=== PATIENT | male | born 1950 | race Caucasian/White ===

== ENCOUNTER 2017-05-20 12:03 | Day surgery (SDC) | payer BC, MEDICARE, SELFPAY ==
[2017-05-20] VITALS (7 sets, daily range): BP systolic 108–138; BP diastolic 64–76; PULSE 60–69; RESP 16–18; TEMP 36.6–36.9; O2SAT 94–99; BMI 31.8
--- NOTE | 2017-05-20 | COLBX_PTH ---
PATIENT: GLEN MACK LOC: EN U#:[id number] AGE/SX: 66/M ROOM: RE05/20/[address]: Dr. Fatou Mckeon MD : 1950 BED: DIS: 05/20/2017 SPEC #: [id number] RECD: 05/20/17 14:46 STATUS: ELIGIO RELarry #: [id number] ABDOULAYE: 05/20/17 00:[address]: Fatou Mckeon DEPT: SURGICAL PATHOLOGY RECD BY: Jeremy Jewell ENTERED: 05/20/17 14:47 SP TYPE: COLON BX OTHR DR: DEJON Corona Tissues: A - Transverse colon B - Rectum, NOS Procedures: Surgery Specimen Level IV HEADER OPERATION: Colonoscopy PRE-OP DIAGNOSIS: Anemia, guaiac positive stools TISSUE SUBMITTED: A ? Transverse colon polyp, B ? Rectal polyp MICROSCOPIC DIAGNOSIS A. Transverse colon polyp, biopsy: Hyperplastic polyp. B. Rectal polyp, biopsy: Tubular adenoma. AM:purnima 05/21/17 MICROSCOPIC DESCRIPTION Slides are reviewed. GROSS DESCRIPTION A - Received in fixative is one container labeled with the patient's name and designated transverse colon polyp. The specimen consists of one irregular fragment of light [place] soft tissue that measures 0.5 x 0.5 x 0.1 cm. The specimen is totally submitted in one cassette. B - Received in fixative is one container labeled with the patient's name and designated rectal polyps. The specimen consists of one irregular fragment of light [place] soft tissue that measures 0.2 x 0.1 x 0.1 cm. The specimen is totally submitted in one cassette. / AM:purnima 05/20/17 TC:5 CPT: 35690 x2
--- NOTE | 2017-05-20 | COLBX_PTH ---
PATIENT: GLEN MACK LOC: EN U#:[id number] AGE/SX: 66/M ROOM: RE05/20/[address]: Dr. Fatou Mckeon MD : 1950 BED: DIS: 05/20/2017 SPEC #: [id number] RECD: 05/20/17 14:46 STATUS: ELIGIO RELarry #: [id number] ABDOULAYE: 05/20/17 00:[address]: Fatou Mckeon DEPT: SURGICAL PATHOLOGY RECD BY: Jeremy Jewell ENTERED: 05/20/17 14:47 SP TYPE: COLON BX OTHR DR: DEJON Corona Tissues: A - Transverse colon B - Rectum, NOS Procedures: Surgery Specimen Level IV HEADER OPERATION: Colonoscopy PRE-OP DIAGNOSIS: Anemia, guaiac positive stools TISSUE SUBMITTED: A ? Transverse colon polyp, B ? Rectal polyp MICROSCOPIC DIAGNOSIS A. Transverse colon polyp, biopsy: Tubular adenoma. B. Rectal polyp, biopsy: Hyperplastic polyp. AM:purnima 05/21/17 AM: 05/30/17 MICROSCOPIC DESCRIPTION Slides are reviewed. GROSS DESCRIPTION A - Received in fixative is one container labeled with the patient's name and designated transverse colon polyp. The specimen consists of one irregular fragment of light [place] soft tissue that measures 0.5 x 0.5 x 0.1 cm. The specimen is totally submitted in one cassette. B - Received in fixative is one container labeled with the patient's name and designated rectal polyps. The specimen consists of one irregular fragment of light [place] soft tissue that measures 0.2 x 0.1 x 0.1 cm. The specimen is totally submitted in one cassette. / AM:purnima 05/20/17 TC:5 CPT: 27247 x2
[2017-05-20 12:45] LABS: Bedside Glucose 116 mg/dL (70-110)
--- NOTE | 2017-05-20 14:22 | PCM.OPRPT ---
Report of Operation Date of Procedure: 05/20/17 Pre-Operative Diagnosis: anemia of unknown etiology Post-Operative Diagnosis: colon polyps of transverse and rectum Surgery/Procedure Performed:: esophagogastroduodenoscopy. colonoscopy with polyectomy using hot snare device Description of Surgical Findings:: normal EGD, 1 cm transverse colon polyp, < 1 cm proximal rectal polyp Type of Anesthesia:: MAC Anesthesiologist: Ilda Watkins Specimen's removed: transverse colon polyp, rectal polyp Estimated Blood Loss (mL): < 1 ml Fluids Replaced: see anesthesia note Description of Procedure: After informed consent was given, the patient was brought to the endoscopy suite and placed in the upright sitting position. Appropriate time out protocol was followed. Appropriate cardiac, blood pressure, and pulse oximetry monitoring was placed. After stable vital signs were noted, the patient was given intravenous conscious sedation. The posterior pharynx was sprayed with lidocaine spray times two and a bite block was placed. The upper endoscope was lubricated and inserted into the patients mouth and then carefully placed into the patients throat. The patient was asked to swallow and the endoscope was then easily advanced into the patients esophagus. The endoscope was further advanced down into the patients stomach, then past the pylorus, then past the duodenal bulb and then to the second portion of the duodenum. There were no lesions noted in the duodenum. The endoscope was then retracted back into the stomach. A retroflex view of the stomach revealed no evidence of any masses. No ulcers, no strictures, no suspicious lesions were noted. The endoscope was retracted into the esophagus, where any insufflated gas in the stomach was aspirated out. The gastroesophageal junction appeared normal. The remainder of the esophagus was normal. The upper endoscope was removed intact. The next procedure was the colonoscopy. The colonoscope was lubricated and carefully inserted into the patients anus. It was then advanced into the rectum, then into the sigmoid colon, then into the left descending colon, past the splenic flexure, into the transverse colon, past the hepatic flexure, then down into the right descending colon and into the cecum. The cecum was identified by: transillumination, confluence of the tenae coli, identification of the ileocecal valve and appendiceal orifice, and external pressure with indentation. At this point, the colonoscope was slowly retracted back and the entire colonic mucosa was examined. The colon cleansing preparation was adequate. There was still some retained fecal material but this was able to be lavaged and aspirated until clear. There was no evidence of extrinsic compression and no inflammatory changes were noted. There was a transverse colon polyp that was noted, proximally and removed completely with the hot loop cautery device. There was a small, < 1 cm, rectal polyp that was also removed in the same fashion. No intraluminal obstructing lesions, no strictures, and no ulcers were noted. Retroflex view in the rectum revealed no lesions in the rectal vault except for hemorrhoidal changes. The colonoscope was removed intact. Patient tolerated the procedure well. - Complications none noted - Admit VTE Documentation VTE Present on Admission: No - low risk procedure for DVT/PE
--- NOTE | 2017-05-20 14:28 | OP.PCM_ITS ---
Report of Operation Date of Procedure: 05/20/17 Pre-Operative Diagnosis: anemia of unknown etiology Post-Operative Diagnosis: colon polyps of transverse and rectum Surgery/Procedure Performed:: esophagogastroduodenoscopy. colonoscopy with polyectomy using hot snare device Description of Surgical Findings:: normal EGD, 1 cm transverse colon polyp, < 1 cm proximal rectal polyp Type of Anesthesia:: MAC Anesthesiologist: Ilda Watkins Specimen's removed: transverse colon polyp, rectal polyp Estimated Blood Loss (mL): < 1 ml Fluids Replaced: see anesthesia note Description of Procedure: After informed consent was given, the patient was brought to the endoscopy suite and placed in the upright sitting position. Appropriate time out protocol was followed. Appropriate cardiac, blood pressure, and pulse oximetry monitoring was placed. After stable vital signs were noted, the patient was given intravenous conscious sedation. The posterior pharynx was sprayed with lidocaine spray times two and a bite block was placed. The upper endoscope was lubricated and inserted into the patient?s mouth and then carefully placed into the patient?s throat. The patient was asked to swallow and the endoscope was then easily advanced into the patient?s esophagus. The endoscope was further advanced down into the patient?s stomach, then past the pylorus, then past the duodenal bulb and then to the second portion of the duodenum. There were no lesions noted in the duodenum. The endoscope was then retracted back into the stomach. A retroflex view of the stomach revealed no evidence of any masses. No ulcers, no strictures, no suspicious lesions were noted. The endoscope was retracted into the esophagus, where any insufflated gas in the stomach was aspirated out. The gastroesophageal junction appeared normal. The remainder of the esophagus was normal. The upper endoscope was removed intact. The next procedure was the colonoscopy. The colonoscope was lubricated and carefully inserted into the patient?s anus. It was then advanced into the rectum, then into the sigmoid colon, then into the left descending colon, past the splenic flexure, into the transverse colon, past the hepatic flexure, then down into the right descending colon and into the cecum. The cecum was identified by: transillumination, confluence of the tenae coli, identification of the ileocecal valve and appendiceal orifice, and external pressure with indentation. At this point, the colonoscope was slowly retracted back and the entire colonic mucosa was examined. The colon cleansing preparation was adequate. There was still some retained fecal material but this was able to be lavaged and aspirated until clear. There was no evidence of extrinsic compression and no inflammatory changes were noted. There was a transverse colon polyp that was noted, proximally and removed completely with the hot loop cautery device. There was a small, < 1 cm, rectal polyp that was also removed in the same fashion. No intraluminal obstructing lesions, no strictures, and no ulcers were noted. Retroflex view in the rectum revealed no lesions in the rectal vault except for hemorrhoidal changes. The colonoscope was removed intact. Patient tolerated the procedure well. - Complications none noted - Admit VTE Documentation VTE Present on Admission: No - low risk procedure for DVT/PE
== END 2017-05-20 15:16 | disposition home or self-care (01) ==
LOC: EN 12:21 → AC 12:23
PROVIDERS: Family Provider Physician Assistant; PCP Physician Assistant; Visit Provider Surgery
PROC: 0DJD8ZZ Inspection of Lower Intestinal Tract, Via Natural or Artificial Opening Endoscopic (ICD-10-PCS; CPT 45378; principal; 2017-05-20 12:55)
DX: D12.8 Benign neoplasm of rectum (principal); K63.5 Polyp of colon; D64.9 Anemia, unspecified; C7A.8 Other malignant neuroendocrine tumors; I82.5Z1 Chronic embolism and thrombosis of unspecified deep veins of right distal lower extremity; Z79.01 Long term (current) use of anticoagulants; Z79.899 Other long term (current) drug therapy; Z79.84 Long term (current) use of oral hypoglycemic drugs; Z87.11 Personal history of peptic ulcer disease; Z80.0 Family history of malignant neoplasm of digestive organs; E11.40 Type 2 diabetes mellitus with diabetic neuropathy, unspecified; E78.5 Hyperlipidemia, unspecified; I10 Essential (primary) hypertension; E03.9 Hypothyroidism, unspecified; Z79.82 Long term (current) use of aspirin; K21.9 Gastro-esophageal reflux disease without esophagitis; R35.0 Frequency of micturition
CPT/HCPCS: 43235; 45385; 82962; 88305; J7120

== ENCOUNTER 2020-06-21 10:45 | Outpatient (RCR) | payer OTHER, SELFPAY ==
[2020-06-21] MEDS: COVID-19 VACC, MRNA(PFIZER)/PF 30 MCG/0.3 ML SYRINGE IM (10:05)
[2020-07-12] MEDS: COVID-19 VACC, MRNA(PFIZER)/PF 30 MCG/0.3 ML SYRINGE IM (09:56)
== END 2020-09-13 23:59 ==
LOC: IMMUN 10:45
PROVIDERS: PCP Physician Assistant; Visit Provider Family Medicine
DX: Z23 Encounter for immunization (principal)
CPT/HCPCS: 0001A; 0002A; 91300

== ENCOUNTER → 2020-12-08 10:42 | Outpatient (CLI) | payer OTHER, MEDICARE, SELFPAY ==
[2020-11-21 14:31] VITALS: BMI 33.0
--- NOTE | 2020-12-08 10:45 | ECHOD_ITS ---
Reason For Study: A. fib Procedure This was a 2D Doppler, Color Flow transthoracic echocardiogram. The exam was of adequate technical quality. Exam performed in department. Left Ventricle Normal LV size. Mild concentric left ventricular hypertrophy. Apical false tendon noted. Left ventricular systolic function is normal. The estimated ejection fraction is 60 %. There is evidence of diastolic dysfunction. No regional wall motion abnormalities noted. Right Ventricle Normal RV size. Normal systolic function. Atria The left atrium is moderately enlarged. Normal right atrium. No doppler evidence for ASD. Mitral Valve There is no mitral annular calcification. Normal mitral valve. Chordal systolic anterior motion of the mitral valve. Mild (1+) mitral valve insufficiency. Tricuspid Valve Normal tricuspid valve. Mild tricuspid valve insufficiency. Right ventricular systolic pressure estimated to be 36 mmHg. Aortic Valve Trisinus/trileaflet aortic valve. Mild focal aortic valve calcification. Pulmonic Valve Normal pulmonic valve. Great Vessels Normal sized aortic root. Pericardium/Pleural No pericardial effusion. MMode/2D Measurements & Calculations LVIDd: 5.4 cm IVSd: 1.4 cm Ao root diam: 3.9 cm LVIDs: 3.6 cm LVPWd: 1.3 cm RVDd: 3.6 cm FS: 33.2 % LAV(MOD-bp): 88.9 ml LA A4 area: 26.7 cm2 LA dimension(2D): 4.6 cm LAV(MOD-bp) Indexed: 38.8 ml/m2 LAV(MOD-sp2): 85.8 ml LAV(MOD-sp4): 91.8 ml RA A4 area: 19.4 cm2 Doppler Measurements & Calculations MV E max demarcus: 71.0 cm/sec Lat Peak E' Demarcus: 8.7 cm/sec Med Peak E' Demarcus: 6.1 cm/sec MV A max demarcus: 77.8 cm/sec E/E' lat: 8.2 E/E' med: 11.7 MV E/A: 0.91 Ao V2 max: 172.7 cm/sec LV V1 max: 105.0 cm/sec PA V2 max: 125.0 cm/sec Ao max P.9 mmHg LV V1 max P.4 mmHg TR max demarcus: 288.6 cm/sec TR max P.4 mmHg ECHO/Echo Complete Interpretation Summary Left ventricular systolic function is normal. The estimated ejection fraction is 60 %. Mild concentric left ventricular hypertrophy. Apical false tendon noted. The left atrium is moderately enlarged. Chordal systolic anterior motion of the mitral valve. Mild (1+) mitral valve insufficiency. Mild tricuspid valve insufficiency. Mild focal aortic valve calcification. Right ventricular systolic pressure estimated to be 36 mmHg. There is evidence of diastolic dysfunction. Ordering Physician: Mark Coreas/Harlan Allison Referring Physician: Mark Coreas/Harlan Allison Performed By: Samia Pérez RDCS
== END ==
PROVIDERS: PCP Physician Assistant; Referring Provider Nurse Practitioner Family; Visit Provider Nurse Practitioner Family
DX: I48.0 Paroxysmal atrial fibrillation (principal); I10 Essential (primary) hypertension; E78.2 Mixed hyperlipidemia; R42 Dizziness and giddiness
CPT/HCPCS: 93225; 93226; 93306

== ENCOUNTER 2020-12-10 09:15 | Emergency (ER) | payer OTHER, MEDICARE, SELFPAY ==
[2020-12-10] VITALS (24 sets, daily range): BP systolic 100–156; BP diastolic 31–74; PULSE 73–90; RESP 8–18; TEMP 36.5–37.1; O2SAT 96–100; BMI 32.1
--- NOTE | 2020-12-10 10:16 | CT_ITS ---
STUDY: CT ABDOMEN AND PELVIS WITH CONTRAST REASON FOR EXAM: Male, 70 years old. abdomial pain -- IV PO Contrast RADIATION DOSAGE (If Supplied By Facility): CTDIvol = ( 19.66 ) mGy, DLP = ( 1426.23 ) mGycm TECHNIQUE: Transaxial images were obtained from the dome of the diaphragm to the symphysis pubis without oral contrast. Oral and amp; IV Gastrografin and amp; 100mL Isovue-300 was administered. Sagittal and coronal images were reconstructed. Individualized dose optimization techniques were used for this CT. COMPARISON: None. FINDINGS: The visualized lung bases are unremarkable. The visualized portions of the heart are within normal limits. Small amount of ascites. Normal liver. Poor visualization of the portal vein with suggestion of cavernous transformation. Numerous vascular shunts in the upper abdomen. There is non-visualization of the gallbladder, which may be secondary to either contraction or a prior cholecystectomy. There is mild splenomegaly. Normal pancreas. Normal bilateral adrenal glands. Normal right kidney. Normal left kidney. Suspect partial gastrectomy with gastrojejunostomy anastomosis. Normal small intestine. Innumerable small mesenteric lymph nodes and edema of the mesentery may be related to portal hypertension, gastroenteritis, sclerosing mesenteritis, or metastatic disease. Normal colon. The appendix is visualized and appears normal. There is diffuse atherosclerotic calcification of the abdominal aorta, without a demonstrated aneurysm. Normal inferior vena cava. Normal retroperitoneum. Normal urinary bladder. There is enlargement of the prostate gland. Small right inguinal hernia containing fluid. Normal osseous structures. CT/Abdomen/Pelvis WITH Contrast IMPRESSION: 1. Small amount of ascites. 2. 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 Clinical correlation is recommended. 3. Innumerable small mesenteric lymph nodes with edema in the upper abdomen which may be related to portal hypertension, gastroenteritis, sclerosing mesenteritis, or metastatic disease. Electronically Signed: Bc Daugherty MD at 13:24 EDT Tel , Service support ,
--- NOTE | 2020-12-10 10:16 | EKG12_ITS ---
Test Reason : GI Blood Pressure : / mmHG Vent. Rate : 084 BPM Atrial Rate : 084 BPM P-R Int : 166 ms QRS Dur : 102 ms QT Int : 398 ms P-R-T Axes : 013 -41 018 degrees QTc Int : 470 ms Normal sinus rhythm Left axis deviation Abnormal ECG Confirmed by XIMENA CATHERINE, DELORES ([id number]), online content editor LIONEL KNUTSON ([id number]) on 12/13/2020 8:04:29 AM Referred By: PAWAN Confirmed By:JOHNSON BUENO MD
--- NOTE | 2020-12-10 10:16 | CT_ITS ---
STUDY: CT BRAIN WITHOUT CONTRAST REASON FOR EXAM: Male, 70 years old. double vision RADIATION DOSAGE (If Supplied By Facility): CTDIvol = ( 44.99 ) mGy, DLP = ( 914.22 ) mGycm TECHNIQUE: Transaxial CT imaging of the brain was performed without administration of intravenous contrast material. Individualized dose optimization techniques were used for this CT. COMPARISON: No relevant priors. FINDINGS: Normal soft tissue structures. Normal calvarium. There is mild cerebral atrophy with widening of the extra-axial spaces and ventricular dilatation. There are areas of decreased attenuation within the white matter tracts of the supratentorial brain, consistent with microvascular disease changes. Normal basal ganglia and thalami. Normal brainstem. Normal cerebellum. There is no intracranial hemorrhage. There are no findings of an acute ischemic infarction. Normal visualized paranasal sinuses. CT/Brain/Head without Contrast IMPRESSION: Chronic involutional changes of the brain. Electronically Signed: Bc Daugherty MD at 13:29 EDT Tel , Service support ,
--- NOTE | 2020-12-10 10:19 | ED.VIS.GI ---
HPI HPI - GI History of Present Illness Chief Complaint: GI Bleed Narrative Narrative: 70-year-old male presenting with melena and bloody stool over the last 2 days. He states the melena has been ongoing. Patient states that he has a history of pancreatic cancer and had surgery and states that he was told they nicked the vessel. Postoperatively he was on Coumadin for what his daughter say might be portal vein thrombosis. Patient has a history of atrial fibrillation as well. Patient states he had surgery for his pancreatic cancer and is no longer on chemotherapy and sees Dr. Avila and is not on chemotherapy. He does report history of pancytopenia. Patient also has significant history of hypertension, hyperlipidemia, diabetes. Patient reports that for his lightheadedness which has been ongoing for about a month as well he was seen by Dr. Allison and had an echocardiogram which they believe was fine. He also had a follow-up Holter monitor. Patient does report double vision for 1 month. He states he has not had any imaging of his brain but did have a CT of the abdomen pelvis in October which appeared to be consistent with liver disease and he was told he has portal hypertension and cirrhosis as well as esophageal varices. Patient was seen at [facility] and had upper endoscopy which showed no active bleeding from the varices previously. Patient does report chronic right-sided abdominal pain which is unchanged. [facility] Medical History Atrial fibrillation Essential (primary) hypertension Hyperlipemia, mixed Lung nodule Type 2 diabetes mellitus without complications Home Medications esomeprazole magnesium 40 mg capsule,delayed release 40 mg PO QDAY cap 03/15/17 [History Last Taken 05/20/17 05:00] levothyroxine 125 mcg tablet 125 mcg PO QDAY tab 03/15/17 [History Last Taken Unknown] metronidazole 0.75 % topical gel 1 applic TOPICAL BID 03/15/17 [History Last Taken Unknown] simvastatin 20 mg tablet 20 mg PO QPM 03/15/17 [History Last Taken Unknown] tamsulosin 0.4 mg capsule 0.4 mg PO QHS cap 03/15/17 [History Last Taken Unknown] dutasteride 0.5 mg capsule 0.5 mg PO QDAY 03/19/17 [History Last Taken Unknown] ferrous gluconate 324 mg (37.5 mg iron) tablet 324 mg PO BID tab 03/19/17 [History Last Taken Unknown] gabapentin 300 mg capsule 400 mg PO QDAY cap 11/21/20 [History Last Taken Unknown] lisinopril 20 mg tablet 5 mg PO QDAY tab 11/21/20 [History Last Taken Unknown] metformin 850 mg tablet 1,000 mg PO BID tab 11/21/20 [History Last Taken Unknown] omeprazole 40 mg capsule,delayed release 40 mg PO DAILY 11/21/20 [History Last Taken Unknown] warfarin 10 mg tablet 7.5 mg PO QMWF 11/21/20 [History Last Taken Unknown] Allergy/AdvReac Type Severity Reaction Status Date / Time heparin AdvReac Other Verified 12/10/20 09:16 Family History Mother Colon cancer Diabetes Father Lung cancer Surgical History Hx of cataract surgery Hx of vasectomy Social History Smoking Status: Never smoker alcohol intake: former substance use type: does not use and marijuana caffeine: Yes Type: carbonated beverages and coffee what type of physical activity do you participate in: walking frequency: daily duration: 15-30 minutes/day seatbelt use: always do you feel safe at home: Yes ROS ROS ED Constitutional Constitutional ED: Denies chills, fever(s) or sweats ENT ENT ED: Denies rhinorrhea or sore throat Cardiovascular Cardiovascular: Reports palpitations; Denies chest pain Respiratory/Chest Respiratory/Chest: Denies cough or dyspnea Gastrointestinal Gastrointestinal: Reports abdominal pain, melena and other Details: Blood in stool ; Denies nausea or vomiting Genitourinary Genitourinary ED: Denies dysuria or hematuria Musculoskeletal Musculoskeletal: Denies arthralgias or myalgias Integumentary Denies Abrasions or rash Neurologic Neurologic: Denies headache(s) Psychiatric Psychiatric: Denies anxiety or depression EXAM Physical Exam Const Vital Signs: 12/10/20 09:16 12/10/20 11:37 12/10/20 13:07 Temperature 98.1 F 98.5 F Temperature Source Temporal Oral Pulse Rate 90 83 85 Respiratory Rate 8 L 16 Blood Pressure 125/65 H 109/42 L 110/52 L Blood Pressure Mean 85 64 71 Blood Pressure Source Monitor Blood Pressure Position Semi-Fowlers Blood Pressure Location Left Arm Pulse Ox 100 98 98 Oxygen Delivery Method Room Air Room Air Room Air 12/10/20 13:22 12/10/20 14:05 12/10/20 14:22 Temperature 98.5 F 98.1 F 98.8 F Temperature Source Oral Oral Oral Pulse Rate 83 84 79 Respiratory Rate 16 16 16 Blood Pressure 117/49 L 116/50 L Blood Pressure Mean 71 72 Blood Pressure Source Monitor Blood Pressure Position Semi-Fowlers Blood Pressure Location Left Arm Left Arm Pulse Ox 98 97 98 Oxygen Delivery Method Room Air Room Air Room Air 12/10/20 14:47 12/10/20 15:59 12/10/20 16:02 Temperature 98.4 F 98.5 F Temperature Source Oral Oral Pulse Rate 79 80 Respiratory Rate 16 18 Blood Pressure 139/54 H 128/52 H 129/49 H Blood Pressure Mean 82 77 75 Blood Pressure Source Monitor Monitor Blood Pressure Position Semi-Fowlers Semi-Fowlers Blood Pressure Location Left Arm Left Arm Pulse Ox 98 99 Oxygen Delivery Method Room Air Room Air 12/10/20 16:17 12/10/20 16:19 12/10/20 17:17 Temperature 98.6 F 98.6 F 98.3 F Temperature Source Oral Oral Oral Pulse Rate 83 83 73 Respiratory Rate 16 16 16 Blood Pressure 120/53 L 122/62 H 156/44 H Blood Pressure Mean 75 82 81 Blood Pressure Source Monitor Monitor Monitor Blood Pressure Position Semi-Fowlers Semi-Fowlers Semi-Fowlers Blood Pressure Location Left Arm Left Arm Left Arm Pulse Ox 98 97 99 Oxygen Delivery Method Room Air Room Air 12/10/20 19:00 12/10/20 19:01 12/10/20 20:01 Temperature 98.5 F Temperature Source Oral Pulse Rate 81 77 88 Respiratory Rate 14 15 15 Blood Pressure 120/60 131/53 H 125/57 H Blood Pressure Mean 80 79 79 Blood Pressure Source Monitor Blood Pressure Position Semi-Fowlers Blood Pressure Location Left Arm Pulse Ox 97 96 97 Oxygen Delivery Method Room Air Room Air 12/10/20 20:29 Temperature 98.5 F Temperature Source Oral Pulse Rate 77 Respiratory Rate 15 Blood Pressure 131/53 H Blood Pressure Mean 79 Blood Pressure Source Monitor Blood Pressure Position Semi-Fowlers Blood Pressure Location Left Arm Pulse Ox 97 Oxygen Delivery Method Room Air Positive obese General Appearance ED: NAD; Negative for pallor Nutritional Appearance: obese HEENT Reports moist mucous membranes normocephalic and atraumatic Eyes PERRL and EOMs intact bilaterally Eyes Narrative: Diplopia with bilateral vision however when 1 eye is covered there is no diplopia present. General Eye ED: Negative for pale conjunctiva or scleral icterus Resp normal respiratory effort and clear to auscultation bilaterally Cardio regular rate and regular rhythm GI GI Narrative: Mild right-sided tenderness to palpation of the abdomen. Abdomen is slightly distended. No fluid shift is noted. Palpation: soft Extremity full ROM General Extremety ED: Yes edema; Negative for tenderness General Extremity: edema Neuro CN's II-XII intact bilaterally and moves all extremities Sensorium / Orientation: alert, oriented to person, oriented to place and oriented to time Motor Exam: strength 5/5 throughout Psych mental status grossly normal and thought process normal Skin General Skin Exam: Negative for jaundice or pallor Lesions: no lesions Rashes: no rashes MDM MDM MDM Narrative Medical decision making narrative: Patient presenting with diplopia for a month. This only appears when he looks with both eyes. Unilateral he has no double vision. He has not had any imaging of his brain. He has had a cardiac evaluation with a normal echocardiogram. The patient just dropped off his Holter monitor yesterday and this has not resulted in our system. Patient's lab work shows that his white blood cell count is 5.2 hemoglobin 7.7, hematocrit 24.2, platelets 83. Patient just had blood work done on 817 and where his hemoglobin was 13.2 and his platelets were 65. LFTs are not abnormal. Lipase is normal. Renal function is normal. Patient's BUN is elevated but this is likely due to GI bleed. He does have red stool per rectum. I obtained a chest x-ray which on my interpretation shows no acute cardiopulmonary process. COVID-19 testing is negative. Patient was typed, screened, crossmatch 2 units of blood. I will obtain a CT of the abdomen pelvis. Patient will likely need to go to a tertiary facility. Patient did have 1 bloody bowel movement here today. His EKG on my interpretation shows normal sinus rhythm at 84 bpm without signs of ischemic changes. I was not able to find any history of portal vein thrombosis but I did find history of portal hypertension and I think this is likely what the family meant. Patient was discussed with [facility] and they are accepting him to the stepdown ICU. They requested 4 units of fresh frozen plasma. Patient has not had any repeat bloody stools. Patient is currently awaiting transport but has a bed assignment. He will be signed out to incoming ED physician for monitoring until transfer. Impression: 1. Lower GI bleed 2. Blood loss anemia Lab Data Attestation: I reviewed the patient's lab results. Labs: Laboratory Results - last 24 hr 12/10/20 12/10/20 12/10/20 09:40 09:40 09:40 WBC 5.5 RBC 2.68 L Hgb 7.7 L Hct 24.2 L MCV 90.3 MCH 28.7 MCHC 31.8 L RDW Std Deviation 54.7 H RDW Coeff of Penny 16.7 H Plt Count 83 L MPV 12.7 H Immature Gran % (Auto) 0.200 Neut % (Auto) 69.7 Lymph % (Auto) 22.6 Barber % (Auto) 6.0 Eos % (Auto) 1.1 Baso % (Auto) 0.4 Absolute Neuts (auto) 3.9 Absolute Lymphs (auto) 1.25 Nucleated RBC % 0 Platelet Estimate SLT DEC PT 28.9 H INR 2.8 Sodium 138 Potassium 4.6 Chloride 109 H Carbon Dioxide 24.0 Anion Gap 5 BUN 28 H Creatinine 0.74 Estim Creat Clear Calc 73.29 Est GFR (MDRD) Af Amer 133 Est GFR (MDRD) Non-Af 110 BUN/Creatinine Ratio 37.6 H Glucose 182 H Calcium 8.4 L Total Bilirubin 0.80 Direct Bilirubin 0.23 AST 21 ALT 26 Alkaline Phosphatase 95 Troponin I High Sens 7 Total Protein 5.5 L Albumin 2.6 L Globulin 2.9 Lipase 51 L Urine Color Urine Clarity Urine pH Ur Specific [place] Urine Protein Urine Glucose (UA) Urine Ketones Urine Occult Blood Urine Nitrite Urine Bilirubin Urine Urobilinogen Ur Leukocyte Esterase Urine RBC Urine WBC Ur Squamous Epith Cells Urine Bacteria Urine Mucus Blood Type Antibody Screen Crossmatch 12/10/20 12/10/20 12/10/20 10:48 10:48 12:43 WBC RBC Hgb Hct MCV MCH MCHC RDW Std Deviation RDW Coeff of Penny Plt Count MPV Immature Gran % (Auto) Neut % (Auto) Lymph % (Auto) Barber % (Auto) Eos % (Auto) Baso % (Auto) Absolute Neuts (auto) Absolute Lymphs (auto) Nucleated RBC % Platelet Estimate PT INR Sodium Potassium Chloride Carbon Dioxide Anion Gap BUN Creatinine Estim Creat Clear Calc Est GFR (MDRD) Af Amer Est GFR (MDRD) Non-Af BUN/Creatinine Ratio Glucose Calcium Total Bilirubin Direct Bilirubin AST ALT Alkaline Phosphatase Troponin I High Sens Total Protein Albumin Globulin Lipase Urine Color Yellow Urine Clarity Clear Urine pH 5.0 Ur Specific [place] 1.020 Urine Protein Negative Urine Glucose (UA) 1000 H Urine Ketones 5 H Urine Occult Blood Negative Urine Nitrite Negative Urine Bilirubin Negative Urine Urobilinogen Normal Ur Leukocyte Esterase Negative Urine RBC 0 SEEN Urine WBC 0 SEEN Ur Squamous Epith Cells 0-5 SEEN Urine Bacteria 0 SEEN Urine Mucus 0 SEEN Blood Type O POSITIVE Antibody Screen NEGATIVE Crossmatch See Detail Radiography Diagnostic Testing: Radiology Impression Abdomen/Pelvis CT 12/10/20 10:16 IMPRESSION: 1. Small amount of ascites. 2. 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 Clinical correlation is recommended. 3. Innumerable small mesenteric lymph nodes with edema in the upper abdomen which may be related to portal hypertension, gastroenteritis, sclerosing mesenteritis, or metastatic disease. Electronically Signed: Bc Daugherty MD at 13:24 EDT Tel , Service support , Brain CT 12/10/20 10:16 IMPRESSION: Chronic involutional changes of the brain. Electronically Signed: Bc Daugherty MD at 13:29 EDT Tel , Service support , Chest X-Ray 12/10/20 10:45 IMPRESSION: Normal x-ray examination of the chest. Electronically Signed: Bc Daugherty MD at 10:59 EDT Tel , Service support , Discharge Plan Triage Chief Complaint: GI Bleed ED Provider: Joshua Brantley Dx/Rx/DC Orders Prescriptions: No Action dutasteride 0.5 mg capsule 0.5 mg PO QDAY RF: 0 ferrous gluconate 324 mg (37.5 mg iron) tablet 324 mg PO BID RF: 0 gabapentin 300 mg capsule 400 mg PO QDAY RF: 0 metformin 850 mg tablet 1,000 mg PO BID RF: 0 omeprazole 40 mg capsule,delayed release(DR/EC) 40 mg PO DAILY RF: 0 warfarin 10 mg tablet 7.5 mg PO QMWF RF: 0 levothyroxine 125 mcg tablet 125 mcg PO QDAY RF: 0 metronidazole 0.75 % gel 1 applic TOPICAL BID RF: 0 esomeprazole magnesium [Nexium] 40 mg capsule,delayed release(DR/EC) 40 mg PO QDAY RF: 0 simvastatin 20 mg tablet 20 mg PO QPM RF: 0 tamsulosin 0.4 mg capsule,extended release 24hr 0.4 mg PO QHS RF: 0 lisinopril 20 mg tablet 5 mg PO QDAY RF: 0 Primary Care Provider: Yesica Dey
[2020-12-10 10:29] LABS: Absolute Lymphocyte Count 1.25 X10^3/uL (0.83-4.51); Absolute Neutrophil Count 3.9 X10^3/uL (2.0-7.7); Basophil# 0.02 X10^3/uL; Basophil% 0.4 % (0-1); Eosinophil# 0.06 X10^3/uL; Eosinophils% 1.1 % (0-5); Hematocrit 24.2 % (40-54); Hemoglobin 7.7 g/dL (13.0-16.5); Lymphocyte # 1.25 X10^3/ul (0.83-4.51); Lymphocyte % 22.6 % (19-41); Mean Corp Hgb Conc 31.8 g/dL (32-36); Mean Corpuscular Hgb 28.7 pg (27.0-32.0); Mean Corpuscular Volume 90.3 fL (80-94); Mean Platelet Vol. 12.7 fl (6.2-12.0); Monocyte# 0.33 X10^3/uL; NRBC Flagged by Analyzer 0 % (0-5); Neutrophil # 3.86 X10^3/uL (2.7-7.7); Neutrophil % 69.7 % (47-70); POSITIVE COUNT YES; Platelet Count 83 K/mm3 (150-450); RBC Distribution Width CV 16.7 % (11.6-14.6); RBC Distribution Width SD 54.7 fl (35.1-43.9); Red Blood Count 2.68 M/mm3 (4.6-6.2); White Blood Count 5.5 K/mm3 (4.4-11.0)
[2020-12-10 10:30] LABS: Differential Indicated SCAN CRITERIA MET; International Normalized Ratio 2.8; Prothrombin Time (Protime)PT. 28.9 SECONDS (11.7-14.9)
[2020-12-10 10:40] LABS: AST(SGOT) 21 U/L (15-37); Alanine Aminotransfer ALT/SGPT 26 U/L (16-61); Albumin, Serum 2.6 g/dL (3.2-5.0); Alkaline Phosphatase 95 U/L (45-117); Anion Gap 5 (5-15); BUN 28 mg/dL (7-18); BUN/Creat Ratio 37.6 RATIO (10-20); Bilirubin, Direct 0.23 mg/dL (0.00-0.30); Calcium,Total 8.4 mg/dL (8.5-10.1); Chloride 109 mmol/L (98-107); Creatinine, Serum 0.74 mg/dL (0.70-1.30); EST Glomerular Filtration Rate 110 mL/min (>60); Est Glom Filt Rate - Afr Amer 133 mL/min (>60); Estimated Creatinine Clearance 73.29 ml/min; Globulin 2.9 g/dL (2.2-4.2); Glucose 182 mg/dL (74-106); Lipase 51 U/L (73-393); Potassium 4.6 mmol/L (3.5-5.1); Protein, Total 5.5 g/dL (6.4-8.2); Sodium Level 138 mmol/L (136-145); Troponin-I HS 7 pg/mL (3.0-78.0)
--- NOTE | 2020-12-10 10:45 | RAD_ITS ---
STUDY: X-RAY CHEST REASON FOR EXAM: Male, 70 years old. weakness TECHNIQUE: Single AP portable view of the chest. COMPARISON: None. FINDINGS: The lungs are clear and expanded. There is no demonstrated pleural abnormality. Normal size heart. Normal mediastinum and [place]. Normal visualized pulmonary arteries. Normal visualized aortic arch and descending thoracic aorta. Normal visualized thoracic spine. Normal visualized ribs, clavicles, and shoulders. There is no demonstrated abnormality of the visualized soft tissue structures of the upper abdomen. RAD/Chest 1 View (Portable) IMPRESSION: Normal x-ray examination of the chest. Electronically Signed: Bc Daugherty MD at 10:59 EDT Tel , Service support ,
[2020-12-10 10:53] LABS: Platelet Estimate SLT DEC (ADEQ)
[2020-12-10 12:50] LABS: Bacteria 0 SEEN /hpf (None Seen); Mucous, Urine 0 SEEN /hpf (<or=2+); Red Blood Cells-Urine 0 SEEN /hpf (0-5); White Blood Cells 0 SEEN /hpf (0-5)
[2020-12-10 12:51] LABS: Color, Urine Yellow (Yellow); Glucose, Dipstick 1000 mg/dl (Normal); Ketone-Dipstick 5 mg/dl (Negative); Leukocyte Esterase-Dipstick Negative /ul (Negative); Nitrite-Dipstick Negative (Negative); Occult Blood-Urine Negative /ul (Negative); Protein-Dipstick Negative (Negative); Urine Bilirubin Dipstick Negative (Negative); Urine Clarity Clear (Clear); Urine Urobilinogen Normal (Normal)
[2020-12-10 13:02] LABS: Squamous Epithelial Cells - UA 0-5 SEEN /hpf (0-5)
[2020-12-11] VITALS: BP 134/62; PULSE 77; RESP 15; O2SAT 97
== END 2020-12-11 00:20 ==
LOC: ED 10:43
PROVIDERS: Emergency Provider Student in an Organized Health Care Education/Training Program; PCP Physician Assistant
DX: K92.1 Melena (principal); D50.0 Iron deficiency anemia secondary to blood loss (chronic); I10 Essential (primary) hypertension; E11.9 Type 2 diabetes mellitus without complications; R10.9 Unspecified abdominal pain; I48.91 Unspecified atrial fibrillation; E78.2 Mixed hyperlipidemia; Z79.84 Long term (current) use of oral hypoglycemic drugs; Z85.07 Personal history of malignant neoplasm of pancreas
CPT/HCPCS: 36430; 70450; 71045; 74177; 80048; 80076; 81001; 82274; 83690; 84484; 85025; 85610; 86644; 86850; 86900; 86901; 86920; 86922; 87426; 93005; 99285; J7030; P9016; P9017; P9040; Q9967; A4216

== ENCOUNTER → 2021-01-11 09:56 | Outpatient (CLI) | payer OTHER, MEDICARE, SELFPAY ==
--- NOTE | 2021-01-11 09:58 | CDU_ITS ---
Reason For Study: Lightheadedness Rt. Velocities/BP Lt. Velocities/BP Prox CCA 99/18 cm/sec. Prox CCA 100/7 cm/sec. Mid CCA 93/9 cm/sec. Mid CCA 91/18 cm/sec. Dist CCA 81/17 cm/sec. Dist CCA 80/13 cm/sec. Prox ICA 75/12 cm/sec. Prox ICA 83/16 cm/sec. Mid ICA 72/18 cm/sec. Mid ICA 78/19 cm/sec. Dist ICA 74/19 cm/sec. Dist ICA 121/34 cm/sec. Rt. ICA/CCA = 0.8. Lt. ICA/CCA = 1.3. Prox ECA 91/7 cm/sec. Prox ECA 119/12 cm/sec. Rt. Vert. 52/17 cm/sec. Lt. Vert. 51/17 cm/sec. Right Extracranial There is heterogeneous, irregular atherosclerotic plaque noted in the right common carotid artery. There is intimal thickening but no significant atherosclerotic plaque noted in the right internal carotid artery. There is no significant atherosclerotic plaque noted in the right external carotid artery. Antegrade flow is noted in the right vertebral artery. Left Extracranial There is intimal thickening but no significant atherosclerotic plaque noted in the left common carotid artery. There is heterogeneous, smooth atherosclerotic plaque noted in the left internal carotid artery. There is intimal thickening but no significant atherosclerotic plaque noted in the left external carotid artery. Antegrade flow is noted in the left vertebral artery. Procedure Carotid Duplex 42177. This is a Carotid Duplex examination using B-mode, color flow and specral Doppler. Exam performed in department. VL/Carotid Duplex Ultrasound Interpretation Summary Intimal thickening at the proximal right internal carotid artery with less than 50% stenosis Less than 50% stenosis right external carotid artery Heterogenous smooth plaque in the proximal left internal carotid artery with le ss than 50% stenosis Less than 50% stenosis left external carotid artery Patent and antegrade vertebral arteries bilaterally Ordering Physician: Mark Coreas Referring Physician: Diogo Dey Performed By: Tena Coreas, KEDAR, RVT
== END ==
PROVIDERS: PCP Physician Assistant; Referring Provider Nurse Practitioner Family; Visit Provider Nurse Practitioner Family
DX: I65.22 Occlusion and stenosis of left carotid artery (principal)
CPT/HCPCS: 93880

== ENCOUNTER → 2021-01-24 10:52 | Outpatient (CLI) | payer OTHER, MEDICARE, SELFPAY ==
[2021-01-24 11:44] LABS: Platelet Count 73 K/mm3 (150-450)
[2021-01-24 11:54] LABS: International Normalized Ratio 2.6; Prothrombin Time (Protime)PT. 27.1 SECONDS (11.7-14.9)
[2021-01-24 11:56] LABS: Partial Thromboplast Time 31.6 Seconds (24.1-36.2)
== END ==
PROVIDERS: PCP Physician Assistant; Referring Provider Internal Medicine Gastroenterology; Visit Provider Internal Medicine Gastroenterology
DX: R18.8 Other ascites (principal)
CPT/HCPCS: 36415; 85049; 85610; 85730

== ENCOUNTER → 2021-02-07 08:13 | Outpatient (CLI) | payer OTHER, MEDICARE, SELFPAY ==
[2021-02-07] VITALS (10 sets, daily range): BP systolic 100–134; BP diastolic 57–88; PULSE 59–77; RESP 13–24; TEMP 37.2; O2SAT 94–100; BMI 31.2
--- NOTE | 2021-02-07 | IMM_PTH ---
PATIENT: GLEN MACK LOC: U#:[id number] AGE/SX: 74/M ROOM: RE02/07/[address]: Dr. Trav Toscano DO : 1950 BED: DIS: SPEC #: [id number] RECD: 02/08/21 12:09 STATUS: ELIGIO ISIDRO #: [id number] ABDOULAYE: 02/07/21 00:[address]: Trav Toscano DEPT: IMMUNOHISTOCHEMISTRY RECD BY: Judi Peterson ENTERED: 02/08/21 12:10 SP TYPE: IMMUNO OTHR DR: DEJON Corona Tissues: PARACENTESIS FLUID Procedures: Juan Ret (add) CK20 (add) CK5-6 (add) CK7 (add) CK8 (add) MACRO (add) Vimentin (add) Pankeratin (initial) PHYSICIAN & INSTITUTION [place] [id number] SPECIMEN INFORMATION: Tissue Source: Paracentesis fluid Clinical Info: Ascites Specimen Number: [id number] CPT code: 94319, 45779 x7 METHODOLOGY: Deparaffinized sections of prefer/formalin-fixed tissue or PAP/DQ stained slides are incubated with monoclonal/polyclonal antibodies/oligonucleotide probes. Localization is made via biotin free immunoperoxidase method. Appropriate controls are performed and reacted as expected. Results on target cell population are indicated in the following table: RESULTS: ANTIBODY / CLONE RESULT AE1-3 (AE1/AE3/PCK26) negative * CK7 (OV-TL12/30) negative * CK8 (55pinoY83) negative * CK20 (KS20.8) negative Vimentin (V9) negative * Macro (HAM-56) negative (positive in macrophages) CALRET (polyclonal) negative * CK5-6 (D5 & 1684) negative * *?Positive in mesothelial cells. These tests were developed and their performance characteristics determined by [facility]. They may not have been cleared or approved by the U.S. Food and Drug Administration. The FDA has determined that such clearance or approval is not necessary. The above immunohistochemical/dualISH markers are ordered and reviewed by the Pathologist. INTERPRETATION: Paracentesis fluid: Negative for malignant cells. LESLIE:purnima 02/09/2021
--- NOTE | 2021-02-07 | FLU_PTH ---
PATIENT: GLEN MACK LOC: U#:[id number] AGE/SX: 74/M ROOM: RE02/07/[address]: Dr. Trav Toscano DO : 1950 BED: DIS: SPEC #: [id number] RECD: 02/07/21 09:19 STATUS: ELIGIO ISIDRO #: [id number] ABDOULAYE: 02/07/21 00:[address]: Trav Toscano DEPT: CYTOLOGY RECD BY: Ramonita Ashley ENTERED: 02/07/21 10:19 SP TYPE: Fluid OTHR DR: DEJON Corona Tissues: PARACENTESIS FLUID Procedures: Special Stain Group II Surgery Specimen Level IV Cytospin Fluid HEADER OPERATION: Ultrasound-guided left paracentesis PRE-OP DIAGNOSIS: Ascites TISSUE SUBMITTED: Paracentesis fluid for cytology DIAGNOSIS CYTOLOGY Paracentesis fluid for cytology (cytospin and cell block): Negative for malignant cells. See comment. SJ:purnima 02/08/2021 COMMENT Immunohistochemistry ([id number]) supports the above diagnosis. Please make reference to corresponding surgical specimen ([id number]) liver, CT-guided core biopsy with diagnosis of ?liver parenchymal tissue with extensive macro- and microvesicular steatosis.? Case has been reviewed in consultation with Dr. Pulido who concurs with the above diagnosis. IDC:AM CYTOLOGY STUDY Slides are reviewed. CYTOLOGY GROSS Received is 90 ml of yellow cloudy fluid labeled with the patient's name and and designated per the requisition as paracentesis. Submitted for cytology preparation including cell block. / purnima 02/07/2021 TC:5 CPT: 62968, 95342
--- NOTE | 2021-02-07 08:15 | CT_ITS ---
PROCEDURE: CT DIRECTED CORE LIVER BIOPSY INDICATION: Male, 70 years old. Cirrhosis diagnoses PHYSICIAN: Dr. FRANKY Henderson CONSENT: Written informed consent was obtained having explained the risks, benefits and alternatives in detail with the patient who accepted the risks and agreed to proceed. Laboratory review and clinical assessment was performed. CONSCIOUS SEDATION PROTOCOL: The Drugs used were: 2 mg Versed, IV., and 50 mcg Fentanyl, IV. The sedation time was: 18 minutes. Conscious sedation was started at 9:44 AM and terminated at 10:02 AM. The conscious sedation protocol was independently monitored. RADIATION DOSAGE (If Supplied By Facility): CTDIvol = ( 22 ) mGy, DLP = ( 582.56 ) mGycm Individualized dose optimization techniques were used for this CT. TECHNIQUE: Using CT image guidance with image documentation, a suitable location in the right lobe of the liver was identified. Using an anterior approach, puncture of the liver was uneventful with an 18-gauge core needle system. 3, 18-gauge core samples were obtained, and submitted in formalin to the pathologist for further assessment. Followup CT scan revealed no distinct sequelae. CT/Biopsy/Inj or Needle Placement IMPRESSION: 1. CT directed core needle biopsy of the liver, using CT image guidance with image documentation as described. 2. Conscious Sedation protocol utilized with independent monitoring. Electronically Signed: Lamberto Jaeger MD at 11:25 EDT , Service support ,
--- NOTE | 2021-02-07 08:15 | US_ITS ---
PROCEDURE: Ultrasound guided paracentesis. DATE OF EXAMINATION: 02/07/2021. INDICATION: Male, 70 years old. Ascites. PHYSICIAN: Lamberto Jaeger M.D. TECHNIQUE: The risks, benefits, and alternatives to the procedure were explained to the patient. The specific risks of bleeding, infection, and damage to bowel were detailed and accepted. Witnessed informed consent was obtained. The abdomen was ultrasonographically surveyed. An appropriate pocket of fluid was identified at the left lower quadrant. The skin were cleaned and prepped in the usual sterile fashion. Using ultrasound guidance, the peritoneal cavity was accessed with a 5-Setswana paracentesis needle/catheter system. The trocar was removed. A total of 100 ml of angeli-colored fluid were removed from the peritoneal cavity. The sample was sent to the laboratory. The catheter was removed and a sterile dressing was applied. The procedure was well tolerated. US/Paracentesis with US IMPRESSION: Ultrasound guided paracentesis. Electronically Signed: Lamberto Jaeger MD at 9:47 EDT , Service support ,
[2021-02-07 08:48] LABS: Platelet Count 63 K/mm3 (150-450)
[2021-02-07] MEDS: Lidocaine 2% (20 ml mdv) 20 ML Vial INFILT ×2 (08:55→09:55)
[2021-02-07 09:01] LABS: International Normalized Ratio 1.3; Partial Thromboplast Time 26.8 Seconds (24.1-36.2)
[2021-02-07] MEDS: Midazolam 2 MG/2 ML Syringe IV (09:44)
[2021-02-07] MEDS: fentaNYL 100 MCG/2 ML Ampul IV (09:46)
--- NOTE | 2021-02-07 10:03 | LIVB_PTH ---
PATIENT: GLEN MACK LOC: U#:[id number] AGE/SX: 74/M ROOM: RE02/07/[address]: Dr. Trav Toscano DO : 1950 BED: DIS: SPEC #: [id number] RECD: 02/07/21 10:13 STATUS: ELIGIO ISIDRO #: [id number] ABDOULAYE: 02/07/21 10:[address]: Trav Toscano DEPT: SURGICAL PATHOLOGY RECD BY: Ramonita Ashley ENTERED: 02/07/21 11:37 SP TYPE: LIVER BX OTHR DR: DEJON Corona Tissues: Liver, NOS Procedures: PAS with Diastase (control) Trichrome (control) Special Stain Group II PAS Stain (control) Surgery Specimen Level V Retic (control) Iron Stain (control) HEADER OPERATION: CT-guided liver biopsy PRE-OP DIAGNOSIS: Ascites TISSUE SUBMITTED: Liver 18-gauge core x3 MICROSCOPIC DIAGNOSIS Liver, CT-guided core biopsy: Liver parenchymal tissue with extensive macro- and microvesicular steatosis. See microscopic description and comment. SJ:purnima 02/08/2021 COMMENT Clinical correlation and appropriate follow up are necessary. Please make reference to corresponding cytology specimen ([id number]) paracentesis fluid for cytology with diagnosis of ?negative for malignancy.? Case has been reviewed in consultation with Dr. Pulido who concurs with the above diagnosis. IDC:AM MICROSCOPIC DESCRIPTION Slides are reviewed. The specimen shows liver parenchymal tissue with preserved lobular architecture. Hepatocytes show extensive macro- and microvesicular steatosis. Significant lobular inflammation is not seen. Portal areas are unremarkable. Iron stain is negative for iron deposition. PAS stain with and without diastase do not show any abnormal accumulation of protein. Reticulin and trichrome stain shows focal minimal bridging fibrosis. All stains are performed with appropriate matched controls. GROSS DESCRIPTION Received in fixative is one container labeled with the patient's name and designated CT-guided liver biopsy. The specimen consists of multiple elongated fragments of [place] soft tissue that in aggregate measure 2 x 0.2 x 0.1 cm. The specimen is totally submitted in one cassette. / LESLIE:purnima 02/07/21 TC:3 CPT: 71364, 49588 x5
== END | disposition home or self-care (01) ==
PROVIDERS: PCP Physician Assistant; Referring Provider Internal Medicine Gastroenterology; Visit Provider Internal Medicine Gastroenterology
DX: R18.8 Other ascites (principal); K76.0 Fatty (change of) liver, not elsewhere classified
CPT/HCPCS: 47000; 36415; 49083; 77012; 85049; 85610; 85730; 88108; 88305; 88307; 88313; 88341; 88342; 99156; J7040

== ENCOUNTER 2021-02-08 09:28 | Day surgery (SDC) | payer OTHER, MEDICARE, SELFPAY ==
--- NOTE | 2021-02-03 12:48 | NURSING ---
Pt's dgtr,Adrienne, returned phone call for PAT. Med allergies and Home med list completed. Dgtr instructed which meds pt to take DOS. Adrienne abruptly ends PAT call. States she is available to finish 02/02 after 1530 or any time on 02/06/21.
[2021-02-08 10:04] VITALS: BP 123/81; PULSE 57; RESP 16; TEMP 36.8; O2SAT 100; BMI 31.8
[2021-02-08] MEDS: Lactated Ringers 1,000 ML 100 ML IV (10:09)
[2021-02-08 10:20] LABS: Bedside Glucose 112 mg/dL (70-110)
--- NOTE | 2021-02-08 10:56 | PCM.HP.BLA ---
History and Physical Date of Admission: 02/08/21 Allergies heparin Adverse Reaction (Verified 01/03/21 10:16) Other Medications esomeprazole magnesium 40 mg capsule,delayed release 40 mg PO QDAY cap 03/15/17 [History Confirmed 01/24/21] levothyroxine 125 mcg tablet 125 mcg PO QDAY tab 03/15/17 [History Confirmed 01/24/21] simvastatin 20 mg tablet 20 mg PO QPM 03/15/17 [History Confirmed 01/24/21] tamsulosin 0.4 mg capsule 0.4 mg PO QHS cap 03/15/17 [History Confirmed 01/24/21] dutasteride 0.5 mg capsule 0.5 mg PO QDAY 03/19/17 [History Confirmed 01/24/21] ferrous gluconate 324 mg (37.5 mg iron) tablet 324 mg PO BID tab 03/19/17 [History Confirmed 01/24/21] carvedilol 3.125 mg tablet 3.125 mg PO BID #60 tab 01/02/21 [Rx Confirmed 01/24/21] gabapentin 300 mg capsule 400 mg PO BID cap 01/02/21 [History Confirmed 01/24/21] metformin 850 mg tablet 1,000 mg PO DAILY tab 01/24/21 [History Confirmed 01/24/21] warfarin 7.5 mg tablet 7.5 mg PO .COMPLEX 01/24/21 [History Confirmed 01/24/21] PFSH Medical History Atrial fibrillation Essential (primary) hypertension Hyperlipemia, mixed Lung nodule Mesenteric vein thrombosis Portal hypertension syndrome Type 2 diabetes mellitus without complications Surgical History Hx of cataract surgery Hx of vasectomy Family History Mother Colon cancer Diabetes Father Lung cancer Social History Smoking Status: Never smoker alcohol intake: former substance use type: does not use and marijuana caffeine: Yes Type: carbonated beverages and coffee what type of physical activity do you participate in: walking frequency: daily duration: 15-30 minutes/day seatbelt use: always do you feel safe at home: Yes HPI HPI Details: GLEN MACK, is a 70 M who presents to the office today for 70 M who presents to the office today for presents to the office today for an initial visit. Patient has a history of paroxysmal atrial fibrillation postoperatively, hypertension, hyperlipidemia, and diabetes. Patient states feeling well. Pt. denies chest, arm, jaw, or neck discomfort. His exercise tolerance is stable via work. Pt denies symptoms of CHF, palpitations, lightheadedness, dizziness, near syncopal or syncopal episodes. Pt denies edema or claudication issues. Pt. denies orthopnea, PND, fever, chills, blood in urine, blood in stool, myalgia, or unexplainable fatigue. Pt. states he was recently diagnosed with a DVT in his right lower leg in which he was switched from Coumadin to Xarelto. Patient's echocardiogram from February 2016 showed an estimated ejection fraction of 65%, mildly enlarged left atrium, trivial mitral valve insufficiency, mild tricuspid valve insufficiency, and an RVSP of 42 mmHg. Patient's stress test from February 2016 was negative for myocardial induced ischemia. He presented to the ED on 12 10 with with melena and bloody stool over the last 2 days. He stated the melena has been ongoing. Patient states that he has a history of neuroendocrine pancreatic cancer and had partial Whipple surgery and states that he was told they nicked the vessel. Postoperatively he was on Coumadin for what his daughter say might be portal vein thrombosis. Patient has a history of atrial fibrillation as well. Patient states he had surgery for his pancreatic cancer and is no longer on chemotherapy and sees Dr. Avila and is not on chemotherapy. He does report history of pancytopenia. Patient also has significant history of hypertension, hyperlipidemia, diabetes. Patient reports that for his lightheadedness which has been ongoing for about a month as well he was seen by Dr. Allison and had an echocardiogram which they believe was fine. He also had a follow-up Holter monitor. Patient does report double vision for 1 month. He states he has not had any imaging of his brain but did have a CT of the abdomen pelvis in October which appeared to be consistent with possible liver disease and he was told he has portal hypertension and cirrhosis as well as esophageal varices. Patient was seen at [facility] and had upper endoscopy which showed no active bleeding from the varices previously. Patient does report chronic right-sided abdominal pain which is unchanged. There was no broadcast correspondent here so he was sent to [facility] for treatment. EGD showed non-bleeding varices that were banded. Colonoscopy showed polyps. Blood, platelets and plasma administered during hospital stay. [facility] changed he was on prilosec and changed to nexium 40mg BID, when PCP wrote new prescription but wrote for QD - hoping for clarification today. Hemoglobin has been monitored 12/22 was 9.2 and has repeat being done on 01/05. GI bleed origin never found. Coumadin has been stopped d/t bleeding and is concerned because he had Whipple procedure done on his pancreas r/t cancer and A-Fib and was told he would be on coumadin for the rest of her life. Since last visit they saw Dr. Butterfield elementary school music teacher with [employer] who did bloodwork which was printed off and brought in today. Last visit 01/03/21 with atrial fibrillation, portal hypertension syndrome, esophageal varices, ascites, mesenteric vein thrombosis. Plan included continued follow up with cardiology and possible low dose coumadin for atrial fibrillation and mesenteric vein thrombosis. Coreg recommended for portal HTN and atrial fibrillation. EGD performed 05/21/2017 addressed esophageal varices with repeat for monitoring to be performed in the coming weeks. Ascites were an issue at time of visit with discussion of midodrine to occur with elementary school music teacher prior to initiation. Coumadin 10mg on Saturday and 7.5mg all other days, last INR 2.8 and is being managed by MANNY Dey at [facility] with a goal of 1.5-2.0. Coreg started at end of December. Ascites continues with discomfort and pain that has not gotten better or worse. ROS Const Constitutional: Positive for fatigue Gastro GI: Positive for abdominal pain Musc Musculoskeletal: Positive for joint pain, joint swelling, restless legs and leg pain at night Neuro Neurology: Positive for restless legs Endo Endocrine: Positive for fatigue Exam Const General: cooperative and comfortable Nutritional Appearance: average body habitus and well nourished [facility] Head: normal to inspection Ears: hearing grossly normal bilaterally Nose: external nose normal Face and sinus: normal facial exam Mouth: oral mucosae normal Throat: posterior oropharynx normal Eyes General: appearance normal, both eyes and all related structures Neck Neck: normal visual inspection Chest Chest palpation & inspection: normal inspection of the chest and normal palpation of entire chest wall Resp Effort & Inspection: normal respiratory effort Auscultation: Bilateral: Clear to Auscultation Cardio Palpation: normal PMI Rate: regular rate Rhythm: regular rhythm GI Inspection: normal to inspection Auscultation: normal bowel sounds Percussion: normal to percussion Palpation: no hepatosplenomegaly Skin General: no rashes or lesions noted Neuro General: patient alert Extrem General: normal to inspection Psych Affect: normal affect Quality Reporting Tobacco Screening ([facility]) Smoking Status: Never smoker Assessment and Plan Assessment and Plan (1) Mesenteric vein thrombosis: Status: Acute Tj - Dr. Trav Toscano, DO: As per the patient's daughter who is an RN. He was recently seen in cardiology and now is a strong suspicion that he is atrial fibrillation has returned. If that is the case he will need to be on anticoagulation. I am okay with him going on low-dose Coumadin and following his INR very carefully. I explained the risk and benefits to the patient and the patient's family who is with him. However we decided that it would be easier to stop the blood thinner than it would be to deal with possible stroke from not anticoagulate him. That is the decision for now. We will check his INR in 2 days (2) Portal hypertension syndrome: Status: Prieto Toscano, DO: His blood hypertension is complicated by mesenteric vein thrombosis, esophageal varices and splenomegaly. His esophageal varices were taking care of and he will go on Coreg therapy for his esophageal varices and his atrial fibrillation. He will need repeat upper endoscopy in 6 weeks (3) Esophageal varices: Status: Prieto Toscano DO: He is status post banding we will repeat his upper and in 6 weeks and possible colonoscopy. (4) Ascites: Status: Prieto Toscano, DO: At this time he did have much ascites. We may need to start him on midodrine in the future however I want to discuss this with his elementary school music teacher (5) Mesenteric vein thrombosis: Status: Prieto Toscano, DO: Patient will start back on his Coumadin therapy and will contact his lang interpreter. He has a scheduled Zoom meeting. We will follow-up after the Zoom meeting
[2021-02-08 11:35] VITALS: BP 123/81; BP 95/55; PULSE 65; RESP 16; TEMP 36.2; O2SAT 96
[2021-02-08 11:40] VITALS: BP 123/81; BP 93/54; PULSE 60; RESP 16; O2SAT 96
--- NOTE | 2021-02-08 11:43 | OP.EGD_ITS ---
Patient Name: Gómez Alaniz Procedure Date: 02/08/2021 10:58 AM Date of : 1950 Age: 70 Procedure: Upper GI endoscopy Indications: Iron deficiency anemia Providers: Trav Toscano DO Medicines: See the Anesthesia note for documentation of the administered medications Patient Profile: This is a 70 year old male. Refer to note in patient chart for documentation of history and physical. Patient has symptoms of acute abdominal distention. The symptoms first began September. Previously obtained abdominal ultrasound. Complications: No immediate complications. Procedure: Pre-Anesthesia Assessment: - Prior to the procedure, a History and Physical was performed, and patient medications and allergies were reviewed. The patient is competent. The risks and benefits of the procedure and the sedation options and risks were discussed with the patient. All questions were answered and informed consent was obtained. Patient identification and proposed procedure were verified by the physician in the pre-procedure area. Mental Status Examination: alert and oriented. Airway Examination: normal oropharyngeal airway and neck mobility. Respiratory Examination: clear to auscultation. CV Examination: normal. Prophylactic Antibiotics: The patient does not require prophylactic antibiotics. Prior Anticoagulants: The patient has taken no previous anticoagulant or antiplatelet agents. ASA Grade Assessment: II - A patient with mild systemic disease. After reviewing the risks and benefits, the patient was deemed in satisfactory condition to undergo the procedure. The anesthesia plan was to use moderate sedation / analgesia (conscious sedation). Immediately prior to administration of medications, the patient was re-assessed for adequacy to receive sedatives. The heart rate, respiratory rate, oxygen saturations, blood pressure, adequacy of pulmonary ventilation, and response to care were monitored throughout the procedure. The physical status of the patient was re-assessed after the procedure. After obtaining informed consent, the endoscope was passed under direct vision. Throughout the procedure, the patient's blood pressure, pulse, and oxygen saturations were monitored continuously. The gastroscope was introduced through the mouth, and advanced to the mid-jejunum. The upper GI endoscopy was accomplished without difficulty. The patient tolerated the procedure well. Moderate Sedation: Moderate (conscious) sedation was administered by the endoscopy nurse and supervised by the endoscopist. The patient's oxygen saturation, heart rate, blood pressure and response to care were monitored. Total physician intraservice time was 15 minutes. Scope In: 11:09:13 AM Scope Out: 11:30:04 AM Total Procedure Duration Time 0 hours 20 minutes 51 seconds Findings: Five columns of non-bleeding grade III varices were found in the entire esophagus,. They were 7 mm in largest diameter. No stigmata of recent bleeding were evident and no red clementine signs were present. No evidence of response to prior treatment was visible. Five bands were successfully placed with incomplete eradication of varices. There was no bleeding during the procedure. Type 2 isolated gastric varices (IGV2, varices located in the body, antrum or around the pylorus) with no bleeding were found in the stomach. There were no stigmata of recent bleeding. They were 5 mm in largest diameter. Multiple 5 mm angiodysplastic lesions with stigmata of recent bleeding were found in the jejunum. Coagulation for hemostasis using argon plasma at 0.3 liters/minute and 20 benavides was successful. Estimated blood loss was minimal. One non-bleeding cratered ulcer with no stigmata of bleeding was found distal to the jejunojejunal anastomosis. The lesion was 6 mm in largest dimension. Impression: - Non-bleeding grade III esophageal varices. Incompletely eradicated. Banded. - Type 2 isolated gastric varices (IGV2, varices located in the body, antrum or around the pylorus), without bleeding. 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 Treated with argon plasma coagulation (APC). - One non-bleeding jejunal ulcer with no stigmata of bleeding. - No specimens collected. Recommendation: - Discharge patient to home. - Full liquid diet today. - Continue present medications. - Observe patient's clinical course following today's procedure with therapeutic intervention. - Return to my office in 2 weeks. Procedure Code(s): --- Professional --- 76694, 59, Esophagogastroduodenoscopy, flexible, transoral; with band ligation of esophageal/gastric varices 60976, 59, Esophagogastroduodenoscopy, flexible, transoral; with control of bleeding, any method G0500, Moderate sedation services provided by the same physician or other qualified health career services coordinator performing a gastrointestinal endoscopic service that sedation supports, requiring the presence of an independent trained observer to assist in the monitoring of the patient's level of consciousness and physiological status; initial 15 minutes of intra-service time; patient age 5 years or older (additional time may be reported with 99520, as appropriate) Diagnosis Code(s): --- Professional --- I85.00, Esophageal varices without bleeding I86.4, Gastric varices K55.21, Angiodysplasia of colon with hemorrhage K28.9, Gastrojejunal ulcer, unspecified as acute or chronic, without hemorrhage or perforation D50.9, Iron deficiency anemia, unspecified CPT copyright 2017 [employer]. All rights reserved. The codes documented in this report are preliminary and upon packer inspector review may be revised to meet current compliance requirements. Trav Toscano DO 02/08/2021 11:42:28 AM This report has been signed electronically. Number of Addenda: 1 Note Initiated On: 02/08/2021 10:58 AM Addendum Number: 1 Addendum Date: 12/08/2021 6:10:27 AM MAC was used instead of moderate sedation for this patient. Trav Toscano DO 12/08/2021 6:10:32 AM This report has been signed electronically.
--- NOTE | 2021-02-08 11:43 | OP.CCLET_ITS ---
12/08/2021 Yesica Dey Re : Upper GI endoscopy procedure for Gómez Alaniz Trishar Tiburcio This procedure was performed on Monday, February 08, 2021. My impressions and recommendations are as follows: Impressions : - Non-bleeding grade III esophageal varices. Incompletely eradicated. Banded. - Type 2 isolated gastric varices (IGV2, varices located in the body, antrum or around the pylorus), without bleeding. 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 Treated with argon plasma coagulation (APC). - One non-bleeding jejunal ulcer with no stigmata of bleeding. - No specimens collected. Recommendations : - Discharge patient to home. - Full liquid diet today. - Continue present medications. - Observe patient's clinical course following today's procedure with therapeutic intervention. - Return to my office in 2 weeks. My findings are described in the full procedure note, which is enclosed. If I can be of further assistance, please feel free to contact me at . Sincerely, Trav Toscano, 02/08/2021 11:42:28 AM This report has been signed electronically.
[2021-02-08 11:45] VITALS: BP 107/60; BP 123/81; PULSE 67; RESP 16; O2SAT 96
[2021-02-08 11:50] VITALS: BP 123/81; BP 98/63; PULSE 61; RESP 16; TEMP 36.1; O2SAT 95
[2021-02-08 12:19] VITALS: BP 123/81
== END 2021-02-08 12:30 | disposition home or self-care (01) ==
LOC: EN 09:29 → AC 09:32
PROVIDERS: PCP Physician Assistant; Referring Provider Physician Assistant; Visit Provider Internal Medicine Gastroenterology
PROC: 0DJ08ZZ Inspection of Upper Intestinal Tract, Via Natural or Artificial Opening Endoscopic (ICD-10-PCS; CPT 43235; principal; 2021-02-08 10:25)
DX: D50.9 Iron deficiency anemia, unspecified (principal); I85.00 Esophageal varices without bleeding; I86.4 Gastric varices; K55.21 Angiodysplasia of colon with hemorrhage; K28.9 Gastrojejunal ulcer, unspecified as acute or chronic, without hemorrhage or perforation; E78.5 Hyperlipidemia, unspecified; E11.9 Type 2 diabetes mellitus without complications; I10 Essential (primary) hypertension; I48.0 Paroxysmal atrial fibrillation; K76.6 Portal hypertension; R18.8 Other ascites; Z79.01 Long term (current) use of anticoagulants; Z79.84 Long term (current) use of oral hypoglycemic drugs; Z88.8 Allergy status to other drugs, medicaments and biological substances; K55.059 Acute (reversible) ischemia of intestine, part and extent unspecified
CPT/HCPCS: 43244; 43255; 82962; J7120; J2405

== ENCOUNTER → 2021-03-04 09:05 | Outpatient (CLI) | payer OTHER, MEDICARE, SELFPAY ==
[2021-03-04 09:52] LABS: Absolute Lymphocyte Count 0.49 X10^3/uL (0.83-4.51); Absolute Neutrophil Count 1.8 X10^3/uL (2.0-7.7); Basophil# 0.01 X10^3/uL; Basophil% 0.4 % (0-1); Eosinophil# 0.05 X10^3/uL; Eosinophils% 1.9 % (0-5); Hemoglobin 11.2 g/dL (13.0-16.5); Lymphocyte # 0.49 X10^3/ul (0.83-4.51); Mean Corp Hgb Conc 31.1 g/dL (32-36); Mean Corpuscular Hgb 26.8 pg (27.0-32.0); Mean Corpuscular Volume 86.1 fL (80-94); Monocyte# 0.22 X10^3/uL; Monocyte% 8.5 % (0-10); NRBC Flagged by Analyzer 0 % (0-5); Neutrophil % 69.8 % (47-70); POSITIVE COUNT YES; POSITIVE DIFFERENTIAL YES; Platelet Count 58 K/mm3 (150-450); RBC Distribution Width CV 16.9 % (11.6-14.6); RBC Distribution Width SD 53.1 fl (35.1-43.9); RET-HE 28.4 pg (30-35); Red Blood Count 4.18 M/mm3 (4.6-6.2); White Blood Count 2.6 K/mm3 (4.4-11.0)
[2021-03-04 09:54] LABS: Differential Indicated SCAN CRITERIA MET
[2021-03-04 09:59] LABS: Prothrombin Time (Protime)PT. 22.1 SECONDS (11.7-14.9)
[2021-03-04 10:11] LABS: ALB/GLOB Ratio 0.8 RATIO (0.9-2.4); AST(SGOT) 37 U/L (15-37); Alanine Aminotransfer ALT/SGPT 28 U/L (16-61); Albumin, Serum 3.3 g/dL (3.2-5.0); Alkaline Phosphatase 118 U/L (45-117); Anion Gap 4 (5-15); BUN 12 mg/dL (7-18); BUN/Creat Ratio 15.6 RATIO (10-20); Calcium,Total 8.9 mg/dL (8.5-10.1); Chloride 105 mmol/L (98-107); Creatinine, Serum 0.77 mg/dL (0.70-1.30); EST Glomerular Filtration Rate 106 mL/min (>60); Est Glom Filt Rate - Afr Amer 128 mL/min (>60); Ferritin 146 ng/mL (26-388); Glucose 135 mg/dL (74-106); Iron 58 ug/dL (65-175); Iron Binding Capacity,Total 368 ug/dL (250-450); PERCENT IRON SATURATION 15.8 % (15.0-55.0); Potassium 4.5 mmol/L (3.5-5.1); Protein, Total 7.3 g/dL (6.4-8.2); Sodium Level 139 mmol/L (136-145)
[2021-03-04 10:13] LABS: Platelet Estimate MKD DEC (ADEQ)
[2021-03-06 15:15] LABS: Pathologist Review Reviewed
== END ==
PROVIDERS: PCP Physician Assistant; Referring Provider Internal Medicine Gastroenterology; Visit Provider Internal Medicine Gastroenterology
DX: D64.9 Anemia, unspecified (principal)
CPT/HCPCS: 36415; 80053; 82728; 83540; 83550; 85025; 85045; 85610

== ENCOUNTER → 2021-03-27 09:34 | Outpatient (CLI) | payer OTHER, MEDICARE, SELFPAY ==
[2021-03-27 10:29] LABS: International Normalized Ratio 4.6
== END ==
PROVIDERS: PCP Physician Assistant; Visit Provider Internal Medicine Gastroenterology
DX: K76.6 Portal hypertension (principal); I48.0 Paroxysmal atrial fibrillation; Z79.01 Long term (current) use of anticoagulants; I85.00 Esophageal varices without bleeding; K55.069 Acute infarction of intestine, part and extent unspecified
CPT/HCPCS: 36415; 85610

== ENCOUNTER → 2021-03-29 10:57 | Outpatient (CLI) | payer OTHER, MEDICARE, SELFPAY ==
[2021-03-29 13:47] LABS: International Normalized Ratio 2.5; Prothrombin Time (Protime)PT. 25.9 SECONDS (11.7-14.9)
== END ==
PROVIDERS: PCP Physician Assistant; Referring Provider Internal Medicine Cardiovascular Disease; Visit Provider Internal Medicine Cardiovascular Disease
DX: I48.0 Paroxysmal atrial fibrillation (principal); I85.00 Esophageal varices without bleeding; K55.069 Acute infarction of intestine, part and extent unspecified; Z79.01 Long term (current) use of anticoagulants
CPT/HCPCS: 36415; 85610

== ENCOUNTER → 2021-04-04 12:36 | Outpatient (CLI) | payer OTHER, MEDICARE, SELFPAY ==
[2021-04-04 14:45] LABS: International Normalized Ratio 2.8; Prothrombin Time (Protime)PT. 28.9 SECONDS (11.7-14.9)
[2021-04-04 15:13] LABS: Anion Gap 13 (5-15); BUN 37 mg/dL (7-18); BUN/Creat Ratio 33.3 RATIO (10-20); Calcium,Total 9.1 mg/dL (8.5-10.1); Chloride 103 mmol/L (98-107); Creatinine, Serum 1.11 mg/dL (0.70-1.30); EST Glomerular Filtration Rate 69 mL/min (>60); Est Glom Filt Rate - Afr Amer 84 mL/min (>60); Glucose 167 mg/dL (74-106); Potassium 4.1 mmol/L (3.5-5.1); Sodium Level 138 mmol/L (136-145)
== END ==
PROVIDERS: PCP Physician Assistant; Visit Provider Nurse Practitioner Family
DX: I48.0 Paroxysmal atrial fibrillation (principal); T50.2X5A Adverse effect of carbonic-anhydrase inhibitors, benzothiadiazides and other diuretics, initial encounter; Z79.899 Other long term (current) drug therapy
CPT/HCPCS: 36415; 80048; 85610

== ENCOUNTER 2021-04-11 08:59 | Outpatient (CLI) | payer BC, MEDICARE, SELFPAY ==
--- NOTE | 2021-04-11 09:09 | US_ITS ---
STUDY: ABDOMINAL ULTRASOUND - RIGHT UPPER QUADRANT REASON FOR VISIT: Male, 70 years old ascites and portal venous thrombosis . History of prior WHIPPLE procedure. TECHNIQUE: Ultrasound evaluation of the right upper quadrant was performed with real-time and static madison-scale imaging. TECHNICAL QUALITY: Adequate. COMPARISON: None. FINDINGS: Liver: The liver measures 16.8 cm. There is increased echogenicity consistent with fatty infiltration. The bile ducts are within normal limits. There is hepatic color flow. The direction of portal flow is hepatopetal. Gallbladder: The gallbladder is not visualized. Common Bile Duct (C.B.D.): The common bile duct measures 2.5 mm. Pancreas: There is nonvisualization of the pancreas. Right Kidney: Normal size of the right kidney. The right kidney measures 9.9 cm x 4.8 cm x 5.2 cm. Normal renal cortex. The right cortex measures 1.0 cm. There is no demonstrated renal mass or cyst. There is no right hydronephrosis. US/Liver IMPRESSION: Status post WHIPPLE procedure. Heterogeneous echotexture of the liver. Electronically Signed: Lamberto Jaeger MD at 13:41 EST , Service support ,
== END 2021-04-11 23:59 | disposition short-term general hospital (02) ==
LOC: US 09:02
PROVIDERS: PCP Physician Assistant; Referring Provider Internal Medicine Gastroenterology; Visit Provider Internal Medicine Gastroenterology
DX: K55.069 Acute infarction of intestine, part and extent unspecified (principal)
CPT/HCPCS: 76705

== ENCOUNTER 2021-04-18 06:32 | Outpatient (CLI) | payer BC, MEDICARE, SELFPAY ==
--- NOTE | 2021-04-18 09:01 | STRESSREP_ITS ---
Stress Test Report Date: 04-18-2021 Procedure: Pharmacologic stress nuclear imaging study Indications: Atrial fibrillation; hyperlipidemia; hypertension Consent: Per the patient Procedure: The patient underwent pharmacologic (Regadenoson 0.4mg ) evaluation with a peak heart rate of 86 beats per minute (58%predicted maximal heart rate) and a peak blood pressure of 120/70 mmHg. The baseline ECG demonstrated normal sinus rhythm. The peak pharmacologic ECG demonstrated no obvious ECG changes. There were occasional PVCs pretest, during infusion, and recovery. There was no complaint of chest discomfort during pharmacologic infusion or recovery. The examination was discontinued secondary to completion of protocol. Impression: 1. Pharmacologic (Regadenoson) evaluation 2. Peak pharmacologic ECG with no obvious ECG changes. 3. There were occasional PVCs pretest, during infusion, and recovery. 4. Nuclear images pending Myocardial perfusion imaging study: Technique: The patient was injected with 14.8 millicuries of technetium 99m Cardiolite and subsequently rest SPECT Cardiolite nuclear imaging was obtained in the horizontal long, vertical long, and short axis views. The patient underwent pharmacologic (Regadenoson) evaluation with a peak heart rate of 86 beats per minute (58% percent predicted maximal heart rate) and a peak blood pressure of 120/70 mmHg. The patient was injected with 44.7 millicuries of technetium 99m Cardiolite and subsequently stress SPECT Cardiolite nuclear imaging was obtained in the horizontal long, vertical long, and short axis views. A gated Cardiolite study at peak stress was obtained. Interpretation: Rest and stress SPECT Cardiolite nuclear imaging status post realignment, normalization, and attenuation correction demonstrate a small area of subtle diminished tracer uptake near the apical segments without significant change between rest and stress. There is end systolic thickening and brightening. The gated Cardiolite study demonstrates myocardial thickening and inward wall motion. The reported LVEF is 58%. Impression: 1. Rest and stress SPECT Cardiolite nuclear imaging demonstrate myocardial perfusion changes appearing compatible with physiologic apical thinning with no myocardial perfusion changes considered diagnostic for associated stress-induced myocardial ischemia. 2. The gated Cardiolite study reports an LVEF of 58%. This note was generated with [employer]uev[employer] software. It may contain incorrect words, spelling, and punctuation that were not noted in checking the note before signing.
== END 2021-04-18 23:59 | disposition short-term general hospital (02) ==
LOC: CVS 06:36
PROVIDERS: PCP Physician Assistant; Referring Provider Nurse Practitioner Family; Visit Provider Nurse Practitioner Family
DX: I47.2 Ventricular tachycardia (principal); I48.0 Paroxysmal atrial fibrillation
CPT/HCPCS: 78452; 93017; A9500; A4216; J2785

== ENCOUNTER 2021-05-03 10:14 | Outpatient (RCR) | payer BC, MEDICARE, SELFPAY ==
[2021-05-03 11:28] LABS: International Normalized Ratio 1.7; Prothrombin Time (Protime)PT. 19.6 SECONDS (11.7-14.9)
== END 2021-05-08 18:00 | disposition home or self-care (01) ==
LOC: LAB 10:14
PROVIDERS: PCP Physician Assistant; Referring Provider Nurse Practitioner Family; Visit Provider Nurse Practitioner Family
DX: I48.0 Paroxysmal atrial fibrillation (principal)
CPT/HCPCS: 36415; 85610

== ENCOUNTER 2021-05-22 06:14 | Day surgery (SDC) | payer BC, MEDICARE, SELFPAY ==
[2021-05-22] VITALS (7 sets, daily range): BP systolic 89–121; BP diastolic 43–73; PULSE 53–62; RESP 16–20; TEMP 36.4–36.8; O2SAT 94–100; BMI 31.1
--- NOTE | 2021-05-22 | EGD_PTH ---
PAT[facility]ACK [id number] LOC: EN U#:[id number] AGE/SX: 70/M ROOM: RE05/22/[address]: Dr. Trav Toscano DO : 1950 BED: DIS: 05/22/2021 SPEC #: [id number] RECD: 05/22/21 13:15 STATUS: ELIGIO ISIDRO #: [id number] ABDOULAYE: 05/22/21 00:[address]: Trav Toscano DEPT: SURGICAL PATHOLOGY RECD BY: Jeremy Jewell ENTERED: 05/22/21 13:15 SP TYPE: EGD BIOPSY OT DR: DEJON Corona Tissues: Gastric mucous membrane Procedures: Surgery Specimen Level IV HEADER OPERATION: EGD ([facility]) with capsule PRE-OP DIAGNOSIS: Portal hypertension syndrome, mesenteric vein thrombosis, anemia TISSUE SUBMITTED: Anastomosis gastric jejunum MICROSCOPIC DIAGNOSIS Gastro-jejunal anastomosis, biopsy: Gastric mucosa with mild chronic and focal acute inflammation and hyperplastic change. No evidence of malignancy. AM:purnima 05/23/2021 MICROSCOPIC DESCRIPTION Slides are reviewed. GROSS DESCRIPTION Received in fixative is one container labeled with the patient's name and designated anastomosis gastric jejunum. The specimen consists of two irregular fragments of light [place]ina soft tissue that in aggregate measure 0.8 x 0.3 x 0.1 cm. The specimen is totally submitted in one cassette. / SJ:purnima 05/22/2021 TC:2 CPT: 46318
[2021-05-22] MEDS: Lactated Ringers 1,000 ML 15 ML IV (06:49)
--- NOTE | 2021-05-22 07:20 | HP.PCM_ITS ---
History and Physical Date of Admission: 05/22/21 Melania M who presents to the office today for Last visit 02/27/21 for continued evaluation of anemia, esophageal varices, portal hypertension syndrome, mesentreric vein thrombosis, atrial fibrillation. Symptoms last visit included right side abdominal pain. Denied blood in bowel movements. He is being seen by Dr. Frederick for inguinal hernia who felt it was related to ascites build up. EGD last performed 02/08/21. Paracentesis last performed 02/07/21. Liver biopsy performed 02/07/21. Anemia ? GI bleed last reported 12/2020. Received 2 iron transfusion. Iron therapy stopped after EGD revealed duodenal ulcers which were treated. Recheck CBC and iron studies. Esophageal Varices ? Needs repeat EGD scheduled for rebanding of esophageal varices. No reported dysphagia or bleeding. Currently on beta-jero therapy, this office will not start nadolol or propranolol for this reason. Portal hypertension syndrome ? 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 Mesenteric vein thrombosis. Atrial fibrillation ? cardiology prefers start of anticoagulation for treatment as he is high risk of stroke. OK to start anticoagulation to maintain INR between 2 and 2.5. Medications ? continue spironolactone and Lasix. Bloodwork performed 03/04/21 with many abnormal results including WBC (L2.6), RBC (L 4.18), HGB (L 11.2), Platelet (L 58), Iron (L 58). Since last visit his left sided abdominal pain has resolved since paracentesis. Moderate right sided abdominal pain continues. He wears a brace that he finds very helpful with pain management. Capsule endoscopy discussed previously, daughter would like to know if this is still needed. Gmóez is being seen by cardiology who daughter would prefer coumadin to be managed by. Requesting PT/INR to be drawn for monitoring. ROS Const Constitutional: Positive for fatigue Gastro GI: Positive for abdominal pain Musc Musculoskeletal: Positive for back pain, restless legs and leg pain at night Neuro Neurology: Positive for restless legs Endo Endocrine: Positive for fatigue Exam Const General: cooperative and comfortable Nutritional Appearance: average body habitus and well nourished [facility] Head: normal to inspection Ears: hearing grossly normal bilaterally Nose: external nose normal Face and sinus: normal facial exam Mouth: oral mucosae normal Throat: posterior oropharynx normal Eyes General: appearance normal, both eyes and all related structures Neck Neck: normal visual inspection Chest Chest palpation & inspection: normal inspection of the chest and normal palpation of entire chest wall Resp Effort & Inspection: normal respiratory effort Auscultation: Bilateral: Clear to Auscultation Cardio Palpation: normal PMI Rate: regular rate Rhythm: regular rhythm GI Inspection: normal to inspection Auscultation: normal bowel sounds Percussion: normal to percussion Palpation: no hepatosplenomegaly Skin General: no rashes or lesions noted Neuro General: patient alert Extrem General: normal to inspection Psych Affect: normal affect Quality Reporting Tobacco Screening ([facility] 138) Smoking Status: Former smoker Assessment and Plan Assessment and Plan (1) Portal hypertension syndrome: Status: Acute Orders: Orders: Prothrombin Time w/INR Today Plan - Dr. Trav Toscano, DO: Patient is doing well and his last INR was 2. His ascites is improved after undergoing paracentesis. He needs a repeat ultrasound to see if he needs any more fluid taken off of his abdomen diagnostically and/or therapeutically. (2) Mesenteric vein thrombosis: Status: Acute Orders: Orders: Prothrombin Time w/INR Today Liver Today Plan - Dr. Ravi Friend, DO: We will repeat an ultrasound with Dopplers to see if the blood clot is low there. He is not having any signs of bleeding at this time. (3) Anemia: Status: Acute Comment: ON IRON SUPPLEMENT/HAD GI BLEED 12/2020 Orders: Orders: Prothrombin Time w/INR Today Plan - Dr. Trav Toscano, DO: His hemoglobin is up to 11.8. I does not been as high multiple years. He is itching to get back to work. I have re-examined the patient. There are no clinical changes since date of exam.
[2021-05-22 07:36] LABS: Bedside Glucose 170 mg/dL (70-110)
--- NOTE | 2021-05-22 08:08 | OP.EGD_ITS ---
Patient Name: Gómez Alaniz Procedure Date: 05/22/2021 7:24 AM Date of : 1950 Age: 70 Procedure: Upper GI endoscopy Indications: Iron deficiency anemia, Cirrhosis with suspected esophageal varices Providers: Trav Toscano DO Referring MD: Yesica Dey Medicines: See the Anesthesia note for documentation of the administered medications Patient Profile: This is a 70 year old male. Refer to note in patient chart for documentation of history and physical. Patient has symptoms. Complications: No immediate complications. Procedure: Pre-Anesthesia Assessment: - Prior to the procedure, a History and Physical was performed, and patient medications and allergies were reviewed. The patient is competent. The risks and benefits of the procedure and the sedation options and risks were discussed with the patient. All questions were answered and informed consent was obtained. Patient identification and proposed procedure were verified by the physician. Mental Status Examination: alert and oriented. Airway Examination: normal oropharyngeal airway and neck mobility. Respiratory Examination: clear to auscultation. CV Examination: normal. Prophylactic Antibiotics: The patient does not require prophylactic antibiotics. Prior Anticoagulants: The patient has taken no previous anticoagulant or antiplatelet agents. ASA Grade Assessment: II - A patient with mild systemic disease. After reviewing the risks and benefits, the patient was deemed in satisfactory condition to undergo the procedure. The anesthesia plan was to use moderate sedation / analgesia (conscious sedation). Immediately prior to administration of medications, the patient was re-assessed for adequacy to receive sedatives. The heart rate, respiratory rate, oxygen saturations, blood pressure, adequacy of pulmonary ventilation, and response to care were monitored throughout the procedure. The physical status of the patient was re-assessed after the procedure. After obtaining informed consent, the endoscope was passed under direct vision. Throughout the procedure, the patient's blood pressure, pulse, and oxygen saturations were monitored continuously. The gastroscope was introduced through the mouth, and advanced to the second part of duodenum. The upper GI endoscopy was accomplished without difficulty. The patient tolerated the procedure well. Moderate Sedation: Moderate (conscious) sedation was administered by the endoscopy nurse and supervised by the endoscopist. The patient's oxygen saturation, heart rate, blood pressure and response to care were monitored. Total physician intraservice time was 15 minutes. Scope In: 7:38:19 AM Scope Out: 8:02:48 AM Total Procedure Duration Time 0 hours 24 minutes 29 seconds Findings: Four columns of grade III varices were found in the entire esophagus, 35 cm from the incisors. They were 5 mm in largest diameter. No stigmata of recent bleeding were evident and red clementine signs were present. Two bands were successfully placed with incomplete eradication of varices. There was no bleeding during the procedure. Type 2 gastroesophageal varices (GOV2, esophageal varices which extend along the fundus) with no bleeding were found in the gastric fundus. There were no stigmata of recent bleeding. They were 5 mm in largest diameter. Evidence of a patent Billroth II gastrojejunostomy was found. The gastrojejunal anastomosis was characterized by congestion, edema, erythema, friable mucosa and inflammation. This was traversed. The efferent limb was examined 30 cm from anastomosis. The afferent limb was examined 60 cm from anastomosis and was characterized by healthy appearing mucosa. This was biopsied with a cold forceps for histology. Verification of patient identification for the specimen was done. Estimated blood loss was minimal. Three oozing linear ulcers with a visible vessel were found distal to the gastrojejunal anastomosis. The largest lesion was 2 mm in largest dimension. For hemostasis, two hemostatic clips were successfully placed. There was no bleeding at the end of the procedure. Coagulation for hemostasis using argon plasma at 0.3 liters/minute and 20 benavides was successful. Estimated blood loss was minimal. Impression: - Non-bleeding grade III esophageal varices. Incompletely eradicated. Banded. - Type 2 gastroesophageal varices (GOV2, esophageal varices which extend along the fundus), without bleeding. - Patent Billroth II gastrojejunostomy was found, characterized by congestion, edema, erythema, friable mucosa and inflammation. Biopsied. - Multiple oozing jejunal ulcers with a visible vessel Clips were placed. Treated with argon plasma coagulation (APC). Recommendation: - Discharge patient to home. - Resume previous diet. - Use Protonix (pantoprazole) 40 mg PO BID. - Post-Procedure Resumption of Anticoagulants: Restart warfarin tomorrow 2.5 mg PO every other day. Procedure Code(s): --- Professional --- 81887, Esophagogastroduodenoscopy, flexible, transoral; with band ligation of esophageal/gastric varices 35172, 59, Esophagogastroduodenoscopy, flexible, transoral; with control of bleeding, any method 47145, Esophagogastroduodenoscopy, flexible, transoral; with biopsy, single or multiple 33229, 59, Moderate sedation services provided by the same physician or other qualified health hospice home care coordinator performing the diagnostic or therapeutic service that the sedation supports, requiring the presence of an independent trained observer to assist in the monitoring of the patient's level of consciousness and physiological status; initial 15 minutes of intraservice time, patient age 5 years or older CPT copyright 2017 [employer]. All rights reserved. The codes documented in this report are preliminary and upon smoke jumper review may be revised to meet current compliance requirements. Trav Toscano DO 05/22/2021 8:08:06 AM This report has been signed electronically. Number of Addenda: 1 Note Initiated On: 05/22/2021 7:24 AM Addendum Number: 1 Addendum Date: 12/25/2021 6:50:58 AM MAC was used for sedation during this procedure. Trav Toscano DO 12/25/2021 6:51:02 AM This report has been signed electronically.
--- NOTE | 2021-05-22 08:08 | OP.CCLET_ITS ---
12/25/2021 Yesica Dey Re : Upper GI endoscopy procedure for Gómez Ricor Tiburcio This procedure was performed on Saturday, May 22, 2021. My impressions and recommendations are as follows: Impressions : - Non-bleeding grade III esophageal varices. Incompletely eradicated. Banded. - Type 2 gastroesophageal varices (GOV2, esophageal varices which extend along the fundus), without bleeding. - Patent Billroth II gastrojejunostomy was found, characterized by congestion, edema, erythema, friable mucosa and inflammation. Biopsied. - Multiple oozing jejunal ulcers with a visible vessel Clips were placed. Treated with argon plasma coagulation (APC). Recommendations : - Discharge patient to home. - Resume previous diet. - Use Protonix (pantoprazole) 40 mg PO BID. - Post-Procedure Resumption of Anticoagulants: Restart warfarin tomorrow 2.5 mg PO every other day. My findings are described in the full procedure note, which is enclosed. If I can be of further assistance, please feel free to contact me at . Sincerely, Trav Toscano, 05/22/2021 8:08:06 AM This report has been signed electronically.
[2021-05-22 10:56] LABS: INR Fingerstick 0.8
[2021-05-23 07:25] LABS: Prothrombin Time Fingerstick 9.8 SEC (11.9-14.4)
== END 2021-05-22 23:59 | disposition home or self-care (01) ==
LOC: EN 06:16 → AC 06:16
PROVIDERS: PCP Physician Assistant; Referring Provider Physician Assistant; Visit Provider Internal Medicine Gastroenterology
PROC: 0DJ08ZZ Inspection of Upper Intestinal Tract, Via Natural or Artificial Opening Endoscopic (ICD-10-PCS; CPT 43235; principal; 2021-05-22 07:10)
DX: K74.60 Unspecified cirrhosis of liver (principal); K76.6 Portal hypertension; I85.00 Esophageal varices without bleeding; K55.069 Acute infarction of intestine, part and extent unspecified; Z87.891 Personal history of nicotine dependence; D50.9 Iron deficiency anemia, unspecified
CPT/HCPCS: 43244; 43255; 36416; 82962; 85610; 88305; J7120; J2405

== ENCOUNTER 2021-05-30 11:05 | Outpatient (RCR) | payer BC, MEDICARE, SELFPAY ==
[2021-05-13 11:47] LABS: International Normalized Ratio 2.5; Prothrombin Time (Protime)PT. 26.6 SECONDS (11.7-14.9)
[2021-05-30 13:45] LABS: International Normalized Ratio 1.8; Prothrombin Time (Protime)PT. 20.5 SECONDS (11.7-14.9)
== END 2021-05-30 18:00 | disposition home or self-care (01) ==
LOC: LAB 11:05
PROVIDERS: PCP Physician Assistant; Referring Provider Nurse Practitioner Family; Visit Provider Nurse Practitioner Family
DX: I48.0 Paroxysmal atrial fibrillation (principal)
CPT/HCPCS: 36415; 85610

== ENCOUNTER 2021-06-14 07:28 | Outpatient (CLI) | payer BC, MEDICARE, SELFPAY ==
--- NOTE | 2021-06-14 07:36 | CT_ITS ---
STUDY: CT ABDOMEN AND PELVIS WITH CONTRAST REASON FOR EXAM: Male, 70 years old. Portal vein thrombosis and severe portal htn -- patient is on coumadin for a known PVT. Assess for possible mesenteric venous thrombosis. RADIATION DOSAGE (If Supplied By Facility): CTDIvol = ( 27.71 ) mGy, DLP = ( 2575.34 ) mGycm TECHNIQUE: Transaxial images were obtained from the dome of the diaphragm to the symphysis pubis without oral contrast. IV 100mL Isovue-300 was administered. Sagittal and coronal images were reconstructed. Individualized dose optimization techniques were used for this CT. COMPARISON: Comparison is made with prior CT scan of the abdomen dated 12/10/2020. FINDINGS: There is a 4.97 x 4.1 cm bulla in the lateral aspect of the right lower lobe. Coronary artery calcification. There is decreased attenuation of the liver consistent with steatosis. Poor visualization of the portal vein. Findings suggestive of a cavernous transformation of the portal vein with multiple venous collaterals in the anterior omentum. Nonvisualization of the gallbladder. There is moderate splenomegaly. Varices are seen in the region of the splenic hilum. Normal pancreas. Normal bilateral adrenal glands. Normal right kidney. Normal left kidney. There is a small hiatal hernia. Normal small intestine. There are multiple colonic diverticula consistent with diverticulosis. The appendix is visualized and appears normal. Normal abdominal aorta. Normal inferior vena cava. There is borderline retroperitoneal lymphadenopathy with enlarged nodes no greater than 10mm in the short axis diameter. Persistent small mesenteric lymph nodes are seen within the root of the mesentery. Normal urinary bladder. There is enlargement of the prostate gland. It measures 5.6 cm by 5.7 cm. This causes indentation at the bladder base. There is a right-sided inguinal hernia containing adipose tissue. There are degenerative changes of the visualized lumbar spine. CT/CT ANGIO ABD&PEL W/O&W/DYE IMPRESSION: Cavernous transformation of the portal vein with multiple venous collaterals as well as varices in the region of the splenic hilum. Diffuse fatty infiltration of the liver. Moderate degree of splenomegaly. Prostatic enlargement with indentation of the bladder base. Electronically Signed: Lamberto Jaeger MD at 14:07 EST ,
--- NOTE | 2021-06-14 07:36 | US_ITS ---
STUDY: ABDOMINAL ULTRASOUND - 4 quadrants for ascites assessment. REASON FOR VISIT: Male, 70 years old ascites TECHNIQUE: Ultrasound evaluation of the 4 quadrants was performed with real-time and static madison-scale imaging. TECHNICAL QUALITY: Adequate. COMPARISON: Comparison is made with prior examination dated 04/11/2021. FINDINGS: No evidence of ascites. US/Abdomen Limited IMPRESSION: No evidence of ascites. Electronically Signed: Lamberto Jaeger MD at 14:00 EST ,
[2021-06-14 08:20] LABS: CREATININE FINGERSTICK 1.3 mg/dL (0.70-1.30)
== END 2021-06-14 23:59 | disposition home or self-care (01) ==
PROVIDERS: PCP Physician Assistant; Referring Provider Internal Medicine Gastroenterology; Visit Provider Internal Medicine Gastroenterology
DX: R18.8 Other ascites (principal); K76.6 Portal hypertension
CPT/HCPCS: 74174; 76705; Q9967

== ENCOUNTER 2021-06-14 08:27 | Outpatient (RCR) | payer BC, MEDICARE, SELFPAY ==
[2021-06-14 09:20] LABS: Prothrombin Time (Protime)PT. 22.2 SECONDS (11.7-14.9)
== END 2021-07-06 18:00 | disposition home or self-care (01) ==
LOC: LAB 08:27
PROVIDERS: PCP Physician Assistant; Referring Provider Nurse Practitioner Family; Visit Provider Nurse Practitioner Family
DX: I48.0 Paroxysmal atrial fibrillation (principal)
CPT/HCPCS: 36415; 85610

== ENCOUNTER 2021-07-10 10:39 | Outpatient (RCR) | payer BC, MEDICARE, SELFPAY ==
[2021-07-10 11:31] LABS: International Normalized Ratio 2.9; Prothrombin Time (Protime)PT. 29.4 SECONDS (11.7-14.9)
== END 2021-07-10 18:00 | disposition home or self-care (01) ==
LOC: LAB 10:39
PROVIDERS: PCP Physician Assistant; Referring Provider Nurse Practitioner Family; Visit Provider Nurse Practitioner Family
DX: I48.0 Paroxysmal atrial fibrillation (principal)
CPT/HCPCS: 36415; 85610

== ENCOUNTER 2021-08-01 11:50 | Outpatient (RCR) | payer BC, MEDICARE, SELFPAY ==
[2021-07-18 12:56] LABS: International Normalized Ratio 3.2; Prothrombin Time (Protime)PT. 31.8 SECONDS (11.7-14.9)
[2021-07-25 11:51] LABS: International Normalized Ratio 2.1; Prothrombin Time (Protime)PT. 23.4 SECONDS (11.7-14.9)
[2021-08-01 12:44] LABS: International Normalized Ratio 1.6
== END 2021-08-01 18:00 | disposition home or self-care (01) ==
LOC: LAB 11:50
PROVIDERS: PCP Physician Assistant; Visit Provider Nurse Practitioner Family
DX: I48.0 Paroxysmal atrial fibrillation (principal)
CPT/HCPCS: 36415; 85610

== ENCOUNTER → 2021-08-21 | Outpatient (CLI) | payer BC, MEDICARE, SELFPAY ==
--- NOTE | 2021-08-21 09:24 | US_ITS ---
STUDY: ABDOMINAL ULTRASOUND - ELASTOGRAPHY REASON FOR VISIT: Male, 71 years old. Cirrhosis of the liver. TECHNIQUE: Liver stiffness measurements were obtained on a [employer] ([employer]) RS 85 ultrasound machine using a CA 1-7 probe following the SRU guidelines. 3 measurements were obtained using a 2-D-SWE method. The IQR/M was 12% suggesting a quality data set. TECHNICAL QUALITY: Adequate. COMPARISON: Comparison is made with prior study done earlier today. FINDINGS: Liver: Fatty infiltration of the liver. Median liver stiffness measured 9 kPa. US/Elastography Parenchyma/Organ IMPRESSION: Liver stiffness measures 9 kPa compatible with F2-F3 (Mild to moderate liver fibrosis) Metavir score. Electronically Signed: Lamberto Jaeger MD at 12:10 EDT ,
--- NOTE | 2021-08-21 09:24 | US_ITS ---
STUDY: ABDOMINAL ULTRASOUND - RIGHT UPPER QUADRANT REASON FOR VISIT: Male, 71 years old UNSPECIFIED CIRRHOSIS OF LIVER . History of status post WHIPPLE procedure for pancreatic carcinoma. TECHNIQUE: Ultrasound evaluation of the right upper quadrant was performed with real-time and static madison-scale imaging. TECHNICAL QUALITY: Comparison is made with prior study 06/14/2021 and 04/11/2021. COMPARISON: None. FINDINGS: Liver: The liver is enlarged and measures 18.2 cm. There is a heterogeneous echogenicity of the liver. The bile ducts are within normal limits. There is hepatic color flow. The direction of portal flow is hepatopetal. There is no demonstrated mass lesion. Gallbladder: The gallbladder is not visualized most likely secondary to prior cholecystectomy. Common Bile Duct (C.B.D.): The common bile duct measures 3.5 mm. Pancreas: There is nonvisualization of the pancreas due to overlying bowel gas. Right Kidney: Normal size of the right kidney. The right kidney measures 11.9 cm x 5.8cm x 4.8 cm. Normal renal cortex. The right cortex measures 1.5 cm. There is no demonstrated renal mass or cyst. There is no right hydronephrosis. Ascites. US/Abdomen Limited IMPRESSION: Heterogeneous appearance of the liver. Ascites. Electronically Signed: Lamberto Jaeger MD at 12:12 EDT ,
== END | disposition home or self-care (01) ==
LOC: US 09:22
PROVIDERS: PCP Physician Assistant; Visit Provider Internal Medicine Gastroenterology
DX: K74.60 Unspecified cirrhosis of liver (principal); R18.8 Other ascites
CPT/HCPCS: 76705; 76981

== ENCOUNTER 2021-08-28 10:31 | Outpatient (RCR) | payer BC, MEDICARE, SELFPAY ==
[2021-08-14 13:49] LABS: International Normalized Ratio 1.9
[2021-08-28 11:27] LABS: International Normalized Ratio 2.1; Prothrombin Time (Protime)PT. 22.8 SECONDS (11.7-14.9)
== END 2021-08-28 18:00 | disposition home or self-care (01) ==
LOC: LAB 10:31
PROVIDERS: PCP Physician Assistant; Referring Provider Nurse Practitioner Family; Visit Provider Nurse Practitioner Family
DX: I48.0 Paroxysmal atrial fibrillation (principal)
CPT/HCPCS: 36415; 85610

== ENCOUNTER → 2021-09-14 | Outpatient (CLI) | payer BC, MEDICARE, SELFPAY ==
--- NOTE | 2021-09-14 10:05 | US_ITS ---
STUDY: ABDOMINAL ULTRASOUND - RIGHT UPPER QUADRANT REASON FOR VISIT: Male, 71 years old ASCITES TECHNIQUE: Ultrasound evaluation of the 4 quadrants was performed with real-time and static madison-scale imaging. TECHNICAL QUALITY: Adequate. COMPARISON: None. FINDINGS: Imaging of the 4 quadrants demonstrates a small fluid collection in the left upper quadrant. Not enough fluid for safe paracentesis. US/Abdomen Limited IMPRESSION: Not enough fluid for safe paracentesis. Electronically Signed: Lamberto Jaeger MD at 11:04 EDT ,
== END | disposition home or self-care (01) ==
PROVIDERS: PCP Physician Assistant; Referring Provider Internal Medicine Gastroenterology; Visit Provider Internal Medicine Gastroenterology
DX: K74.60 Unspecified cirrhosis of liver (principal); R18.8 Other ascites
CPT/HCPCS: 49083; 76705

== ENCOUNTER → 2021-09-22 | Outpatient (CLI) | payer BC, MEDICARE, SELFPAY ==
--- NOTE | 2021-09-22 08:00 | CT_ITS ---
STUDY: CT ABDOMEN AND PELVIS WITH CONTRAST REASON FOR EXAM: Male, 71 years old. Cirrhosis of liver with ascites RADIATION DOSAGE (If Supplied By Facility): CTDIvol = ( 14.00 ) mGy, DLP = ( 1006.38 ) mGycm TECHNIQUE: Transaxial images were obtained from the dome of the diaphragm to the symphysis pubis with oral contrast. Oral and amp; IV Redi-CAT and amp; 100mL Isovue-300 was administered. Sagittal and coronal images were reconstructed. Individualized dose optimization techniques were used for this CT. COMPARISON: Comparison is made with prior study dated 12/10/2020. FINDINGS: There is a 3.4 cm x 2.7 cm bulla in the anterior aspect of the right lower lobe. Coronary artery calcification. Diffuse ascites. There is a diffuse contour abnormality of the liver consistent with cirrhotic changes. There is evidence of cavernous transformation of the portal vein with evidence of variceal formation in the region of the splenic hilum. Tthe patient is status post cholecystectomy. There is moderate splenomegaly. Calcified splenic granulomas. There is diffuse atrophy of the pancreas. Normal bilateral adrenal glands. Normal right kidney. Normal left kidney. Fluid-filled small hiatal hernia. Normal small intestine. Normal colon. The appendix is visualized and appears normal. There is diffuse atherosclerotic calcification of the abdominal aorta, without a demonstrated aneurysm. Normal inferior vena cava. Normal retroperitoneum. Normal urinary bladder. There is enlargement of the prostate gland. The prostate measures 5.1 cm x 5.3 cm. This causes indentation at the bladder base. Normal abdominal wall. There are mild degenerative changes of the visualized lumbar spine. CT/Abdomen/Pelvis WITH Contrast IMPRESSION: Diffuse ascites. Cavernous transformation of the portal vein with evidence of variceal formation in the region of the splenic hilum. Diffuse contour abnormality of the liver (rather change. Moderate splenomegaly. Pancreatic atrophy. Electronically Signed: Lamberto Jaeger MD at 9:19 EDT ,
[2021-09-22 08:30] LABS: CREATININE FINGERSTICK < 0.9 mg/dL (0.70-1.30); EGFR FINGERSTICK > 60.0000 mL/min (>60)
== END | disposition home or self-care (01) ==
LOC: CT 07:51
PROVIDERS: PCP Physician Assistant; Referring Provider Internal Medicine Gastroenterology; Visit Provider Internal Medicine Gastroenterology
DX: R18.8 Other ascites (principal); K74.60 Unspecified cirrhosis of liver
CPT/HCPCS: 74177; Q9967

== ENCOUNTER 2021-09-25 11:16 | Outpatient (RCR) | payer BC, MEDICARE, SELFPAY ==
[2021-09-25 12:43] LABS: International Normalized Ratio 2.5; Prothrombin Time (Protime)PT. 26.5 SECONDS (11.7-14.9)
== END 2021-09-25 23:59 | disposition home or self-care (01) ==
LOC: LAB 11:16
PROVIDERS: PCP Physician Assistant; Referring Provider Nurse Practitioner Family; Visit Provider Nurse Practitioner Family
DX: I48.0 Paroxysmal atrial fibrillation (principal)
CPT/HCPCS: 36415; 85610

== ENCOUNTER → 2021-09-29 | Outpatient (CLI) | payer BC, MEDICARE, SELFPAY ==
--- NOTE | 2021-09-29 11:05 | RAD_ITS ---
INDICATION: shortness of breath EXAMINATION/TECHNIQUE: X-RAY - XR Chest 3 Views COMPARISON: Chest radiograph from 12/10/2020. CT abdomen pelvis with contrast from 09/22/2021 FINDINGS: Support devices: None. Remonstration of chronic fibrotic changes in the lung bases. Stable mildly elevated left hemidiaphragm. No focal consolidations, effusions, or sizable pneumothorax. Heart size is stable. No acute findings in the bones or soft tissues. RAD/Chest 3 View IMPRESSION: No acute findings. Electronically Signed: Alexis Mendez, at 11:48 EDT ,
--- NOTE | 2021-09-29 11:13 | US_ITS ---
PROCEDURE: Ultrasound guided paracentesis. DATE OF EXAMINATION: 09/29/2021. INDICATION: Male, 71 years old. Ascites. PHYSICIAN: Alexis Mendez DO TECHNIQUE: The risks, benefits, and alternatives to the procedure were explained to the patient. The specific risks of bleeding, infection, and damage to bowel were detailed and accepted. Witnessed informed consent was obtained. The abdomen was ultrasonographically surveyed. An appropriate pocket of fluid was identified at the right lower quadrant. The skin were cleaned and prepped in the usual sterile fashion. Using ultrasound guidance, the peritoneal cavity was accessed with a 5-Kyrgyz paracentesis needle/catheter system. The trocar was removed. A total of 5000 ml of clear straw-colored ascites fluid were removed from the peritoneal cavity. The sample was sent to the laboratory. The catheter was removed and a sterile dressing was applied. The procedure was well tolerated. US/Paracentesis with US IMPRESSION: Ultrasound guided therapeutic paracentesis. Electronically Signed: Alexis Mendez, at 15:12 EDT ,
[2021-09-29 11:36] LABS: Erythrocyte Sedimentation Rate 12 mm/hr (0-20)
[2021-09-29 11:40] LABS: Absolute Lymphocyte Count 0.49 X10^3/uL (0.83-4.51); Absolute Neutrophil Count 2.5 X10^3/uL (2.0-7.7); Basophil# 0.01 X10^3/uL; Basophil% 0.3 % (0-1); Eosinophil# 0.07 X10^3/uL; Hematocrit 36.7 % (40-54); Lymphocyte # 0.49 X10^3/ul (0.83-4.51); Lymphocyte % 14.1 % (19-41); Mean Corp Hgb Conc 32.7 g/dL (32-36); Mean Corpuscular Hgb 29.1 pg (27.0-32.0); Mean Corpuscular Volume 88.9 fL (80-94); Mean Platelet Vol. 12.2 fl (6.2-12.0); Monocyte# 0.43 X10^3/uL; Monocyte% 12.4 % (0-10); NRBC Flagged by Analyzer 0 % (0-5); Neutrophil # 2.47 X10^3/uL (2.7-7.7); Neutrophil % 70.9 % (47-70); POSITIVE COUNT YES; POSITIVE DIFFERENTIAL YES; Platelet Count 75 K/mm3 (150-450); RBC Distribution Width CV 16.9 % (11.6-14.6); RBC Distribution Width SD 54.5 fl (35.1-43.9); Red Blood Count 4.13 M/mm3 (4.6-6.2); White Blood Count 3.5 K/mm3 (4.4-11.0)
[2021-09-29 11:41] LABS: Differential Indicated SCAN CRITERIA MET
[2021-09-29 11:42] LABS: International Normalized Ratio 3.7; Prothrombin Time (Protime)PT. 36.4 SECONDS (11.7-14.9)
[2021-09-29 11:53] LABS: ALB/GLOB Ratio 0.8 RATIO (0.9-2.4); AST(SGOT) 32 U/L (15-37); Alanine Aminotransfer ALT/SGPT 23 U/L (16-61); Albumin, Serum 3.1 g/dL (3.2-5.0); Alkaline Phosphatase 88 U/L (45-117); Anion Gap 8 (5-15); BUN 15 mg/dL (7-18); BUN/Creat Ratio 13.9 RATIO (10-20); Chloride 103 mmol/L (98-107); Creatinine, Serum 1.08 mg/dL (0.70-1.30); EST Glomerular Filtration Rate 71 mL/min (>60); Est Glom Filt Rate - Afr Amer 86 mL/min (>60); Globulin 3.8 g/dL (2.2-4.2); Glucose 138 mg/dL (74-106); LDH 238 U/L (87-241); Potassium 3.8 mmol/L (3.5-5.1); Protein, Total 6.9 g/dL (6.4-8.2); Sodium Level 138 mmol/L (136-145)
[2021-09-29 12:16] LABS: Platelet Estimate MOD DEC (ADEQ)
[2021-09-29 14:18] VITALS: BP 106/64; BP 116/59; PULSE 52; PULSE 53; RESP 14; RESP 18; O2SAT 98; O2SAT 99
[2021-09-29] MEDS: Lidocaine 2% (20 ml mdv) 20 ML Vial INFILT (14:20)
[2021-10-02 12:29] LABS: Pathologist Review Reviewed
== END | disposition home or self-care (01) ==
PROVIDERS: PCP Physician Assistant; Referring Provider Internal Medicine Gastroenterology; Visit Provider Internal Medicine Gastroenterology
DX: K74.60 Unspecified cirrhosis of liver (principal); R18.8 Other ascites
CPT/HCPCS: 49083; 36415; 71047; 80053; 82140; 83615; 85025; 85610; 85652; 86140

== ENCOUNTER → 2021-10-02 | Outpatient (CLI) | payer BC, MEDICARE, SELFPAY ==
[2021-10-02 10:30] LABS: Absolute Lymphocyte Count 0.35 X10^3/uL (0.83-4.51); Basophil# 0.01 X10^3/uL; Basophil% 0.4 % (0-1); Eosinophil# 0.07 X10^3/uL; Eosinophils% 2.5 % (0-5); Hematocrit 38.4 % (40-54); Hemoglobin 12.5 g/dL (13.0-16.5); Lymphocyte # 0.35 X10^3/ul (0.83-4.51); Lymphocyte % 12.4 % (19-41); Mean Corp Hgb Conc 32.6 g/dL (32-36); Mean Corpuscular Hgb 29.1 pg (27.0-32.0); Mean Corpuscular Volume 89.3 fL (80-94); Mean Platelet Vol. 13.1 fl (6.2-12.0); Monocyte# 0.36 X10^3/uL; Monocyte% 12.8 % (0-10); NRBC Flagged by Analyzer 0 % (0-5); Neutrophil # 2.03 X10^3/uL (2.7-7.7); Neutrophil % 71.9 % (47-70); POSITIVE COUNT YES; POSITIVE DIFFERENTIAL YES; Platelet Count 60 K/mm3 (150-450); RBC Distribution Width CV 16.8 % (11.6-14.6); RBC Distribution Width SD 55.1 fl (35.1-43.9); White Blood Count 2.8 K/mm3 (4.4-11.0)
[2021-10-02 10:31] LABS: Differential Indicated SCAN CRITERIA MET
[2021-10-02 10:34] LABS: Erythrocyte Sedimentation Rate 17 mm/hr (0-20)
[2021-10-02 10:39] LABS: International Normalized Ratio 4.1
[2021-10-02 11:06] LABS: Platelet Estimate MOD DEC (ADEQ); Prothrombin Time (Protime)PT. 39.2 SECONDS (11.7-14.9)
[2021-10-02 11:13] LABS: ALB/GLOB Ratio 0.8 RATIO (0.9-2.4); AST(SGOT) 51 U/L (15-37); Alanine Aminotransfer ALT/SGPT 39 U/L (16-61); Alkaline Phosphatase 197 U/L (45-117); Anion Gap 8 (5-15); BUN 15 mg/dL (7-18); BUN/Creat Ratio 11.8 RATIO (10-20); Calcium,Total 8.9 mg/dL (8.5-10.1); Chloride 99 mmol/L (98-107); Creatinine, Serum 1.27 mg/dL (0.70-1.30); EST Glomerular Filtration Rate 59 mL/min (>60); Est Glom Filt Rate - Afr Amer 71 mL/min (>60); Glucose 153 mg/dL (74-106); LDH 236 U/L (87-241); Sodium Level 134 mmol/L (136-145)
[2021-10-03 13:18] LABS: Pathologist Review Reviewed
== END | disposition home or self-care (01) ==
LOC: LAB 09:56
PROVIDERS: PCP Physician Assistant; Visit Provider Internal Medicine Gastroenterology
DX: K74.60 Unspecified cirrhosis of liver (principal); R18.8 Other ascites
CPT/HCPCS: 36415; 80053; 82140; 83615; 85025; 85610; 85652; 86140

== ENCOUNTER → 2021-10-04 | Outpatient (CLI) | payer BC, MEDICARE, SELFPAY ==
--- NOTE | 2021-10-04 08:15 | US_ITS ---
PROCEDURE: Ultrasound guided paracentesis. DATE OF EXAMINATION: 10/04/2021. INDICATION: Male, 71 years old. Ascites. PHYSICIAN: Lamberto Jaeger M.D. TECHNIQUE: The risks, benefits, and alternatives to the procedure were explained to the patient. The specific risks of bleeding, infection, and damage to bowel were detailed and accepted. Witnessed informed consent was obtained. The abdomen was ultrasonographically surveyed. An appropriate pocket of fluid was identified at the right lower quadrant. The skin were cleaned and prepped in the usual sterile fashion. Using ultrasound guidance, the peritoneal cavity was accessed with a 5-Jamaican paracentesis needle/catheter system. The trocar was removed. A total of 2350 ml of angeli-colored fluid were removed from the peritoneal cavity. The catheter was removed and a sterile dressing was applied. The procedure was well tolerated. US/Paracentesis with US IMPRESSION: Ultrasound guided paracentesis. Electronically Signed: Lamberto Jaeger MD at 10:18 EDT ,
[2021-10-04] MEDS: Lidocaine 2% (20 ml mdv) 20 ML Vial INFILT (08:55)
[2021-10-04 09:01] VITALS: BP 96/55; BP 97/51; PULSE 55; RESP 16; RESP 18; O2SAT 97; O2SAT 98
== END | disposition home or self-care (01) ==
LOC: US 08:13
PROVIDERS: PCP Physician Assistant; Referring Provider Internal Medicine Gastroenterology; Visit Provider Internal Medicine Gastroenterology
DX: K74.60 Unspecified cirrhosis of liver (principal); R18.8 Other ascites
CPT/HCPCS: 49083; A4216

== ENCOUNTER → 2021-10-11 | Outpatient (CLI) | payer BC, MEDICARE, SELFPAY ==
--- NOTE | 2021-10-11 08:39 | US_ITS ---
PROCEDURE: Ultrasound guided paracentesis. DATE OF EXAMINATION: 10/11/2021. INDICATION: Male, 71 years old. Ascites. PHYSICIAN: Lamberto Jaeger M.D. TECHNIQUE: The risks, benefits, and alternatives to the procedure were explained to the patient. The specific risks of bleeding, infection, and damage to bowel were detailed and accepted. Witnessed informed consent was obtained. The abdomen was ultrasonographically surveyed. An appropriate pocket of fluid was identified at the right lower quadrant. The skin were cleaned and prepped in the usual sterile fashion. Using ultrasound guidance, the peritoneal cavity was accessed with a 5-Faroese paracentesis needle/catheter system. The trocar was removed. A total of 3200 ml of angeli-colored fluid were removed from the peritoneal cavity. The catheter was removed and a sterile dressing was applied. The procedure was well tolerated. US/Paracentesis with US IMPRESSION: Ultrasound guided paracentesis. Electronically Signed: Lamberto Jaeger MD at 10:17 EDT ,
[2021-10-11 08:57] VITALS: BP 109/58; BP 115/64; BP 119/66; PULSE 61; PULSE 63; PULSE 66; RESP 18; TEMP 36.5; O2SAT 97; O2SAT 98
[2021-10-11] MEDS: Lidocaine 2% (20 ml mdv) 20 ML Vial INFILT (09:05)
[2021-10-11 10:00] LABS: Prothrombin Time (Protime)PT. 41.4 SECONDS (11.7-14.9)
[2021-10-11 10:07] LABS: Erythrocyte Sedimentation Rate 26 mm/hr (0-20)
[2021-10-11 10:11] LABS: Absolute Lymphocyte Count 0.63 X10^3/uL (0.83-4.51); Absolute Neutrophil Count 2.3 X10^3/uL (2.0-7.7); Basophil# 0.03 X10^3/uL; Basophil% 0.9 % (0-1); Eosinophil# 0.13 X10^3/uL; Eosinophils% 3.8 % (0-5); Hematocrit 36.5 % (40-54); Hemoglobin 12.4 g/dL (13.0-16.5); Lymphocyte # 0.63 X10^3/ul (0.83-4.51); Lymphocyte % 18.2 % (19-41); Mean Corpuscular Hgb 29.2 pg (27.0-32.0); Mean Corpuscular Volume 86.1 fL (80-94); Mean Platelet Vol. 12.4 fl (6.2-12.0); Monocyte% 11.6 % (0-10); NRBC Flagged by Analyzer 0 % (0-5); Neutrophil # 2.26 X10^3/uL (2.7-7.7); Neutrophil % 65.2 % (47-70); POSITIVE COUNT YES; Platelet Count 91 K/mm3 (150-450); RBC Distribution Width CV 16.4 % (11.6-14.6); RBC Distribution Width SD 51.4 fl (35.1-43.9); Red Blood Count 4.24 M/mm3 (4.6-6.2); White Blood Count 3.5 K/mm3 (4.4-11.0)
[2021-10-11 10:59] LABS: ALB/GLOB Ratio 0.7 RATIO (0.9-2.4); AST(SGOT) 43 U/L (15-37); Alanine Aminotransfer ALT/SGPT 34 U/L (16-61); Albumin, Serum 2.8 g/dL (3.2-5.0); Alkaline Phosphatase 129 U/L (45-117); Anion Gap 9 (5-15); BUN 19 mg/dL (7-18); BUN/Creat Ratio 18.1 RATIO (10-20); Calcium,Total 9.1 mg/dL (8.5-10.1); Chloride 100 mmol/L (98-107); Creatinine, Serum 1.05 mg/dL (0.70-1.30); EST Glomerular Filtration Rate 74 mL/min (>60); Est Glom Filt Rate - Afr Amer 89 mL/min (>60); Glucose 145 mg/dL (74-106); LDH 224 U/L (87-241); Potassium 3.8 mmol/L (3.5-5.1); Protein, Total 6.8 g/dL (6.4-8.2); Sodium Level 135 mmol/L (136-145)
[2021-10-11 12:28] LABS: Lactic Acid 2.9 mmol/L (0.4-1.9)
[2021-10-11 14:07] LABS: International Normalized Ratio 4.3
== END | disposition home or self-care (01) ==
PROVIDERS: PCP Physician Assistant; Referring Provider Internal Medicine Gastroenterology; Visit Provider Internal Medicine Gastroenterology
DX: K74.60 Unspecified cirrhosis of liver (principal); R18.8 Other ascites
CPT/HCPCS: 36415; 49083; 80053; 82140; 83605; 83615; 85025; 85610; 85652; 86140

== ENCOUNTER 2021-10-13 09:23 | Inpatient (IN) | payer BC, MEDICARE, SELFPAY ==
[2021-10-13 09:23] VITALS: BP 117/72; PULSE 71; RESP 14; TEMP 36.8; O2SAT 99; BMI 28.6
--- NOTE | 2021-10-13 09:52 | CT_ITS ---
STUDY: CT BRAIN WITHOUT CONTRAST REASON FOR EXAM: Male, 71 years old. Head injury RADIATION DOSAGE (If Supplied By Facility): CTDIvol = ( 47.06 ) mGy, DLP = ( 960.91 ) mGycm TECHNIQUE: Transaxial CT imaging of the brain was performed without administration of intravenous contrast material. Individualized dose optimization techniques were used for this CT. COMPARISON: Comparison is made with prior study dated 12/10/2020. FINDINGS: Normal soft tissue structures. Normal calvarium. There is mild cerebral atrophy with widening of the extra-axial spaces and ventricular dilatation. There are areas of decreased attenuation within the white matter tracts of the supratentorial brain, consistent with microvascular disease changes. Normal basal ganglia and thalami. Normal brainstem. Normal cerebellum. There is no intracranial hemorrhage. There are no findings of an acute ischemic infarction. Atherosclerotic calcification of the cavernous portions of the internal carotid arteries bilaterally. Normal visualized paranasal sinuses. CT/Brain/Head without Contrast IMPRESSION: Chronic involutional changes of the brain. Electronically Signed: Lamberto Jaeger MD at 10:54 EDT ,
--- NOTE | 2021-10-13 09:52 | CT_ITS ---
STUDY: CT CERVICAL SPINE WITHOUT CONTRAST REASON FOR EXAM: Male, 71 years old. Head injury due to a fall. RADIATION DOSAGE (If Supplied By Facility): CTDIvol = ( 32 ) mGy, DLP = ( 1390.08 ) mGycm TECHNIQUE: High resolution transaxial imaging was performed without contrast material. Sagittal and coronal images were reconstructed. Individualized dose optimization techniques were used for this CT. COMPARISON: None FINDINGS: Normal craniovertebral junction. There are degenerative changes of the anterior atlantoaxial articulation. Normal odontoid process. Normal cervical lordosis. Normal vertebral bodies and posterior osseous elements. C2-3: Anterior spondylosis at the C2-C3 level. Mild degree of facet joint osteoarthritis. C3-4: Facet joint osteoarthritis and hypertrophy. No significant neural foraminal stenosis is seen. C4-5: Facet joint osteoarthritis and hypertrophy worse on the right side. No significant neural foraminal stenosis seen. C5-6: Facet joint osteoarthritis and hypertrophy. No significant stenosis is seen. C6-7: Normal endplates. Normal disc height and morphology. Normal central canal and intervertebral neuroforamina. C7-T1: Normal endplates. Normal disc height and morphology. Normal central canal and intervertebral neuroforamina. Atherosclerotic calcification of the carotid bifurcations. CT/Spine Cervical without Contras IMPRESSION: Multilevel degenerative changes, as described above. Electronically Signed: Lamberto Jaeger MD at 10:56 EDT ,
--- NOTE | 2021-10-13 10:05 | EDS_ITS ---
HPI <RICO Mancilla - Last Filed: 10/13/21 11:51> History of Present Illness Chief Complaint: Fall Narrative Narrative: 71-year-old male with history of pancreatic cancer, diabetes, paracentesis, A. fib on Coumadin presents the emergency department after a fall, confusion that occurred last evening. Over the last week, the patient's daughter who is also a nurse states that the patient has been more confused, unsteady on his feet and has been complaining of left ear pain. She did not know that the patient fell until she went to pick them up today. Patient denies any other injuries, he denies any dizziness, chest pain, shortness of breath. Due to the patient being on Coumadin, they are here for evaluation. The daughter also would like lab work, due to the patient's confusion and unsteadiness. Patient does live in home alone and she is concerned [facility] <RICO Mancilla - Last Filed: 10/13/21 11:51> [facility] Medical History (Updated 10/13/21 @ 11:51 by RICO Mancilla) Alcohol use Anemia Atrial fibrillation Back pain Bladder disease Blood disorder Cancer Cardiology follow-up encounter Diabetes Dietary restriction Essential (primary) hypertension Gastric reflux History of atrial fibrillation History of echocardiogram History of edema History of GI bleed History of stress test Hyperlipemia, mixed Hypertension Injury of back Injury of head and neck Loss of hearing Low iron Lung nodule Mesenteric vein thrombosis Mesenteric vein thrombosis Non-smoker Portal hypertension syndrome S/P abdominal paracentesis Shortness of breath on exertion Syncope Thyroid disease Type 2 diabetes mellitus without complications Wears glasses Home Medications esomeprazole magnesium 40 mg capsule,delayed release (Nexium) 40 mg PO QDAY REFLUX 03/15/17 [History Last Taken 02/08/21 06:00] levothyroxine 125 mcg tablet 125 mcg PO QDAY 03/15/17 [History Last Taken 05/22/21 05:00] simvastatin 20 mg tablet 20 mg PO QPM 03/15/17 [History Last Taken 02/06/21] tamsulosin 0.4 mg capsule 0.4 mg PO QHS 03/15/17 [History Last Taken 02/06/21] dutasteride 0.5 mg capsule 0.5 mg PO QDAY 03/19/17 [History Last Taken 02/06/21] ferrous gluconate 324 mg (37.5 mg iron) tablet 324 mg PO BID 03/19/17 [History Last Taken 02/06/21] gabapentin 300 mg capsule 400 mg PO BID NERVE PAIN 01/02/21 [History Last Taken 05/22/21 05:00] metformin 850 mg tablet 1,000 mg PO BID DIABETES 01/24/21 [History Last Taken 02/06/21] carvedilol 3.125 mg tablet (Coreg) 3.125 mg PO BID #60 tabs 04/03/21 [Rx Last Taken 05/22/21 05:00] lanreotide 60 mg/0.2 mL subcutaneous syringe 30 mg subcut Q4W 04/04/21 [History Last Taken 09/21/21] warfarin 5 mg tablet 5 mg PO DAILY #30 tabs 07/25/21 [Rx Last Taken Unknown] furosemide 80 mg tablet 80 mg PO QAM #30 tabs 09/29/21 [Rx Last Taken Unknown] spironolactone 50 mg tablet 50 mg PO BID #60 tabs 09/29/21 [Rx Last Taken Unknown] lactulose 10 gram/15 mL oral solution 10 g (15 mL) PO DAILY #237 mL 10/11/21 [Rx Last Taken Unknown] furosemide 20 mg tablet 40 mg PO QHS 10/13/21 [History Last Taken Unknown] Allergy/AdvReac Type Severity Reaction Status Date / Time heparin AdvReac Other Verified 10/13/21 09:24 Family History Mother Colon cancer Diabetes Heart disease Hypertension Father Lung cancer Surgical History History of colonoscopy History of esophagogastroduodenoscopy (EGD) History of Whipple procedure Hx of cataract surgery Hx of vasectomy Social History Smoking Status: Never smoker alcohol intake: former substance use type: does not use and marijuana caffeine: Yes Type: carbonated beverages and coffee what type of physical activity do you participate in: walking frequency: daily duration: 15-30 minutes/day seatbelt use: always do you feel safe at home: Yes ROS <RICO Mancilla - Last Filed: 10/13/21 11:51> ROS ED ROS Narrative Constitutional: Negative for fever, chills, weight loss, weakness Eyes: Negative for vision loss, vision change, double vision ENT: Negative for any sore throat, ear pain, congestion Cardiovascular: Negative for any chest pain, tightness, palpitations Respiratory: Negative for any cough, sputum production, hemoptysis, dyspnea, dyspnea on exertion, orthopnea Gastrointestinal: Negative for any abdominal pain, nausea, vomiting, diarrhea, constipation, blood in stool, blood in vomit : Negative for any urinary frequency, dysuria, retention, blood in urine Muscle skeletal: Negative for any muscle joint pain, stiffness, myalgias, arthralgias, neck pain, back pain Neurological: Negative for any headache, syncope, numbness or tingling, di zziness Skin: Negative for any rashes, lumps, itching, abrasions, lacerations Psychiatric: Negative for any depression, anxiety, stress, suicidal ideation, homicidal ideation Hematologic: Negative for any easy bruising, excessive bruising, easy bleeding Allergies: Negative for any eczema, hives, rash EXAM <RICO Mancilla - Last Filed: 10/13/21 11:51> Physical Exam Narrative Exam Narrative: Vital signs reviewed. Patient is alert and orient x4, however patient does have a flat affect. Per the daughter, this is not the patient's normal mentation. HEET: Head normocephalic atraumatic, TMs clear bilaterally. Posterior pharynx is clear, moist mucous membranes. Nares clear bilaterally. Pupils are equal round reactive to light, negative for any hematoma, cephalhematoma. Patient does have poor dentition. Neck: Supple with no lymphadenopathy or tenderness. No signs of meningismus, negative jolt sign. Cardiac: Regular rate and rhythm no murmurs gallops or rubs, equal peripheral pulses bilaterally. Respiratory: Lungs clear to auscultation bilaterally. No chest tenderness. Abdomen: Soft. No abdominal bruit or pulsatile masses. No hepatosplenomegaly. Patient does have slight distention, negative for any peritoneal signs. Patient does receive paracentesis, patient does have pain in the right upper quadrant however per the daughter this is chronic pain. Extremities: No peripheral edema, no signs of gross trauma or deformity. Active full range of motion of all extremities. Neuro: Cranial nerves II through XII intact, no focal neurological deficits. Skin: Clean dry and intact with no rash, purpura, petechiae, vesicles or pu stules. Backs/flank: No CVA tenderness, no midline spinal tenderness, no deformity. Psych: Normal mood and affect. No SI, HI or acute psychosis. Const Vital Signs: 10/13/21 09:23 10/13/21 09:47 10/13/21 10:07 Temperature 98.2 F Temperature Source Temporal Pulse Rate 71 68 Respiratory Rate 14 16 Respiratory Effort Normal Blood Pressure 117/72 116/70 Blood Pressure Mean 87 85 Pulse Ox 99 97 Oxygen Delivery Method Room Air Room Air <Dr. Eddie Shankar MD - Last Filed: 10/13/21 10:57> Physical Exam Const Vital Signs: 10/13/21 09:23 10/13/21 09:47 10/13/21 10:07 Temperature 98.2 F Temperature Source Temporal Pulse Rate 71 68 Respiratory Rate 14 16 Respiratory Effort Normal Blood Pressure 117/72 116/70 Blood Pressure Mean 87 85 Pulse Ox 99 97 Oxygen Delivery Method Room Air Room Air MDM <RICO Mancilla - Last Filed: 10/13/21 11:51> [facility] Lab Data Labs: Laboratory Results - last 24 hr 10/13/21 10/13/21 10/13/21 10:05 10:05 10:05 WBC 4.4 RBC 4.64 Hgb 13.3 Hct 40.6 MCV 87.5 MCH 28.7 MCHC 32.8 RDW Std Deviation 52.3 H RDW Coeff of Penny 16.4 H Plt Count 89 L MPV 12.4 H Immature Gran % (Auto) 0.200 Neut % (Auto) 71.1 H Lymph % (Auto) 13.9 L [place] % (Auto) 11.6 H Eos % (Auto) 2.7 Baso % (Auto) 0.5 Absolute Neuts (auto) 3.1 Absolute Lymphs (auto) 0.61 L Nucleated RBC % 0 Platelet Estimate MOD DEC RBC Morphology NORM C+C PT 25.0 H INR 2.3 Sodium 135 L Potassium 3.9 Chloride 97 L Carbon Dioxide 27.0 Anion Gap 11 BUN 29 H Creatinine 1.52 H Estim Creat Clear Calc 48.92 Est GFR (MDRD) Af Amer 58 L Est GFR (MDRD) Non-Af 48 L BUN/Creatinine Ratio 19.1 Glucose 233 H Calcium 9.7 Total Bilirubin 2.40 H Direct Bilirubin 0.66 H AST 43 H ALT 39 Alkaline Phosphatase 142 H Ammonia Total Protein 7.4 Albumin 3.0 L Globulin 4.4 H Lipase 154 Urine Color Urine Clarity Urine pH Ur Specific [place] Urine Protein Urine Glucose (UA) Urine Ketones Urine Occult Blood Urine Nitrite Urine Bilirubin Urine Urobilinogen Ur Leukocyte Esterase Urine RBC Urine WBC Ur Squamous Epith Cells Urine Bacteria Urine Mucus 10/13/21 10/13/21 10:15 11:00 WBC RBC Hgb Hct MCV MCH MCHC RDW Std Deviation RDW Coeff of Penny Plt Count MPV Immature Gran % (Auto) Neut % (Auto) Lymph % (Auto) [place] % (Auto) Eos % (Auto) Baso % (Auto) Absolute Neuts (auto) Absolute Lymphs (auto) Nucleated RBC % Platelet Estimate RBC Morphology PT INR Sodium Potassium Chloride Carbon Dioxide Anion Gap BUN Creatinine Estim Creat Clear Calc Est GFR (MDRD) Af Amer Est GFR (MDRD) Non-Af BUN/Creatinine Ratio Glucose Calcium Total Bilirubin Direct Bilirubin AST ALT Alkaline Phosphatase Ammonia 118.0 H Total Protein Albumin Globulin Lipase Urine Color Yellow Urine Clarity Clear Urine pH 6.0 Ur Specific [place] 1.010 Urine Protein Negative Urine Glucose (UA) 1000 H Urine Ketones Negative Urine Occult Blood Negative Urine Nitrite Negative Urine Bilirubin Negative Urine Urobilinogen Normal Ur Leukocyte Esterase Negative Urine RBC 0 SEEN Urine WBC 0 SEEN Ur Squamous Epith Cells 0-5 SEEN Urine Bacteria 0 SEEN Urine Mucus 0 SEEN Radiography Diagnostic Testing: Clinical Impression(s) from Imaging Studies Brain CT 10/13/21 09:52 IMPRESSION: Chronic involutional changes of the brain. Electronically Signed: Lamberto Jaeger MD at 10:54 EDT , Cervical Spine CT 10/13/21 09:52 IMPRESSION: Multilevel degenerative changes, as described above. Electronically Signed: Lamberto Jaeger MD at 10:56 EDT , Treatment and Re-Evaluation Narrative: Patient arrives alert and oriented however is slow to respond with a flat affect, patient presents to the [facility] apartment after a fall being on Coumadin as well as some weakness and some altered mental status per the daughter. Patient did receive a full work-up.Patient had multiple abnormal lab values, patient's INR is within normal limits at 2.3, patient sodium was slightly low, patient's creatinine is 1.52 glucose was 233, patient did have an ammonia level of 118, 2 days ago it was 79.0. Patient's alkaline phosphatase 142. Patient did receive a CT scan of the brain as well as cervical spine CT these were both negative for any acute processes. Urinalysis negative for infection. Due to the patient's worsening cirrhosis, I did contact Dr. Toscano, the patient does have a portal vein thrombus which makes surgery difficult, patient's cirrhosis is getting worse and the patient needs extra lactulose. Recommended for admission. I did talk to his hospitalist, they are in agreement, the patient be admitted to [facility]. Patient will be given lactulose here and is stable for admission <Dr. Eddie Shankar MD - Last Filed: 10/13/21 10:57> [facility] Narrative Medical decision making narrative: I have personally performed a face to face assessment of the patient and have reviewed the ALFRED Note. I performed a substantive portion of the visit including all aspects of the following. My cornejo findings include: History is increasing instability with more episodes of mild confusion. Patient fell last night hit his head. It sounds like he likely did not lose consciousness or hurt anything. However he is on Coumadin. This patient has a history of pancreatic cancer treated with a Whipple in 2016. He has had ascites recently that is being worked up. He is evidently had 3 paracentesis since the end of September. He just started lactulose yesterday. But his symptoms of weakness and instability are worse. Confusion is still waxing and waning in a similar amount. Nothing makes this better or worse. Exam is patient is awake he is alert. He is a little bit slow sometimes to answer questions. I think there is some hearing issue also. Lungs are clear. Abdomen is distended but not tender. He has a well-healed large scar from prior surgery. There does appear to be some ascites but per him and his daughter it is less than when he had his first paracentesis about a week and a half ago. Medical Decison Making: Patient will have CT scan of the head, INR ammonia level LFTs chemistries CBC. Due to his instability, falls, generalized work setting he will likely need admission for further management. I am suspecting his ammonia level will likely be elevated due to his symptoms. Lab Data Labs: Laboratory Results - last 24 hr 10/13/21 10/13/21 10/13/21 10:05 10:05 10:05 WBC 4.4 RBC 4.64 Hgb 13.3 Hct 40.6 MCV 87.5 MCH 28.7 MCHC 32.8 RDW Std Deviation 52.3 H RDW Coeff of Penny 16.4 H Plt Count 89 L MPV 12.4 H Immature Gran % (Auto) 0.200 Neut % (Auto) 71.1 H Lymph % (Auto) 13.9 L [place] % (Auto) 11.6 H Eos % (Auto) 2.7 Baso % (Auto) 0.5 Absolute Neuts (auto) 3.1 Absolute Lymphs (auto) 0.61 L Nucleated RBC % 0 Platelet Estimate MOD DEC RBC Morphology NORM C+C PT 25.0 H INR 2.3 Sodium 135 L Potassium 3.9 Chloride 97 L Carbon Dioxide 27.0 Anion Gap 11 BUN 29 H Creatinine 1.52 H Estim Creat Clear Calc 48.92 Est GFR (MDRD) Af Amer 58 L Est GFR (MDRD) Non-Af 48 L BUN/Creatinine Ratio 19.1 Glucose 233 H Calcium 9.7 Total Bilirubin 2.40 H Direct Bilirubin 0.66 H AST 43 H ALT 39 Alkaline Phosphatase 142 H Ammonia Total Protein 7.4 Albumin 3.0 L Globulin 4.4 H Lipase 154 Urine Color Urine Clarity Urine pH Ur Specific [place] Urine Protein Urine Glucose (UA) Urine Ketones Urine Occult Blood Urine Nitrite Urine Bilirubin Urine Urobilinogen Ur Leukocyte Esterase Urine RBC Urine WBC Ur Squamous Epith Cells Urine Bacteria Urine Mucus 10/13/21 10/13/21 10:15 11:00 WBC RBC Hgb Hct MCV MCH MCHC RDW Std Deviation RDW Coeff of Penny Plt Count MPV Immature Gran % (Auto) Neut % (Auto) Lymph % (Auto) [place] % (Auto) Eos % (Auto) Baso % (Auto) Absolute Neuts (auto) Absolute Lymphs (auto) Nucleated RBC % Platelet Estimate RBC Morphology PT INR Sodium Potassium Chloride Carbon Dioxide Anion Gap BUN Creatinine Estim Creat Clear Calc Est GFR (MDRD) Af Amer Est GFR (MDRD) Non-Af BUN/Creatinine Ratio Glucose Calcium Total Bilirubin Direct Bilirubin AST ALT Alkaline Phosphatase Ammonia 118.0 H Total Protein Albumin Globulin Lipase Urine Color Yellow Urine Clarity Clear Urine pH 6.0 Ur Specific [place] 1.010 Urine Protein Negative Urine Glucose (UA) 1000 H Urine Ketones Negative Urine Occult Blood Negative Urine Nitrite Negative Urine Bilirubin Negative Urine Urobilinogen Normal Ur Leukocyte Esterase Negative Urine RBC 0 SEEN Urine WBC 0 SEEN Ur Squamous Epith Cells 0-5 SEEN Urine Bacteria 0 SEEN Urine Mucus 0 SEEN Radiography Diagnostic Testing: Clinical Impression(s) from Imaging Studies Brain CT 10/13/21 09:52 IMPRESSION: Chronic involutional changes of the brain. Electronically Signed: Lamberto Jaeger MD at 10:54 EDT , Cervical Spine CT 10/13/21 09:52 IMPRESSION: Multilevel degenerative changes, as described above. Electronically Signed: Lamberto Jaeger MD at 10:56 EDT , Discharge Plan Dx/Rx/DC Orders Clinical Impression: Acute hepatic encephalopathy, Falls frequently, Cirrhosis of liver, Ascites, Head injury Disposition Disposition: Acute Care [facility]
[2021-10-13 10:07] VITALS: BP 116/70; PULSE 68; RESP 16; O2SAT 97
[2021-10-13 10:16] LABS: Absolute Lymphocyte Count 0.61 X10^3/uL (0.83-4.51); Absolute Neutrophil Count 3.1 X10^3/uL (2.0-7.7); Basophil# 0.02 X10^3/uL; Basophil% 0.5 % (0-1); Eosinophil# 0.12 X10^3/uL; Eosinophils% 2.7 % (0-5); Hematocrit 40.6 % (40-54); Hemoglobin 13.3 g/dL (13.0-16.5); Lymphocyte # 0.61 X10^3/ul (0.83-4.51); Lymphocyte % 13.9 % (19-41); Mean Corp Hgb Conc 32.8 g/dL (32-36); Mean Corpuscular Hgb 28.7 pg (27.0-32.0); Mean Corpuscular Volume 87.5 fL (80-94); Mean Platelet Vol. 12.4 fl (6.2-12.0); Monocyte# 0.51 X10^3/uL; Monocyte% 11.6 % (0-10); NRBC Flagged by Analyzer 0 % (0-5); Neutrophil # 3.12 X10^3/uL (2.7-7.7); Neutrophil % 71.1 % (47-70); POSITIVE COUNT YES; Platelet Count 89 K/mm3 (150-450); RBC Distribution Width CV 16.4 % (11.6-14.6); RBC Distribution Width SD 52.3 fl (35.1-43.9); Red Blood Count 4.64 M/mm3 (4.6-6.2); White Blood Count 4.4 K/mm3 (4.4-11.0)
[2021-10-13 10:21] LABS: International Normalized Ratio 2.3
[2021-10-13 10:23] LABS: Differential Indicated SCAN CRITERIA MET
[2021-10-13 10:30] LABS: AST(SGOT) 43 U/L (15-37); Alanine Aminotransfer ALT/SGPT 39 U/L (16-61); Alkaline Phosphatase 142 U/L (45-117); Anion Gap 11 (5-15); BUN 29 mg/dL (7-18); BUN/Creat Ratio 19.1 RATIO (10-20); Bilirubin, Direct 0.66 mg/dL (0.00-0.30); Calcium,Total 9.7 mg/dL (8.5-10.1); Chloride 97 mmol/L (98-107); Creatinine, Serum 1.52 mg/dL (0.70-1.30); EST Glomerular Filtration Rate 48 mL/min (>60); Est Glom Filt Rate - Afr Amer 58 mL/min (>60); Estimated Creatinine Clearance 48.92 ml/min; Globulin 4.4 g/dL (2.2-4.2); Glucose 233 mg/dL (74-106); Lipase 154 U/L (73-393); Potassium 3.9 mmol/L (3.5-5.1); Protein, Total 7.4 g/dL (6.4-8.2); Sodium Level 135 mmol/L (136-145)
[2021-10-13 11:06] LABS: Bacteria 0 SEEN /hpf (None Seen); Mucous, Urine 0 SEEN /hpf (<or=2+); Red Blood Cells-Urine 0 SEEN /hpf (0-5); White Blood Cells 0 SEEN /hpf (0-5)
[2021-10-13 11:08] LABS: Color, Urine Yellow (Yellow); Glucose, Dipstick 1000 mg/dl (Normal); Ketone-Dipstick Negative (Negative); Leukocyte Esterase-Dipstick Negative /ul (Negative); Nitrite-Dipstick Negative (Negative); Occult Blood-Urine Negative /ul (Negative); Protein-Dipstick Negative (Negative); Urine Bilirubin Dipstick Negative (Negative); Urine Clarity Clear (Clear); Urine Urobilinogen Normal (Normal)
[2021-10-13 11:10] LABS: Platelet Estimate MOD DEC (ADEQ); Red Cell Morphology NORM C+C NORMAL (NORM C&C)
[2021-10-13 11:13] LABS: Squamous Epithelial Cells - UA 0-5 SEEN /hpf (0-5)
--- NOTE | 2021-10-13 11:44 | NURSING ---
HOSPITALIST FOR DR ANTONIO
--- NOTE | 2021-10-13 11:51 | NURSING ---
[facility] HEPATIC ENCEPHALOPATH[facility], WEAKNESS, FREQUENT FALLS
[2021-10-13] MEDS: Lactulose 20 GM/30 ML UDC PO ×2 (12:12→21:35)
[2021-10-13 12:22] VITALS: BP 97/66; PULSE 65; RESP 17; TEMP 36.3; O2SAT 96
[2021-10-13 13:07] VITALS: O2SAT 96
[2021-10-13 13:21] VITALS: BMI 27.3
[2021-10-13 13:45] VITALS: BP 108/66; PULSE 58; RESP 16; TEMP 36.4; O2SAT 96
--- NOTE | 2021-10-13 13:55 | CASEMGMT ---
RN ROMANA Face to Face with patient for initial transition planning/care coordination assessment. RN CM introduced self and role at [facility]. Patient lying in bed, alert and oriented, daughter at bedside. Patient willing to participate in assessment and is able to answer all questions appropriately. Care providers, pharmacy, and demographics verified. Patient wishes to discharge home, will monitor progress with therapy for possible HHC vs Outpatient therapy. Patient states he has no further needs or concerns at this time. CM to follow for discharge planning needs that may arise. PCP: Tiburcio BRYANT Specialists: Austin, oncologist; Friend, GI; Estefany, search engine optimizer Preferred Pharmacy: [facility] Insurance: [email or web address] Prescription Benefit: yes Living Will/HPOA: none, patient would like to complete. SW updated and information card provided to patient LNOK: daughters Living Arrangements: Patient lives alone in a single story home with 2 steps and railing to enter the home. Patient states he was independent at home, but has had a couple falls in the last few weeks. Transportation: self, daughter DME/HHC: Patient has cane and walker available but does not use. Patient also has raised toilet and grab bars at home. No previous HHC or SNF. Disposition Plan: Patient to discharge home with family support and follow-up plans in place. Will monitor for therapy needs at discharge, HHC vs outpatient. Diandra NICOLAS, RN, CM
--- NOTE | 2021-10-13 14:50 | CASEMGMT ---
SW met with patient and his daughter. Introduced self and role at [facility]. Patient confirmed he would like to do Healthcare Power of Signal Apprentice papers. SW completed documents with patient. Copies were made and given to patient along with original. SW also placed a copy in patient's chart. Skyla BURRIS
--- NOTE | 2021-10-13 14:50 | PCM.HP.STD ---
HPI - General General Date of Admission: 10/13/21 Date of Service: 10/13/21 Chief Complaint: Fall, generalized weakness -3-4 days HPI Narrative GLEN MACK, is a 71 M who presents with the above. Patient has past medical history of hypertension, type II DM, chronic atrial fibrillation, history of pancreatic cancer status post partial Whipple surgery with complication of her wen vessel, status post chemotherapy, history of portal hypertension, is mesenteric vein thrombosis who follows with GI in the outpatient. Patient has been having scheduled paracentesis. Last had paracentesis on 10/11/21. He lives alone, his daughter comes to check on him. 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 Patient was noted to be more confused over the last couple of days. He had blood work done on 10/11/2021 that showed ammonia level of 79. He was prescribed lactulose and his Lasix was increased. Patient subsequently has remained confused. He fell this morning and hit his head. He denied any dizziness or chest pain or palpitations. Is blood work in the ED showed temperature of 90 8.2F, blood pressure 117/72, heart rate 71, respiratory 14, oxygen sat 99% on room air. WBC count 4.4, hemoglobin 13.3, platelet count 89. Sodium is 135, potassium 3.9, chloride 97, bicarbonate 27, BUN 29, creatinine 1.52, glucose 233, total bilirubin 2.4, direct bilirubin 0.66, AST 43, ALT 39, ALP 142. Ammonia level is 118. CT scan of the brain showed chronic involuntary changes. CT of the cervical spine showed multilevel degenerative changes. [facility] Medical History Alcohol use Anemia Atrial fibrillation Back pain Bladder disease Blood disorder Cancer Cardiology follow-up encounter Diabetes Dietary restriction Essential (primary) hypertension Gastric reflux History of atrial fibrillation History of echocardiogram History of edema History of GI bleed History of stress test Hyperlipemia, mixed Hypertension Injury of back Injury of head and neck Loss of hearing Low iron Lung nodule Mesenteric vein thrombosis Mesenteric vein thrombosis Non-smoker Portal hypertension syndrome S/P abdominal paracentesis Shortness of breath on exertion Syncope Thyroid disease Type 2 diabetes mellitus without complications Wears glasses Home Medications esomeprazole magnesium 40 mg capsule,delayed release (Nexium) 40 mg PO QDAY REFLUX 03/15/17 [History Last Taken 02/08/21 06:00] levothyroxine 125 mcg tablet 125 mcg PO QDAY 03/15/17 [History Last Taken 05/22/21 05:00] simvastatin 20 mg tablet 20 mg PO QPM 03/15/17 [History Last Taken 02/06/21] tamsulosin 0.4 mg capsule 0.4 mg PO QHS 03/15/17 [History Last Taken 02/06/21] dutasteride 0.5 mg capsule 0.5 mg PO QDAY 03/19/17 [History Last Taken 02/06/21] ferrous gluconate 324 mg (37.5 mg iron) tablet 324 mg PO BID 03/19/17 [History Last Taken 02/06/21] gabapentin 300 mg capsule 400 mg PO BID NERVE PAIN 01/02/21 [History Last Taken 05/22/21 05:00] metformin 850 mg tablet 1,000 mg PO BID DIABETES 01/24/21 [History Last Taken 02/06/21] carvedilol 3.125 mg tablet (Coreg) 3.125 mg PO BID #60 tabs 04/03/21 [Rx Last Taken 05/22/21 05:00] lanreotide 60 mg/0.2 mL subcutaneous syringe 30 mg subcut Q4W 04/04/21 [History Last Taken 09/21/21] warfarin 5 mg tablet 5 mg PO DAILY #30 tabs 07/25/21 [Rx Last Taken Unknown] furosemide 80 mg tablet 80 mg PO QAM #30 tabs 09/29/21 [Rx Last Taken Unknown] spironolactone 50 mg tablet 50 mg PO BID #60 tabs 09/29/21 [Rx Last Taken Unknown] lactulose 10 gram/15 mL oral solution 10 g (15 mL) PO DAILY #237 mL 10/11/21 [Rx Last Taken Unknown] furosemide 20 mg tablet 40 mg PO QHS 10/13/21 [History Last Taken Unknown] Allergy/AdvReac Type Severity Reaction Status Date / Time heparin AdvReac Other Verified 10/13/21 09:24 Family History Mother Colon cancer Diabetes Heart disease Hypertension Father Lung cancer Surgical History History of colonoscopy History of esophagogastroduodenoscopy (EGD) History of Whipple procedure Hx of cataract surgery Hx of vasectomy Social History Smoking Status: Never smoker alcohol intake: former substance use type: does not use and marijuana caffeine: Yes Type: carbonated beverages and coffee what type of physical activity do you participate in: walking frequency: daily duration: 15-30 minutes/day seatbelt use: always do you feel safe at home: Yes ROS ROS Narrative Constitutional: Denies: Anorexia, Chills, Fever, Night Sweats, Weight Change Eyes: Denies: Blurred vision, Cataracts, Conjunctivae Inflammation, Pain, Redness, Vision Change HEENT: Denies: Difficulty Hearing, Difficulty Swallowing, Head Aches, Hearing Changes, Sinus Congestion, Sinus Drainage Cardiovascular: Denies: Chest Pain, Orthopnea, Palpitations Respiratory: Denies: Cough, Shortness of breath at rest, Sputum production Gastrointestinal: See HPI Genitourinary: Denies: Dysuria Musculoskeletal: Denies: Joint Pain, Joint stiffness, Joint swelling, Joint Tenderness Skin: Denies: Rash, Wounds Neurological: Denies: Numbness, Tingling, Focal weakness Vital Signs Vital Signs Vital Signs: 10/13/21 09:23 10/13/21 09:47 10/13/21 10:07 Temperature 98.2 F Temperature Source Temporal Pulse Rate 71 68 Respiratory Rate 14 16 Respiratory Effort Normal Respiratory Depth Respiratory Pattern Blood Pressure 117/72 116/70 Blood Pressure Mean 87 85 Blood Pressure Source Blood Pressure Position Blood Pressure Location Pulse Ox 99 97 Oxygen Delivery Method Room Air Room Air 10/13/21 12:22 10/13/21 13:45 10/13/21 13:07 Temperature 97.3 F L 97.6 F L Temperature Source Temporal Oral Pulse Rate 65 58 L Respiratory Rate 17 16 Respiratory Effort Normal Non-Labored Respiratory Depth Normal Respiratory Pattern Normal Blood Pressure 97/66 108/66 Blood Pressure Mean 76 80 Blood Pressure Source Monitor Blood Pressure Position Semi-Fowlers Blood Pressure Location Right Arm Pulse Ox 96 96 96 Oxygen Delivery Method Room Air Room Air Room Air Weight Weight: 93.894 kg Body Mass Index (BMI) 27.3 Results Lab / Micro Data Result Diagrams: 10/13/21 10:05 10/13/21 10:05 Labs: Laboratory Results - last 24 hr 10/13/21 10:05: WBC 4.4, RBC 4.64, Hgb 13.3, Hct 40.6, MCV 87.5, MCH 28.7, MCHC 32.8, RDW Std Deviation 52.3 H, RDW Coeff of Penny 16.4 H, Plt Count 89 L, MPV 12.4 H, Immature Gran % (Auto) 0.200, Neut % (Auto) 71.1 H, Lymph % (Auto) 13.9 L, [place] % (Auto) 11.6 H, Eos % (Auto) 2.7, Baso % (Auto) 0.5, Absolute Neuts (auto) 3.1, Absolute Lymphs (auto) 0.61 L, Nucleated RBC % 0, Platelet Estimate MOD DEC, RBC Morphology NORM C+C 10/13/21 10:05: Sodium 135 L, Potassium 3.9, Chloride 97 L, Carbon Dioxide 27.0, Anion Gap 11, BUN 29 H, Creatinine 1.52 H, Estim Creat Clear Calc 48.92, Est GFR (MDRD) Af Amer 58 L, Est GFR (MDRD) Non-Af 48 L, BUN/Creatinine Ratio 19.1, Glucose 233 H, Calcium 9.7, Total Bilirubin 2.40 H, Direct Bilirubin 0.66 H, AST 43 H, ALT 39, Alkaline Phosphatase 142 H, Total Protein 7.4, Albumin 3.0 L, Globulin 4.4 H, Lipase 154 10/13/21 10:05: PT 25.0 H, INR 2.3 10/13/21 10:15: Ammonia 118.0 H 10/13/21 11:00: Urine Color Yellow, Urine Clarity Clear, Urine pH 6.0, Ur Specific [place] 1.010, Urine Protein Negative, Urine Glucose (UA) 1000 H, Urine Ketones Negative, Urine Occult Blood Negative, Urine Nitrite Negative, Urine Bilirubin Negative, Urine Urobilinogen Normal, Ur Leukocyte Esterase Negative, Urine RBC 0 SEEN, Urine WBC 0 SEEN, Ur Squamous Epith Cells 0-5 SEEN, Urine Bacteria 0 SEEN, Urine Mucus 0 SEEN Radiology Impression Brain CT 10/13/21 09:52 IMPRESSION: Chronic involutional changes of the brain. Electronically Signed: Lamberto Jaeger MD at 10:54 EDT , Cervical Spine CT 10/13/21 09:52 IMPRESSION: Multilevel degenerative changes, as described above. Electronically Signed: Lamberto Jaeger MD at 10:56 EDT , Assessment & Plan Assessment/Plan (1) Acute hepatic encephalopathy: PLAN: Plan 1. Acute hepatic encephalopathy secondary to liver cirrhosis, portal hypertension, esophageal varices, h/o mesenteric vein thrombosis Patient with ascites on exam. Been getting twice a week outpatient paracentesis Patient's admitting ammonia was 118 Recently started on lactulose, will continue same, repeat ammonia in the morning 2. WILFRIDO on CKD stage 3, baseline creatinine is around 1, admitted creatinine 1.52 Will hold Lasix, Aldactone; resume in am if better 3. History of mesenteric vein thrombosis, patient history of pancreatic CA status post partial Whipple procedure On Coumadin, INR is 2.3, continue to trend 4. Hypertension, controlled, continue carvedilol Spironolactone on hold 5. Type II DM, on metformin, metformin on hold, continue insulin sliding scale 6. Iron deficiency anemia, continue on iron pills 7. BPH, continue on Proscar, Flomax 8. Hypothyroidism, continue on synthroid 9. DVT prophylaxis?INR therapeutic on Coumadin -2.3 I discussed and explained in details the various types of CODE STATUS-full code, DNR CCA, DNR CC. Patient chose to be DNR CCA, no intubation. He does not want to be kept on mechanical ventilator in the event of a cardiopulmonary arrest. Time spent discussing CODE STATUS 16 minutes Charges/Coding Visit Charges Inpatient E&M: 28306 Init Hosp L3 Procedures Hospitalists Procedures: 20417 Advncd Care Plan 30 Min
[2021-10-13 16:14] LABS: Hemoglobin A1c 7.5 % (3.8-5.6)
[2021-10-13] MEDS: Glucerna Shake 120 ML LIQUID PO ×2 (18:04→21:35)
[2021-10-13 20:35] VITALS: BP 102/62; PULSE 68; RESP 16; TEMP 36.6; O2SAT 98
[2021-10-13] MEDS: Insulin Lispro 100 UNIT/ML INSULN.PEN SC (21:34)
[2021-10-13] MEDS: Ferrous Gluconate 324 MG Tablet PO (21:35)
[2021-10-13] MEDS: Atorvastatin Calcium 10 MG Tablet PO (21:35)
[2021-10-13] MEDS: Tamsulosin HCl 0.4 MG Capsule PO (21:35)
[2021-10-13 22:00] LABS: Bedside Glucose 220 mg/dL (74-106)
[2021-10-14 02:00] VITALS: BP 111/63; PULSE 61; RESP 16; TEMP 36.6; O2SAT 94
[2021-10-14] MEDS: Levothyroxine 125 MCG Tablet PO (06:21)
[2021-10-14] MEDS: Insulin Lispro 100 UNIT/ML INSULN.PEN SC ×4 (06:21→21:13)
[2021-10-14 06:43] LABS: Absolute Lymphocyte Count 0.63 X10^3/uL (0.83-4.51); Absolute Neutrophil Count 2.3 X10^3/uL (2.0-7.7); Basophil# 0.02 X10^3/uL; Basophil% 0.6 % (0-1); Eosinophil# 0.08 X10^3/uL; Eosinophils% 2.3 % (0-5); Hematocrit 36.2 % (40-54); Hemoglobin 12.3 g/dL (13.0-16.5); Lymphocyte # 0.63 X10^3/ul (0.83-4.51); Lymphocyte % 18.1 % (19-41); Mean Corpuscular Hgb 28.8 pg (27.0-32.0); Mean Corpuscular Volume 84.8 fL (80-94); Monocyte# 0.46 X10^3/uL; Monocyte% 13.2 % (0-10); NRBC Flagged by Analyzer 0 % (0-5); Neutrophil # 2.29 X10^3/uL (2.7-7.7); Neutrophil % 65.5 % (47-70); POSITIVE COUNT YES; Platelet Count 82 K/mm3 (150-450); RBC Distribution Width CV 16.1 % (11.6-14.6); RBC Distribution Width SD 50.2 fl (35.1-43.9); Red Blood Count 4.27 M/mm3 (4.6-6.2); White Blood Count 3.5 K/mm3 (4.4-11.0)
[2021-10-14 06:58] LABS: International Normalized Ratio 1.8; Prothrombin Time (Protime)PT. 20.5 SECONDS (11.7-14.9)
[2021-10-14 07:05] LABS: Bedside Glucose 187 mg/dL (74-106)
[2021-10-14 07:13] LABS: ALB/GLOB Ratio 0.7 RATIO (0.9-2.4); AST(SGOT) 38 U/L (15-37); Alanine Aminotransfer ALT/SGPT 36 U/L (16-61); Albumin, Serum 2.8 g/dL (3.2-5.0); Alkaline Phosphatase 130 U/L (45-117); Anion Gap 8 (5-15); BUN 29 mg/dL (7-18); Calcium,Total 9.6 mg/dL (8.5-10.1); Chloride 98 mmol/L (98-107); Creatinine, Serum 1.16 mg/dL (0.70-1.30); EST Glomerular Filtration Rate 66 mL/min (>60); Est Glom Filt Rate - Afr Amer 79 mL/min (>60); Globulin 4.1 g/dL (2.2-4.2); Glucose 159 mg/dL (74-106); Potassium 3.8 mmol/L (3.5-5.1); Protein, Total 6.9 g/dL (6.4-8.2); Sodium Level 134 mmol/L (136-145)
[2021-10-14 08:02] VITALS: BP 114/74; PULSE 63; RESP 16; TEMP 36.8; O2SAT 97
[2021-10-14] MEDS: Ferrous Gluconate 324 MG Tablet PO ×2 (09:24→21:12)
[2021-10-14] MEDS: Lactulose 20 GM/30 ML UDC PO ×3 (09:24→21:12)
[2021-10-14] MEDS: Pantoprazole Sodium 40 MG Tablet PO (09:25)
[2021-10-14] MEDS: Finasteride 5 MG Tablet PO (09:25)
[2021-10-14] MEDS: Carvedilol 3.125 MG TABLET PO ×2 (09:26→21:12)
[2021-10-14] MEDS: Glucerna Shake 120 ML LIQUID PO ×3 (09:27→17:29)
--- NOTE | 2021-10-14 09:51 | PCM.PN.HOSP ---
Subjective Subjective Follow-up with acute hepatic encephalopathy/recurrent falls: Patient was seen and examined. No acute events overnight. He has not had a bowel movement since being admitted. Repeat ammonia is 113 from 116. Objective Data Objective Data Vital Signs: Vital Signs Temp Pulse Resp BP Pulse Ox O2 Del Method 98.2 F 63 16 114/74 97 Room Air 10/14/21 08:02 10/14/21 08:02 10/14/21 08:02 10/14/21 08:02 10/14/21 08:02 10/14/21 08:02 Oxygen Delivery Method Room Air Weight: 93.5 kg Body Mass Index (BMI) 27.3 Intake & Output: Intake and Output for Last 24 Hours 10/12/21 10/13/21 10/14/21 23:59 23:59 23:59 Intake Total 360 / 360 Output Total 950 / 950 Balance 360 / 110 -950 / -950 Medical Nutrition Assessment Dietitian: Malnutrition Criteria Met Start: 10/13/21 15:03 Freq: Status: Active Protocol: Document 10/13/21 15:03 BLAINE (Rec: 10/13/21 15:04 BLAINE [id number]) Nutrition Malnutrition Evidence of Malnutrition Exists Yes Malnutrition (severe): Chronic Evidenced By Suboptimal Energy Intake ( Severe),Weight Loss (Severe) Clinical Problem Acute Disease or Injury Related Malnutrition Etiology related to inadequate energy/ protein intake d/t hepatic dz and decreased mentation Signs/Symptoms as evidenced by 12.5% wt loss and <75% po intake of estimated nutrition needs x past 2 wks; pt with mild fat/ muscle loss in face (orbital, temporal) and arms (triceps). Status Active Problem Chronic Disease or Condition Related Malnutrition Status Inactive Problem Recommendation Dietitian Recommendations/Changes Will change diet to Consistent CHO/ Sodium restricted diet Will provide 4 oz glucerna shake w/ medpass 4x/day Will provide 1 scoop beneprotein w/ meals mixed in something that the pt can drink. Lab / Micro Data Result Diagrams: 10/14/21 06:16 10/14/21 06:16 Labs: Laboratory Results - last 24 hr 10/13/21 10:05: WBC 4.4, RBC 4.64, Hgb 13.3, Hct 40.6, MCV 87.5, MCH 28.7, MCHC 32.8, RDW Std Deviation 52.3 H, RDW Coeff of Penny 16.4 H, Plt Count 89 L, MPV 12.4 H, Immature Gran % (Auto) 0.200, Neut % (Auto) 71.1 H, Lymph % (Auto) 13.9 L, [place] % (Auto) 11.6 H, Eos % (Auto) 2.7, Baso % (Auto) 0.5, Absolute Neuts (auto) 3.1, Absolute Lymphs (auto) 0.61 L, Nucleated RBC % 0, Platelet Estimate MOD DEC, RBC Morphology NORM C+C 10/13/21 10:05: Sodium 135 L, Potassium 3.9, Chloride 97 L, Carbon Dioxide 27.0, Anion Gap 11, BUN 29 H, Creatinine 1.52 H, Estim Creat Clear Calc 48.92, Est GFR (MDRD) Af Amer 58 L, Est GFR (MDRD) Non-Af 48 L, BUN/Creatinine Ratio 19.1, Glucose 233 H, Calcium 9.7, Total Bilirubin 2.40 H, Direct Bilirubin 0.66 H, AST 43 H, ALT 39, Alkaline Phosphatase 142 H, Total Protein 7.4, Albumin 3.0 L, Globulin 4.4 H, Lipase 154 10/13/21 10:05: PT 25.0 H, INR 2.3 10/13/21 10:05: Hemoglobin A1c 7.5 H 10/13/21 10:15: Ammonia 118.0 H 10/13/21 11:00: Urine Color Yellow, Urine Clarity Clear, Urine pH 6.0, Ur Specific [place] 1.010, Urine Protein Negative, Urine Glucose (UA) 1000 H, Urine Ketones Negative, Urine Occult Blood Negative, Urine Nitrite Negative, Urine Bilirubin Negative, Urine Urobilinogen Normal, Ur Leukocyte Esterase Negative, Urine RBC 0 SEEN, Urine WBC 0 SEEN, Ur Squamous Epith Cells 0-5 SEEN, Urine Bacteria 0 SEEN, Urine Mucus 0 SEEN 10/13/21 21:31: POC Glucose 220 H 10/14/21 06:16: WBC 3.5 L, RBC 4.27 L, Hgb 12.3 L, Hct 36.2 L, MCV 84.8, MCH 28.8, MCHC 34.0, RDW Std Deviation 50.2 H, RDW Coeff of Penny 16.1 H, Plt Count 82 L, MPV 12.0, Immature Gran % (Auto) 0.300, Neut % (Auto) 65.5, Lymph % (Auto) 18.1 L, [place] % (Auto) 13.2 H, Eos % (Auto) 2.3, Baso % (Auto) 0.6, Absolute Neuts (auto) 2.3, Absolute Lymphs (auto) 0.63 L, Nucleated RBC % 0 10/14/21 06:16: PT 20.5 H, INR 1.8 10/14/21 06:16: Sodium 134 L, Potassium 3.8, Chloride 98, Carbon Dioxide 28.0, Anion Gap 8, BUN 29 H, Creatinine 1.16, Estim Creat Clear Calc 64.10, Est GFR (MDRD) Af Amer 79, Est GFR (MDRD) Non-Af 66, BUN/Creatinine Ratio 25.0 H, Glucose 159 H, Calcium 9.6, Total Bilirubin 2.40 H, AST 38 H, ALT 36, Alkaline Phosphatase 130 H, Total Protein 6.9, Albumin 2.8 L, Globulin 4.1, Albumin/Globulin Ratio 0.7 L 10/14/21 06:21: POC Glucose 187 H Radiography Diagnostic Testing: Radiology Impression Brain CT 10/13/21 09:52 IMPRESSION: Chronic involutional changes of the brain. Electronically Signed: Lamberto Jaeger MD at 10:54 EDT Reading Location ID and State: [facility] / [place] , Service support , Cervical Spine CT 10/13/21 09:52 IMPRESSION: Multilevel degenerative changes, as described above. Electronically Signed: Lamberto Jaeger MD at 10:56 EDT , Physical Exam Narrative Physical exam: General: Alert, Oriented x3, Cooperative, looks frail, cachectic HEENT: Atraumatic Oral: Moist Mucosa Neck: Supple Lungs: Diminished to auscultation Cardiovascular: HS I+II, regular, no murmurs Abdomen: Ascites++, bowel Sounds Present, Soft, Non Tender Extremities: Trace bilateral leg edema Skin: No rashes, No breakdown Neurological: Grossly intact Psych/Mental Status: Appropriate Assessment & Plan Assessment/Plan (1) Acute hepatic encephalopathy: PLAN: Plan 1. Acute hepatic encephalopathy secondary to liver cirrhosis, portal hypertension, esophageal varices, h/o mesenteric vein thrombosis Minimally improved, ammonia is 113 from 118. Lactulose dose increased to 20 g TID, to collect suppository x1 as well as MiraLAX given Patient with ascites on exam. Been getting twice a week outpatient paracentesis Repeat ammonia in the morning Patient may require paracentesis on Saturday or Saturday 2. WILFRIDO on CKD stage 3, improved Creatinine is now 1.16 Baseline creatinine is around 1, admitting creatinine was 1.52 Resume Lasix and aldactone 3. History of mesenteric vein thrombosis, patient history of pancreatic CA status post partial Whipple procedure On Coumadin, INR is 1.9, continue on home Coumadin dose 4. Severe protein calorie malnutrition, police reserves commander consulted, supplements 5. Hypertension, controlled, continue carvedilol and spironolactone 6. Type II DM, on metformin, metformin on hold, Continue insulin sliding scale and Jardiance 7. Iron deficiency anemia, continue on iron pills 8. BPH, continue on Proscar, Flomax 9. Hypothyroidism, continue on synthroid 10. DVT prophylaxis?on Coumadin Charges/Coding Visit Charges Inpatient E&M: 12659 Subs Hosp L2
[2021-10-14] MEDS: Senna/Docusate Sodium 1 Tablet 2 TABLET PO (10:45)
[2021-10-14] MEDS: Bisacodyl 10 MG Suppository RC (10:45)
[2021-10-14] MEDS: Polyethylene Glycol 3350 17 GM PACKET PO (10:45)
[2021-10-14 11:50] LABS: Bedside Glucose 216 mg/dL (74-106)
[2021-10-14 16:51] VITALS: BP 112/70; PULSE 64; RESP 18; TEMP 36.9; O2SAT 98
[2021-10-14 17:00] LABS: Bedside Glucose 177 mg/dL (74-106)
[2021-10-14] MEDS: Spironolactone 50 MG Tablet PO (17:30)
[2021-10-14 20:52] VITALS: BP 112/60; PULSE 61; RESP 16; TEMP 36.7; O2SAT 95
[2021-10-14] MEDS: Atorvastatin Calcium 10 MG Tablet PO (21:12)
[2021-10-14] MEDS: Gabapentin 400 MG Capsule PO (21:13)
[2021-10-14] MEDS: Tamsulosin HCl 0.4 MG Capsule PO (21:13)
[2021-10-14 22:30] LABS: Bedside Glucose 178 mg/dL (74-106)
[2021-10-15 02:53] VITALS: BP 95/61; PULSE 61; RESP 16; TEMP 36.3; O2SAT 94
[2021-10-15 05:24] LABS: Absolute Lymphocyte Count 0.63 X10^3/uL (0.83-4.51); Absolute Neutrophil Count 1.8 X10^3/uL (2.0-7.7); Basophil# 0.02 X10^3/uL; Basophil% 0.7 % (0-1); Eosinophils% 3.4 % (0-5); Hematocrit 37.6 % (40-54); Hemoglobin 12.4 g/dL (13.0-16.5); Lymphocyte # 0.63 X10^3/ul (0.83-4.51); Lymphocyte % 21.3 % (19-41); Mean Corpuscular Hgb 28.8 pg (27.0-32.0); Mean Corpuscular Volume 87.2 fL (80-94); Mean Platelet Vol. 12.8 fl (6.2-12.0); Monocyte# 0.44 X10^3/uL; Monocyte% 14.9 % (0-10); NRBC Flagged by Analyzer 0 % (0-5); Neutrophil # 1.76 X10^3/uL (2.7-7.7); Neutrophil % 59.4 % (47-70); POSITIVE COUNT YES; Platelet Count 67 K/mm3 (150-450); RBC Distribution Width CV 16.2 % (11.6-14.6); RBC Distribution Width SD 51.5 fl (35.1-43.9); Red Blood Count 4.31 M/mm3 (4.6-6.2)
[2021-10-15 05:41] LABS: International Normalized Ratio 1.6; Prothrombin Time (Protime)PT. 18.4 SECONDS (11.7-14.9)
[2021-10-15 05:52] LABS: ALB/GLOB Ratio 0.8 RATIO (0.9-2.4); AST(SGOT) 51 U/L (15-37); Alanine Aminotransfer ALT/SGPT 41 U/L (16-61); Albumin, Serum 2.8 g/dL (3.2-5.0); Alkaline Phosphatase 122 U/L (45-117); Anion Gap 7 (5-15); BUN 26 mg/dL (7-18); Calcium,Total 9.3 mg/dL (8.5-10.1); Chloride 98 mmol/L (98-107); Creatinine, Serum 1.04 mg/dL (0.70-1.30); EST Glomerular Filtration Rate 74 mL/min (>60); Est Glom Filt Rate - Afr Amer 90 mL/min (>60); Estimated Creatinine Clearance 71.49 ml/min; Globulin 3.7 g/dL (2.2-4.2); Glucose 150 mg/dL (74-106); Potassium 3.8 mmol/L (3.5-5.1); Protein, Total 6.5 g/dL (6.4-8.2); Sodium Level 134 mmol/L (136-145)
[2021-10-15] MEDS: Levothyroxine 125 MCG Tablet PO (06:18)
[2021-10-15] MEDS: Lactulose 20 GM/30 ML UDC PO ×3 (06:18→21:23)
[2021-10-15 06:24] VITALS: BP 104/62
[2021-10-15 06:45] LABS: Bedside Glucose 136 mg/dL (74-106)
--- NOTE | 2021-10-15 08:08 | PN.HOSP_ITS ---
Objective Data Objective Data Vital Signs: Vital Signs Temp Pulse Resp BP Pulse Ox O2 Del Method 97.4 F L 61 16 104/62 94 Room Air 10/15/21 02:53 10/15/21 02:53 10/15/21 02:53 10/15/21 06:24 10/15/21 02:53 10/15/21 03:00 Oxygen Delivery Method Room Air Weight: 94.1 kg Body Mass Index (BMI) 27.3 Intake & Output: Intake and Output for Last 24 Hours 10/13/21 10/14/21 10/15/21 23:59 23:59 23:59 Intake Total 360 / 360 850 / 1250 700 / 700 Output Total 1550 / 1850 500 / 500 Balance 360 / 110 -700 / -600 200 / 200 Medical Nutrition Assessment Dietitian: Malnutrition Criteria Met Start: 10/13/21 15:03 Freq: Status: Active Protocol: Document 10/13/21 15:03 BLAINE (Rec: 10/13/21 15:04 BLAINE [id number]) Nutrition Malnutrition Evidence of Malnutrition Exists Yes Malnutrition (severe): Chronic Evidenced By Suboptimal Energy Intake ( Severe),Weight Loss (Severe) Clinical Problem Acute Disease or Injury Related Malnutrition Etiology related to inadequate energy/ protein intake d/t hepatic dz and decreased mentation Signs/Symptoms as evidenced by 12.5% wt loss and <75% po intake of estimated nutrition needs x past 2 wks; pt with mild fat/ muscle loss in face (orbital, temporal) and arms (triceps). Status Active Problem Chronic Disease or Condition Related Malnutrition Status Inactive Problem Recommendation Dietitian Recommendations/Changes Will change diet to Consistent CHO/ Sodium restricted diet Will provide 4 oz glucerna shake w/ medpass 4x/day Will provide 1 scoop beneprotein w/ meals mixed in something that the pt can drink. Lab / Micro Data Result Diagrams: 10/15/21 05:03 10/15/21 05:03 Labs: Laboratory Results - last 24 hr 10/14/21 09:25: Ammonia 113.0 H 10/14/21 11:30: POC Glucose 216 H 10/14/21 16:39: POC Glucose 177 H 10/14/21 20:59: POC Glucose 178 H 10/15/21 05:03: PT 18.4 H, INR 1.6 10/15/21 05:03: WBC 3.0 L, RBC 4.31 L, Hgb 12.4 L, Hct 37.6 L, MCV 87.2, MCH 28.8, MCHC 33.0, RDW Std Deviation 51.5 H, RDW Coeff of Penny 16.2 H, Plt Count 67 L, MPV 12.8 H, Immature Gran % (Auto) 0.300, Neut % (Auto) 59.4, Lymph % (Auto) 21.3, [place] % (Auto) 14.9 H, Eos % (Auto) 3.4, Baso % (Auto) 0.7, Absolute Neuts (auto) 1.8 L, Absolute Lymphs (auto) 0.63 L, Nucleated RBC % 0 10/15/21 05:03: Sodium 134 L, Potassium 3.8, Chloride 98, Carbon Dioxide 29.0, Anion Gap 7, BUN 26 H, Creatinine 1.04, Estim Creat Clear Calc 71.49, Est GFR (M DRD) Af Amer 90, Est GFR (MDRD) Non-Af 74, BUN/Creatinine Ratio 25.0 H, Glucose 150 H, Calcium 9.3, Total Bilirubin 2.30 H, AST 51 H, ALT 41, Alkaline Phosphatase 122 H, Total Protein 6.5, Albumin 2.8 L, Globulin 3.7, Albumin/Globulin Ratio 0.8 L 10/15/21 05:03: Ammonia 98.0 H 10/15/21 06:16: POC Glucose 136 H
--- NOTE | 2021-10-15 08:10 | PN.HOSP_ITS ---
Subjective Subjective Follow-up with acute hepatic encephalopathy/recurrent falls: Patient was seen and examined.?He feels improved. No acute events overnight. His ammonia is down to 98 from 113.. Daughter was at the bedside, all questions Objective Data Objective Data Vital Signs: Vital Signs Temp Pulse Resp BP Pulse Ox O2 Del Method 97.4 F L 61 16 104/62 94 Room Air 10/15/21 02:53 10/15/21 02:53 10/15/21 02:53 10/15/21 06:24 10/15/21 02:53 10/15/21 03:00 Oxygen Delivery Method Room Air Weight: 94.1 kg Body Mass Index (BMI) 27.3 Intake & Output: Intake and Output for Last 24 Hours 10/13/21 10/14/21 10/15/21 23:59 23:59 23:59 Intake Total 360 / 360 850 / 1250 700 / 700 Output Total 1550 / 1850 500 / 500 Balance 360 / 110 -700 / -600 200 / 200 Medical Nutrition Assessment Dietitian: Malnutrition Criteria Met Start: 10/13/21 1 5:03 Freq: Status: Active Protocol: Document 10/13/21 15:03 BLAINE (Rec: 10/13/21 15:04 SLA [id number]) Nutrition Malnutrition Evidence of Malnutrition Exists Yes Malnutrition (severe): Chronic Evidenced By Suboptimal Energy Intake ( Severe),Weight Loss (Severe) Clinical Problem Acute Disease or Injury Related Malnutrition Etiology related to inadequate energy/ protein intake d/t hepatic dz and decreased mentation Signs/Symptoms as evidenced by 12.5% wt loss and <75% po intake of estimated nutrition needs x past 2 wks; pt with mild fat/ muscle loss in face (orbital, temporal) and arms (triceps). Status Active Problem Chronic Disease or Condition Related Malnutrition Status Inactive Problem Recommendation Dietitian Recommendations/Changes Will change diet to Consistent CHO/ Sodium restricted diet Will provide 4 oz glucerna shake w/ medpass 4x/day Will provide 1 scoop beneprotein w/ meals mixed in something that the pt can drink. Lab / Micro Data Result Diagrams: 10/15/21 05:03 10/15/21 05:03 Labs: Laboratory Results - last 24 hr 10/14/21 09:25: Ammonia 113.0 H 10/14/21 11:30: POC Glucose 216 H 10/14/21 16:39: POC Glucose 177 H 10/14/21 20:59: POC Glucose 178 H 10/15/21 05:03: PT 18.4 H, INR 1.6 10/15/21 05:03: WBC 3.0 L, RBC 4.31 L, Hgb 12.4 L, Hct 37.6 L, MCV 87.2, MCH 28.8, MCHC 33.0, RDW Std Deviation 51.5 H, RDW Coeff of Penny 16.2 H, Plt Count 67 L, MPV 12.8 H, Immature Gran % (Auto) 0.300, Neut % (Auto) 59.4, Lymph % (Auto) 21.3, [place] % (Auto) 14.9 H, Eos % (Auto) 3.4, Baso % (Auto) 0.7, Absolute Neuts (auto) 1.8 L, Absolute Lymphs (auto) 0.63 L, Nucleated RBC % 0 10/15/21 05:03: Sodium 134 L, Potassium 3.8, Chloride 98, Carbon Dioxide 29.0, Anion Gap 7, BUN 26 H, Creatinine 1.04, Estim Creat Clear Calc 71.49, Est GFR (MDRD) Af Amer 90, Est GFR (MDRD) Non-Af 74, BUN/Creatinine Ratio 25.0 H, Glucose 150 H, Calcium 9.3, Total Bilirubin 2.30 H, AST 51 H, ALT 41, Alkaline Phosphatase 122 H, Total Protein 6.5, Albumin 2.8 L, Globulin 3.7, Albumin/Globulin Ratio 0.8 L 10/15/21 05:03: Ammonia 98.0 H 10/15/21 06:16: POC Glucose 136 H Physical Exam Narrative Physical exam: General: Alert, Oriented x3, Cooperative, looks frail, cachectic HEENT: Atraumatic Oral: Moist Mucosa Neck: Supple Lungs: Diminished to auscultation Cardiovascular: HS I+II, regular, no murmurs Abdomen: Ascites++, bowel Sounds Present, Soft, Non Tender Extremities: Trace bilateral leg edema Skin: No rashes, No breakdown Neurological: Grossly intact Psych/Mental Status: Appropriate Assessment & Plan Assessment/Plan (1) Acute hepatic encephalopathy: PLAN: Plan 1. Acute hepatic encephalopathy secondary to liver cirrhosis, portal hypertension, esophageal varices, h/o mesenteric vein thrombosis Minimally improved, ammonia is 98 from 113 Continue on Lactulose 20 g TID, MiraLAX x1 Paracentesis in a.m., patient to receive IV albumin if he gets more than 5 L of fluid out Repeat labs including ammonia in a.m. 2. WILFRIDO on CKD stage 3, improved Creatinine is now 1.04 Baseline creatinine is around 1, admitting creatinine was 1.52 Resume Lasix and aldactone 3. History of mesenteric vein thrombosis, patient history of pancreatic CA status post partial Whipple procedure On Coumadin, INR is 1.6, increase warfarin to 10 mg po x1 today and continue with continue on home Coumadin dose 5 mg daily 4.?Severe protein calorie malnutrition, clinical assessment manager consulted, supplements 5. Hypertension, controlled, Continue carvedilol and spironolactone 6. Type II DM, HgbA1c 7.5, on home metformin, metformin on hold, Continue insulin sliding scale and Jardiance 7. Iron deficiency anemia, continue on iron pills 8. BPH, continue on Proscar, Flomax 9. Hypothyroidism, continue on synthroid 10. DVT prophylaxis?on Coumadin Charges/Coding Visit Charges Inpatient E&M: 18129 Subs Hosp L2
--- NOTE | 2021-10-15 08:45 | US_ITS ---
PROCEDURE: Ultrasound guided paracentesis. DATE OF EXAMINATION: 10/16/2021. INDICATION: Male, 71 years old. Ascites. PHYSICIAN: Lamberto Jaeger M.D. TECHNIQUE: The risks, benefits, and alternatives to the procedure were explained to the patient. The specific risks of bleeding, infection, and damage to bowel were detailed and accepted. Witnessed informed consent was obtained. The abdomen was ultrasonographically surveyed. An appropriate pocket of fluid was identified at the right lower quadrant. The skin were cleaned and prepped in the usual sterile fashion. Using ultrasound guidance, the peritoneal cavity was accessed with a 5-[place] paracentesis needle/catheter system. The trocar was removed. A total of 1700 ml of angeli-colored fluid were removed from the peritoneal cavity. The catheter was removed and a sterile dressing was applied. The procedure was well tolerated. US/Paracentesis with US IMPRESSION: Ultrasound guided paracentesis. Electronically Signed: Lamberto Jaeger MD at 11:11 EDT ,
[2021-10-15 10:03] VITALS: BP 103/66; PULSE 60; RESP 16; TEMP 36.7; O2SAT 97
[2021-10-15] MEDS: Gabapentin 400 MG Capsule PO ×2 (10:25→21:25)
[2021-10-15] MEDS: Finasteride 5 MG Tablet PO (10:25)
[2021-10-15] MEDS: Ferrous Gluconate 324 MG Tablet PO ×2 (10:26→21:24)
[2021-10-15] MEDS: Pantoprazole Sodium 40 MG Tablet PO (10:26)
[2021-10-15] MEDS: Spironolactone 50 MG Tablet PO ×2 (10:26→21:23)
[2021-10-15] MEDS: Carvedilol 3.125 MG TABLET PO ×2 (10:26→21:23)
[2021-10-15] MEDS: Glucerna Shake 120 ML LIQUID PO ×4 (10:28→21:24)
[2021-10-15] MEDS: Empagliflozin 10 MG Tablet PO (10:30)
[2021-10-15] MEDS: Insulin Lispro 100 UNIT/ML INSULN.PEN SC ×3 (11:07→21:24)
[2021-10-15] MEDS: Polyethylene Glycol 3350 17 GM PACKET PO (11:07)
[2021-10-15 11:46] LABS: Bedside Glucose 225 mg/dL (74-106)
[2021-10-15 14:22] VITALS: BP 101/65; PULSE 60; RESP 16; TEMP 36.6; O2SAT 97
[2021-10-15 17:00] LABS: Bedside Glucose 223 mg/dL (74-106)
[2021-10-15 20:11] VITALS: BP 100/50; PULSE 62; RESP 14; TEMP 36.9; O2SAT 95
[2021-10-15] MEDS: Atorvastatin Calcium 10 MG Tablet PO (21:23)
[2021-10-15] MEDS: Tamsulosin HCl 0.4 MG Capsule PO (21:24)
[2021-10-15 21:51] LABS: Bedside Glucose 165 mg/dL (74-106)
[2021-10-16] VITALS (7 sets, daily range): BP systolic 99–111; BP diastolic 53–66; PULSE 55–71; RESP 16–18; TEMP 36–36.9; O2SAT 92–99
[2021-10-16 05:12] LABS: Absolute Lymphocyte Count 0.56 X10^3/uL (0.83-4.51); Absolute Neutrophil Count 2.2 X10^3/uL (2.0-7.7); Basophil# 0.01 X10^3/uL; Basophil% 0.3 % (0-1); Eosinophil# 0.08 X10^3/uL; Eosinophils% 2.5 % (0-5); Hematocrit 36.4 % (40-54); Hemoglobin 12.1 g/dL (13.0-16.5); Lymphocyte # 0.56 X10^3/ul (0.83-4.51); Lymphocyte % 17.4 % (19-41); Mean Corp Hgb Conc 33.2 g/dL (32-36); Mean Corpuscular Hgb 28.9 pg (27.0-32.0); Mean Corpuscular Volume 86.9 fL (80-94); Mean Platelet Vol. 12.6 fl (6.2-12.0); Monocyte# 0.33 X10^3/uL; Monocyte% 10.2 % (0-10); NRBC Flagged by Analyzer 0 % (0-5); Neutrophil # 2.22 X10^3/uL (2.7-7.7); POSITIVE COUNT YES; POSITIVE DIFFERENTIAL YES; Platelet Count 66 K/mm3 (150-450); RBC Distribution Width CV 16.3 % (11.6-14.6); RBC Distribution Width SD 50.7 fl (35.1-43.9); Red Blood Count 4.19 M/mm3 (4.6-6.2); White Blood Count 3.2 K/mm3 (4.4-11.0)
[2021-10-16 05:26] LABS: ALB/GLOB Ratio 0.7 RATIO (0.9-2.4); AST(SGOT) 49 U/L (15-37); Alanine Aminotransfer ALT/SGPT 46 U/L (16-61); Albumin, Serum 2.8 g/dL (3.2-5.0); Alkaline Phosphatase 129 U/L (45-117); Anion Gap 7 (5-15); BUN 24 mg/dL (7-18); Calcium,Total 9.1 mg/dL (8.5-10.1); Chloride 99 mmol/L (98-107); EST Glomerular Filtration Rate 78 mL/min (>60); Est Glom Filt Rate - Afr Amer 94 mL/min (>60); Estimated Creatinine Clearance 74.35 ml/min; Globulin 3.8 g/dL (2.2-4.2); Glucose 154 mg/dL (74-106); Potassium 4.2 mmol/L (3.5-5.1); Protein, Total 6.6 g/dL (6.4-8.2); Sodium Level 135 mmol/L (136-145)
[2021-10-16 05:27] LABS: International Normalized Ratio 1.7; Prothrombin Time (Protime)PT. 19.9 SECONDS (11.7-14.9)
[2021-10-16] MEDS: Levothyroxine 125 MCG Tablet PO (06:34)
[2021-10-16] MEDS: Insulin Lispro 100 UNIT/ML INSULN.PEN SC ×4 (06:34→21:42)
[2021-10-16] MEDS: Lactulose 20 GM/30 ML UDC PO ×2 (06:34→14:39)
[2021-10-16 07:07] LABS: Differential Comment SCANNED; Differential Indicated SCAN CRITERIA MET
[2021-10-16 09:00] LABS: Bedside Glucose 167 mg/dL (74-106)
[2021-10-16] MEDS: Glucerna Shake 120 ML LIQUID PO (09:56)
[2021-10-16] MEDS: Pantoprazole Sodium 40 MG Tablet PO (09:56)
[2021-10-16] MEDS: Empagliflozin 10 MG Tablet PO (09:56)
[2021-10-16] MEDS: Finasteride 5 MG Tablet PO (09:56)
[2021-10-16] MEDS: Ferrous Gluconate 324 MG Tablet PO ×2 (09:56→20:33)
[2021-10-16] MEDS: Gabapentin 400 MG Capsule PO ×2 (09:58→20:31)
--- NOTE | 2021-10-16 10:16 | NURSING ---
Patient off unit for paracentesis.
[2021-10-16] MEDS: Lidocaine 2% (5ml sdv) 5 ML VIAL.MPF INFILT (11:14)
[2021-10-16 12:05] LABS: Bedside Glucose 317 mg/dL (74-106)
[2021-10-16 17:15] LABS: Bedside Glucose 150 mg/dL (74-106)
--- NOTE | 2021-10-16 20:14 | PCM.PN.HOSP ---
Subjective Subjective Patient was seen and examined today, he underwent a paracentesis with removal of 1700 cc of fluid. Patient is alert, he is not having stools today, I increased his lactulose. Patient states he would prefer to return home at the time of discharge from the hospital and that his son is going to come to live with him and help take care of him. Objective Data Objective Data Vital Signs: Vital Signs Temp Pulse Resp BP Pulse Ox O2 Del Method 97.9 F 59 L 16 103/59 L 97 Room Air 10/16/21 14:37 10/16/21 14:37 10/16/21 14:37 10/16/21 14:37 10/16/21 14:37 10/16/21 14:37 Oxygen Delivery Method [3] Room Air Oxygen Delivery Method [2] Room Air Oxygen Delivery Method [1 ( Room Air Initial Baseline)] Oxygen Delivery Method Room Air Weight: 93.8 kg Body Mass Index (BMI) 27.3 Intake & Output: Intake and Output for Last 24 Hours 10/14/21 10/15/21 10/16/21 23:59 23:59 23:59 Intake Total 850 / 1250 700 / 900 790 / 790 Output Total 1550 / 1850 500 / 800 3000 / 3000 Balance -700 / -600 200 / 100 -2210 / -2210 Medical Nutrition Assessment Dietitian: Malnutrition Criteria Met Start: 10/13/21 15:03 Freq: Status: Active Protocol: Document 10/16/21 12:07 CELINA (Rec: 10/16/21 12:07 [id number]) Nutrition Malnutrition Evidence of Malnutrition Exists Yes Malnutrition (moderate): Acute Illness/Injury Evidenced By Suboptimal Energy Intake ( Severe),Weight Loss (Severe) Clinical Problem Acute Disease or Injury Related Malnutrition Etiology related to inadequate energy/ protein intake d/t hepatic disease and 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 Status Active Problem Chronic Disease or Condition Related Malnutrition Status Inactive Problem Recommendation Dietitian Recommendations/Changes Continue Consistent CHO/ Sodium restricted diet Will discontinue 4 oz glucerna shake w/ medpass 4x/day Will continue beneprotein w/ meals 1x daily Lab / Micro Data Result Diagrams: 10/16/21 04:50 10/16/21 04:50 Labs: Laboratory Results - last 24 hr 10/15/21 21:18: POC Glucose 165 H 10/16/21 04:50: PT 19.9 H, INR 1.7 10/16/21 04:50: WBC 3.2 L, RBC 4.19 L, Hgb 12.1 L, Hct 36.4 L, MCV 86.9, MCH 28.9, MCHC 33.2, RDW Std Deviation 50.7 H, RDW Coeff of Penny 16.3 H, Plt Count 66 L, MPV 12.6 H, Immature Gran % (Auto) 0.600, Neut % (Auto) 69.0, Lymph % (Auto) 17.4 L, Geary % (Auto) 10.2 H, Eos % (Auto) 2.5, Baso % (Auto) 0.3, Absolute Neuts (auto) 2.2, Absolute Lymphs (auto) 0.56 L, Nucleated RBC % 0, Differential Comment SCANNED, Diff Path Review August10/16/21 04:50: Sodium 135 L, Potassium 4.2, Chloride 99, Carbon Dioxide 29.0, Anion Gap 7, BUN 24 H, Creatinine 1.00, Estim Creat Clear Calc 74.35, Est GFR (MDRD) Af Amer 94, Est GFR (MDRD) Non-Af 78, BUN/Creatinine Ratio 24.0 H, Glucose 154 H, Calcium 9.1, Total Bilirubin 1.50 H, AST 49 H, ALT 46, Alkaline Phosphatase 129 H, Total Protein 6.6, Albumin 2.8 L, Globulin 3.8, Albumin/Globulin Ratio 0.7 L 10/16/21 04:50: Ammonia 129.0 H 10/16/21 06:32: POC Glucose 167 H 10/16/21 11:43: POC Glucose 317 H 10/16/21 16:53: POC Glucose 150 H Radiography Diagnostic Testing: Radiology Impression Paracentesis Ultrasound 10/15/21 08:45 IMPRESSION: Ultrasound guided paracentesis. Electronically Signed: Lamberto Jaeger MD at 11:11 EDT , Physical Exam Const alert, oriented x3 and no apparent distress General Appearance: cooperative and well developed Orientation / Consciousness: awake, oriented to person, oriented to place and oriented to time HEENT normocephalic, head/scalp atraumatic and moist oral mucous membranes Eyes PERRL, EOMs intact bilaterally and conjunctivae normal Neck nuchal rigidity, supple, no JVD, thyroid normal and no carotid bruits General: trachea midline Resp normal respiratory effort, no retractions, no use of accessory muscles and clear to auscultation bilaterally Auscultation: Negative for rales, rhonchi or wheezes Cardio regular rate, regular rhythm, S1 normal heart sound, S2 normal heart sound, no murmurs, no rub and no gallops GI normal to inspection, nondistended, normoactive bowel sounds, soft to palpation and non-tender GI Narrative: Patient has some abdominal distention, his abdomen is nontender however Extremity no clubbing, cyanosis or edema Skin no rashes or lesions noted General Skin Exam: no breakdown Neuro oriented x3, CN's II-XII intact bilaterally, no focal motor deficits and no sensory deficits noted Sensorium / Orientation: awake and alert Speech: speech normal Psych affect normal Assessment & Plan Assessment/Plan (1) Acute hepatic encephalopathy: PLAN: Plan 1. 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 intake of established nutritional needs over the past 2 weeks-dietary is change the patient's diet to consistent carbohydrate with sodium restriction, they will provide 4 ounces of Glucerna shake with a med Pass 4 times a day and provide 1 scoop of Beneprotein with meals mixing something with the patient can drink #4 acute kidney injury on chronic kidney disease stage IIIa-patient's creatinine today was 1 #5 acute debility-physical therapy states the patient will need outpatient physical therapy, patient does not want to go to a retirement facility and would rather go home with help from his son. PT and OT will continue to see the patient for now. 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
[2021-10-16] MEDS: Lactulose 20 GM/30 ML UDC 30 GM PO (20:31)
[2021-10-16] MEDS: Atorvastatin Calcium 10 MG Tablet PO (20:32)
[2021-10-16] MEDS: Tamsulosin HCl 0.4 MG Capsule PO (20:33)
[2021-10-16 22:00] LABS: Bedside Glucose 269 mg/dL (74-106)
[2021-10-17 02:48] VITALS: BP 113/49; PULSE 61; RESP 15; TEMP 37; O2SAT 93
[2021-10-17 04:54] LABS: International Normalized Ratio 1.8; Prothrombin Time (Protime)PT. 20.8 SECONDS (11.7-14.9)
[2021-10-17 05:15] LABS: ALB/GLOB Ratio 0.7 RATIO (0.9-2.4); AST(SGOT) 44 U/L (15-37); Alanine Aminotransfer ALT/SGPT 47 U/L (16-61); Albumin, Serum 2.8 g/dL (3.2-5.0); Alkaline Phosphatase 125 U/L (45-117); Anion Gap 11 (5-15); BUN 24 mg/dL (7-18); BUN/Creat Ratio 23.8 RATIO (10-20); Chloride 102 mmol/L (98-107); Creatinine, Serum 1.01 mg/dL (0.70-1.30); EST Glomerular Filtration Rate 77 mL/min (>60); Est Glom Filt Rate - Afr Amer 93 mL/min (>60); Estimated Creatinine Clearance 73.62 ml/min; Glucose 159 mg/dL (74-106); Protein, Total 6.8 g/dL (6.4-8.2); Sodium Level 137 mmol/L (136-145)
[2021-10-17] MEDS: Levothyroxine 125 MCG Tablet PO (06:26)
[2021-10-17] MEDS: 0.9% Saline Lock 10 ML Syringe IV (06:30)
[2021-10-17] MEDS: Lactulose 20 GM/30 ML UDC 30 GM PO ×4 (06:32→20:58)
[2021-10-17] MEDS: Insulin Lispro 100 UNIT/ML INSULN.PEN SC ×4 (06:38→21:14)
[2021-10-17 07:01] LABS: Bedside Glucose 168 mg/dL (74-106)
[2021-10-17 08:16] VITALS: BP 95/63; PULSE 76; RESP 16; TEMP 36.6; O2SAT 98
[2021-10-17] MEDS: Pantoprazole Sodium 40 MG Tablet PO (08:21)
[2021-10-17] MEDS: Empagliflozin 10 MG Tablet PO (08:21)
[2021-10-17] MEDS: Finasteride 5 MG Tablet PO (08:21)
[2021-10-17] MEDS: Ferrous Gluconate 324 MG Tablet PO ×2 (08:21→21:14)
[2021-10-17] MEDS: Gabapentin 400 MG Capsule PO ×2 (08:23→21:17)
[2021-10-17 09:54] LABS: Pathologist Review Reviewed
--- NOTE | 2021-10-17 09:55 | CASEMGMT ---
Addendum entered by Leilani Tyson 10/17/21 15:25: Updated Sara at [facility] that pt is planning on a SNF for rehab and to cancel referral. Addendum entered by Leilani Tyson 10/17/21 13:50: Updated Sara at [facility] that pt will not dc today and pending therapy pt may go to SNF. [facility] is checking with [facility] to see if they can see pt through them. BUFFY AVENDANO to follow. Addendum entered by Leilani Tyson 10/17/21 13:22: Pt dtr in room and states she has concerns regarding pt going home. She states she is not sure how long pt son will be staying with pt. PT has not seen pt today. Spoke with therapist and discussed yesterday's note and appropriateness for [facility]. OT saw pt and he was able to bathe and dress self. Pt dtr states her twin sister will be in and they would like to discuss pt care. Updated SW as well. Addendum entered by Leilani Tyson 10/17/21 12:45: Received tc from [facility] who states pt insurance is not in network, left message with Sara to see if they are able to go through [facility]. Addendum entered by Leilani Tyson 10/17/21 11:31: BUFFY AVENDANO in to pt room, pt is aware that [facility] will be out to see him on . He is aware this RN CM was not able to reach his son. He states he should be coming into the hospital. States he was coming from [place]. He denies further needs. Addendum entered by Leilani Tyson 10/17/21 10:54: Received tc back from Sara at [facility], they are able to accept pt for SOC on 10/19. BUFFY AVENDANO in to pt room, pt has visitor, will check back. Original Note: BUFFY AVENDANO in to pt room, pt sitting up in chair in no distress. Discussed dc planning, pt states his son is going to come stay with him for a short while. Pt designates his son as his director personal for dc planning. Pt gave son's phone number. Juliocesar [phone]. Discussed therapy as outpt vs HHC. Pt states he prefers to have in the home as it is difficult to leave. He is also agreeable to SN as well. Patient was provided a list of [facility] providers including quality and resource use data and consistent with the patient?s preferred geographic region, medical needs, and insurance network. The patient?s preferred provider is [facility]. TC to pt son to discuss dc plan, left vm. TC to [facility], spoke with Sara, referral made. Will await acceptance.
[2021-10-17 11:00] VITALS: O2SAT 96
[2021-10-17 11:40] LABS: Bedside Glucose 200 mg/dL (74-106)
[2021-10-17 13:47] VITALS: BP 106/59; PULSE 64; RESP 18; TEMP 36.8; O2SAT 94
--- NOTE | 2021-10-17 14:03 | CASEMGMT ---
Social Work SW received referral from RNCM that pt dgts feel pt cannot return home. SW met with pt and two daughters. They state pt son will only be staying with pt for 2 days and pt cannot return home alone at this time due to debility. SW provided list of SNF providers including quality and resource use data and consistent with the patient's preferred geographic region, medical needs and insurance network. [facility] Call placed to [facility] and they are unable to accept. Phone call to [facility] and they do have beds available. Carmen, discharge account assistant to sent referral. Pt and dgts updated that [facility] cannot accept and [facility] considering referral. Plan: [facility], pending acceptance and [facility]
--- NOTE | 2021-10-17 15:32 | CASEMGMT ---
Discharge Meat Market Manager Carmen Hodge Assistant To The Dean faxed over a referral to Elaine at [facility]. Plan: Pending acceptance at [facility]. Carmen Raymond Discharge Meat Market Manager
[2021-10-17 16:20] LABS: Bedside Glucose 235 mg/dL (74-106)
--- NOTE | 2021-10-17 16:52 | CASEMGMT ---
Discharge Professor Of Communication And Writing Elaine from [facility] reached out. Patient has been accepted. Elaine will start pre-cert in the morning. Carmen Raymond Discharge Professor Of Communication And Writing
--- NOTE | 2021-10-17 17:52 | PCM.PN.HOSP ---
Subjective Subjective Patient was seen and examined today, he remains alert and appropriate, the plan was for the patient to be discharged home with his son but today initially we found out that the son would not be able to stay very long with the patient. He has since consented to short-term placement in intermediate facility, patient has not had any bowel movements today, I have increased his lactulose to 4 times daily, he will probably need this increased if he does not have a stool today. Patient's ammonia level was high again today but he is alert and appropriate. Patient's INR today was 1.8. Objective Data Objective Data Vital Signs: Vital Signs Temp Pulse Resp BP Pulse Ox O2 Del Method 98.2 F 64 18 106/59 L 94 Room Air 10/17/21 13:47 10/17/21 13:47 10/17/21 13:47 10/17/21 13:47 10/17/21 13:47 10/17/21 13:47 Oxygen Delivery Method [3] Room Air Oxygen Delivery Method [2] Room Air Oxygen Delivery Method [1 ( Room Air Initial Baseline)] Oxygen Delivery Method Room Air Weight: 90.4 kg Body Mass Index (BMI) 27.3 Intake & Output: Intake and Output for Last 24 Hours 10/15/21 10/16/21 10/17/21 23:59 23:59 23:59 Intake Total 700 / 900 790 / 790 575 / 575 Output Total 500 / 800 3175 / 3175 200 / 200 Balance 200 / 100 -2385 / -2385 375 / 375 Medical Nutrition Assessment Dietitian: Malnutrition Criteria Met Start: 10/13/21 15:03 Freq: Status: Active Protocol: Document 10/16/21 12:07 CELINA (Rec: 10/16/21 12:07 [id number]) Nutrition Malnutrition Evidence of Malnutrition Exists Yes Malnutrition (moderate): Acute Illness/Injury Evidenced By Suboptimal Energy Intake ( Severe),Weight Loss (Severe) Clinical Problem Acute Disease or Injury Related Malnutrition Etiology related to inadequate energy/ protein intake d/t hepatic disease 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 Status Active Problem Chronic Disease or Condition Related Malnutrition Status Inactive Problem Recommendation Dietitian Recommendations/Changes Continue Consistent CHO/ Sodium restricted diet Will discontinue 4 oz glucerna shake w/ medpass 4x/day Will continue beneprotein w/ meals 1x daily Lab / Micro Data Result Diagrams: 10/16/21 04:50 10/17/21 03:53 Labs: Laboratory Results - last 24 hr 10/16/21 04:50: Diff Path Review Reviewed 10/16/21 21:40: POC Glucose 269 H 10/17/21 03:53: Sodium 137, Potassium 4.0, Chloride 102, Carbon Dioxide 24.0, Anion Gap 11, BUN 24 H, Creatinine 1.01, Estim Creat Clear Calc 73.62, Est GFR (MDRD) Af Amer 93, Est GFR (MDRD) Non-Af 77, BUN/Creatinine Ratio 23.8 H, Glucose 159 H, Calcium 9.0, Total Bilirubin 1.20 H, AST 44 H, ALT 47, Alkaline Phosphatase 125 H, Total Protein 6.8, Albumin 2.8 L, Globulin 4.0, Albumin/Globulin Ratio 0.7 L 10/17/21 03:53: Ammonia 137.0 H 10/17/21 03:53: PT 20.8 H, INR 1.8 10/17/21 06:36: POC Glucose 168 H 10/17/21 11:18: POC Glucose 200 H 10/17/21 15:56: POC Glucose 235 H Physical Exam Narrative Const alert, oriented x3 and no apparent distress General Appearance: cooperative and well developed Orientation / Consciousness: awake, oriented to person, oriented to place and oriented to time HEENT normocephalic, head/scalp atraumatic and moist oral mucous membranes Eyes PERRL, EOMs intact bilaterally and conjunctivae normal Neck nuchal rigidity, supple, no JVD, thyroid normal and no carotid bruits General: trachea midline Resp normal respiratory effort, no retractions, no use of accessory muscles and clear to auscultation bilaterally Auscultation: Negative for rales, rhonchi or wheezes Cardio regular rate, regular rhythm, S1 normal heart sound, S2 normal heart sound, no murmurs, no rub and no gallops GI normal to inspection, nondistended, normoactive bowel sounds, soft to palpation and non-tender GI Narrative: Patient has some abdominal distention, his abdomen is nontender however Extremity no clubbing, cyanosis or edema Skin no rashes or lesions noted General Skin Exam: no breakdown Neuro oriented x3, CN's II-XII intact bilaterally, no focal motor deficits and no sensory deficits noted Sensorium / Orientation: awake and alert Speech: speech normal Psych affect normal Const alert, oriented x3 and no apparent distress General Appearance: cooperative and well developed Orientation / Consciousness: awake, oriented to person, oriented to place and oriented to time HEENT normocephalic, head/scalp atraumatic and moist oral mucous membranes Eyes PERRL, EOMs intact bilaterally and conjunctivae normal Neck nuchal rigidity, supple, no JVD, thyroid normal and no carotid bruits General: trachea midline Resp normal respiratory effort, no retractions, no use of accessory muscles and clear to auscultation bilaterally Auscultation: Negative for rales, rhonchi or wheezes Cardio regular rate, regular rhythm, S1 normal heart sound, S2 normal heart sound, no murmurs, no rub and no gallops GI normal to inspection, nondistended, normoactive bowel sounds, soft to palpation, non-tender and non-distended GI Narrative: Patient has some abdominal distention, his abdomen is nontender however Extremity no clubbing, cyanosis or edema Skin no rashes or lesions noted General Skin Exam: no breakdown Neuro oriented x3, CN's II-XII intact bilaterally, no focal motor deficits and no sensory deficits noted Sensorium / Orientation: awake and alert Speech: speech normal Psych affect normal Assessment & Plan Assessment/Plan (1) Acute hepatic encephalopathy: PLAN: Plan 1. 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 intake of established nutritional needs over the past 2 weeks-dietary is change the patient's diet to consistent carbohydrate with sodium restriction, they will provide 4 ounces of Glucerna shake with a med Pass 4 times a day and provide 1 scoop of Beneprotein with meals mixing something with the patient can drink #4 acute kidney injury on chronic kidney disease stage IIIa-patient's creatinine today was 1 #5 acute debility-physical therapy states the patient will need outpatient physical therapy, patient has agreed for temporary placement in a intermediate facility at this time, hopefully he will be placed in the next few days. 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 Charges/Coding Visit Charges Inpatient E&M: 74032 Subs Hosp L2
[2021-10-17] MEDS: Atorvastatin Calcium 10 MG Tablet PO (20:09)
[2021-10-17 20:55] VITALS: BP 99/88; PULSE 91; RESP 18; TEMP 36.7; O2SAT 93
[2021-10-17] MEDS: Tamsulosin HCl 0.4 MG Capsule PO (21:14)
[2021-10-17 21:31] LABS: Bedside Glucose 285 mg/dL (74-106)
[2021-10-17] MEDS: Lactulose 20 GM/30 ML UDC PO (22:26)
[2021-10-18 03:24] VITALS: BP 96/59; PULSE 76; RESP 18; TEMP 36.4; O2SAT 100
[2021-10-18] MEDS: Lactulose 20 GM/30 ML UDC 10 GM PO (03:26)
[2021-10-18 05:36] LABS: International Normalized Ratio 2.1; Prothrombin Time (Protime)PT. 22.9 SECONDS (11.7-14.9)
[2021-10-18] MEDS: Levothyroxine 125 MCG Tablet PO (06:44)
[2021-10-18] MEDS: Insulin Lispro 100 UNIT/ML INSULN.PEN SC ×4 (06:45→22:30)
[2021-10-18 07:05] LABS: Bedside Glucose 318 mg/dL (74-106)
[2021-10-18] MEDS: Lactulose 20 GM/30 ML UDC 30 GM PO ×5 (07:34→22:30)
[2021-10-18 08:51] VITALS: BP 106/74; PULSE 64; RESP 18; TEMP 36.6; O2SAT 100
[2021-10-18] MEDS: Ferrous Gluconate 324 MG Tablet PO ×2 (09:37→22:29)
[2021-10-18] MEDS: Pantoprazole Sodium 40 MG Tablet PO (09:38)
[2021-10-18] MEDS: Finasteride 5 MG Tablet PO (09:38)
[2021-10-18] MEDS: Gabapentin 400 MG Capsule PO ×2 (09:46→22:30)
--- NOTE | 2021-10-18 10:10 | CASEMGMT ---
Addendum entered by Neelima Treadwell 10/18/21 14:44: SW met with pt's 2 daughters and they state that after observing pt in therapy and speaking with physician, they have decided to pursue SNF. SW did inform that [facility] can accept and precert is pending. Dgts understanding. Plan: [facility], pending precert GERBER Norman Original Note: Social Work SW met with pt's dgt and had extensive discussion regarding discharge plan. Dgt questioning if pt should go to SNF or if family should take him home with home health. Dgt concerned with family ability to take care of pt at current level. SW provided support and discussed pros and cons of SNF vs. Home with home health and family support. DARELL suggested dgt be present when therapy works with pt. Dgt agreeable to this and returned to pt room. DARELL requested BINDER FOLDER OPERATOR complete therapy with dgt present and BINDER FOLDER OPERATOR agreeable. DARELL will follow up after therapy. GERBER Rodriguez
[2021-10-18] MEDS: Empagliflozin 10 MG Tablet PO (11:38)
[2021-10-18 11:40] LABS: Bedside Glucose 204 mg/dL (74-106)
[2021-10-18 15:52] VITALS: BP 106/66; PULSE 70; RESP 18; TEMP 36.9; O2SAT 100
--- NOTE | 2021-10-18 16:12 | CASEMGMT ---
Discharge Conveyor Weigher Operator Insurance is requesting updated PT/OT notes. Carmen Mobley/anuja Wet Process Head Miller faxed to Elaine at [place]. Carmen Raymond Discharge Conveyor Weigher Operator
[2021-10-18 17:00] LABS: Bedside Glucose 336 mg/dL (74-106)
--- NOTE | 2021-10-18 18:36 | PCM.PN.HOSP ---
Subjective Subjective Patient was seen and examined today, he finally had a large amount of stool today from his lactulose, I talked at length with the patient's daughter who was in the room at the time of my examination today, she is his DURABLE POWER OF AGRICULTURAL TECHNICAL OFFICER and wants him to go to an extended care facility for short-term rehab services, I told her I agree with this approach, the patient appears to have acute debility at this time and will need intensive physical therapy. Objective Data Objective Data Vital Signs: Vital Signs Temp Pulse Resp BP Pulse Ox O2 Del Method 98.4 F 70 18 106/66 100 Room Air 10/18/21 15:52 10/18/21 15:52 10/18/21 15:52 10/18/21 15:52 10/18/21 15:52 10/18/21 15:56 Oxygen Delivery Method [3] Room Air Oxygen Delivery Method [2] Room Air Oxygen Delivery Method [1 ( Room Air Initial Baseline)] Oxygen Delivery Method Room Air Weight: 90 kg Body Mass Index (BMI) 27.3 Intake & Output: Intake and Output for Last 24 Hours 10/16/21 10/17/21 10/18/21 23:59 23:59 23:59 Intake Total 790 / 790 1170 / 1170 855 / 855 Output Total 3175 / 3175 400 / 400 550 / 550 Balance -2385 / -2385 770 / 770 305 / 305 Medical Nutrition Assessment Dietitian: Malnutrition Criteria Met Start: 10/13/21 15:03 Freq: Status: Active Protocol: Document 10/16/21 12:07 CELINA (Rec: 10/16/21 12:07 [id number]) Nutrition Malnutrition Evidence of Malnutrition Exists Yes Malnutrition (moderate): Acute Illness/Injury Evidenced By Suboptimal Energy Intake ( Severe),Weight Loss (Severe) Clinical Problem Acute Disease or Injury Related Malnutrition Etiology related to inadequate energy/ protein intake d/t hepatic disease and 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 Status Active Problem Chronic Disease or Condition Related Malnutrition Status Inactive Problem Recommendation Dietitian Recommendations/Changes Continue Consistent CHO/ Sodium restricted diet Will discontinue 4 oz glucerna shake w/ medpass 4x/day Will continue beneprotein w/ meals 1x daily Lab / Micro Data Result Diagrams: 10/16/21 04:50 10/17/21 03:53 Labs: Laboratory Results - last 24 hr 10/17/21 20:51: POC Glucose 285 H 10/18/21 04:05: PT 22.9 H, INR 2.1 10/18/21 06:43: POC Glucose 318 H 10/18/21 11:19: POC Glucose 204 H 10/18/21 16:39: POC Glucose 336 H Physical Exam Narrative #1.? 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 intake of established nutritional needs over the past 2 weeks-dietary is change the patient's diet to consistent carbohydrate with sodium restriction, they will provide 4 ounces of Glucerna shake with a med Pass 4 times a day and provide 1 scoop of Beneprotein with meals mixing something with the patient can drink #4 acute kidney injury on chronic kidney disease stage IIIa-patient's creatinine today was 1 #5 acute debility-patient will need inpatient physical therapy in a assisted facility, we are awaiting placement #6 type 2 diabetes-blood sugars will be monitored, sliding scale insulin will be administered as needed #7 iron deficiency anemia-continue oral iron supplementation #8 chronic use of anticoagulants-patient is on Coumadin, his INR today was 2.1, INR will be rechecked tomorrow, 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 Charges/Coding Visit Charges Inpatient E&M: 64480 Subs Hosp L2
[2021-10-18 22:17] VITALS: BP 118/64; PULSE 53; RESP 18; TEMP 36.7; O2SAT 98
[2021-10-18] MEDS: Atorvastatin Calcium 10 MG Tablet PO (22:29)
[2021-10-18] MEDS: Tamsulosin HCl 0.4 MG Capsule PO (22:29)
[2021-10-18] MEDS: Spironolactone 50 MG Tablet PO (22:29)
[2021-10-18 23:00] LABS: Bedside Glucose 190 mg/dL (74-106)
[2021-10-19 04:00] VITALS: BP 110/78; PULSE 66; RESP 18; TEMP 36.4; O2SAT 95
[2021-10-19 04:58] LABS: Prothrombin Time (Protime)PT. 31.2 SECONDS (11.7-14.9)
[2021-10-19] MEDS: Levothyroxine 125 MCG Tablet PO (06:44)
[2021-10-19] MEDS: Insulin Lispro 100 UNIT/ML INSULN.PEN SC ×4 (06:44→20:04)
[2021-10-19 07:20] LABS: Bedside Glucose 154 mg/dL (74-106)
--- NOTE | 2021-10-19 08:44 | CASEMGMT ---
Discharge Cooler Deliverer Carmen Mobley/anuja Pipe Cutter reached out to Elaine at [place] in regards to insurance pre-cert. Will continue to follow up. Carmen Raymond Discharge Cooler Deliverer
[2021-10-19 10:00] VITALS: BP 109/62; PULSE 79; RESP 18; TEMP 36.3; O2SAT 99
[2021-10-19] MEDS: Carvedilol 3.125 MG TABLET PO ×2 (10:04→20:03)
[2021-10-19] MEDS: Pantoprazole Sodium 40 MG Tablet PO (10:05)
[2021-10-19] MEDS: Finasteride 5 MG Tablet PO (10:05)
[2021-10-19] MEDS: Ferrous Gluconate 324 MG Tablet PO ×2 (10:05→20:03)
[2021-10-19] MEDS: Empagliflozin 10 MG Tablet PO (10:05)
[2021-10-19] MEDS: Spironolactone 50 MG Tablet PO ×2 (10:05→20:04)
[2021-10-19] MEDS: Lactulose 20 GM/30 ML UDC 30 GM PO ×4 (10:06→20:03)
[2021-10-19] MEDS: Gabapentin 400 MG Capsule PO ×2 (10:30→20:10)
[2021-10-19 11:48] VITALS: O2SAT 97
[2021-10-19] MEDS: 0.9% Saline Lock 10 ML Syringe IV (15:04)
[2021-10-19 15:08] VITALS: BP 109/61; PULSE 66; RESP 18; TEMP 36.5; O2SAT 99
[2021-10-19 15:11] LABS: Bedside Glucose 243 mg/dL (74-106)
--- NOTE | 2021-10-19 15:13 | PCM.PN.HOSP ---
Subjective Subjective Patient was seen and examined today, his daughter was in the room at the time of my examination. We still do not have precertification for the patient to go to a jail. Patient has no complaints of shortness of breath at this time. Objective Data Objective Data Vital Signs: Vital Signs Temp Pulse Resp BP Pulse Ox O2 Del Method 97.7 F L 66 18 109/61 99 Room Air 10/19/21 15:08 10/19/21 15:08 10/19/21 15:08 10/19/21 15:08 10/19/21 15:08 10/19/21 15:08 Oxygen Delivery Method [3] Room Air Oxygen Delivery Method [2] Room Air Oxygen Delivery Method [1 ( Room Air Initial Baseline)] Oxygen Delivery Method Room Air Weight: 89.811 kg Body Mass Index (BMI) 27.3 Intake & Output: Intake and Output for Last 24 Hours 10/17/21 10/18/21 10/19/21 23:59 23:59 23:59 Intake Total 1170 / 1170 855 / 855 680 / 680 Output Total 400 / 400 550 / 550 Balance 770 / 770 305 / 305 680 / 680 Medical Nutrition Assessment Dietitian: Malnutrition Criteria Met Start: 10/13/21 15:03 Freq: Status: Active Protocol: Document 10/16/21 12:07 CELINA (Rec: 10/16/21 12:07 CELINA [id number]) Nutrition Malnutrition Evidence of Malnutrition Exists Yes Malnutrition (moderate): Acute Illness/Injury Evidenced By Suboptimal Energy Intake ( Severe),Weight Loss (Severe) Clinical Problem Acute Disease or Injury Related Malnutrition Etiology related to inadequate energy/ protein intake d/t hepatic disease 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 Status Active Problem Chronic Disease or Condition Related Malnutrition Status Inactive Problem Recommendation Dietitian Recommendations/Changes Continue Consistent CHO/ Sodium restricted diet Will discontinue 4 oz glucerna shake w/ medpass 4x/day Will continue beneprotein w/ meals 1x daily Lab / Micro Data Result Diagrams: 10/16/21 04:50 10/17/21 03:53 Labs: Laboratory Results - last 24 hr 10/18/21 16:39: POC Glucose 336 H 10/18/21 22:28: POC Glucose 190 H 10/19/21 04:05: PT 31.2 H, INR 3.0 10/19/21 06:43: POC Glucose 154 H 10/19/21 11:33: POC Glucose 243 H Physical Exam Const alert, oriented x3 and no apparent distress General Appearance: cooperative and well developed Orientation / Consciousness: awake, oriented to person, oriented to place and oriented to time HEENT normocephalic, head/scalp atraumatic and moist oral mucous membranes Eyes PERRL, EOMs intact bilaterally and conjunctivae normal Neck nuchal rigidity, supple, no JVD, thyroid normal and no carotid bruits General: trachea midline Resp normal respiratory effort, no retractions, no use of accessory muscles and clear to auscultation bilaterally Auscultation: Negative for rales, rhonchi or wheezes Cardio regular rate, regular rhythm, S1 normal heart sound, S2 normal heart sound, no murmurs, no rub and no gallops GI normal to inspection, nondistended, normoactive bowel sounds, soft to palpation, non-tender and non-distended GI Narrative: Patient has some abdominal distention, his abdomen is nontender however Extremity no clubbing, cyanosis or edema Skin no rashes or lesions noted General Skin Exam: no breakdown Neuro oriented x3, CN's II-XII intact bilaterally, no focal motor deficits and no sensory deficits noted Sensorium / Orientation: awake and alert Speech: speech normal Psych affect normal Assessment & Plan Assessment/Plan (1) Acute hepatic encephalopathy: PLAN: Plan 1. 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 intake of established nutritional needs over the past 2 weeks-dietary is change the patient's diet to consistent carbohydrate with sodium restriction, they will provide 4 ounces of Glucerna shake with a med Pass 4 times a day and provide 1 scoop of Beneprotein with meals mixing something with the patient can drink #4 acute kidney injury on chronic kidney disease stage IIIa #5 acute debility-physical therapy states the patient will need outpatient physical therapy, patient has agreed for temporary placement in a retirement facility at this time, hopefully he will be placed in the next few days. 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 Charges/Coding Visit Charges Inpatient E&M: 62092 Subs Hosp L2
[2021-10-19 17:20] LABS: Bedside Glucose 240 mg/dL (74-106)
[2021-10-19] MEDS: Glycerin/Hypromellose/PEG400 15 ml Bottle 1 DRP EACH EYE (18:08)
[2021-10-19 20:00] VITALS: BP 100/63; PULSE 100; RESP 16; TEMP 37.1; O2SAT 96
[2021-10-19] MEDS: Tamsulosin HCl 0.4 MG Capsule PO ×2 (20:03)
[2021-10-19] MEDS: Atorvastatin Calcium 10 MG Tablet PO (20:03)
[2021-10-19 21:01] LABS: Bedside Glucose 224 mg/dL (74-106)
[2021-10-20] MEDS: Levothyroxine 125 MCG Tablet PO (05:08)
[2021-10-20 05:13] VITALS: BP 126/78; PULSE 59; RESP 16; TEMP 36.6; O2SAT 96
[2021-10-20] MEDS: Insulin Lispro 100 UNIT/ML INSULN.PEN SC ×2 (06:28→11:11)
[2021-10-20 06:50] LABS: Bedside Glucose 159 mg/dL (74-106)
--- NOTE | 2021-10-20 07:42 | CASEMGMT ---
Discharge Logging Tractor Operator Elaine from [facility] reached out. Pre-cert has been obtained. Patient can go to [facility] when medically ready. Carmen Raymond Discharge Logging Tractor Operator
--- NOTE | 2021-10-20 08:23 | TREXTCAR_ITS ---
Diet Diet Order/Speech Therapy: 10/13/21 15:04 Diet: Carbohydrate Controlled-1800 moe Food consistency:: Regular Liquid Consistency:: Regular/Thin Dietary Modifications:: Sodium Restricted Type of Dietary Supplement:: Beneprotein Is pt able to select menu?: No Diet Comments: softer foods; deniz MC w/ dinner,1 scoop bene w/ meals-mix into liquid/drink Routine Orders/Code Status Routine Lab Work: BMP (in one week) and INR (on 10/21/21) Code Status: DNRCC-A (no intubation) Wound(s) right lower/outer abd: Wound Type: Puncture Therapies Weight Bearing: Full weight bearing Physical Therapy: Eval and Treat Occupational Therapy: Eval and Treat Problem/Diagnosis (1) Acute hepatic encephalopathy: Status: Acute Code(s): K72.00 - Acute and subacute hepatic failure without coma (2) Cirrhosis of liver with ascites: Status: Chronic Code(s): K74.60 - Unspecified cirrhosis of liver; R18.8 - Other ascites Comment: may need repeat paracentesis in 5-7 days depending on reaccumulation of ascites and symptoms (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 intake of established nutritional needs over the past 2 weeks-dietary is change the patient's diet to consistent carbohydrate with sodium restriction, they will provide 4 ounces of Glucerna shake with a med Pass 4 times a day and provide 1 scoop of Beneprotein with meals mixing something with the patient can drink #4 acute kidney injury on chronic kidney disease stage IIIa #5 acute debility-physical therapy states the patient will need outpatient physical therapy, patient has agreed for temporary placement in a penitentiary facility at this time, hopefully he will be placed in the next few days. 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 Allergies/Procedures Done in Hospital Allergies heparin Adverse Reaction (Verified 10/13/21 09:24) Other THROMBOCYOPENIA, hallucinations Procedures: Paracentesis Type of Care/Length of Stay Estimated LOS: Convalescent Care Less Than 30 days Type of Care Needed: Skilled Rehab Potential: Good Prognosis: Good Additional Orders/Day of Discharge Day of Discharge: 10/20/21 Dietary and Speech Recommendations Dietitian Recommendations/Changes: Continue Consistent CHO/ Sodium restricted diet with fluid restriction as indicated. Will order 60mL glucerna shake w/ medpass 4x/day Will continue beneprotein w/ meals and try magic cup w/ dinners. Discharge Plan Admission Admit Date/Time: 10/13/21 11:42 Primary Reason for Your Visit: Hepatic encephalopathy, acute debility Attending Provider: Liam Sams Primary Care Provider: Yesica Dey Consulting Providers: Linda Moore Instructions Patient Instructions: KHALIF RN Paracentesis Dc Additional Instructions / Restrictions: Fingerstick blood sugars AC nightly, coverage with Humalog subcu per sliding scale: 200?250: 5 units, 251?300: 8 units, 301?350: 12 units, 3 5 1?400: 15 units Discharge Orders/Prescriptions Prescriptions: New Artificial Tears([id number]) 1-0.2-0.2 % Drops 1 drp EACH EYE Q1H PRN (Reason: DRY EYES) Qty: 0 0RF Glucerna 1.2 Moe 0.06-1.2 gram-kcal/mL Liquid 60 ml PO 4X/DAY Qty: 0 0RF lactulose 20 gram/30 mL Solution 30 g PO 4X/DAY Qty: 0 0RF furosemide [Lasix] 20 mg tablet 20 mg PO DAILY Qty: 1 0RF Continued dutasteride 0.5 mg capsule 0.5 mg PO QDAY ferrous gluconate 324 mg (37.5 mg iron) tablet 324 mg PO BID gabapentin 300 mg capsule 400 mg PO BID spironolactone 50 mg tablet 50 mg PO BID Qty: 60 0RF Jardiance 10 mg Tablet 10 mg PO DAILY lanreotide 60 mg/0.2 mL syringe 30 mg subcut Q4W Qty: 0.2 0RF Rx Instructions: next dose 11/17/21-contact 's office to coordinate levothyroxine 125 mcg tablet 125 mcg PO QDAY esomeprazole magnesium [Nexium] 40 mg capsule,delayed release(DR/EC) 40 mg PO QDAY simvastatin 20 mg tablet 20 mg PO QPM tamsulosin 0.4 mg capsule,extended release 24hr 0.4 mg PO QHS carvedilol [Coreg] 3.125 mg tablet 3.125 mg PO BID Qty: 60 11RF Rx Instructions: must administer with a meal/food warfarin 5 mg tablet 5 mg PO DAILY Qty: 30 11RF Protocol: Dose Management Condition: Saturday Dose/Route: 2.5 mg Instruction: 0.5 x 5 mg tablets Condition: Saturday Dose/Route: 0 mg Instruction: 0 tablets Condition: Saturday Dose/Route: 0 mg Instruction: 0 tablets Condition: Saturday Dose/Route: 0 mg Instruction: 0 tablets Condition: Dose/Route: 0 mg Instruction: 0 tablets Condition: Saturday Dose/Route: 2.5 mg Instruction: 0.5 x 5 mg tablets Condition: Saturday Dose/Route: 2.5 mg Instruction: 0.5 x 5 mg tablets Protocol Text: Adjustment Start Date: 10/12/21 INR Value: 4.3 INR Date: 10/11/21 Rx Instructions: HIGH INR ABOVE 4. ORDER CHANGED AND VARIABLE Discontinued metformin 850 mg tablet 1,000 mg PO BID furosemide 80 mg tablet 80 mg PO QAM Qty: 30 0RF furosemide 20 mg tablet 40 mg PO QHS lactulose 10 gram/15 mL solution 10 g PO DAILY Qty: 237 0RF Rx Instructions: May take up to three times a day to promote BM 2 times a day. Referrals / Follow Up: Delaney Avila MD [STAFF PHYSICIAN] - See Referral Note (on 11/17/21) Yesica Dey PA [Primary Care Provider] - Disposition Disposition (needs filled in before D/C Order can be placed): Home Health Service (1) Type 2 diabetes mellitus without complications Qualifiers: Diabetes mellitus terminal supervisor insulin use: without terminal supervisor use Qualified Code(s): E11.9 - Type 2 diabetes mellitus without complications; E11.9 - Type 2 diabetes mellitus without complications; E11.9 - Type 2 diabetes mellitus without complications; E11.9 - Type 2 diabetes mellitus without complications
--- NOTE | 2021-10-20 08:55 | DS.PCM_ITS ---
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 Code(s): Z79.01 - intermediate (current) use of anticoagulants (4) Mesenteric vein thrombosis: Status: Chronic Code(s): K55.069 - Acute infarction of intestine, part and extent unspecified (5) Paroxysmal A-fib: Status: Chronic Code(s): I48.0 - Paroxysmal atrial fibrillation (6) Type 2 diabetes mellitus without complications: Status: Chronic Code(s): E11.9 - Type 2 diabetes mellitus without complications Qualifiers: Diabetes mellitus joint terminal attack controller insulin use: without joint terminal attack controller use Qualified Code(s): E11.9 - Type 2 diabetes mellitus without complications; E11.9 - Type 2 diabetes mellitus without complications; E11.9 - Type 2 diabetes melli tus without complications; E11.9 - Type 2 diabetes mellitus without complications (7) Essential (primary) hypertension: Status: Chronic Code(s): I10 - Essential (primary) hypertension Plan 1. 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 intake of established nutritional needs over the past 2 weeks-dietary is change the patient's diet to consistent carbohydrate with sodium restriction, they will provide 4 ounces of Glucerna shake with a med Pass 4 times a day and provide 1 scoop of Beneprotein with meals mixing something with the patient can drink #4 acute kidney injury on chronic kidney disease stage IIIa #5 acute debility-physical therapy states the patient will need outpatient physical therapy, patient has agreed for temporary placement in a [facility] facility at this time, hopefully he will be placed in the next few days. 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 Medications at Discharge Home Medications esomeprazole magnesium 40 mg capsule,delayed release (Nexium) 40 mg PO QDAY REFLUX 03/15/17 levothyroxine 125 mcg tablet 125 mcg PO QDAY 03/15/17 simvastatin 20 mg tablet 20 mg PO QPM 03/15/17 tamsulosin 0.4 mg capsule 0.4 mg PO QHS 03/15/17 dutasteride 0.5 mg capsule 0.5 mg PO QDAY 03/19/17 ferrous gluconate 324 mg (37.5 mg iron) tablet 324 mg PO BID 03/19/17 gabapentin 300 mg capsule 400 mg PO BID NERVE PAIN 01/02/21 carvedilol 3.125 mg tablet (Coreg) 3.125 mg PO BID #60 tabs 04/03/21 warfarin 5 mg tablet 5 mg PO DAILY #30 tabs 07/25/21 spironolactone 50 mg tablet 50 mg PO BID #60 tabs 09/29/21 empagliflozin 10 mg tablet (Jardiance) 10 mg PO DAILY Check with primary doctor 10/13/21 furosemide 20 mg tablet (Lasix) 20 mg PO DAILY #1 TAB 10/20/21 lactulose 20 gram/30 mL oral solution 30 g (45 mL) PO 4X/DAY #0 mL 10/20/21 lanreotide 60 mg/0.2 mL subcutaneous syringe 30 mg (0.1 mL) subcut Q4W #0.2 mL 10/20/21 nutrition tx glu intol,lac-free,soy-fiber 0.06 gram-1.2 kcal/mL liquid (Glucerna 1.2 Juan) 60 ml PO 4X/DAY #0 mL 10/20/21 peg [id number] 1 %-0.2 %-0.2 % eye drops (Artificial Tears ([id number])) 1 drp EACH EYE Q1H PRN DRY EYES #0 mL 10/20/21 Hospital Course Operations None Procedures Paracentesis Summary of Care Provided Minutes Spent on Discharge: 31 Hospital Course: This 71-year-old white male was seen in the emergency room at [facility] with a chief complaint of generalized weakness x3 to 4 days and frequent falls at home. Patient has a long history of medical problems inc luding neuroendocrine pancreatic cancer, chronic ascites, cirrhosis of the liver, type 2 diabetes, and atrial fibrillation. Lab work done on 10/11/2021 showed the patient have an elevated ammonia level of 79 he was prescribed lactulose. Blood work in the emergency room showed a white blood cell count of 4.4, hemoglobin was 13.3, platelet count was 89,000, patient's BMP showed an elevated BUN at 29 and elevated creatinine of 1.52, patient's glucose was 233. Ammonia level was 118, patient's AST was 43, ALT was 39, and alkaline phosphatase was 142. CT scan of the brain showed chronic involutional changes. CT of the cervical spine showed multilevel degenerative changes. Patient was admitted to [place] [address], he was seen by PT and OT, he was given lactulose, and underwent a paracentesis with removal of 1700 cc of ascitic fluid. It was felt that the patient would benefit from short-term inpatient skilled rehab care and an extended care facility was located that would accept the patient for the services. On 10/20/2021, patient was seen and examined: On examination he appeared in good health and spirits. Vital signs as documented. Skin warm and dry and without overt rashes. Neck without JVD, neck was supple, trachea midline, thyroid was normal. Lungs clear bilaterally, normal air movement was noted. Heart exam notable for regular rhythm, normal sounds and absence of murmurs, rubs or g allops. Abdomen unremarkable and without evidence of organomegaly, masses, or abdominal aortic enlargement. Bowel sounds are present, abdomen is not distended. Extremities nonedematous, no cyanosis was noted, no clubbing was noted. Neuro: Cranial nerves II through XII are grossly intact, no focal motor deficits were noted, sensation to light touch and pinprick intact, motor exam 5/5 throughout. Psych: Patient is alert and oriented x3, he does not appear anxious or depressed, he does not appear agitated. On 10/20/2021, patient was felt to be stable for discharge to an extended care facility for inpatient rehab services. Medical Records Data Medical Nutrition Assessment Dietitian: Malnutrition Criteria Met Start: 10/13/21 15:03 Freq: Status: Active Protocol: Document 10/19/21 16:37 AG (Rec: 10/19/21 16:37 AG [id number]) Nutrition Malnutrition Evidence of Malnutrition Exists Yes Malnutrition (moderate): Chronic Evidenced By Suboptimal Energy Intake ( Moderate),Weight Loss ( Moderate),Physical Changes ( Mild) Clinical Problem Chronic Disease or Condition Related Malnutrition Etiology moderate, chronic malnutrition related to inadequate energy intake w/ increased energy needs d/t hepatic disease Signs/Symptoms as evidenced by estimated PO intake meeting <75% of estimated energy needs x 1 month; unintentional 12.3% wt loss x 5 months 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 Will order 60mL glucerna shake w/ medpass 4x/day Will continue beneprotein w/ meals and try magic cup w/ dinners. Weight / BMI Weight Weight: 91.1 kg Body Mass Index (BMI) 27.3 ABG / Lab / Microbiology Data Result Diagrams: 10/16/21 04:50 10/17/21 03:53 Laboratory: Laboratory Results - last 24 hr 10/19/21 11:33: POC Glucose 243 H 10/19/21 17:01: POC Glucose 240 H 10/19/21 20:01: POC Glucose 224 H 10/20/21 06:26: POC Glucose 159 H Meaningful Use Info Meaningful Use Diagnoses (Choose all that apply): None applicable Discharge Plan Admission Admit Date/Time: 10/13/21 11:42 Primary Reason for Your Visit: Hepatic encephalopathy, acute debility Attending Provider: Liam Sams Primary Care Provider: Yesica Dey Consulting Providers: Linda Moore Instructions Patient Instructions: KHALIF RN Paracentesis Dc Additional Instructions / Restrictions: Fingerstick blood sugars AC nightly, coverage with Humalog subcu per sliding scale: 200?250: 5 units, 251?300: 8 units, 301?350: 12 units, 3 5 1?400: 15 units Discharge Orders/Prescriptions Prescriptions: New Artificial Tears([id number]) 1-0.2-0.2 % Drops 1 drp EACH EYE Q1H PRN (Reason: DRY EYES) Qty: 0 0RF Glucerna 1.2 Juan 0.06-1.2 gram-kcal/mL Liquid 60 ml PO 4X/DAY Qty: 0 0RF lactulose 20 gram/30 mL Solution 30 g PO 4X/DAY Qty: 0 0RF furosemide [Lasix] 20 mg tablet 20 mg PO DAILY Qty: 1 0RF Continued dutasteride 0.5 mg capsule 0.5 mg PO QDAY ferrous gluconate 324 mg (37.5 mg iron) tablet 324 mg PO BID gabapentin 300 mg capsule 400 mg PO BID spironolactone 50 mg tablet 50 mg PO BID Qty: 60 0RF Jardiance 10 mg Tablet 10 mg PO DAILY lanreotide 60 mg/0.2 mL syringe 30 mg subcut Q4W Qty: 0.2 0RF Rx Instructions: next dose 11/17/21-contact 's office to coordinate levothyroxine 125 mcg tablet 125 mcg PO QDAY esomeprazole magnesium [Nexium] 40 mg capsule,delayed release(DR/EC) 40 mg PO QDAY simvastatin 20 mg tablet 20 mg PO QPM tamsulosin 0.4 mg capsule,extended release 24hr 0.4 mg PO QHS carvedilol [Coreg] 3.125 mg tablet 3.125 mg PO BID Qty: 60 11RF Rx Instructions: must administer with a meal/food warfarin 5 mg tablet 5 mg PO DAILY Qty: 30 11RF Protocol: Dose Management Condition: Saturday Dose/Route: 2.5 mg Instruction: 0.5 x 5 mg tablets Condition: Saturday Dose/Route: 0 mg Instruction: 0 tablets Condition: Saturday Dose/Route: 0 mg Instruction: 0 tablets Condition: Saturday Dose/Route: 0 mg Instruction: 0 tablets Condition: Dose/Route: 0 mg Instruction: 0 tablets Condition: Saturday Dose/Route: 2.5 mg Instruction: 0.5 x 5 mg tablets Condition: Saturday Dose/Route: 2.5 mg Instruction: 0.5 x 5 mg tablets Protocol Text: Adjustment Start Date: 10/12/21 INR Value: 4.3 INR Date: 10/11/21 Rx Instructions: HIGH INR ABOVE 4. ORDER CHANGED AND VARIABLE Discontinued metformin 850 mg tablet 1,000 mg PO BID furosemide 80 mg tablet 80 mg PO QAM Qty: 30 0RF furosemide 20 mg tablet 40 mg PO QHS lactulose 10 gram/15 mL solution 10 g PO DAILY Qty: 237 0RF Rx Instructions: May take up to three times a day to promote BM 2 times a day. Referrals / Follow Up: Delaney Avila MD [STAFF PHYSICIAN] - See Referral Note (on 11/17/21) Yesica Dey PA [Primary Care Provider] - Disposition Disposition (needs filled in before D/C Order can be placed): Home Health Service Charges/Coding Visit Charges Inpatient E&M: 78175 Disch Hosp
[2021-10-20 10:09] VITALS: BP 118/77; PULSE 66; RESP 20; TEMP 36.4; O2SAT 98
--- NOTE | 2021-10-20 10:24 | CASEMGMT ---
Social Work Precert for [facility] has been obtained. Physician notified and plans to d/c pt today. SW met with pt and informed of d/c and he is agreeable. Pt dgt Adrienne updated and states she would like to transport. [id number] convalescent form completed in [facility] and faxed along with orders and negative covid results to [facility]. [facility] and pts nurse notified of discharge plan. Plan: [facility], skilled level of care under convalescent stay. GERBER Rodriguez
--- NOTE | 2021-10-20 10:51 | PHA.DC.MR ---
Pharmacy Service has performed discharge medication reconciliation for this patient. The patient's discharge medication list was reviewed for discrepancies and discrepancies were resolved. Home Medications esomeprazole magnesium 40 mg capsule,delayed release (Nexium) 40 mg PO QDAY REFLUX 03/15/17 levothyroxine 125 mcg tablet 125 mcg PO QDAY 03/15/17 simvastatin 20 mg tablet 20 mg PO QPM 03/15/17 tamsulosin 0.4 mg capsule 0.4 mg PO QHS 03/15/17 dutasteride 0.5 mg capsule 0.5 mg PO QDAY 03/19/17 ferrous gluconate 324 mg (37.5 mg iron) tablet 324 mg PO BID 03/19/17 gabapentin 300 mg capsule 400 mg PO BID NERVE PAIN 01/02/21 carvedilol 3.125 mg tablet (Coreg) 3.125 mg PO BID #60 tabs 04/03/21 warfarin 5 mg tablet 5 mg PO DAILY #30 tabs 07/25/21 spironolactone 50 mg tablet 50 mg PO BID #60 tabs 09/29/21 empagliflozin 10 mg tablet (Jardiance) 10 mg PO DAILY Check with primary doctor 10/13/21 furosemide 20 mg tablet (Lasix) 20 mg PO DAILY #1 TAB 10/20/21 lactulose 20 gram/30 mL oral solution 30 g (45 mL) PO 4X/DAY #0 mL 10/20/21 lanreotide 60 mg/0.2 mL subcutaneous syringe 30 mg (0.1 mL) subcut Q4W #0.2 mL 10/20/21 nutrition tx glu intol,lac-free,soy-fiber 0.06 gram-1.2 kcal/mL liquid (Glucerna 1.2 Juan) 60 ml PO 4X/DAY #0 mL 10/20/21 peg [id number] 1 %-0.2 %-0.2 % eye drops (Artificial Tears ([id number])) 1 drp EACH EYE Q1H PRN DRY EYES #0 mL 10/20/21
[2021-10-20] MEDS: Carvedilol 3.125 MG TABLET PO (11:00)
[2021-10-20] MEDS: Spironolactone 50 MG Tablet PO (11:00)
[2021-10-20] MEDS: Pantoprazole Sodium 40 MG Tablet PO (11:00)
[2021-10-20] MEDS: Ferrous Gluconate 324 MG Tablet PO (11:00)
[2021-10-20] MEDS: Lactulose 20 GM/30 ML UDC 30 GM PO (11:00)
[2021-10-20] MEDS: Finasteride 5 MG Tablet PO (11:00)
[2021-10-20] MEDS: Empagliflozin 10 MG Tablet PO (11:01)
[2021-10-20] MEDS: Gabapentin 400 MG Capsule PO (11:05)
[2021-10-20 11:40] LABS: Bedside Glucose 264 mg/dL (74-106)
--- NOTE | 2021-10-20 13:31 | NURSING ---
family transporting pt to [facility] - packet given to family members with instructions to give to NH staff
--- NOTE | 2021-10-20 13:51 | NURSING ---
Report given to Nikolas BAER at [facility].
== END 2021-10-20 13:35 | disposition skilled nursing facility (03) | DRG 441 ==
LOC: ED 11:51 → MS3 12:22
PROVIDERS: Nurse Practitioner; Admitting Provider Internal Medicine; Emergency Provider Emergency Medicine; PCP Physician Assistant; Visit Provider Internal Medicine
DX: K72.00 Acute and subacute hepatic failure without coma (principal); E43 Unspecified severe protein-calorie malnutrition; K55.069 Acute infarction of intestine, part and extent unspecified; G92.8 Other toxic encephalopathy; I85.00 Esophageal varices without bleeding; N17.9 Acute kidney failure, unspecified; K76.6 Portal hypertension; R18.8 Other ascites; I48.20 Chronic atrial fibrillation, unspecified; E11.22 Type 2 diabetes mellitus with diabetic chronic kidney disease; K74.60 Unspecified cirrhosis of liver; N18.30 Chronic kidney disease, stage 3 unspecified; Z79.4 Long term (current) use of insulin; N18.31 Chronic kidney disease, stage 3a; I48.0 Paroxysmal atrial fibrillation; D50.9 Iron deficiency anemia, unspecified; H92.02 Otalgia, left ear; E03.9 Hypothyroidism, unspecified; E78.2 Mixed hyperlipidemia; I12.9 Hypertensive chronic kidney disease with stage 1 through stage 4 chronic kidney disease, or unspecified chronic kidney disease; Z79.01 Long term (current) use of anticoagulants; Z51.5 Encounter for palliative care; Z80.0 Family history of malignant neoplasm of digestive organs; Z66 Do not resuscitate; Z85.07 Personal history of malignant neoplasm of pancreas; N40.0 Benign prostatic hyperplasia without lower urinary tract symptoms; R29.6 Repeated falls
CPT/HCPCS: 36415; 49083; 70450; 72125; 80048; 80053; 80076; 81001; 82140; 82962; 83036; 83690; 85025; 85610; 87426; 97110; 97116; 97162; 97166; 97530; 97535; 97802; 97803; 99284; A4216

== ENCOUNTER → 2021-10-24 | Outpatient (REF) | payer SELFPAY ==
[2021-10-24 09:30] LABS: Hematocrit 36.8 % (40-54); Hemoglobin 11.9 g/dL (13.0-16.5); Mean Corp Hgb Conc 32.3 g/dL (32-36); Mean Corpuscular Volume 89.5 fL (80-94); Mean Platelet Vol. 13.7 fl (6.2-12.0); POSITIVE COUNT YES; Platelet Count 61 K/mm3 (150-450); RBC Distribution Width CV 17.2 % (11.6-14.6); RBC Distribution Width SD 55.7 fl (35.1-43.9); Red Blood Count 4.11 M/mm3 (4.6-6.2)
[2021-10-24 09:34] LABS: International Normalized Ratio 2.4
[2021-10-24 09:53] LABS: ALB/GLOB Ratio 0.8 RATIO (0.9-2.4); AST(SGOT) 36 U/L (15-37); Alanine Aminotransfer ALT/SGPT 43 U/L (16-61); Albumin, Serum 2.7 g/dL (3.2-5.0); Alkaline Phosphatase 110 U/L (45-117); Anion Gap 5 (5-15); BUN 16 mg/dL (7-18); BUN/Creat Ratio 16.4 RATIO (10-20); Calcium,Total 8.9 mg/dL (8.5-10.1); Chloride 103 mmol/L (98-107); Creatinine, Serum 0.98 mg/dL (0.70-1.30); EST Glomerular Filtration Rate 80 mL/min (>60); Est Glom Filt Rate - Afr Amer 97 mL/min (>60); Globulin 3.6 g/dL (2.2-4.2); Glucose 172 mg/dL (74-106); Potassium 4.7 mmol/L (3.5-5.1); Protein, Total 6.3 g/dL (6.4-8.2); Sodium Level 134 mmol/L (136-145)
== END | disposition home or self-care (01) ==
LOC: OLS.WHLTCC 07:40
PROVIDERS: PCP Physician Assistant; Visit Provider Family Medicine
DX: K72.90 Hepatic failure, unspecified without coma (principal); N17.9 Acute kidney failure, unspecified; K74.60 Unspecified cirrhosis of liver; M62.81 Muscle weakness (generalized); R26.2 Difficulty in walking, not elsewhere classified
CPT/HCPCS: 36415; 80053; 85027; 85610

== ENCOUNTER → 2021-10-25 | Outpatient (CLI) | payer BC, MEDICARE, SELFPAY ==
--- NOTE | 2021-10-25 10:28 | US_ITS ---
PROCEDURE: Ultrasound guided paracentesis. DATE OF EXAMINATION: 10/25/2021. INDICATION: Male, 71 years old. Ascites. PHYSICIAN: Lamberto Jaeger M.D. TECHNIQUE: The risks, benefits, and alternatives to the procedure were explained to the patient. The specific risks of bleeding, infection, and damage to bowel were detailed and accepted. Witnessed informed consent was obtained. The abdomen was ultrasonographically surveyed. An appropriate pocket of fluid was identified at the right lower quadrant. The skin were cleaned and prepped in the usual sterile fashion. Using ultrasound guidance, the peritoneal cavity was accessed with a 5-Scottish paracentesis needle/catheter system. The trocar was removed. A total of 2150 ml of angeli-colored fluid were removed from the peritoneal cavity. The catheter was removed and a sterile dressing was applied. The procedure was well tolerated. US/Paracentesis with US IMPRESSION: Ultrasound guided paracentesis. Electronically Signed: Lamberto Jaeger MD at 11:53 EDT ,
[2021-10-25 10:53] VITALS: BP 101/51; BP 108/51; PULSE 43; PULSE 46; RESP 16; RESP 18; TEMP 37; O2SAT 97; O2SAT 99
[2021-10-25] MEDS: Lidocaine 2% (5ml sdv) 5 ML VIAL.MPF INFILT (11:17)
== END | disposition home or self-care (01) ==
PROVIDERS: PCP Physician Assistant; Referring Provider Internal Medicine Gastroenterology; Visit Provider Internal Medicine Gastroenterology
DX: R18.8 Other ascites (principal); K74.60 Unspecified cirrhosis of liver
CPT/HCPCS: 49083; A4216

== ENCOUNTER → 2021-10-31 | Outpatient (REF) | payer BC, MEDICARE, SELFPAY ==
[2021-10-31 11:05] LABS: Hematocrit 36.1 % (40-54); Mean Corp Hgb Conc 33.2 g/dL (32-36); Mean Corpuscular Volume 90.3 fL (80-94); Mean Platelet Vol. 13.5 fl (6.2-12.0); POSITIVE COUNT YES; Platelet Count 62 K/mm3 (150-450); RBC Distribution Width CV 17.6 % (11.6-14.6); RBC Distribution Width SD 58.3 fl (35.1-43.9); White Blood Count 2.9 K/mm3 (4.4-11.0)
[2021-10-31 11:07] LABS: Scan Indicated on CBC? Y/N NO
[2021-10-31 11:12] LABS: International Normalized Ratio 2.4; Prothrombin Time (Protime)PT. 25.7 SECONDS (11.7-14.9)
[2021-10-31 11:42] LABS: ALB/GLOB Ratio 0.7 RATIO (0.9-2.4); AST(SGOT) 63 U/L (15-37); Alanine Aminotransfer ALT/SGPT 64 U/L (16-61); Albumin, Serum 2.6 g/dL (3.2-5.0); Alkaline Phosphatase 99 U/L (45-117); Anion Gap 8 (5-15); BUN 13 mg/dL (7-18); BUN/Creat Ratio 13.4 RATIO (10-20); Chloride 104 mmol/L (98-107); Creatinine, Serum 0.97 mg/dL (0.70-1.30); EST Glomerular Filtration Rate 81 mL/min (>60); Est Glom Filt Rate - Afr Amer 98 mL/min (>60); Globulin 3.5 g/dL (2.2-4.2); Glucose 143 mg/dL (74-106); Potassium 4.7 mmol/L (3.5-5.1); Protein, Total 6.1 g/dL (6.4-8.2); Sodium Level 134 mmol/L (136-145)
== END | disposition home or self-care (01) ==
LOC: OLS.WHLTCC 04:00
PROVIDERS: PCP Physician Assistant; Referring Provider Family Medicine; Visit Provider Family Medicine
DX: K72.90 Hepatic failure, unspecified without coma (principal); N17.9 Acute kidney failure, unspecified; K74.60 Unspecified cirrhosis of liver; M62.81 Muscle weakness (generalized); R26.2 Difficulty in walking, not elsewhere classified
CPT/HCPCS: 36415; 80053; 85027; 85610

== ENCOUNTER → 2021-11-01 | Outpatient (CLI) | payer BC, MEDICARE, SELFPAY ==
--- NOTE | 2021-11-01 09:21 | US_ITS ---
PROCEDURE: Ultrasound guided paracentesis. DATE OF EXAMINATION: 11/01/2021. INDICATION: Male, 71 years old. Ascites. PHYSICIAN: Lamberto Jaeger M.D. TECHNIQUE: The risks, benefits, and alternatives to the procedure were explained to the patient. The specific risks of bleeding, infection, and damage to bowel were detailed and accepted. Witnessed informed consent was obtained. The abdomen was ultrasonographically surveyed. An appropriate pocket of fluid was identified at the right lower quadrant. The skin were cleaned and prepped in the usual sterile fashion. Using ultrasound guidance, the peritoneal cavity was accessed with a 5-Salvadorean paracentesis needle/catheter system. The trocar was removed. A total of 2100 ml of angeli-colored fluid were removed from the peritoneal cavity. The catheter was removed and a sterile dressing was applied. The procedure was well tolerated. US/Paracentesis with US IMPRESSION: Ultrasound guided paracentesis. Electronically Signed: Lamberto Jaeger MD at 10:26 EDT ,
[2021-11-01 09:44] VITALS: BP 102/56; BP 105/57; PULSE 53; PULSE 57; RESP 16; TEMP 36.6; O2SAT 97; O2SAT 99
[2021-11-01] MEDS: Lidocaine 2% (10 ml mdv) 10 ML Vial 8 ML INFILT (09:56)
== END | disposition home or self-care (01) ==
PROVIDERS: PCP Physician Assistant; Referring Provider Internal Medicine Gastroenterology; Visit Provider Internal Medicine Gastroenterology
DX: R18.8 Other ascites (principal)
CPT/HCPCS: 49083

== ENCOUNTER → 2021-11-08 | Outpatient (CLI) | payer BC, MEDICARE, SELFPAY ==
--- NOTE | 2021-11-08 07:57 | US_ITS ---
PROCEDURE: ULTRASOUND GUIDED PARACENTESIS INDICATION: Male, 71 years old. CIRRHOSIS PHYSICIAN: Gem Sanchez MD INFORMED CONSENT: The risks, benefits, and alternatives to the procedure were explained to the patient. The specific risks of bleeding, infection, and damage to bowel were detailed and accepted. Witnessed informed consent was obtained. TECHNIQUES: The abdomen was ultrasonographically surveyed. An appropriate pocket of fluid was identified at the right/left lower quadrant. The skin was cleaned and prepped in the usual sterile fashion. Using ultrasound guidance, the peritoneal cavity was accessed with a 5-Angolan paracentesis needle/catheter system. The trocar was removed. A total of 1100 ml of clear yellow serous fluid was removed from the peritoneal cavity. The catheter was removed and a sterile dressing was applied. The procedure was well tolerated. The patient did not receive albumin during the procedure. # of Images: 10 US/Paracentesis with US IMPRESSION: Ultrasound guided paracentesis. Electronically Signed: Ellis Sanchez MD at 9:19 EDT ,
[2021-11-08 08:24] VITALS: BP 104/60; BP 110/67; BP 114/69; PULSE 60; PULSE 61; PULSE 62; RESP 16; TEMP 37.2; O2SAT 97; O2SAT 98
[2021-11-08] MEDS: Lidocaine 2% (10 ml mdv) 10 ML Vial INFILT (08:30)
== END | disposition home or self-care (01) ==
LOC: US 07:50
PROVIDERS: PCP Physician Assistant; Referring Provider Internal Medicine Gastroenterology; Visit Provider Internal Medicine Gastroenterology
DX: K74.60 Unspecified cirrhosis of liver (principal)
CPT/HCPCS: 49083; A4216

== ENCOUNTER → 2021-11-22 | Outpatient (CLI) | payer BC, MEDICARE, SELFPAY ==
--- NOTE | 2021-11-22 09:55 | US_ITS ---
PROCEDURE: ULTRASOUND GUIDED PARACENTESIS CLINICAL HISTORY: Male, 71 years old. ASCITES PHYSICIAN: Gem Sanchez MD INFORMED CONSENT: The risks, benefits, and alternatives to the procedure were explained to the patient. The specific risks of bleeding, infection, and damage to bowel were detailed and accepted. Witnessed informed consent was obtained. TECHNIQUES: The abdomen was ultrasonographically surveyed. An appropriate pocket of fluid was identified at the left lower quadrant. The skin was cleaned and prepped in the usual sterile fashion. Using ultrasound guidance, the peritoneal cavity was accessed with a 5-Korean paracentesis needle/catheter system. The trocar was removed. A total of 2200 ml of straw-colored ascitic fluid was removed from the peritoneal cavity. The catheter was removed and a sterile dressing was applied. The procedure was well tolerated. The patient will receive albumin after the procedure. # of Images: 15 US/Paracentesis with US IMPRESSION: Ultrasound guided paracentesis. Electronically Signed: Ellis Sanchez MD at 15:27 EDT ,
[2021-11-22 10:17] VITALS: BP 101/47; BP 101/48; BP 91/38; PULSE 49; PULSE 50; RESP 14; RESP 16; RESP 18; TEMP 37.2; O2SAT 100; O2SAT 99
[2021-11-22] MEDS: Lidocaine 2% (10 ml mdv) 10 ML Vial INFILT (10:20)
== END | disposition home or self-care (01) ==
PROVIDERS: PCP Physician Assistant; Referring Provider Internal Medicine Gastroenterology; Visit Provider Internal Medicine Gastroenterology
DX: K74.60 Unspecified cirrhosis of liver (principal); R18.8 Other ascites
CPT/HCPCS: 49083

== ENCOUNTER → 2021-11-28 | Outpatient (CLI) | payer BC, MEDICARE, SELFPAY ==
[2021-11-28 14:51] LABS: International Normalized Ratio 2.4; Prothrombin Time (Protime)PT. 26.1 SECONDS (11.7-14.9)
== END | disposition home or self-care (01) ==
LOC: LABSPEC 14:34
PROVIDERS: PCP Physician Assistant; Visit Provider Internal Medicine Cardiovascular Disease
DX: K74.60 Unspecified cirrhosis of liver (principal); K72.90 Hepatic failure, unspecified without coma
CPT/HCPCS: 85610

== ENCOUNTER → 2021-12-06 | Outpatient (CLI) | payer BC, MEDICARE, SELFPAY ==
--- NOTE | 2021-12-06 10:03 | US_ITS ---
PROCEDURE: Ultrasound guided paracentesis. DATE OF EXAMINATION: 12/06/2021. INDICATION: Male, 71 years old. Ascites. PHYSICIAN: Lamberto Jaeger M.D. TECHNIQUE: The risks, benefits, and alternatives to the procedure were explained to the patient. The specific risks of bleeding, infection, and damage to bowel were detailed and accepted. Witnessed informed consent was obtained. The abdomen was ultrasonographically surveyed. An appropriate pocket of fluid was identified at the right lower quadrant. The skin were cleaned and prepped in the usual sterile fashion. Using ultrasound guidance, the peritoneal cavity was accessed with a 5-Swiss paracentesis needle/catheter system. The trocar was removed. A total of 7950 ml of angeli-colored fluid were removed from the peritoneal cavity. The catheter was removed and a sterile dressing was applied. The procedure was well tolerated. US/Paracentesis with US IMPRESSION: Ultrasound guided paracentesis. Electronically Signed: Lamberto Jaeger MD at 11:14 EDT ,
[2021-12-06 10:14] VITALS: BP 102/64; BP 103/61; BP 104/59; BP 109/51; BP 97/46; PULSE 51; PULSE 52; PULSE 56; PULSE 60; RESP 18; TEMP 36.6; O2SAT 100; O2SAT 98
[2021-12-06] MEDS: Lidocaine 2% (10 ml mdv) 10 ML Vial INFILT (10:20)
[2021-12-06] MEDS: Albumin Human 25% (100 mL) 25 GM/100 ML BAG IV ×2 (11:51→13:16)
[2021-12-06 14:56] VITALS: BP 96/50; PULSE 48; O2SAT 100
== END | disposition home or self-care (01) ==
LOC: US 10:06 → MEDOUTP 11:12
PROVIDERS: PCP Physician Assistant; Referring Provider Internal Medicine Gastroenterology; Visit Provider Internal Medicine Gastroenterology
DX: R18.8 Other ascites (principal); K74.60 Unspecified cirrhosis of liver
CPT/HCPCS: 96365; 96366 ×2; 49083; P9047

== ENCOUNTER → 2021-12-13 | Outpatient (CLI) | payer BC, MEDICARE, SELFPAY | END | disposition home or self-care (01) | LOC: PSN 08:04 | PROVIDERS: PCP Physician Assistant; Referring Provider Internal Medicine Cardiovascular Disease; Visit Provider Internal Medicine Cardiovascular Disease | DX: I48.0 Paroxysmal atrial fibrillation (principal) | CPT/HCPCS: 93225; 93226 ==

== ENCOUNTER → 2021-12-20 | Outpatient (CLI) | payer BC, MEDICARE, SELFPAY ==
--- NOTE | 2021-12-20 09:52 | US_ITS ---
PROCEDURE: Ultrasound guided paracentesis. DATE OF EXAMINATION: 12/20/2021. INDICATION: Male, 71 years old. Ascites. PHYSICIAN: Lamberto Jaeger M.D. TECHNIQUE: The risks, benefits, and alternatives to the procedure were explained to the patient. The specific risks of bleeding, infection, and damage to bowel were detailed and accepted. Witnessed informed consent was obtained. The abdomen was ultrasonographically surveyed. An appropriate pocket of fluid was identified at the right lower quadrant. The skin were cleaned and prepped in the usual sterile fashion. Using ultrasound guidance, the peritoneal cavity was accessed with a 5-Ukrainian paracentesis needle/catheter system. The trocar was removed. A total of 7650 ml of angeli-colored fluid were removed from the peritoneal cavity. The catheter was removed and a sterile dressing was applied. The procedure was well tolerated. US/Paracentesis with US IMPRESSION: Ultrasound guided paracentesis. Electronically Signed: Lamberto Jaeger MD at 12:19 EDT ,
[2021-12-20 10:08] VITALS: BP 102/55; BP 92/44; BP 96/52; PULSE 56; PULSE 58; RESP 18; O2SAT 98; O2SAT 99
[2021-12-20] MEDS: Lidocaine 2% (10 ml mdv) 10 ML Vial INFILT (10:17)
[2021-12-20 11:03] VITALS: BMI 29.7
[2021-12-20] MEDS: Albumin Human 25% (100 mL) 25 GM/100 ML BAG IV (11:23)
[2021-12-20] MEDS: Albumin Human 25% (50 mL) 12.5 GM/50 ML IV.SOLN IV (12:48)
== END | disposition home or self-care (01) ==
LOC: US 09:51
PROVIDERS: PCP Physician Assistant; Referring Provider Internal Medicine Gastroenterology; Visit Provider Internal Medicine Gastroenterology
DX: R18.8 Other ascites (principal); K74.60 Unspecified cirrhosis of liver
CPT/HCPCS: 96365; 49083; P9047; A4216

== ENCOUNTER → 2021-12-27 | Outpatient (CLI) | payer BC, MEDICARE, SELFPAY ==
--- NOTE | 2021-12-27 10:22 | US_ITS ---
PROCEDURE: ULTRASOUND GUIDED PARACENTESIS INDICATION: Male, 71 years old. ASCITES PHYSICIAN: Gem Sanchez MD INFORMED CONSENT: The risks, benefits, and alternatives to the procedure were explained to the patient. The specific risks of bleeding, infection, and damage to bowel were detailed and accepted. Witnessed informed consent was obtained. TECHNIQUES: The abdomen was ultrasonographically surveyed. An appropriate pocket of fluid was identified at the left lower quadrant. The skin was cleaned and prepped in the usual sterile fashion. Using ultrasound guidance, the peritoneal cavity was accessed with a 5-Swedish paracentesis needle/catheter system. The trocar was removed. A total of 4950 ml of straw-colored ascitic fluid was removed from the peritoneal cavity. The catheter was removed and sterile dressing was applied. The procedure was well tolerated. The patient did receive albumin during the procedure. # of Images: 9 US/Paracentesis with US IMPRESSION: Ultrasound guided paracentesis. Electronically Signed: Ellis Sanchez MD at 15:01 EDT ,
[2021-12-27 10:46] VITALS: BP 108/60; BP 108/61; BP 117/57; BP 121/57; PULSE 50; PULSE 51; PULSE 52; PULSE 56; RESP 16; RESP 18; TEMP 36.3; O2SAT 100; O2SAT 99
[2021-12-27] MEDS: Lidocaine 2% (10 ml mdv) 10 ML Vial INFILT (10:51)
== END | disposition home or self-care (01) ==
PROVIDERS: PCP Physician Assistant; Referring Provider Internal Medicine Gastroenterology; Visit Provider Internal Medicine Gastroenterology
DX: R18.8 Other ascites (principal); K74.60 Unspecified cirrhosis of liver
CPT/HCPCS: 49083

== ENCOUNTER 2022-01-03 07:27 | Outpatient (RCR) | payer BC, MEDICARE, SELFPAY ==
[2021-12-20 10:17] LABS: International Normalized Ratio 3.1; Prothrombin Time (Protime)PT. 31.9 SECONDS (11.7-14.9)
[2022-01-03 09:30] LABS: International Normalized Ratio 2.5; Prothrombin Time (Protime)PT. 26.7 SECONDS (11.7-14.9)
== END 2022-01-03 18:00 | disposition home or self-care (01) ==
LOC: LAB 07:27
PROVIDERS: PCP Physician Assistant; Referring Provider Nurse Practitioner Family; Visit Provider Nurse Practitioner Family
DX: I48.0 Paroxysmal atrial fibrillation (principal)
CPT/HCPCS: 36415; 85610

== ENCOUNTER → 2022-01-03 | Outpatient (CLI) | payer BC, MEDICARE, SELFPAY ==
--- NOTE | 2022-01-03 07:37 | US_ITS ---
PROCEDURE: Ultrasound guided paracentesis. DATE OF EXAMINATION: 01/03/2022. INDICATION: Male, 71 years old. Ascites. PHYSICIAN: Lamberto Jaeger M.D. TECHNIQUE: The risks, benefits, and alternatives to the procedure were explained to the patient. The specific risks of bleeding, infection, and damage to bowel were detailed and accepted. Witnessed informed consent was obtained. The abdomen was ultrasonographically surveyed. An appropriate pocket of fluid was identified at the right/left lower quadrant. The skin were cleaned and prepped in the usual sterile fashion. Using ultrasound guidance, the peritoneal cavity was accessed with a 5-Yi paracentesis needle/catheter system. The trocar was removed. A total of 5400 ml of angeli-colored fluid were removed from the peritoneal cavity. The catheter was removed and a sterile dressing was applied. The procedure was well tolerated. US/Paracentesis with US IMPRESSION: Ultrasound guided paracentesis. Electronically Signed: Lamberto Jaeger MD at 9:38 EDT ,
[2022-01-03 08:03] VITALS: BP 107/55; BP 110/55; BP 110/59; BP 116/50; BP 123/54; PULSE 63; PULSE 68; RESP 18; TEMP 36.3; TEMP 36.4; O2SAT 98; O2SAT 99
[2022-01-03] MEDS: Lidocaine 2% (10 ml mdv) 10 ML Vial INFILT (08:15)
[2022-01-03] MEDS: Albumin Human 25% (100 mL) 25 GM/100 ML BAG IV (09:44)
[2022-01-03 09:48] VITALS: BP 116/60; PULSE 78; RESP 16; TEMP 36.4; O2SAT 100
[2022-01-03] MEDS: Albumin Human 25% (50 mL) 12.5 GM/50 ML IV.SOLN IV (11:10)
[2022-01-03 12:11] VITALS: BP 118/64; PULSE 72
== END | disposition home or self-care (01) ==
PROVIDERS: PCP Physician Assistant; Referring Provider Internal Medicine Gastroenterology; Visit Provider Internal Medicine Gastroenterology
DX: R18.8 Other ascites (principal); K74.60 Unspecified cirrhosis of liver
CPT/HCPCS: 96365; 96366; 49083; J7050; P9047

== ENCOUNTER → 2022-01-10 | Outpatient (CLI) | payer BC, MEDICARE, SELFPAY ==
--- NOTE | 2022-01-10 09:33 | US_ITS ---
PROCEDURE: Ultrasound guided paracentesis. DATE OF EXAMINATION: 01/10/2022. INDICATION: Male, 71 years old. Ascites. PHYSICIAN: Lamberto Jaeger M.D. TECHNIQUE: The risks, benefits, and alternatives to the procedure were explained to the patient. The specific risks of bleeding, infection, and damage to bowel were detailed and accepted. Witnessed informed consent was obtained. The abdomen was ultrasonographically surveyed. An appropriate pocket of fluid was identified at the right lower quadrant. The skin were cleaned and prepped in the usual sterile fashion. Using ultrasound guidance, the peritoneal cavity was accessed with a 5-Citizen Of [place] paracentesis needle/catheter system. The trocar was removed. A total of 3950 ml of angeli-colored fluid were removed from the peritoneal cavity. The catheter was removed and a sterile dressing was applied. The procedure was well tolerated. US/Paracentesis with US IMPRESSION: Ultrasound guided paracentesis. Electronically Signed: Lamberto Jaeger MD at 10:48 EDT ,
[2022-01-10 09:47] VITALS: BP 101/53; BP 107/54; BP 98/57; PULSE 56; PULSE 58; PULSE 60; RESP 16; RESP 18; TEMP 36.2; O2SAT 100; O2SAT 98; O2SAT 99
== END | disposition home or self-care (01) ==
PROVIDERS: PCP Physician Assistant; Referring Provider Internal Medicine Gastroenterology; Visit Provider Internal Medicine Gastroenterology
DX: R18.8 Other ascites (principal); K74.60 Unspecified cirrhosis of liver
CPT/HCPCS: 49083

== ENCOUNTER → 2022-01-17 | Outpatient (CLI) | payer BC, MEDICARE, SELFPAY ==
--- NOTE | 2022-01-17 09:09 | US_ITS ---
PROCEDURE: Ultrasound guided paracentesis. DATE OF EXAMINATION: 01/17/2022. INDICATION: Male, 71 years old. Ascites. PHYSICIAN: Lamberto Jaeger M.D. TECHNIQUE: The risks, benefits, and alternatives to the procedure were explained to the patient. The specific risks of bleeding, infection, and damage to bowel were detailed and accepted. Witnessed informed consent was obtained. The abdomen was ultrasonographically surveyed. An appropriate pocket of fluid was identified at the right lower quadrant. The skin were cleaned and prepped in the usual sterile fashion. Using ultrasound guidance, the peritoneal cavity was accessed with a 5-Welsh paracentesis needle/catheter system. The trocar was removed. A total of 3700 ml of angeli-colored fluid were removed from the peritoneal cavity. The catheter was removed and a sterile dressing was applied. The procedure was well tolerated. US/Paracentesis with US IMPRESSION: Ultrasound guided paracentesis. Electronically Signed: Lamberto Jaeger MD at 10:25 EDT ,
[2022-01-17 09:38] VITALS: BP 101/56; BP 103/57; BP 105/56; BP 99/52; PULSE 49; PULSE 50; PULSE 51; RESP 16; RESP 18; TEMP 36.5; O2SAT 100; O2SAT 98
[2022-01-17] MEDS: Lidocaine 2% (20 ml mdv) 20 ML Vial INFILT (09:40)
== END | disposition home or self-care (01) ==
PROVIDERS: PCP Physician Assistant; Referring Provider Internal Medicine Gastroenterology; Visit Provider Internal Medicine Gastroenterology
DX: R18.8 Other ascites (principal)
CPT/HCPCS: 49083; A4216

== ENCOUNTER → 2022-01-24 | Outpatient (CLI) | payer BC, MEDICARE, SELFPAY ==
--- NOTE | 2022-01-24 07:52 | US_ITS ---
PROCEDURE: ULTRASOUND GUIDED PARACENTESIS CLINICAL HISTORY: Male, 71 years old. ASCITES CONSENT: Informed consent obtained Time-Out Called: Yes. Consent form signed: Yes. PT-PTT Levels Checked: Yes. SEDATION: Local with 1% XYLOCAINE TECHNIQUE: Sonographically guided FINDINGS: FLUID PRE-PROCEDURE There is posterior enhancement. The findings appear anechoic. There is no loculation. After informed consent was obtained, the patient was placed in the supine position on the sonographic bed. Appropriate site for paracentesis was determined using sonographic guidance. The area was prepped and draped in a sterile manner and 1% XYLOCAINE was used as local anesthetic. A Carlos needle/catheter was placed into the peritoneal cavity and straw-colored ascites was noted on return. FLUID POST-PROCEDURE Amount of fluid drained: 4850 ml. Patient tolerated the procedure well with no immediate complications. US/Paracentesis with US IMPRESSION: Successful sonographically guided paracentesis Electronically Signed: Rajan Nicholson MD at 9:50 EDT ,
[2022-01-24] MEDS: Lidocaine 2% (20 ml mdv) 20 ML Vial INFILT (08:12)
[2022-01-24 08:26] VITALS: BP 112/66; BP 117/62; BP 118/78; BP 120/71; BP 122/73; PULSE 51; PULSE 69; PULSE 73; PULSE 79; PULSE 83; RESP 16; RESP 18; TEMP 36.5; O2SAT 98; O2SAT 99
--- NOTE | 2022-01-24 10:55 | NURSING ---
Pt's daughter called after pt had been gone approx 1 hour, states that patient in leaking through dressing. Pt advised to come back to Radiology dept for dermabond. BUFFY Hillman removes old saturated dressing which has soaked through pt's shirt and pants. Applies manual pressure for approx 5 minutes. Dermabond then applied as well as opsite. Pt advised to stay in radiology bay for approx 10 minutes. BUFFY Hillman also advises pt not to go to work tonight, daughter states that she's already called patient off work. BUFFY Hillman also advises pt to lay low and not do too much moving around today. Pt is agreeable to plan.
== END | disposition home or self-care (01) ==
PROVIDERS: PCP Physician Assistant; Referring Provider Internal Medicine Gastroenterology; Visit Provider Internal Medicine Gastroenterology
DX: R18.8 Other ascites (principal); K74.60 Unspecified cirrhosis of liver
CPT/HCPCS: 49083; A4216

== ENCOUNTER → 2022-01-31 | Outpatient (CLI) | payer BC, MEDICARE, SELFPAY ==
--- NOTE | 2022-01-31 09:23 | US_ITS ---
PROCEDURE: Ultrasound guided paracentesis. DATE OF EXAMINATION: 01/31/2022. INDICATION: Male, 71 years old. Ascites. PHYSICIAN: Lamberto Jaeger M.D. TECHNIQUE: The risks, benefits, and alternatives to the procedure were explained to the patient. The specific risks of bleeding, infection, and damage to bowel were detailed and accepted. Witnessed informed consent was obtained. The abdomen was ultrasonographically surveyed. An appropriate pocket of fluid was identified at the right lower quadrant. The skin were cleaned and prepped in the usual sterile fashion. Using ultrasound guidance, the peritoneal cavity was accessed with a 5-Cambodian paracentesis needle/catheter system. The trocar was removed. A total of 3150 ml of blood-tinged fluid were removed from the peritoneal cavity. The catheter was removed and a sterile dressing was applied. The procedure was well tolerated. US/Paracentesis with US IMPRESSION: Ultrasound guided paracentesis. Electronically Signed: Lamberto Jaeger MD at 14:38 EDT ,
[2022-01-31] MEDS: Lidocaine 2% (20 ml mdv) 20 ML Vial INFILT (09:48)
[2022-01-31 09:51] VITALS: BP 102/56; BP 106/63; BP 112/58; PULSE 57; PULSE 61; RESP 16; RESP 18; TEMP 36.5; O2SAT 100; O2SAT 99
== END | disposition home or self-care (01) ==
PROVIDERS: PCP Physician Assistant; Referring Provider Internal Medicine Gastroenterology; Visit Provider Internal Medicine Gastroenterology
DX: R18.8 Other ascites (principal); K74.60 Unspecified cirrhosis of liver
CPT/HCPCS: 49083; A4216

== ENCOUNTER 2022-02-03 08:55 | Outpatient (RCR) | payer BC, MEDICARE, SELFPAY ==
[2022-01-31 09:56] LABS: Prothrombin Time (Protime)PT. 41.9 SECONDS (11.7-14.9)
[2022-01-31 10:20] LABS: International Normalized Ratio 4.4
[2022-02-03 10:10] LABS: INR Fingerstick 1.5
== END 2022-02-03 18:00 | disposition home or self-care (01) ==
LOC: LAB 08:55
PROVIDERS: PCP Physician Assistant; Referring Provider Nurse Practitioner Family; Visit Provider Nurse Practitioner Family
DX: I48.0 Paroxysmal atrial fibrillation (principal)
CPT/HCPCS: 36415; 36416; 85610

== ENCOUNTER → 2022-02-07 | Outpatient (CLI) | payer BC, MEDICARE, SELFPAY ==
--- NOTE | 2022-02-07 09:41 | US_ITS ---
PROCEDURE: Ultrasound guided paracentesis. DATE OF EXAMINATION: 02/07/2022. INDICATION: Male, 71 years old. Ascites. PHYSICIAN: Lamberto Jaeger M.D. TECHNIQUE: The risks, benefits, and alternatives to the procedure were explained to the patient. The specific risks of bleeding, infection, and damage to bowel were detailed and accepted. Witnessed informed consent was obtained. The abdomen was ultrasonographically surveyed. An appropriate pocket of fluid was identified at the left lower quadrant. The skin were cleaned and prepped in the usual sterile fashion. Using ultrasound guidance, the peritoneal cavity was accessed with a 5-Maori paracentesis needle/catheter system. The trocar was removed. A total of 6900 ml of angeli-colored fluid were removed from the peritoneal cavity. The catheter was removed and a sterile dressing was applied. The procedure was well tolerated. US/Paracentesis with US IMPRESSION: Ultrasound guided paracentesis. Electronically Signed: Lamberto Jaeger MD at 11:29 EDT ,
[2022-02-07 09:51] VITALS: BP 111/64; BP 112/63; BP 113/60; PULSE 73; PULSE 75; PULSE 79; RESP 18; TEMP 36.8; O2SAT 100; O2SAT 98; O2SAT 99
[2022-02-07] MEDS: Lidocaine 2% (20 ml mdv) 20 ML Vial INFILT (09:55)
[2022-02-07 10:19] VITALS: BP 109/56; BP 110/60; PULSE 69; RESP 18; O2SAT 100
[2022-02-07] MEDS: 0.9% Saline Lock 10 ML Syringe IV (10:40)
[2022-02-07 10:58] VITALS: BP 109/57; PULSE 75; RESP 16; O2SAT 100; BMI 29.5
[2022-02-07] MEDS: Albumin Human 25% (100 mL) 25 GM/100 ML BAG IV (11:16)
[2022-02-07] MEDS: Albumin Human 25% (50 mL) 12.5 GM/50 ML IV.SOLN IV (12:41)
[2022-02-07 13:48] VITALS: BP 92/55; PULSE 63; O2SAT 99
== END | disposition home or self-care (01) ==
PROVIDERS: PCP Physician Assistant; Referring Provider Internal Medicine Gastroenterology; Visit Provider Internal Medicine Gastroenterology
DX: R18.8 Other ascites (principal); K74.60 Unspecified cirrhosis of liver
CPT/HCPCS: 96365; 96366; 49083; J7050; P9047; A4216

== ENCOUNTER → 2022-02-14 | Outpatient (CLI) | payer BC, MEDICARE, SELFPAY ==
--- NOTE | 2022-02-14 10:17 | US_ITS ---
PROCEDURE: Ultrasound guided paracentesis. DATE OF EXAMINATION: 02/14/2022. INDICATION: Male, 71 years old. Ascites. PHYSICIAN: Lamberto Jaeger M.D. TECHNIQUE: The risks, benefits, and alternatives to the procedure were explained to the patient. The specific risks of bleeding, infection, and damage to bowel were detailed and accepted. Witnessed informed consent was obtained. The abdomen was ultrasonographically surveyed. An appropriate pocket of fluid was identified at the right lower quadrant. The skin were cleaned and prepped in the usual sterile fashion. Using ultrasound guidance, the peritoneal cavity was accessed with a 5-Kyrgyz paracentesis needle/catheter system. The trocar was removed. A total of 7150 ml of angeli-colored fluid were removed from the peritoneal cavity. The catheter was removed and a sterile dressing was applied. The procedure was well tolerated. US/Paracentesis with US IMPRESSION: Ultrasound guided paracentesis. Electronically Signed: Lamberto Jaeger MD at 12:18 EST ,
[2022-02-14 10:48] VITALS: BP 103/55; BP 104/55; BP 110/58; BP 111/63; PULSE 53; PULSE 56; PULSE 58; RESP 16; RESP 18; O2SAT 100; O2SAT 99
[2022-02-14] MEDS: Lidocaine 2% (20 ml mdv) 20 ML Vial INFILT (11:00)
[2022-02-14] MEDS: Albumin Human 25% (100 mL) 25 GM/100 ML BAG IV (11:59)
[2022-02-14 12:03] VITALS: BMI 29.8
[2022-02-14] MEDS: Albumin Human 25% (50 mL) 12.5 GM/50 ML IV.SOLN IV (13:21)
[2022-02-14 14:19] VITALS: BP 104/47; PULSE 49; O2SAT 99
== END | disposition home or self-care (01) ==
LOC: US 10:16
PROVIDERS: PCP Physician Assistant; Referring Provider Internal Medicine Gastroenterology; Visit Provider Internal Medicine Gastroenterology
DX: R18.8 Other ascites (principal); K74.60 Unspecified cirrhosis of liver
CPT/HCPCS: 96365; 96366; 49083; J7050; P9047

== ENCOUNTER 2022-02-21 09:14 | Outpatient (RCR) | payer BC, MEDICARE, SELFPAY ==
[2022-02-12 10:06] LABS: INR Fingerstick 1.4
[2022-02-21 09:25] LABS: Prothrombin Time Fingerstick 23.6 SEC (11.7-14.9)
--- NOTE | 2022-02-22 08:48 | CASEMGMT ---
TC to [employer]. Pt can still fill out an application regardless of whether or not he has his own housing currently. Income limit for the subsidy program is around $41,000. Some tenants pay market rent and other are on the subsidy program. Will discuss at next procedure visit.
--- NOTE | 2022-02-22 10:33 | CASEMGMT ---
TC to pt's aunt, Xin, in an attempt to get in contact with pt. Per previous notes in [facility], Xin's number is listed d/t the family not having phones. No answer. Navigator left her name and phone contact in the event pt would want to call back. Navigator wanted to remind pt of appointment tomorrow and make sure everything is still set with transportation.
== END 2022-03-07 18:00 | disposition home or self-care (01) ==
LOC: LAB 09:14
PROVIDERS: PCP Physician Assistant; Referring Provider Nurse Practitioner Family; Visit Provider Nurse Practitioner Family
DX: I48.0 Paroxysmal atrial fibrillation (principal); Z79.01 Long term (current) use of anticoagulants
CPT/HCPCS: 36416; 85610

== ENCOUNTER → 2022-02-21 | Outpatient (CLI) | payer BC, MEDICARE, SELFPAY ==
--- NOTE | 2022-02-21 09:26 | US_ITS ---
PROCEDURE: Ultrasound guided paracentesis. DATE OF EXAMINATION: 02/21/2022. INDICATION: Male, 71 years old. Ascites. PHYSICIAN: Lamberto Jaeger M.D. TECHNIQUE: The risks, benefits, and alternatives to the procedure were explained to the patient. The specific risks of bleeding, infection, and damage to bowel were detailed and accepted. Witnessed informed consent was obtained. The abdomen was ultrasonographically surveyed. An appropriate pocket of fluid was identified at the right lower quadrant. The skin were cleaned and prepped in the usual sterile fashion. Using ultrasound guidance, the peritoneal cavity was accessed with a 5-Sierra Leonean paracentesis needle/catheter system. The trocar was removed. A total of 5100 ml of angeli-colored fluid were removed from the peritoneal cavity. The catheter was removed and a sterile dressing was applied. The procedure was well tolerated. US/Paracentesis with US IMPRESSION: Ultrasound guided paracentesis. Electronically Signed: Lamberto Jaeger MD at 11:36 EST ,
[2022-02-21 09:47] VITALS: BP 102/53; BP 103/52; BP 104/43; BP 104/55; BP 105/56; BP 94/51; PULSE 53; PULSE 54; PULSE 56; PULSE 57; PULSE 61; RESP 16; RESP 18; TEMP 35.9; O2SAT 100; O2SAT 98; O2SAT 99
[2022-02-21] MEDS: Lidocaine 2% (20 ml mdv) 20 ML Vial INFILT (09:50)
--- NOTE | 2022-02-21 11:25 | CASEMGMT ---
Addendum entered by Clarisse Roth 02/21/22 13:17: Complex Predatory Animal Hunter Assessment -Complex Predatory Animal Hunter met with pt while he received Albumin. Pt's dtr was in the room with pt. Pt permitted the Navigator to speak in the presence of dtr. Pt advised his dtr handles many things for him. Pt was alert & oriented and appeared to be in no distress. Pt was pleasant and answered questions asked. -Per GI Office visit note on 12/08/21, pt is a 71 M. Established with the clinic 01/03/2021 for GIB for which pt presented to [facility] ED 12/10/2020; pt was transferred to [facility] for treatment which included EGD finding non-bleeding varices, banded. Colonoscopy found polyps. Pt received blood, platelets and plasma during hospitalization, but no obvious sign of bleed found. Pt received iron infusions in the past. Currently taking PO iron BID. 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 CT abd/pel 10/2020 found cirrhosis, portal HTN and esophageal varices. CT 12/10/2020 found mild splenomegaly with edema of mesenteric lymph nodes and edema mesentery. Liver biopsy 02/07/2021 extensive macro and microvesicular steatosis. EGD performed 02/08/2021 finding nonbleeding Grade III esophageal varices, banded; Type 2 isolated gastric varices without bleed; recently bleeding AVM in jejunum, treated APC; one non-bleeding jejunal ulcer. Not started on nadolol/propranolol r/t current administration of betablocker. US liver performed 07/10/2021 finding liver measurement 16.8 with fatty infiltration. S/P whipple procedure. 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 CTA performed 06/14/2021. Moderate degree of splenomegaly. US RUQ and elastography 08/21/2021. Ascites and liver stiffness. CT abd/pel 09/22/2021 finding cirrhotic changes of the liver. Early October Gómez began experiencing increased confusion and balance issues. Biochemical workup found elevating ammonia level. [facility] ED presentation 10/13/2021 following a fall with confusion. He was admitted for management of cirrhosis, acute HE, weight loss, WILFRIDO. (The above was taken from the GI Office note on 12/08/2021) Diagnosis -Cirrhosis of the liver with ascites. Providers -Tiburcio, PCP; Friend, GI; Estefany, Cardiology; Austin, Oncology/Hematology. Insurance -Carolyn Rivera [facility]. Pharmacy -[facility]. Medications/Changes -Pt and his dtr denied any recent medication changes. Pt's dtr picks up pt's prescriptions and fills the pill box. Diet -Pt's dtr reports pt is on a low Sodium diet. Pt denied being on any fluid restrictions. Hospitalizations -10/13/2021 - 10/20/21; falls. -Pt went to [facility]. Next appointment -02/28/22- Para & Albumin -Scheduled through the end of March? Smoker/Non, Alcohol use, Substance use -Pt denied ever smoking. Pt used alcohol in the past. Pt said he has had maybe six beers in the past 20 years. Pt denied any current substance use. Pt used marijuana in the past. Understanding of the disease process -Pt voiced understanding of the disease process and where he is at with the Cirrhosis. Pt has two daughters, both are nurses. Both daughters are actively involved with pt and his care. SDOH (Finances, Housing, Transportation, Phone/Internet, Food, Support/Family, Employment) -Pt's dtr, Adrienne, handles Pt's finances. Adrienne said she doesn't tell the Pt how to spend his money but handles his finances by paying the bills. Pt owns his own home but is still paying a mortgage. Pt receives monthly Social Security. Adrienne thinks pt may received $1,600 per month. Adrienne said d/t refinancing, about 120,000 is still owed. Pt drives. Pt's daughters can assist if needed. Pt has a phone and internet. Pt is able to get his own food from the store or his daughters are able. Pt does not receive food stamps. Pt has the support of his daughters. Pt is still employed at [employer]. Pt has eight days of FMLA per month. Pt receives health insurance through work and has Medicare. Pt and his daughters have discussed senior living. Pt is concerned that he won't have enough money if he retires. Pt's dtr said they can sell the house if needed. Pt is open to [facility]. Current/Past services (including Palliative Care) -Pt had a referral for Palliative Care in the past. Pt's dtr said [facility] never came to the home for the scheduled appointment. She said [facility] said the appointment was switched. Pt's dtr said the family didn't have a good experience with [facility]. Navigator provided information regarding other Palliative Care providers in [place]. Pt denied wanting Palliative Care at this time. If he is interested in the future, he is aware that it may be available. DME -Pt has the following: cane, walker, raised toilet seat, grab bars, shower chair, and a grab bar for the bed. Pt currently is not using the cane and walker. Pt laughed and said he's stubborn and independent. -Pt did say he wants help regarding a Hernia. Pt's dtr advised this has already been discussed with Dr. Toscano. Per dtr, Dr. Toscano said the hernia will not be operated on d/t concerns that the pt would not recover from the anesthesia as the liver would not be able to filter it. Radiology Nurse provided literature on a Hernia Belt. Navigator encouraged Pt to talk with Dr. Toscano again if desired. Pt's dtr said they may talk with the surgeon as well. Next steps -Navigator will obtain the following information: [facility] Information, JFS information, PIPP/HEAP information. Navigator will provide this information at the next paracentesis procedure. ? Original Note: Complex Predatory Animal Hunter to Oncology to meet with Pt. Pt's Albumin was not yet started. Pt asked if Navigator would be able to come back to the room in 30 minutes to an hour. Pt would like his dtr to be present. Pt's dtr ran to get a sandwich. Navigator will return to the floor at a later time.
[2022-02-21] MEDS: Albumin Human 25% (100 mL) 25 GM/100 ML BAG IV (11:35)
[2022-02-21 11:38] VITALS: BP 80/46; PULSE 59; RESP 16; O2SAT 99
[2022-02-21 13:15] VITALS: BP 94/48; RESP 16
== END | disposition home or self-care (01) ==
LOC: US 09:24
PROVIDERS: PCP Physician Assistant; Referring Provider Internal Medicine Gastroenterology; Visit Provider Internal Medicine Gastroenterology
DX: R18.8 Other ascites (principal); K74.60 Unspecified cirrhosis of liver
CPT/HCPCS: 49083; 96365; 96366; J7050; P9047

== ENCOUNTER → 2022-02-28 | Outpatient (CLI) | payer BC, MEDICARE, SELFPAY ==
--- NOTE | 2022-02-28 09:23 | US_ITS ---
PROCEDURE: Ultrasound guided paracentesis. DATE OF EXAMINATION: 02/28/2022. INDICATION: Male, 71 years old. Ascites. PHYSICIAN: Alexis Mendez DO TECHNIQUE: The risks, benefits, and alternatives to the procedure were explained to the patient. The specific risks of bleeding, infection, and damage to bowel were detailed and accepted. Witnessed informed consent was obtained. The abdomen was ultrasonographically surveyed. An appropriate pocket of fluid was identified at the right lower quadrant. The skin were cleaned and prepped in the usual sterile fashion. Using ultrasound guidance, the peritoneal cavity was accessed with a 5-Filipino paracentesis needle/catheter system. The trocar was removed. A total of 7550 ml of clear straw-colored ascites fluid were removed from the peritoneal cavity. The catheter was removed and a sterile dressing was applied. The procedure was well tolerated. The patient was discharged in stable condition. US/Paracentesis with US IMPRESSION: Ultrasound guided therapeutic paracentesis. Electronically Signed: Alexis Mendez, at 12:48 EST ,
[2022-02-28 09:36] VITALS: BP 101/53; BP 117/62; BP 95/50; BP 97/45; BP 99/52; PULSE 55; PULSE 56; PULSE 58; PULSE 64; RESP 18; TEMP 36.7; O2SAT 100; O2SAT 97
[2022-02-28] MEDS: 0.9% Saline Lock 10 ML Syringe IV ×2 (09:45→10:48)
[2022-02-28] MEDS: Lidocaine 2% (20 ml mdv) 20 ML Vial INFILT (09:53)
[2022-02-28] MEDS: Albumin Human 25% (100 mL) 25 GM/100 ML BAG IV ×2 (10:48→12:22)
--- NOTE | 2022-02-28 11:19 | CASEMGMT ---
Complex Sack Cleaner to Oncology to meet with pt while receiving Albumin. Navigator provided the following information: [facility] application, JFS applications/information, HEAP/PIPP information, and 211 information for seniors. Pt would like navigator to speak further about the information with his dtr. Pt's dtr is out getting lunch. Navigator left her phone contact and encouraged pt to contact her once dtr returns.
--- NOTE | 2022-02-28 13:59 | CASEMGMT ---
Complex Acid Painter met with pt and dtr while receiving Albumin. Navigator discussed the paperwork provided. Pt and dtr thanked Navigator. Dtr stated pt isn't ready to retire and sell his house yet. However, this may be something that happens in the near future. Dtr stated pt may apply for [employer] to be placed on the waiting list. Once the housing is decided, they can look into other assistance further. No further needs at this time.
[2022-02-28 14:08] VITALS: BP 92/49; PULSE 50; RESP 16
== END | disposition home or self-care (01) ==
PROVIDERS: PCP Physician Assistant; Referring Provider Internal Medicine Gastroenterology; Visit Provider Internal Medicine Gastroenterology
DX: R18.8 Other ascites (principal); K74.60 Unspecified cirrhosis of liver
CPT/HCPCS: 96365; 96366 ×2; 49083; J7050; P9047

== ENCOUNTER → 2022-03-07 | Outpatient (CLI) | payer BC, MEDICARE, SELFPAY ==
--- NOTE | 2022-03-07 09:19 | US_ITS ---
PROCEDURE: Ultrasound guided paracentesis. DATE OF EXAMINATION: 03/07/2022. INDICATION: Male, 71 years old. Ascites. PHYSICIAN: Lamberto Jaeger M.D. TECHNIQUE: The risks, benefits, and alternatives to the procedure were explained to the patient. The specific risks of bleeding, infection, and damage to bowel were detailed and accepted. Witnessed informed consent was obtained. The abdomen was ultrasonographically surveyed. An appropriate pocket of fluid was identified at the left lower quadrant. The skin were cleaned and prepped in the usual sterile fashion. Using ultrasound guidance, the peritoneal cavity was accessed with a 5-Malay paracentesis needle/catheter system. The trocar was removed. A total of 6600 ml of angeli-colored fluid were removed from the peritoneal cavity. The catheter was removed and a sterile dressing was applied. The procedure was well tolerated. US/Paracentesis with US IMPRESSION: Ultrasound guided paracentesis. Electronically Signed: Lamberto Jaeger MD at 12:38 EST ,
[2022-03-07] MEDS: Lidocaine 2% (20 ml mdv) 20 ML Vial INFILT (09:35)
[2022-03-07 09:41] VITALS: BP 100/54; BP 97/52; PULSE 50; RESP 16; TEMP 36.3; O2SAT 100; O2SAT 97
[2022-03-07] MEDS: 0.9% Saline Lock 10 ML Syringe IV ×2 (10:33→11:00)
[2022-03-07 10:43] VITALS: BP 88/53; PULSE 53; RESP 16; TEMP 36.5
[2022-03-07] MEDS: Albumin Human 25% (100 mL) 25 GM/100 ML BAG IV (10:53)
[2022-03-07] MEDS: Albumin Human 25% (50 mL) 12.5 GM/50 ML IV.SOLN IV (12:22)
[2022-03-07 13:28] VITALS: BP 86/47; PULSE 47; RESP 16; TEMP 36.3; O2SAT 47
== END | disposition home or self-care (01) ==
LOC: US 09:18
PROVIDERS: PCP Physician Assistant; Referring Provider Internal Medicine Gastroenterology; Visit Provider Internal Medicine Gastroenterology
DX: R18.8 Other ascites (principal); K74.60 Unspecified cirrhosis of liver
CPT/HCPCS: 96365; 96366; 49083; J7050; P9046; P9047; A4216

== ENCOUNTER 2022-03-14 07:39 | Outpatient (RCR) | payer BC, MEDICARE, SELFPAY ==
[2022-03-14 07:57] LABS: Erythrocyte Sedimentation Rate 12 mm/hr (0-20)
[2022-03-14 08:02] LABS: Absolute Neutrophil Count 2.6 X10^3/uL (2.0-7.7); Basophil# 0.02 X10^3/uL; Basophil% 0.6 % (0-1); Eosinophils% 2.9 % (0-5); Hematocrit 38.8 % (40-54); Hemoglobin 12.6 g/dL (13.0-16.5); Lymphocyte % 14.4 % (19-41); Mean Corp Hgb Conc 32.5 g/dL (32-36); Mean Corpuscular Hgb 29.6 pg (27.0-32.0); Mean Corpuscular Volume 91.1 fL (80-94); Mean Platelet Vol. 12.2 fl (6.2-12.0); Monocyte# 0.29 X10^3/uL; Monocyte% 8.3 % (0-10); NRBC Flagged by Analyzer 0 % (0-5); Neutrophil # 2.56 X10^3/uL (2.7-7.7); Neutrophil % 73.5 % (47-70); POSITIVE COUNT YES; POSITIVE DIFFERENTIAL YES; Platelet Count 83 K/mm3 (150-450); RBC Distribution Width CV 16.7 % (11.6-14.6); RBC Distribution Width SD 55.7 fl (35.1-43.9); Red Blood Count 4.26 M/mm3 (4.6-6.2); White Blood Count 3.5 K/mm3 (4.4-11.0)
[2022-03-14 08:27] LABS: ALB/GLOB Ratio 0.8 RATIO (0.9-2.4); AST(SGOT) 50 U/L (15-37); Alanine Aminotransfer ALT/SGPT 46 U/L (16-61); Albumin, Serum 3.2 g/dL (3.2-5.0); Alkaline Phosphatase 142 U/L (45-117); Anion Gap 5 (5-15); BUN 12 mg/dL (7-18); BUN/Creat Ratio 10.5 RATIO (10-20); CRP 3.51 mg/L (0.0-3.0); Calcium,Total 9.1 mg/dL (8.5-10.1); Chloride 103 mmol/L (98-107); Creatinine, Serum 1.14 mg/dL (0.70-1.30); EST Glomerular Filtration Rate 67 mL/min (>60); Est Glom Filt Rate - Afr Amer 81 mL/min (>60); Globulin 4.1 g/dL (2.2-4.2); Glucose 205 mg/dL (74-106); LDH 206 U/L (87-241); Potassium 4.5 mmol/L (3.5-5.1); Protein, Total 7.3 g/dL (6.4-8.2); Sodium Level 135 mmol/L (136-145)
[2022-03-14 08:44] LABS: Differential Indicated SCAN CRITERIA MET
[2022-03-14 09:15] LABS: Differential Comment SCANNED
[2022-03-14 09:20] LABS: Prothrombin Time (Protime)PT. 39.7 SECONDS (11.7-14.9)
[2022-03-14 10:01] LABS: International Normalized Ratio 4.1
[2022-03-16 09:45] LABS: Pathologist Review Reviewed
== END 2022-03-14 18:00 | disposition home or self-care (01) ==
LOC: LAB 07:39
PROVIDERS: Internal Medicine Gastroenterology; PCP Physician Assistant; Referring Provider Nurse Practitioner Family; Visit Provider Nurse Practitioner Family
DX: I48.0 Paroxysmal atrial fibrillation (principal); Z79.01 Long term (current) use of anticoagulants; K74.60 Unspecified cirrhosis of liver; R18.8 Other ascites
CPT/HCPCS: 36415; 80053; 82140; 83615; 85025; 85610; 85652; 86140

== ENCOUNTER → 2022-03-14 | Outpatient (CLI) | payer BC, MEDICARE, SELFPAY ==
--- NOTE | 2022-03-14 07:55 | US_ITS ---
PROCEDURE: Ultrasound guided paracentesis. DATE OF EXAMINATION: 03/14/2022. INDICATION: Male, 71 years old. Ascites. PHYSICIAN: Lamberto Jaeger M.D. TECHNIQUE: The risks, benefits, and alternatives to the procedure were explained to the patient. The specific risks of bleeding, infection, and damage to bowel were detailed and accepted. Witnessed informed consent was obtained. The abdomen was ultrasonographically surveyed. An appropriate pocket of fluid was identified at the right lower quadrant. The skin were cleaned and prepped in the usual sterile fashion. Using ultrasound guidance, the peritoneal cavity was accessed with a 5-Greek paracentesis needle/catheter system. The trocar was removed. A total of 4200 ml of angeli-colored fluid were removed from the peritoneal cavity. The catheter was removed and a sterile dressing was applied. The procedure was well tolerated. US/Paracentesis with US IMPRESSION: Ultrasound guided paracentesis. Electronically Signed: Lamberto Jaeger MD at 9:25 EST ,
[2022-03-14 08:17] VITALS: BP 107/55; BP 112/56; BP 114/56; BP 116/53; PULSE 60; PULSE 61; PULSE 64; RESP 16; RESP 18; TEMP 37.2; O2SAT 100; O2SAT 99
[2022-03-14] MEDS: Lidocaine 2% (10 ml mdv) 10 ML Vial INFILT (08:23)
== END | disposition home or self-care (01) ==
PROVIDERS: PCP Physician Assistant; Referring Provider Internal Medicine Gastroenterology; Visit Provider Internal Medicine Gastroenterology
DX: K74.60 Unspecified cirrhosis of liver (principal); R18.8 Other ascites
CPT/HCPCS: 49083; A4216

== ENCOUNTER → 2022-03-21 | Outpatient (CLI) | payer BC, MEDICARE, SELFPAY ==
--- NOTE | 2022-03-21 09:29 | US_ITS ---
PROCEDURE: Ultrasound guided paracentesis. DATE OF EXAMINATION: 03/21/2022. INDICATION: Male, 71 years old. Ascites. PHYSICIAN: Lamberto Jaeger M.D. TECHNIQUE: The risks, benefits, and alternatives to the procedure were explained to the patient. The specific risks of bleeding, infection, and damage to bowel were detailed and accepted. Witnessed informed consent was obtained. The abdomen was ultrasonographically surveyed. An appropriate pocket of fluid was identified at the left lower quadrant. The skin were cleaned and prepped in the usual sterile fashion. Using ultrasound guidance, the peritoneal cavity was accessed with a 5-Danish paracentesis needle/catheter system. The trocar was removed. A total of 4150 ml of angeli-colored fluid were removed from the peritoneal cavity. The catheter was removed and a sterile dressing was applied. The procedure was well tolerated. US/Paracentesis with US IMPRESSION: Ultrasound guided paracentesis. Electronically Signed: Lamberto Jaeger MD at 10:51 EST ,
[2022-03-21 09:45] VITALS: BP 105/52; BP 105/55; BP 106/54; PULSE 55; PULSE 56; PULSE 61; RESP 18; TEMP 36.4; O2SAT 100
[2022-03-21] MEDS: Lidocaine 1% (20 ml mdv) 20 ML Vial INFILT (09:50)
== END | disposition home or self-care (01) ==
PROVIDERS: PCP Physician Assistant; Referring Provider Internal Medicine Gastroenterology; Visit Provider Internal Medicine Gastroenterology
DX: K74.60 Unspecified cirrhosis of liver (principal); R18.8 Other ascites
CPT/HCPCS: 49083

== ENCOUNTER → 2022-03-28 | Outpatient (CLI) | payer BC, MEDICARE, SELFPAY ==
--- NOTE | 2022-03-28 09:19 | US_ITS ---
PROCEDURE: Ultrasound guided paracentesis. DATE OF EXAMINATION: 03/28/2022. INDICATION: Male, 71 years old. Ascites. PHYSICIAN: Lamberto Jaeger M.D. TECHNIQUE: The risks, benefits, and alternatives to the procedure were explained to the patient. The specific risks of bleeding, infection, and damage to bowel were detailed and accepted. Witnessed informed consent was obtained. The abdomen was ultrasonographically surveyed. An appropriate pocket of fluid was identified at the right lower quadrant. The skin were cleaned and prepped in the usual sterile fashion. Using ultrasound guidance, the peritoneal cavity was accessed with a 5-South Korean paracentesis needle/catheter system. The trocar was removed. A total of 5100 ml of angeli-colored fluid were removed from the peritoneal cavity. The catheter was removed and a sterile dressing was applied. The procedure was well tolerated. US/Paracentesis with US IMPRESSION: Ultrasound guided paracentesis. Electronically Signed: Lamberto Jaeger MD at 10:42 EST ,
[2022-03-28 09:48] VITALS: BP 106/58; BP 110/63; PULSE 63; PULSE 72; RESP 16; RESP 18; O2SAT 100; O2SAT 99
[2022-03-28] MEDS: Lidocaine 1% (20 ml mdv) 20 ML Vial INFILT (10:30)
== END | disposition home or self-care (01) ==
PROVIDERS: PCP Physician Assistant; Referring Provider Internal Medicine Gastroenterology; Visit Provider Internal Medicine Gastroenterology
DX: R18.8 Other ascites (principal); K74.60 Unspecified cirrhosis of liver
CPT/HCPCS: 49083; A4216

== ENCOUNTER → 2022-04-04 | Outpatient (CLI) | payer BC, MEDICARE, SELFPAY ==
--- NOTE | 2022-04-04 09:10 | US_ITS ---
PROCEDURE: Ultrasound guided paracentesis. DATE OF EXAMINATION: 02/28/2022. INDICATION: Male, 71 years old. Ascites. PHYSICIAN: Alexis Mendez DO TECHNIQUE: The risks, benefits, and alternatives to the procedure were explained to the patient. The specific risks of bleeding, infection, and damage to bowel were detailed and accepted. Witnessed informed consent was obtained. The abdomen was ultrasonographically surveyed. An appropriate pocket of fluid was identified at the right upper quadrant. The skin were cleaned and prepped in the usual sterile fashion. Using ultrasound guidance, the peritoneal cavity was accessed with a 5-Moroccan paracentesis needle/catheter system. The trocar was removed. A total of 7000 ml of clear straw-colored ascites fluid were removed from the peritoneal cavity. The catheter was removed and a sterile dressing was applied. The procedure was well tolerated. The patient was discharged in stable condition. US/Paracentesis with US IMPRESSION: Ultrasound guided therapeutic paracentesis. Electronically Signed: Alexis Mendez, at 12:58 EST ,
[2022-04-04 09:41] VITALS: BP 104/54; BP 106/55; BP 98/51; BP 99/56; PULSE 58; PULSE 61; RESP 16; RESP 18; O2SAT 100; O2SAT 99
[2022-04-04] MEDS: Lidocaine 1% (20 ml mdv) 20 ML Vial INFILT (09:45)
[2022-04-04] MEDS: 0.9% Saline Lock 10 ML Syringe IV (10:51)
[2022-04-04] MEDS: Albumin Human 25% (100 mL) 25 GM/100 ML BAG IV (11:04)
[2022-04-04 11:08] VITALS: BP 102/54; PULSE 65; RESP 16; TEMP 36.2; O2SAT 99
[2022-04-04] MEDS: Albumin Human 25% (50 mL) 12.5 GM/50 ML IV.SOLN IV (12:28)
[2022-04-04 13:30] VITALS: BP 86/48; PULSE 50; RESP 16; TEMP 36.4; O2SAT 100
== END | disposition home or self-care (01) ==
PROVIDERS: PCP Physician Assistant; Referring Provider Internal Medicine Gastroenterology; Visit Provider Internal Medicine Gastroenterology
DX: R18.8 Other ascites (principal); K74.60 Unspecified cirrhosis of liver
CPT/HCPCS: 96365; 96366; 49083; J7050; P9047; A4216

== ENCOUNTER → 2022-04-11 | Outpatient (CLI) | payer BC, MEDICARE, SELFPAY ==
--- NOTE | 2022-04-11 10:20 | US_ITS ---
PROCEDURE: Ultrasound guided paracentesis. DATE OF EXAMINATION: 04/11/2022. INDICATION: Male, 71 years old. Ascites. PHYSICIAN: Lamberto Jaeger M.D. TECHNIQUE: The risks, benefits, and alternatives to the procedure were explained to the patient. The specific risks of bleeding, infection, and damage to bowel were detailed and accepted. Witnessed informed consent was obtained. The abdomen was ultrasonographically surveyed. An appropriate pocket of fluid was identified at the left lower quadrant. The skin were cleaned and prepped in the usual sterile fashion. Using ultrasound guidance, the peritoneal cavity was accessed with a 5-Faroese paracentesis needle/catheter system. The trocar was removed. A total of 4350 ml of angeli-colored fluid were removed from the peritoneal cavity. The catheter was removed and a sterile dressing was applied. The procedure was well tolerated. US/Paracentesis with US IMPRESSION: Ultrasound guided paracentesis. Electronically Signed: Lamberto Jaeger MD at 11:56 EST ,
[2022-04-11] MEDS: Lidocaine 1% (20 ml mdv) 20 ML Vial INFILT (10:50)
[2022-04-11 10:58] VITALS: BP 103/50; BP 107/55; BP 111/58; PULSE 58; PULSE 60; RESP 14; RESP 16; TEMP 36.6; O2SAT 100; O2SAT 96; O2SAT 99
== END | disposition home or self-care (01) ==
PROVIDERS: PCP Physician Assistant; Referring Provider Internal Medicine Gastroenterology; Visit Provider Internal Medicine Gastroenterology
DX: R18.8 Other ascites (principal)
CPT/HCPCS: 49083; A4216

== ENCOUNTER → 2022-04-18 | Outpatient (CLI) | payer BC, MEDICARE, SELFPAY ==
--- NOTE | 2022-04-18 09:18 | US_ITS ---
PROCEDURE: Ultrasound guided paracentesis. DATE OF EXAMINATION: 04/18/2022. INDICATION: Male, 71 years old. Ascites. PHYSICIAN: Lamberto Jaeger M.D. TECHNIQUE: The risks, benefits, and alternatives to the procedure were explained to the patient. The specific risks of bleeding, infection, and damage to bowel were detailed and accepted. Witnessed informed consent was obtained. The abdomen was ultrasonographically surveyed. An appropriate pocket of fluid was identified at the left lower quadrant. The skin were cleaned and prepped in the usual sterile fashion. Using ultrasound guidance, the peritoneal cavity was accessed with a 5-Hungarian paracentesis needle/catheter system. The trocar was removed. A total of 3600 ml of angeli-colored fluid were removed from the peritoneal cavity. The catheter was removed and a sterile dressing was applied. The procedure was well tolerated. US/Paracentesis with US IMPRESSION: Ultrasound guided paracentesis. Electronically Signed: Lamberto Jaeger MD at 11:58 EST ,
[2022-04-18 09:37] VITALS: BP 107/49; BP 110/59; BP 91/40; PULSE 52; PULSE 53; PULSE 56; RESP 18; TEMP 37; O2SAT 100; O2SAT 97
[2022-04-18] MEDS: Lidocaine 1% (20 ml mdv) 20 ML Vial INFILT (09:37)
== END | disposition home or self-care (01) ==
PROVIDERS: PCP Physician Assistant; Referring Provider Internal Medicine Gastroenterology; Visit Provider Internal Medicine Gastroenterology
DX: R18.8 Other ascites (principal); K74.60 Unspecified cirrhosis of liver
CPT/HCPCS: 49083

== ENCOUNTER 2022-04-25 09:15 | Outpatient (CLI) | payer BC, MEDICARE, SELFPAY ==
--- NOTE | 2022-04-25 09:16 | US_ITS ---
PROCEDURE: Ultrasound guided paracentesis. DATE OF EXAMINATION: 04/25/2022. INDICATION: Male, 71 years old. Ascites. PHYSICIAN: Lamberto Jaeger M.D. TECHNIQUE: The risks, benefits, and alternatives to the procedure were explained to the patient. The specific risks of bleeding, infection, and damage to bowel were detailed and accepted. Witnessed informed consent was obtained. The abdomen was ultrasonographically surveyed. An appropriate pocket of fluid was identified at the right lower quadrant. The skin were cleaned and prepped in the usual sterile fashion. Using ultrasound guidance, the peritoneal cavity was accessed with a 5-Panamanian paracentesis needle/catheter system. The trocar was removed. A total of 6500 ml of angeli-colored fluid were removed from the peritoneal cavity. The catheter was removed and a sterile dressing was applied. The procedure was well tolerated. US/Paracentesis with US IMPRESSION: Ultrasound guided paracentesis. Electronically Signed: Lamberto Jaeger MD at 10:43 EST ,
[2022-04-25 09:35] VITALS: BP 108/60; BP 112/68; BP 98/51; PULSE 75; PULSE 80; RESP 16; TEMP 36.6; O2SAT 98; O2SAT 99
[2022-04-25] MEDS: Lidocaine 2% (20 ml mdv) 20 ML Vial INFILT (09:45)
[2022-04-25 10:31] VITALS: BP 97/55; PULSE 76; RESP 14; TEMP 36.5; O2SAT 98; BMI 28.2
[2022-04-25] MEDS: 0.9% Saline Lock 10 ML Syringe IV (10:39)
[2022-04-25] MEDS: Albumin Human 25% (100 mL) 25 GM/100 ML BAG IV (10:43)
[2022-04-25] MEDS: Albumin Human 25% (50 mL) 12.5 GM/50 ML IV.SOLN IV (12:04)
[2022-04-25 13:05] VITALS: BP 96/56; PULSE 67; RESP 16; TEMP 36.5; O2SAT 98
== END 2022-04-25 23:59 | disposition home or self-care (01) ==
LOC: US 09:15
PROVIDERS: PCP Physician Assistant; Referring Provider Internal Medicine Gastroenterology; Visit Provider Internal Medicine Gastroenterology
DX: R18.8 Other ascites (principal); K74.60 Unspecified cirrhosis of liver
CPT/HCPCS: 49083; 96374; 96361; J7050; P9047

== ENCOUNTER → 2022-05-04 | Outpatient (CLI) | payer BC, MEDICARE, SELFPAY ==
--- NOTE | 2022-05-04 08:19 | US_ITS ---
PROCEDURE: Ultrasound guided paracentesis. DATE OF EXAMINATION: 05/04/2022. INDICATION: Male, 71 years old. Ascites. PHYSICIAN: Lamberto Jaeger M.D. TECHNIQUE: The risks, benefits, and alternatives to the procedure were explained to the patient. The specific risks of bleeding, infection, and damage to bowel were detailed and accepted. Witnessed informed consent was obtained. The abdomen was ultrasonographically surveyed. An appropriate pocket of fluid was identified at the left lower quadrant. The skin were cleaned and prepped in the usual sterile fashion. Using ultrasound guidance, the peritoneal cavity was accessed with a 5-Georgian paracentesis needle/catheter system. The trocar was removed. A total of 8350 ml of angeli-colored fluid were removed from the peritoneal cavity. The catheter was removed and a sterile dressing was applied. The procedure was well tolerated. US/Paracentesis with US IMPRESSION: Ultrasound guided paracentesis. Electronically Signed: Lamberto Jaeger MD at 11:15 EST ,
[2022-05-04] MEDS: Lidocaine 2% (20 ml mdv) 20 ML Vial INFILT (08:35)
[2022-05-04 08:42] VITALS: BP 80/37; BP 89/46; BP 99/55; PULSE 43; PULSE 44; PULSE 45; RESP 16; RESP 18; TEMP 36.5; O2SAT 97; O2SAT 99
[2022-05-04 09:44] VITALS: BP 88/53; PULSE 58; RESP 16; TEMP 36.3; O2SAT 98
[2022-05-04] MEDS: Albumin Human 25% (100 mL) 25 GM/100 ML BAG IV ×2 (09:47→11:11)
[2022-05-04] MEDS: 0.9% Saline Lock 10 ML Syringe IV (09:49)
[2022-05-04 13:15] VITALS: BP 89/49; PULSE 44; RESP 16; TEMP 36.2; O2SAT 100
== END | disposition home or self-care (01) ==
PROVIDERS: PCP Physician Assistant; Referring Provider Internal Medicine Gastroenterology; Visit Provider Internal Medicine Gastroenterology
DX: R18.8 Other ascites (principal); K74.60 Unspecified cirrhosis of liver
CPT/HCPCS: 96365; 96366 ×2; 49083; J7050; P9046; P9047

== ENCOUNTER 2022-05-09 09:46 | Outpatient (CLI) | payer BC, MEDICARE, SELFPAY ==
--- NOTE | 2022-05-09 09:49 | US_ITS ---
PROCEDURE: Ultrasound guided paracentesis. DATE OF EXAMINATION: 05/09/2022. INDICATION: Male, 71 years old. Ascites. PHYSICIAN: Lamberto Jaeger M.D. TECHNIQUE: The risks, benefits, and alternatives to the procedure were explained to the patient. The specific risks of bleeding, infection, and damage to bowel were detailed and accepted. Witnessed informed consent was obtained. The abdomen was ultrasonographically surveyed. An appropriate pocket of fluid was identified at the right lower quadrant. The skin were cleaned and prepped in the usual sterile fashion. Using ultrasound guidance, the peritoneal cavity was accessed with a 5-Swiss paracentesis needle/catheter system. The trocar was removed. A total of 5250 ml of angeli-colored fluid were removed from the peritoneal cavity. The catheter was removed and a sterile dressing was applied. The procedure was well tolerated. US/Paracentesis with US IMPRESSION: Ultrasound guided paracentesis. Electronically Signed: Lamberto Jaeger MD at 12:17 EST ,
[2022-05-09] MEDS: Lidocaine 2% (20 ml mdv) 20 ML Vial INFILT (10:05)
[2022-05-09 10:09] VITALS: BP 102/58; BP 112/65; BP 113/59; BP 119/71; PULSE 62; PULSE 69; PULSE 71; PULSE 72; RESP 14; RESP 16; RESP 18; O2SAT 100; O2SAT 99
[2022-05-09] MEDS: Albumin Human 25% (100 mL) 25 GM/100 ML BAG IV (11:22)
[2022-05-09 11:25] VITALS: BP 105/63; PULSE 85; RESP 16; TEMP 36.4
[2022-05-09 13:16] VITALS: BP 96/60; PULSE 81; TEMP 36.6; O2SAT 100
== END 2022-05-09 23:59 | disposition home or self-care (01) ==
PROVIDERS: PCP Physician Assistant; Referring Provider Internal Medicine Gastroenterology; Visit Provider Internal Medicine Gastroenterology
DX: R18.8 Other ascites (principal); K74.60 Unspecified cirrhosis of liver
CPT/HCPCS: 49083; 96365; J7050; P9046; A4216; P9047

== ENCOUNTER → 2022-05-16 | Outpatient (CLI) | payer BC, MEDICARE, SELFPAY ==
--- NOTE | 2022-05-16 09:25 | US_ITS ---
PROCEDURE: Ultrasound guided paracentesis. DATE OF EXAMINATION: 05/16/2022. INDICATION: Male, 71 years old. Ascites. PHYSICIAN: Lamberto Jaeger M.D. TECHNIQUE: The risks, benefits, and alternatives to the procedure were explained to the patient. The specific risks of bleeding, infection, and damage to bowel were detailed and accepted. Witnessed informed consent was obtained. The abdomen was ultrasonographically surveyed. An appropriate pocket of fluid was identified at the right lower quadrant. The skin were cleaned and prepped in the usual sterile fashion. Using ultrasound guidance, the peritoneal cavity was accessed with a 5-Bolivian paracentesis needle/catheter system. The trocar was removed. A total of 7000 ml of angeli-colored fluid were removed from the peritoneal cavity. The catheter was removed and a sterile dressing was applied. The procedure was well tolerated. US/Paracentesis with US IMPRESSION: Ultrasound guided paracentesis. Electronically Signed: Lamberto Jaeger MD at 12:34 EST ,
[2022-05-16 09:53] VITALS: BP 103/54; BP 103/58; BP 95/54; PULSE 55; PULSE 58; PULSE 61; RESP 14; O2SAT 100
[2022-05-16] MEDS: Lidocaine 2% (20 ml mdv) 20 ML Vial INFILT (09:53)
[2022-05-16 10:39] VITALS: BP 103/54; PULSE 67; RESP 16; O2SAT 94; BMI 27.9
[2022-05-16] MEDS: 0.9% Saline Lock 10 ML Syringe IV (10:58)
[2022-05-16] MEDS: Albumin Human 25% (100 mL) 25 GM/100 ML BAG IV (10:59)
[2022-05-16] MEDS: Albumin Human 25% (50 mL) 12.5 GM/50 ML IV.SOLN IV (12:26)
[2022-05-16 13:31] VITALS: BP 97/48; PULSE 53; RESP 16; O2SAT 99
== END | disposition home or self-care (01) ==
PROVIDERS: PCP Physician Assistant; Visit Provider Internal Medicine Gastroenterology
DX: R18.8 Other ascites (principal); K74.60 Unspecified cirrhosis of liver
CPT/HCPCS: 96365; 96366; 49083; J7050; P9047; A4216

== ENCOUNTER 2022-05-23 09:42 | Outpatient (CLI) | payer BC, MEDICARE, SELFPAY ==
--- NOTE | 2022-05-23 09:24 | US_ITS ---
PROCEDURE: Ultrasound guided paracentesis. DATE OF EXAMINATION: 05/23/2022. INDICATION: Male, 71 years old. Ascites. PHYSICIAN: Lamberto Jaeger M.D. TECHNIQUE: The risks, benefits, and alternatives to the procedure were explained to the patient. The specific risks of bleeding, infection, and damage to bowel were detailed and accepted. Witnessed informed consent was obtained. The abdomen was ultrasonographically surveyed. An appropriate pocket of fluid was identified at the left lower quadrant. The skin were cleaned and prepped in the usual sterile fashion. Using ultrasound guidance, the peritoneal cavity was accessed with a 5-Lao paracentesis needle/catheter system. The trocar was removed. A total of 6650 ml of angeli-colored fluid were removed from the peritoneal cavity. The catheter was removed and a sterile dressing was applied. The procedure was well tolerated. US/Paracentesis with US IMPRESSION: Ultrasound guided paracentesis. Electronically Signed: Lamberto Jaeger MD at 12:37 EST ,
[2022-05-23 09:45] VITALS: BP 100/56; BP 100/62; BP 106/68; BP 108/63; BP 110/64; BP 120/70; BP 94/46; PULSE 63; PULSE 68; PULSE 71; PULSE 72; PULSE 76; PULSE 77; RESP 18; RESP 20; RESP 22; TEMP 36.6; O2SAT 96; O2SAT 98; O2SAT 99
[2022-05-23] MEDS: Lidocaine 2% (20 ml mdv) 20 ML Vial INFILT (09:45)
[2022-05-23 10:48] VITALS: BP 120/67; PULSE 77; RESP 16; TEMP 36.1; O2SAT 100
[2022-05-23] MEDS: Albumin Human 25% (100 mL) 25 GM/100 ML BAG IV (10:52)
[2022-05-23 11:00] LABS: Erythrocyte Sedimentation Rate 6 mm/hr (0-20)
[2022-05-23 11:04] LABS: Absolute Lymphocyte Count 0.38 X10^3/uL (0.83-4.51); Absolute Neutrophil Count 2.8 X10^3/uL (2.0-7.7); Basophil# 0.01 X10^3/uL; Basophil% 0.3 % (0-1); Eosinophil# 0.05 X10^3/uL; Eosinophils% 1.4 % (0-5); Hematocrit 36.9 % (40-54); Lymphocyte # 0.38 X10^3/ul (0.83-4.51); Lymphocyte % 10.6 % (19-41); Mean Corp Hgb Conc 32.5 g/dL (32-36); Mean Corpuscular Hgb 30.6 pg (27.0-32.0); Mean Corpuscular Volume 94.1 fL (80-94); Mean Platelet Vol. 12.4 fl (6.2-12.0); Monocyte# 0.36 X10^3/uL; Monocyte% 10.1 % (0-10); NRBC Flagged by Analyzer 0 % (0-5); Neutrophil # 2.77 X10^3/uL (2.7-7.7); Neutrophil % 77.3 % (47-70); POSITIVE COUNT YES; POSITIVE DIFFERENTIAL YES; Platelet Count 62 K/mm3 (150-450); RBC Distribution Width CV 17.1 % (11.6-14.6); RBC Distribution Width SD 58.9 fl (35.1-43.9); Red Blood Count 3.92 M/mm3 (4.6-6.2); White Blood Count 3.6 K/mm3 (4.4-11.0)
[2022-05-23 11:05] LABS: Differential Indicated SCAN CRITERIA MET
[2022-05-23 11:08] LABS: International Normalized Ratio 1.8; Prothrombin Time (Protime)PT. 20.3 SECONDS (11.7-14.9)
[2022-05-23 11:19] LABS: ALB/GLOB Ratio 0.7 RATIO (0.9-2.4); AST(SGOT) 32 U/L (15-37); Alanine Aminotransfer ALT/SGPT 26 U/L (16-61); Albumin, Serum 2.7 g/dL (3.2-5.0); Alkaline Phosphatase 145 U/L (45-117); Anion Gap 3 (5-15); BUN 14 mg/dL (7-18); CRP 5.24 mg/L (0.0-3.0); Calcium,Total 8.7 mg/dL (8.5-10.1); Chloride 103 mmol/L (98-107); Creatinine, Serum 1.17 mg/dL (0.70-1.30); EST Glomerular Filtration Rate 65 mL/min (>60); Est Glom Filt Rate - Afr Amer 78 mL/min (>60); Glucose 290 mg/dL (74-106); LDH 194 U/L (87-241); Protein, Total 6.7 g/dL (6.4-8.2); Sodium Level 132 mmol/L (136-145)
[2022-05-23 11:50] LABS: Platelet Estimate MOD DEC (ADEQ)
[2022-05-23] MEDS: Albumin Human 25% (50 mL) 12.5 GM/50 ML IV.SOLN IV (12:18)
[2022-05-23 13:17] VITALS: BP 99/49; PULSE 50; RESP 16; TEMP 36.1
[2022-05-25 09:37] LABS: Pathologist Review Reviewed
== END 2022-05-23 23:59 | disposition home or self-care (01) ==
PROVIDERS: PCP Physician Assistant; Referring Provider Internal Medicine Gastroenterology; Visit Provider Internal Medicine Gastroenterology
DX: K74.60 Unspecified cirrhosis of liver (principal); R18.8 Other ascites
CPT/HCPCS: 96365; 49083; 80053; 82140; 83615; 85025; 85610; 85652; 86140; J7050; P9047

== ENCOUNTER → 2022-05-30 | Outpatient (CLI) | payer MEDICARE, BC, SELFPAY ==
--- NOTE | 2022-05-30 10:24 | US_ITS ---
PROCEDURE: Ultrasound guided paracentesis. DATE OF EXAMINATION: 05/30/2022.. INDICATION: Male, 71 years old. Ascites. PHYSICIAN: Lamberto Jaeger M.D. TECHNIQUE: The risks, benefits, and alternatives to the procedure were explained to the patient. The specific risks of bleeding, infection, and damage to bowel were detailed and accepted. Witnessed informed consent was obtained. The abdomen was ultrasonographically surveyed. An appropriate pocket of fluid was identified at the left lower quadrant. The skin were cleaned and prepped in the usual sterile fashion. Using ultrasound guidance, the peritoneal cavity was accessed with a 5-Mosotho paracentesis needle/catheter system. The trocar was removed. A total of 6350 ml of angeli-colored fluid were removed from the peritoneal cavity. The catheter was removed and a sterile dressing was applied. The procedure was well tolerated. US/Paracentesis with US IMPRESSION: Ultrasound guided paracentesis. Electronically Signed: Lamberto Jaeger MD at 12:02 [facility] ,
[2022-05-30] MEDS: Lidocaine 2% (20 ml mdv) 20 ML Vial INFILT (10:42)
[2022-05-30 10:48] VITALS: BP 107/64; BP 109/62; BP 110/72; BP 111/62; PULSE 64; PULSE 69; PULSE 75; PULSE 76; RESP 18; RESP 20; O2SAT 100; O2SAT 99
[2022-05-30] MEDS: Albumin Human 25% (100 mL) 25 GM/100 ML BAG IV (11:37)
[2022-05-30 11:41] VITALS: BP 102/67; PULSE 75; RESP 16; TEMP 36.4
[2022-05-30] MEDS: Albumin Human 25% (50 mL) 12.5 GM/50 ML IV.SOLN IV (13:03)
[2022-05-30 14:05] VITALS: BP 97/58; PULSE 68; RESP 16
== END | disposition home or self-care (01) ==
PROVIDERS: PCP Physician Assistant; Referring Provider Internal Medicine Gastroenterology; Visit Provider Internal Medicine Gastroenterology
DX: K74.60 Unspecified cirrhosis of liver (principal)
CPT/HCPCS: 49083; J7050; P9047

== ENCOUNTER 2022-06-02 10:19 | Inpatient (IN) | payer BC, MEDICARE, SELFPAY ==
[2022-06-02 10:20] VITALS: BP 121/57; PULSE 103; RESP 24; TEMP 36.1; O2SAT 98; BMI 26.6
--- NOTE | 2022-06-02 10:54 | EKG12_ITS ---
Test Reason : BLEEDING Blood Pressure : / mmHG Vent. Rate : 090 BPM Atrial Rate : 091 BPM P-R Int : 184 ms QRS Dur : 102 ms QT Int : 376 ms P-R-T Axes : 015 -49 030 degrees QTc Int : 459 ms Normal sinus rhythm Low voltage QRS Left anterior fascicular block Possible Lateral infarct , age undetermined Abnormal ECG Confirmed by BARBI CATHERINE, LEONEL ([id number]), scientific publications editor LIONEL KNUTSON ([id number]) on 06/05/2022 9:10:45 AM Referred By: Confirmed By:LEONEL LANDON MD
--- NOTE | 2022-06-02 10:59 | EX.ED.DYSGE1 ---
HPI <RICO Mancilla - Last Filed: 06/02/22 14:42> History of Present Illness Chief Complaint: GI Bleed Narrative Narrative: Patient is a 71-year-old male with history of hepatic cephalopathy, paroxysmal A-fib, esophageal varices, history of GI bleeding, on iron. He is not on any blood thinners. Patient presents to the emergency department with 1 day of multiple dark tarry stools as well as darrick red blood. Per the daughter who is his main care provider, he is more weak today, more dizzy. Patient did not take any of his morning medications. Patient is currently on any blood thinners. Patient states he does have history of hemorrhoids. Patient states that he is concerned about the amount of blood that was in the toilet. He denies any recent fever or chills. Patient does not drink alcohol or smoke cigarettes at this time. Patient does receive paracentesis every Saturday. He did receive a paracentesis this Saturday and had 5 L out. [facility] <RICO Mancilla - Last Filed: 06/02/22 14:42> [facility] Medical History Alcohol use Anemia Atrial fibrillation Back pain Bladder disease Blood disorder Cancer Cardiology follow-up encounter Diabetes Dietary restriction Essential (primary) hypertension Gastric reflux History of atrial fibrillation History of echocardiogram History of edema History of GI bleed History of stress test Hyperlipemia, mixed Hypertension Injury of back Injury of head and neck Loss of hearing Low iron Lung nodule Mesenteric vein thrombosis Mesenteric vein thrombosis Non-smoker Portal hypertension syndrome S/P abdominal paracentesis Shortness of breath on exertion Syncope Thyroid disease Type 2 diabetes mellitus without complications Wears glasses Home Medications esomeprazole magnesium 40 mg capsule,delayed release (Nexium) 40 mg PO QDAY REFLUX 03/15/17 [History Last Taken 02/08/21 06:00] levothyroxine 125 mcg tablet 125 mcg PO QDAY 03/15/17 [History Last Taken 05/22/21 05:00] simvastatin 20 mg tablet 20 mg PO QPM 03/15/17 [History Last Taken 02/06/21] tamsulosin 0.4 mg capsule 0.4 mg PO QHS 03/15/17 [History Last Taken 02/06/21] dutasteride 0.5 mg capsule 0.5 mg PO QDAY 03/19/17 [History Last Taken 02/06/21] ferrous gluconate 324 mg (37.5 mg iron) tablet 324 mg PO BID 03/19/17 [History Last Taken 02/06/21] empagliflozin 10 mg tablet (Jardiance) 10 mg PO DAILY Check with primary doctor 10/13/21 [History Last Taken 10/13/21] furosemide 20 mg tablet (Lasix) 20 mg PO DAILY #1 TAB 10/20/21 [Rx Last Taken Unknown] lanreotide 60 mg/0.2 mL subcutaneous syringe 30 mg (0.1 mL) subcut Q4W #0.2 mL 10/20/21 [Rx Last Taken 09/21/21] spironolactone 50 mg tablet See Rx Instructions .Route .COMPLEX #60 tabs 11/20/21 [Rx Last Taken Unknown] nutritional supplements ml PO 12/04/21 [History Last Taken Unknown] carvedilol 3.125 mg tablet (Coreg) 3.125 mg PO BID #180 tabs 04/19/22 [Rx Last Taken Unknown] lactulose 10 gram/15 mL oral solution See Rx Instructions .Route .COMPLEX #237 mL 05/28/22 [Rx Last Taken Unknown] gabapentin 300 mg capsule 300 mg PO BID NERVE PAIN 05/30/22 [History Last Taken Unknown] metronidazole 500 mg tablet 500 mg PO BID 05/30/22 [History Last Taken Unknown] phenylephrine 0.25 %-pramoxine 1 %-glycerin-wh.petrolatum rectal cream (Preparation H Maximum Strength) 1 applic NC TID #26 grams 06/02/22 [Rx Last Taken Unknown] Allergy/AdvReac Type Severity Reaction Status Date / Time heparin AdvReac Other Verified 06/02/22 10:22 Family History Mother Colon cancer Diabetes Heart disease Hypertension Father Lung cancer Surgical History History of colonoscopy History of esophagogastroduodenoscopy (EGD) History of Whipple procedure Hx of cataract surgery Hx of vasectomy Social History Smoking Status: Never smoker alcohol intake: former substance use type: does not use and marijuana caffeine: Yes Type: carbonated beverages and coffee what type of physical activity do you participate in: walking frequency: daily duration: 15-30 minutes/day seatbelt use: always do you feel safe at home: Yes ROS <RICO Mancilla - Last Filed: 06/02/22 14:42> ROS ED ROS Narrative Constitutional: Negative for fever, chills, weight loss. Positive for weakness Eyes: Negative for vision loss, vision change, double vision ENT: Negative for any sore throat, ear pain, congestion Cardiovascular: Negative for any chest pain, tightness, palpitations Respiratory: Negative for any cough, sputum production, hemoptysis, dyspnea, dyspnea on exertion, orthopnea Gastrointestinal: Negative for any nausea, vomiting, diarrhea, constipation, blood in vomit. Positive for abdominal distention, blood in stool : Negative for any urinary frequency, dysuria, retention, blood in urine Muscle skeletal: Negative for any muscle joint pain, stiffness, myalgias, arthralgias, neck pain, back pain Neurological: Negative for any headache, syncope, numbness or tingling, dizziness Skin: Negative for any rashes, lumps, itching, abrasions, lacerations Psychiatric: Negative for any depression, anxiety, stress, suicidal ideation, homicidal ideation Hematologic: Negative for any easy bruising, excessive bruising, easy bleeding Allergies: Negative for any eczema, hives, rash EXAM <RICO Mancilla - Last Filed: 06/02/22 14:42> Physical Exam Narrative Exam Narrative: Vital signs reviewed. Alert and x4. Acting appropriate HEET: Head normocephalic atraumatic, TMs clear bilaterally. Posterior pharynx is clear, moist mucous membranes. Nares clear bilaterally. Neck: Supple with no lymphadenopathy or tenderness. No signs of meningismus, negative jolt sign. Cardiac: Regular rate and rhythm no murmurs gallops or rubs, equal peripheral pulses bilaterally. Respiratory: Lungs clear to auscultation bilaterally. No chest tenderness. Abdomen: Soft, nontender. No abdominal bruit or pulsatile masses. No hepatosplenomegaly. Patient has generalized abdominal distention. He does have ascites, this is chronic. No peritoneal signs. Extremities: No peripheral edema, no signs of gross trauma or deformity. Active full range of motion of all extremities. Neuro: Cranial nerves II through XII intact, no focal neurological deficits. Skin: Clean dry and intact with no rash, purpura, petechiae, vesicles or pustules. Backs/flank: No CVA tenderness, no midline spinal tenderness, no deformity. Psych: Normal mood and affect. No SI, HI or acute psychosis. /Rectal: Patient does have a large hernia to the right inguinal area. This is chronic. No signs of cellulitis. Rectal exam was completed with female nurse analytical technician. Patient did have a irritated hemorrhoid, it was erythemic, edematous, however there is no gross bleeding. Patient did have dried black stool around his anus however patient also is on iron. There is no darrick bleeding, there is no mass, minimal stool in the rectal vault. Const Vital Signs: 06/02/22 10:20 06/02/22 14:15 Temperature 96.9 F L Temperature Source Temporal Pulse Rate 103 H 90 Respiratory Rate 24 H 18 Blood Pressure 121/57 H 105/65 Blood Pressure Mean 78 78 Pulse Ox 98 Oxygen Delivery Method Room Air Positive well nourished and well developed General Appearance ED: well developed <Dr. Arturo Spence MD - Last Filed: 06/02/22 15:22> Physical Exam Const Vital Signs: 06/02/22 10:20 06/02/22 14:15 Temperature 96.9 F L Temperature Source Temporal Pulse Rate 103 H 90 Respiratory Rate 24 H 18 Blood Pressure 121/57 H 105/65 Blood Pressure Mean 78 78 Pulse Ox 98 Oxygen Delivery Method Room Air MDM <RICO Mancilla - Last Filed: 06/02/22 14:42> [facility] Lab Data Attestation: I reviewed the patient's lab results. Labs: Laboratory Results - last 24 hr 06/02/22 06/02/22 06/02/22 11:19 11:19 11:19 WBC 5.6 RBC 3.96 L Hgb 12.2 L Hct 37.3 L MCV 94.2 H MCH 30.8 MCHC 32.7 RDW Std Deviation 59.4 H RDW Coeff of Penny 17.2 H Plt Count 78 L MPV 12.1 H Immature Gran % (Auto) 0.400 Neut % (Auto) 81.9 H Lymph % (Auto) 8.0 L Wagoner % (Auto) 8.4 Eos % (Auto) 0.9 Baso % (Auto) 0.4 Absolute Neuts (auto) 4.6 Absolute Lymphs (auto) 0.45 L Nucleated RBC % 0 Platelet Estimate MOD DEC Anisocytosis 1+ PT INR Sodium 131 L Potassium 5.9 H Chloride 100 Carbon Dioxide 25.0 Anion Gap 6 BUN 28 H Creatinine 1.27 Estim Creat Clear Calc 58.54 Est GFR (MDRD) Af Amer 71 Est GFR (MDRD) Non-Af 59 L BUN/Creatinine Ratio 22.0 H Glucose 199 H Lactic Acid 2.2 H* Calcium 9.1 Total Bilirubin 1.70 H Direct Bilirubin 0.57 H AST 26 ALT 25 Alkaline Phosphatase 110 Ammonia Total Protein 6.7 Albumin 2.8 L Globulin 3.9 Lipase 72 L Urine Color Urine Clarity Urine pH Ur Specific Bartlett Urine Protein Urine Glucose (UA) Urine Ketones Urine Occult Blood Urine Nitrite Urine Bilirubin Urine Urobilinogen Ur Leukocyte Esterase Urine RBC Urine WBC Ur Squamous Epith Cells Urine Bacteria Urine Mucus 06/02/22 06/02/22 06/02/22 11:19 11:45 12:10 WBC RBC Hgb Hct MCV MCH MCHC RDW Std Deviation RDW Coeff of Penny Plt Count MPV Immature Gran % (Auto) Neut % (Auto) Lymph % (Auto) Wagoner % (Auto) Eos % (Auto) Baso % (Auto) Absolute Neuts (auto) Absolute Lymphs (auto) Nucleated RBC % Platelet Estimate Anisocytosis PT 20.9 H INR 1.8 Sodium Potassium Chloride Carbon Dioxide Anion Gap BUN Creatinine Estim Creat Clear Calc Est GFR (MDRD) Af Amer Est GFR (MDRD) Non-Af BUN/Creatinine Ratio Glucose Lactic Acid Calcium Total Bilirubin Direct Bilirubin AST ALT Alkaline Phosphatase Ammonia 38.0 H Total Protein Albumin Globulin Lipase Urine Color Yellow Urine Clarity Clear Urine pH 6.5 Ur Specific Bartlett 1.010 Urine Protein 30 H Urine Glucose (UA) Normal Urine Ketones Negative Urine Occult Blood Negative Urine Nitrite Negative Urine Bilirubin Negative Urine Urobilinogen Normal Ur Leukocyte Esterase 25 H Urine RBC 0 SEEN Urine WBC 0-5 SEEN Ur Squamous Epith Cells 0 SEEN Urine Bacteria 0 SEEN Urine Mucus 0 SEEN 06/02/22 13:05 WBC RBC Hgb Hct MCV MCH MCHC RDW Std Deviation RDW Coeff of Penny Plt Count MPV Immature Gran % (Auto) Neut % (Auto) Lymph % (Auto) Wagoner % (Auto) Eos % (Auto) Baso % (Auto) Absolute Neuts (auto) Absolute Lymphs (auto) Nucleated RBC % Platelet Estimate Anisocytosis PT INR Sodium Potassium 5.5 H Chloride Carbon Dioxide Anion Gap BUN Creatinine Estim Creat Clear Calc Est GFR (MDRD) Af Amer Est GFR (MDRD) Non-Af BUN/Creatinine Ratio Glucose Lactic Acid Calcium Total Bilirubin Direct Bilirubin AST ALT Alkaline Phosphatase Ammonia Total Protein Albumin Globulin Lipase Urine Color Urine Clarity Urine pH Ur Specific Bartlett Urine Protein Urine Glucose (UA) Urine Ketones Urine Occult Blood Urine Nitrite Urine Bilirubin Urine Urobilinogen Ur Leukocyte Esterase Urine RBC Urine WBC Ur Squamous Epith Cells Urine Bacteria Urine Mucus EKG Normal sinus rhythm: Attestation: I personally reviewed and interpreted this EKG as follows: Interpretation: Sinus Rhythm Comments: Normal sinus rhythm, rate of 90 bpm, NC interval 184 ms, QRS duration 102 ms, no acute ST elevation, no acute infarct noted Treatment and Re-Evaluation Narrative: All radiologic examinations were read, reviewed by the emergency department attending. From these reads, a plan of care will be put in place. Patient appears generally well, patient appears nontoxic, vital signs are stable. Patient presents to the emergency department for concern for rectal bleeding. Patient does have history of GI bleeding and is here with his daughter. Patient did receive a full work-up. Patient's rectal exam did show some hemorrhoids, there is no signs or symptoms of gross hemorrhage. Patient did receive basic laboratory values. Patient's INR was within normal limits at 1.8. CBC showed a hemoglobin of 12.2, this is stable for the patient. I looked at the patient's laboratory values from 05/23/2022, his hemoglobin was 12.0 at that time. Patient was positive for stool occult blood. Patient's lactic acid was 2.2, patient received 1 L of normal saline. Patient's sodium was slightly low at 131 however patient's baseline around 132. Patient did have some elevation of his potassium at 5.9, which is not the patient's norm. This will be redrawn. Patient's urinalysis was negative for any infection. Patient reevaluation showed patient was in no distress. Patient's EKG showed no significant changes. Patient did have a repeat potassium drawn after the IV fluids, this equal to 5.5. Patient will receive Kayexalate as well as dextrose and insulin. Patient still remained stable. I still believe the patient will be able to go home. He will follow-up closely with his PCP. Did receive the hyperkalemia lowering agents. At this time, I believe the patient is stable for discharge. I spoke with the patient's daughters who is in agreement. They will also follow with Dr. Toscano regarding these hemorrhoids. Both the patient and the daughters are on the same page. They were given return precaution. Patient stable for discharge. He has had no bloody stools here <Dr. Arturo Spence MD - Last Filed: 06/02/22 15:22> MDM MDM Narrative Medical decision making narrative: Seen and evaluated independently and in conjunction with nurse practitioner. Agree with notes above unless documented otherwise. Patient well-appearing, he had a very mild tachycardia initially but his vital signs are stable and he is conversive in full sentences. Very benign abdomen, no vomiting or nausea to suggest an upper GI bleed source. The black stools from iron intake are chronic, the bright red blood is new, likely lower source after work-up. Blood counts are stable. Discussed with the Dr. Toscano with GI who knows the patient, he is comfortable having the patient follow-up as an outpatient as is the patient and family. We addressed his hyperkalemia separately. He does not have acute kidney injury, unknown if this is related to his cirrhosis or dietary potassium, we did get his levels down simply with IV fluids and was barely high, so after giving him insulin and glucose along with Kayexalate. After the Kayexalate, patient did have a dark stool that had some maroon blood mixed into it. Therefore I suspect this is not necessarily hemorrhoidal, it still is more likely lower in etiology, although with his slight BUN elevation, upper source is still in DDx. We discussed this again with Dr. Toscano. He recommends admission. Discussed w/ Dr. Maldonado hospitalist. Lab Data Labs: Laboratory Results - last 24 hr 06/02/22 06/02/22 06/02/22 11:19 11:19 11:19 WBC 5.6 RBC 3.96 L Hgb 12.2 L Hct 37.3 L MCV 94.2 H MCH 30.8 MCHC 32.7 RDW Std Deviation 59.4 H RDW Coeff of Penny 17.2 H Plt Count 78 L MPV 12.1 H Immature Gran % (Auto) 0.400 Neut % (Auto) 81.9 H Lymph % (Auto) 8.0 L Wagoner % (Auto) 8.4 Eos % (Auto) 0.9 Baso % (Auto) 0.4 Absolute Neuts (auto) 4.6 Absolute Lymphs (auto) 0.45 L Nucleated RBC % 0 Platelet Estimate MOD DEC Anisocytosis 1+ PT INR Sodium 131 L Potassium 5.9 H Chloride 100 Carbon Dioxide 25.0 Anion Gap 6 BUN 28 H Creatinine 1.27 Estim Creat Clear Calc 58.54 Est GFR (MDRD) Af Amer 71 Est GFR (MDRD) Non-Af 59 L BUN/Creatinine Ratio 22.0 H Glucose 199 H Lactic Acid 2.2 H* Calcium 9.1 Total Bilirubin 1.70 H Direct Bilirubin 0.57 H AST 26 ALT 25 Alkaline Phosphatase 110 Ammonia Total Protein 6.7 Albumin 2.8 L Globulin 3.9 Lipase 72 L Urine Color Urine Clarity Urine pH Ur Specific Bartlett Urine Protein Urine Glucose (UA) Urine Ketones Urine Occult Blood Urine Nitrite Urine Bilirubin Urine Urobilinogen Ur Leukocyte Esterase Urine RBC Urine WBC Ur Squamous Epith Cells Urine Bacteria Urine Mucus 06/02/22 06/02/22 06/02/22 11:19 11:45 12:10 WBC RBC Hgb Hct MCV MCH MCHC RDW Std Deviation RDW Coeff of Penny Plt Count MPV Immature Gran % (Auto) Neut % (Auto) Lymph % (Auto) Wagoner % (Auto) Eos % (Auto) Baso % (Auto) Absolute Neuts (auto) Absolute Lymphs (auto) Nucleated RBC % Platelet Estimate Anisocytosis PT 20.9 H INR 1.8 Sodium Potassium Chloride Carbon Dioxide Anion Gap BUN Creatinine Estim Creat Clear Calc Est GFR (MDRD) Af Amer Est GFR (MDRD) Non-Af BUN/Creatinine Ratio Glucose Lactic Acid Calcium Total Bilirubin Direct Bilirubin AST ALT Alkaline Phosphatase Ammonia 38.0 H Total Protein Albumin Globulin Lipase Urine Color Yellow Urine Clarity Clear Urine pH 6.5 Ur Specific Bartlett 1.010 Urine Protein 30 H Urine Glucose (UA) Normal Urine Ketones Negative Urine Occult Blood Negative Urine Nitrite Negative Urine Bilirubin Negative Urine Urobilinogen Normal Ur Leukocyte Esterase 25 H Urine RBC 0 SEEN Urine WBC 0-5 SEEN Ur Squamous Epith Cells 0 SEEN Urine Bacteria 0 SEEN Urine Mucus 0 SEEN 06/02/22 13:05 WBC RBC Hgb Hct MCV MCH MCHC RDW Std Deviation RDW Coeff of Penny Plt Count MPV Immature Gran % (Auto) Neut % (Auto) Lymph % (Auto) Wagoner % (Auto) Eos % (Auto) Baso % (Auto) Absolute Neuts (auto) Absolute Lymphs (auto) Nucleated RBC % Platelet Estimate Anisocytosis PT INR Sodium Potassium 5.5 H Chloride Carbon Dioxide Anion Gap BUN Creatinine Estim Creat Clear Calc Est GFR (MDRD) Af Amer Est GFR (MDRD) Non-Af BUN/Creatinine Ratio Glucose Lactic Acid Calcium Total Bilirubin Direct Bilirubin AST ALT Alkaline Phosphatase Ammonia Total Protein Albumin Globulin Lipase Urine Color Urine Clarity Urine pH Ur Specific Bartlett Urine Protein Urine Glucose (UA) Urine Ketones Urine Occult Blood Urine Nitrite Urine Bilirubin Urine Urobilinogen Ur Leukocyte Esterase Urine RBC Urine WBC Ur Squamous Epith Cells Urine Bacteria Urine Mucus Discharge Plan Triage Chief Complaint: GI Bleed ED Midlevel Provider: Harlan Snyder ED Provider: Arturo Spence Dx/Rx/DC Orders Clinical Impression: Acute lower GI bleeding, External hemorrhoids, Acute hyperkalemia, History of ascites, History of cirrhosis Prescriptions: New Preparation H Maximum Strength 0.25-1 % cream 1 applic NC TID Qty: 26 0RF No Action dutasteride 0.5 mg capsule 0.5 mg PO QDAY ferrous gluconate 324 mg (37.5 mg iron) tablet 324 mg PO BID gabapentin 300 mg capsule 300 mg PO BID nutritional supplements Liquid PO metronidazole 500 mg tablet 500 mg PO BID lactulose 10 gram/15 mL solution See Rx Instructions .ROUTE .COMPLEX Qty: 237 0RF Dose Instruction: take 15 milliliters by mouth once daily MAY TAKE UP TO THREE TIMES A DAY TO PROMOTE BOWEL MOVEMENT 2 TIMES A DAY Rx Instructions: take 15 milliliters by mouth once daily MAY TAKE UP TO THREE TIMES A DAY TO PROMOTE BOWEL MOVEMENT 2 TIMES A DAY Jardiance 10 mg Tablet 10 mg PO DAILY furosemide [Lasix] 20 mg tablet 20 mg PO DAILY Qty: 1 0RF lanreotide 60 mg/0.2 mL syringe 30 mg subcut Q4W Qty: 0.2 0RF Rx Instructions: next dose 11/17/21-contact 's office to coordinate levothyroxine 125 mcg tablet 125 mcg PO QDAY esomeprazole magnesium [Nexium] 40 mg capsule,delayed release(DR/EC) 40 mg PO QDAY simvastatin 20 mg tablet 20 mg PO QPM tamsulosin 0.4 mg capsule,extended release 24hr 0.4 mg PO QHS spironolactone 50 mg tablet See Rx Instructions .ROUTE .COMPLEX Qty: 60 11RF Dose Instruction: take 1 tablet by mouth twice a day Rx Instructions: take 1 tablet by mouth twice a day carvedilol [Coreg] 3.125 mg tablet 3.125 mg PO BID Qty: 180 3RF Rx Instructions: must administer with a meal/food Primary Care Provider: Yesica Dey Referrals: Yesica Dey PA [Primary Care Provider] - Disposition Disposition: Acute Care Hospital [facility]
[2022-06-02] MEDS: 0.9% Normal Saline 1,000 ML 1000 ML IV (11:22)
[2022-06-02 11:37] LABS: Absolute Lymphocyte Count 0.45 X10^3/uL (0.83-4.51); Absolute Neutrophil Count 4.6 X10^3/uL (2.0-7.7); Basophil# 0.02 X10^3/uL; Basophil% 0.4 % (0-1); Eosinophil# 0.05 X10^3/uL; Eosinophils% 0.9 % (0-5); Hematocrit 37.3 % (40-54); Hemoglobin 12.2 g/dL (13.0-16.5); Lymphocyte # 0.45 X10^3/ul (0.83-4.51); Mean Corp Hgb Conc 32.7 g/dL (32-36); Mean Corpuscular Hgb 30.8 pg (27.0-32.0); Mean Corpuscular Volume 94.2 fL (80-94); Mean Platelet Vol. 12.1 fl (6.2-12.0); Monocyte# 0.47 X10^3/uL; Monocyte% 8.4 % (0-10); NRBC Flagged by Analyzer 0 % (0-5); Neutrophil # 4.59 X10^3/uL (2.7-7.7); Neutrophil % 81.9 % (47-70); POSITIVE COUNT YES; POSITIVE DIFFERENTIAL YES; RBC Distribution Width CV 17.2 % (11.6-14.6); RBC Distribution Width SD 59.4 fl (35.1-43.9); Red Blood Count 3.96 M/mm3 (4.6-6.2); White Blood Count 5.6 K/mm3 (4.4-11.0)
[2022-06-02 11:50] LABS: AST(SGOT) 26 U/L (15-37); Alanine Aminotransfer ALT/SGPT 25 U/L (16-61); Albumin, Serum 2.8 g/dL (3.2-5.0); Alkaline Phosphatase 110 U/L (45-117); Anion Gap 6 (5-15); BUN 28 mg/dL (7-18); Bilirubin, Direct 0.57 mg/dL (0.00-0.30); Calcium,Total 9.1 mg/dL (8.5-10.1); Chloride 100 mmol/L (98-107); Creatinine, Serum 1.27 mg/dL (0.70-1.30); EST Glomerular Filtration Rate 59 mL/min (>60); Est Glom Filt Rate - Afr Amer 71 mL/min (>60); Estimated Creatinine Clearance 58.54 ml/min; Globulin 3.9 g/dL (2.2-4.2); Glucose 199 mg/dL (74-106); Lipase 72 U/L (73-393); Potassium 5.9 mmol/L (3.5-5.1); Protein, Total 6.7 g/dL (6.4-8.2); Sodium Level 131 mmol/L (136-145)
[2022-06-02 11:57] LABS: Lactic Acid 2.2 mmol/L (0.4-1.9)
[2022-06-02 11:59] LABS: International Normalized Ratio 1.8; Prothrombin Time (Protime)PT. 20.9 SECONDS (11.7-14.9)
--- NOTE | 2022-06-02 12:02 | NURSING ---
call from lab , lactic acid 2.2 , dr. tan made aware.
[2022-06-02 12:07] LABS: Differential Indicated SCAN CRITERIA MET; Platelet Count 78 K/mm3 (150-450)
[2022-06-02 12:08] LABS: Anisocytosis 1+; Platelet Estimate MOD DEC (ADEQ)
[2022-06-02 12:14] LABS: Bacteria 0 SEEN /hpf (None Seen); Mucous, Urine 0 SEEN /hpf (<or=2+); Red Blood Cells-Urine 0 SEEN /hpf (0-5); Squamous Epithelial Cells - UA 0 SEEN /hpf (0-5)
[2022-06-02 12:15] LABS: Color, Urine Yellow (Yellow); Glucose, Dipstick Normal (Normal); Ketone-Dipstick Negative (Negative); Leukocyte Esterase-Dipstick 25 /ul (Negative); Nitrite-Dipstick Negative (Negative); Occult Blood-Urine Negative /ul (Negative); Protein-Dipstick 30 mg/dl (Negative); Urine Bilirubin Dipstick Negative (Negative); Urine Clarity Clear (Clear); Urine Urobilinogen Normal (Normal); Urine pH 6.5 (5.0 - 8.0)
[2022-06-02 12:16] LABS: White Blood Cells 0-5 SEEN /hpf (0-5)
[2022-06-02 13:19] LABS: Potassium 5.5 mmol/L (3.5-5.1)
[2022-06-02] MEDS: Dextrose 50%-Water 25 GM/50 ML DISP.SYRIN IV (14:11)
[2022-06-02] MEDS: Sodium Polystyrene Sulfonate 15 GM/60 ML UDC PO (14:11)
[2022-06-02] MEDS: Insulin Lispro 10 UNIT in Syringe 0 ML 6 UNIT IV (14:11)
[2022-06-02 14:15] VITALS: BP 105/65; PULSE 90; RESP 18
--- NOTE | 2022-06-02 15:19 | PCM.HP.STD ---
[facility] - General General Date of Admission: 06/02/22 Date of Service: 06/02/22 Chief Complaint: Melena for last 2 days. HPI Narrative GLEN MACK, is a 71 M with history of alcoholic cirrhosis decompensated with esophageal varices, ascites, splenomegaly and portal hypertension came to ED for melena for 2 days. Patient had total 9 bowel movements, black tarry in color. I saw 1 black stool mixed with urine in ED. Patient systolic BP is 100 mmHg which is more than his normal baseline 80 mmHg. Patient gets weekly paracentesis along with albumin infusion on every Saturday.Patient does not have fever or chill. Denies change in mental status or encephalopathic symptoms. He is not feeling dizzy or lightheaded on sitting up. In ED, basic lab work shows hyperkalemia K5.5, elevated BUN, high INR 1.8, not on anticoagulant but H&H on baseline 12.2/37.3. Carton Stamper was consulted from ED. They discussed with Dr. Toscano and he advised admission Patient had last EGD in May discussed in assessment plan. [facility] Medical History Alcohol use Anemia Atrial fibrillation Back pain Bladder disease Blood disorder Cancer Cardiology follow-up encounter Diabetes Dietary restriction Essential (primary) hypertension Gastric reflux History of atrial fibrillation History of echocardiogram History of edema History of GI bleed History of stress test Hyperlipemia, mixed Hypertension Injury of back Injury of head and neck Loss of hearing Low iron Lung nodule Mesenteric vein thrombosis Mesenteric vein thrombosis Non-smoker Portal hypertension syndrome S/P abdominal paracentesis Shortness of breath on exertion Syncope Thyroid disease Type 2 diabetes mellitus without complications Wears glasses Home Medications esomeprazole magnesium 40 mg capsule,delayed release (Nexium) 40 mg PO QDAY REFLUX 03/15/17 [History Last Taken 06/01/22 09:00] levothyroxine 125 mcg tablet 125 mcg PO QDAY thyroid 03/15/17 [History Last Taken 06/01/22 06:00] tamsulosin 0.4 mg capsule 0.4 mg PO QHS bladder 03/15/17 [History Last Taken 06/01/22 22:00] dutasteride 0.5 mg capsule 0.5 mg PO QDAY overactive bladder 03/19/17 [History Last Taken 06/01/22 09:00] ferrous gluconate 324 mg (37.5 mg iron) tablet 324 mg PO BID anemia 03/19/17 [History Last Taken 06/01/22 22:00] empagliflozin 10 mg tablet (Jardiance) 10 mg PO DAILY diabetes 10/13/21 [History Last Taken 06/01/22 09:00] gabapentin 300 mg capsule 300 mg PO BID NERVE PAIN 05/30/22 [History Last Taken 06/01/22 22:00] metronidazole 500 mg tablet 500 mg PO BID antibiotic for amonia level 05/30/22 [History Last Taken 06/01/22 22:00] carvedilol 3.125 mg tablet (Coreg) 3.125 mg PO BID heart 06/02/22 [History Last Taken 06/01/22 22:00] furosemide 20 mg tablet (Lasix) 20 mg PO DAILY diuretic 06/02/22 [History Last Taken 06/01/22 09:00] lactulose 10 gram/15 mL oral solution See Rx Instructions .Route .COMPLEX amonia level 06/02/22 [History Last Taken 06/01/22 22:00] lanreotide 60 mg/0.2 mL subcutaneous syringe 30 mg subcut Q4W cancer 06/02/22 [History Last Taken 05/30/22 08:00] phenylephrine 0.25 %-pramoxine 1 %-glycerin-wh.petrolatum rectal cream (Preparation H Maximum Strength) 1 applic MI TID #26 grams 06/02/22 [Rx Last Taken Unknown] spironolactone 50 mg tablet 50 mg PO BID diuretic 06/02/22 [History Last Taken 06/01/22 22:00] Allergy/AdvReac Type Severity Reaction Status Date / Time heparin AdvReac Other Verified 06/02/22 10:22 Family History Mother Colon cancer Diabetes Heart disease Hypertension Father Lung cancer Surgical History History of colonoscopy History of esophagogastroduodenoscopy (EGD) History of Whipple procedure Hx of cataract surgery Hx of vasectomy Social History current occupational status: retired Smoking Status: Never smoker alcohol intake: former substance use type: does not use and marijuana caffeine: Yes Type: carbonated beverages and coffee what type of physical activity do you participate in: walking frequency: daily duration: 15-30 minutes/day seatbelt use: always do you feel safe at home: Yes ROS ROS Narrative Constitutional: Reports fatigue and weakness. No fever. HEENT: Reports systems reviewed and no addt'l complaints, except as documented Respiratory/Chest: Denies chest pain, shortness of breath at rest. Chronic shortness of breath on exertion. Gastrointestinal: Chronic abdominal pain after Whipple surgery. Rest as mentioned in HPI Genitourinary: Denies burning urination or new urinary tract symptoms Musculoskeletal: Chronic knees joint pain and limited range of motion. Patient has history of recurrent fall, imbalance and disequilibrium Neurologic: Denies seizure-like activity. No strokelike symptoms skin: No ulcer. No rash Endocrinology: Reports systems reviewed and no addt'l complaints, except as documented Hematologic/Lymphatic: Reports systems reviewed and no addt'l complaints, except as documented Rest 14 ROS are negative except as mentioned in HPI Vital Signs Vital Signs Vital Signs: 06/02/22 10:20 06/02/22 14:15 Temperature 96.9 F L Temperature Source Temporal Pulse Rate 103 H 90 Respiratory Rate 24 H 18 Blood Pressure 121/57 H 105/65 Blood Pressure Mean 78 78 Pulse Ox 98 Oxygen Delivery Method Room Air Weight Weight: 201 lb 14.4 oz Body Mass Index (BMI) 26.6 Physical Exam Narrative Physical exam General: Alert, Oriented x3, Cooperative HEENT: Mild yellowish jaundice. Atraumatic, PERRLA, EOMI, Normocephalic Oral: Oral mucosa dry. No Gingival or Mucosal Lesions/ Ulcerations Neck: Supple, No JVD, Negative Carotid Bruits Lungs: Air entry diminished in bilateral lung bases. No crepitation/rhonchi Cardiovascular: Sinus tachycardia, Normal S1, Normal S2, No murmurs Abdomen: Right horizontal surgical scar of Whipple surgery. Mild chronic tenderness. No rebound tenderness. Moderate ascites with fluid thrill : No renal angle tenderness. No suprapubic tenderness. Extremities: Mild bilateral ankle edema, Capillary Refill Less than 3 Seconds Skin: No rash. Chronic scar from bruises in the past Musculoskeletal: No Tenderness to Palpation of Joints or Extremities. ROM restricted at knee and hip joints. Muscle strength 4+/5 at major joints of lower extremities Neurological: Cranial nerves II-XII grossly intact, DTR 2+/4 and Symmetrical, Neuro grossly intact Psych/Mental Status: Flat affect. Results Lab / Micro Data Result Diagrams: 06/02/22 16:33 06/02/22 13:05 Labs: Laboratory Results - last 24 hr 06/02/22 11:19: WBC 5.6, RBC 3.96 L, Hgb 12.2 L, Hct 37.3 L, MCV 94.2 H, MCH 30.8, MCHC 32.7, RDW Std Deviation 59.4 H, RDW Coeff of Penny 17.2 H, Plt Count 78 L, MPV 12.1 H, Immature Gran % (Auto) 0.400, Neut % (Auto) 81.9 H, Lymph % (Auto) 8.0 L, Millard % (Auto) 8.4, Eos % (Auto) 0.9, Baso % (Auto) 0.4, Absolute Neuts (auto) 4.6, Absolute Lymphs (auto) 0.45 L, Nucleated RBC % 0, Platelet Estimate MOD DEC, Anisocytosis 1+ 06/02/22 11:19: Sodium 131 L, Potassium 5.9 H, Chloride 100, Carbon Dioxide 25.0, Anion Gap 6, BUN 28 H, Creatinine 1.27, Estim Creat Clear Calc 58.54, Est GFR (MDRD) Af Amer 71, Est GFR (MDRD) Non-Af 59 L, BUN/Creatinine Ratio 22.0 H, Glucose 199 H, Calcium 9.1, Total Bilirubin 1.70 H, Direct Bilirubin 0.57 H, AST 26, ALT 25, Alkaline Phosphatase 110, Total Protein 6.7, Albumin 2.8 L, Globulin 3.9, Lipase 72 L 06/02/22 11:19: Lactic Acid 2.2 H* 06/02/22 11:19: Ammonia 38.0 H 06/02/22 11:45: PT 20.9 H, INR 1.8 06/02/22 12:10: Urine Color Yellow, Urine Clarity Clear, Urine pH 6.5, Ur Specific Bicknell 1.010, Urine Protein 30 H, Urine Glucose (UA) Normal, Urine Ketones Negative, Urine Occult Blood Negative, Urine Nitrite Negative, Urine Bilirubin Negative, Urine Urobilinogen Normal, Ur Leukocyte Esterase 25 H, Urine RBC 0 SEEN, Urine WBC 0-5 SEEN, Ur Squamous Epith Cells 0 SEEN, Urine Bacteria 0 SEEN, Urine Mucus 0 SEEN 06/02/22 13:05: Potassium 5.5 H Micro: Microbiology 06/02/22 11:19 Stool Stool Occult Blood (COLEMAN) - Final Occult Blood Positive Assessment & Plan Assessment/Plan (1) Acute upper GI bleed: PLAN: Plan 1. Acute upper GI bleed most likely due to variceal bleed/portal hypertension with history of decompensated alcoholic cirrhosis: Patient is being admitted in stepdown unit in PCU. Discussed with soils analyst. IV fluid normal saline 150 mill per hour for 1 L and then reevaluate. Avoid fluid overload. Monitor H&H Q6 hourly. Type and crossmatch. Patient will need EGD. Last EGD on 05/22/2021 shows nonbleeding grade 3 esophageal varices, banded type II GOV without bleed, patent Billroth II gastrojejunostomy, multiple oozing jejunal ulcers with clip placed and treated with APC. Single endoscopy during EGD shows 3 AVM in the small bowel no obvious sign of bleeding. Patient is started on Protonix 80 mg IV stat and then 40 mg every 12, octreotide drip, albumin infusion and IV ceftriaxone. Stool for occult blood positive in ED 2. Decompensated alcoholic cirrhosis with coagulopathy, thrombocytopenia and ascites with weekly paracentesis and albumin infusion and changes of portal hypertension: Last CT abdomen pelvis in September 2021 shows cirrhotic changes of liver, evidence of cavernous transformation of portal vein with variceal formation in splenic hilum, diffuse ascites, splenomegaly status postcholecystectomy, small fluid-filled hernia, and diffuse atrophy of pancreas. 3. Hyperkalemia on CKD stage IIIa and hyponatremia: Patient BUN/creatinine 28/1.27. BUN is elevated probably due to upper GI bleed. Hyperkalemia probably also due to upper GI bleed and hyponatremia. Restricted IV fluid transfusion. Patient had Kayexalate in ED. Repeat BMP. 4. Type 2 diabetes mellitus: Glucose is 199. Accu-Chek every 6 hourly cover with Humalog sliding scale. Clear liquid as patient is not vomiting 5. Chronic iron deficiency anemia with chronic severe protein caloric malnutrition from cirrhosis: Patient has moderate muscle atrophy of extremities and loss of subcutaneous fat on face. Hold oral iron while patient in hospital. 6. Paroxysmal A-fib: Patient was on warfarin before but it was discontinued because of severe GI bleed. 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 Currently patient is in sinus rhythm. Twelve-lead EKG done in the ED. Twelve-lead EKG shows normal sinus rhythm, low voltage QRS, LAFB nonspecific QR changes at 90 bpm. QTc 459 ms. 8. History of frequent fall: Patient had 2 fall in last 5 months. As per daughters in ED, he has imbalance and disequilibrium. PT and OT ordered. Living will/advanced directive/end of life care: Patient does have living will or advanced directive. His daughter present in ED he is power of traffic law attorney for health. After discussion of benefits/risks procedures involved with full code, DNR CC arrest and DNR CC, the patient opted for full code but does not want to be on life support/ventilator for prolonged time if he deems irreversible or vegetable. Patient does want artificial life support including intubation, tube feed, ventilator and/chest compression, central venous catheter, vasopressor and DC shock if needed Total time spent in [id number] encounter in discussion of advanced directive 17 minutes. Microbiology Past 72 Hours 06/02/22 11:19 Stool Stool Occult Blood (COLEMAN) - Final Occult Blood Positive Laboratory Results 06/02/22 11:19: WBC 5.6, RBC 3.96 L, Hgb 12.2 L, Hct 37.3 L, MCV 94.2 H, MCH 30.8, MCHC 32.7, RDW Std Deviation 59.4 H, RDW Coeff of Penny 17.2 H, Plt Count 78 L, MPV 12.1 H, Immature Gran % (Auto) 0.400, Neut % (Auto) 81.9 H, Lymph % (Auto) 8.0 L, Millard % (Auto) 8.4, Eos % (Auto) 0.9, Baso % (Auto) 0.4, Absolute Neuts (auto) 4.6, Absolute Lymphs (auto) 0.45 L, Nucleated RBC % 0, Platelet Estimate MOD DEC, Anisocytosis 1+ 06/02/22 11:19: Sodium 131 L, Potassium 5.9 H, Chloride 100, Carbon Dioxide 25.0, Anion Gap 6, BUN 28 H, Creatinine 1.27, Estim Creat Clear Calc 58.54, Est GFR (MDRD) Af Amer 71, Est GFR (MDRD) Non-Af 59 L, BUN/Creatinine Ratio 22.0 H, Glucose 199 H, Calcium 9.1, Total Bilirubin 1.70 H, Direct Bilirubin 0.57 H, AST 26, ALT 25, Alkaline Phosphatase 110, Total Protein 6.7, Albumin 2.8 L, Globulin 3.9, Lipase 72 L 06/02/22 11:19: Lactic Acid 2.2 H* 06/02/22 11:19: Ammonia 38.0 H 06/02/22 11:45: PT 20.9 H, INR 1.8 06/02/22 12:10: Urine Color Yellow, Urine Clarity Clear, Urine pH 6.5, Ur Specific Bicknell 1.010, Urine Protein 30 H, Urine Glucose (UA) Normal, Urine Ketones Negative, Urine Occult Blood Negative, Urine Nitrite Negative, Urine Bilirubin Negative, Urine Urobilinogen Normal, Ur Leukocyte Esterase 25 H, Urine RBC 0 SEEN, Urine WBC 0-5 SEEN, Ur Squamous Epith Cells 0 SEEN, Urine Bacteria 0 SEEN, Urine Mucus 0 SEEN 06/02/22 13:05: Potassium 5.5 H Charges/Coding Visit Charges Inpatient E&M: 92727 Init Hosp L3 Procedures Hospitalists Procedures: 78500 Advncd Care Plan 30 Min
[2022-06-02 15:24] LABS: Reflex Lactate? Y
[2022-06-02] MEDS: 0.9% Normal Saline 1,000 ML 150 ML IV ×2 (15:38→22:09)
[2022-06-02 15:48] VITALS: BP 100/63; PULSE 65; RESP 18; TEMP 36.3; O2SAT 93
--- NOTE | 2022-06-02 15:48 | EKG12_ITS ---
Test Reason : repeat Blood Pressure : / mmHG Vent. Rate : 103 BPM Atrial Rate : 103 BPM P-R Int : 192 ms QRS Dur : 096 ms QT Int : 362 ms P-R-T Axes : 016 -51 022 degrees QTc Int : 474 ms Sinus tachycardia Left anterior fascicular block Possible Lateral infarct , age undetermined Abnormal ECG When compared with ECG of 02-JUN-2022 11:01, MANUAL COMPARISON REQUIRED, DATA IS UNCONFIRMED Confirmed by VILMA CATHERINE, HUNTER ([id number]), makeup editor LIONEL KNUTSON ([id number]) on 06/05/2022 10:06:55 AM Referred By: Joel Confirmed By:HUNTER ESPARZA MD
[2022-06-02 16:13] LABS: Magnesium 2.1 mg/dL (1.6-2.6); Phosphorus 2.6 mg/dL (2.5-4.9)
[2022-06-02 16:14] LABS: Lactic Acid 3.2 mmol/L (0.4-1.9)
[2022-06-02 16:19] VITALS: BMI 26.6
[2022-06-02 16:44] LABS: Hemoglobin 11.6 g/dL (13.0-16.5)
[2022-06-02 17:05] VITALS: BP 111/66; PULSE 104; RESP 14; TEMP 36.9; O2SAT 97
[2022-06-02] MEDS: Ceftriaxone 1 GM/50 ML BAG IV (17:05)
[2022-06-02] MEDS: Albumin Human 25% (100 mL) 25 GM/100 ML BAG IV (17:51)
[2022-06-02] MEDS: 0.9% Saline Lock 10 ML Syringe IV (17:54)
--- NOTE | 2022-06-02 20:09 | EX.PCM.CON.G ---
HPI Consult Data Date of Consult: 06/02/22 HPI Narrative Reason for Consultation: GI bleed HPI Narrative: GLEN MACK, is a 71 M who presents with melanotic stool. 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 He undergoes routine paracentesis and infusion to assist with liver cirrhosis. Patient presents to the emergency department with 1 day of multiple dark tarry stools as well as darrick red blood.? Per the daughter who is his main care provider, he is more weak today, more dizzy.? Patient did not take any of his morning medications.? Patient is currently on any blood thinners.? Patient states he does have history of hemorrhoids.? Patient states that he is concerned about the amount of blood that was in the toilet.? He denies any recent fever or chills.? Patient does not drink alcohol or smoke cigarettes at this time.? Patient does receive paracentesis every Saturday.? He did receive a paracentesis this Saturday and had 5 L out. WBC 5.6, RBC 3.96 L, Hgb 12.2 L, Hct 37.3 L, MCV 94.2 H, MCH 30.8, MCHC 32.7, RDW Std Deviation 59.4 H, RDW Coeff of Penny 17.2 H, Plt Count 78 L [facility] Medical History Alcohol use Anemia Atrial fibrillation Back pain Bladder disease Blood disorder Cancer Cardiology follow-up encounter Diabetes Dietary restriction Essential (primary) hypertension Gastric reflux History of atrial fibrillation History of echocardiogram History of edema History of GI bleed History of stress test Hyperlipemia, mixed Hypertension Injury of back Injury of head and neck Loss of hearing Low iron Lung nodule Mesenteric vein thrombosis Mesenteric vein thrombosis Non-smoker Portal hypertension syndrome S/P abdominal paracentesis Shortness of breath on exertion Syncope Thyroid disease Type 2 diabetes mellitus without complications Wears glasses Home Medications esomeprazole magnesium 40 mg capsule,delayed release (Nexium) 40 mg PO QDAY REFLUX 03/15/17 [History Last Taken 06/01/22 09:00] levothyroxine 125 mcg tablet 125 mcg PO QDAY thyroid 03/15/17 [History Last Taken 06/01/22 06:00] tamsulosin 0.4 mg capsule 0.4 mg PO QHS bladder 03/15/17 [History Last Taken 06/01/22 22:00] dutasteride 0.5 mg capsule 0.5 mg PO QDAY overactive bladder 03/19/17 [History Last Taken 06/01/22 09:00] ferrous gluconate 324 mg (37.5 mg iron) tablet 324 mg PO BID anemia 03/19/17 [History Last Taken 06/01/22 22:00] empagliflozin 10 mg tablet (Jardiance) 10 mg PO DAILY diabetes 10/13/21 [History Last Taken 06/01/22 09:00] gabapentin 300 mg capsule 300 mg PO BID NERVE PAIN 05/30/22 [History Last Taken 06/01/22 22:00] metronidazole 500 mg tablet 500 mg PO BID antibiotic for amonia level 05/30/22 [History Last Taken 06/01/22 22:00] carvedilol 3.125 mg tablet (Coreg) 3.125 mg PO BID heart 06/02/22 [History Last Taken 06/01/22 22:00] furosemide 20 mg tablet (Lasix) 20 mg PO DAILY diuretic 06/02/22 [History Last Taken 06/01/22 09:00] lactulose 10 gram/15 mL oral solution See Rx Instructions .Route .COMPLEX amonia level 06/02/22 [History Last Taken 06/01/22 22:00] lanreotide 60 mg/0.2 mL subcutaneous syringe 30 mg subcut Q4W cancer 06/02/22 [History Last Taken 05/30/22 08:00] phenylephrine 0.25 %-pramoxine 1 %-glycerin-wh.petrolatum rectal cream (Preparation H Maximum Strength) 1 applic UT TID #26 grams 06/02/22 [Rx Last Taken Unknown] spironolactone 50 mg tablet 50 mg PO BID diuretic 06/02/22 [History Last Taken 06/01/22 22:00] Allergy/AdvReac Type Severity Reaction Status Date / Time heparin AdvReac Other Verified 06/02/22 10:22 Family History Mother Colon cancer Diabetes Heart disease Hypertension Father Lung cancer Surgical History History of colonoscopy History of esophagogastroduodenoscopy (EGD) History of Whipple procedure Hx of cataract surgery Hx of vasectomy Social History current occupational status: retired Smoking Status: Never smoker alcohol intake: former substance use type: does not use and marijuana caffeine: Yes Type: carbonated beverages and coffee what type of physical activity do you participate in: walking frequency: daily duration: 15-30 minutes/day seatbelt use: always do you feel safe at home: Yes ROS ROS Narrative Constitutional: Reports fatigue and weakness. No fever. HEENT: Reports systems reviewed and no addt'l complaints, except as documented Respiratory/Chest: Denies chest pain, shortness of breath at rest. Chronic shortness of breath on exertion. Gastrointestinal: Chronic abdominal pain after Whipple surgery. Rest as mentioned in HPI Genitourinary: Denies burning urination or new urinary tract symptoms Musculoskeletal: Chronic knees joint pain and limited range of motion. Patient has history of recurrent fall, imbalance and disequilibrium Neurologic: Denies seizure-like activity. No strokelike symptoms skin: No ulcer. No rash Endocrinology: Reports systems reviewed and no addt'l complaints, except as documented Hematologic/Lymphatic: Reports systems reviewed and no addt'l complaints, except as documented Rest 14 ROS are negative except as mentioned in HPI Physical Exam Narrative Physical exam General: Alert, Oriented x3, Cooperative HEENT: Mild yellowish jaundice. Atraumatic, PERRLA, EOMI, Normocephalic Oral: Oral mucosa dry. No Gingival or Mucosal Lesions/ Ulcerations Neck: Supple, No JVD, Negative Carotid Bruits Lungs: Air entry diminished in bilateral lung bases. No crepitation/rhonchi Cardiovascular: Sinus tachycardia, Normal S1, Normal S2, No murmurs Abdomen: Right horizontal surgical scar of Whipple surgery. Mild chronic tenderness. No rebound tenderness. Moderate ascites with fluid thrill : No renal angle tenderness. No suprapubic tenderness. Extremities: Mild bilateral ankle edema, Capillary Refill Less than 3 Seconds Skin: No rash. Chronic scar from bruises in the past Musculoskeletal: No Tenderness to Palpation of Joints or Extremities. ROM restricted at knee and hip joints. Muscle strength 4+/5 at major joints of lower extremities Neurological: Cranial nerves II-XII grossly intact, DTR 2+/4 and Symmetrical, Neuro grossly intact Psych/Mental Status: Flat affect. Lab / Micro Data Result Diagrams: 06/02/22 16:33 06/02/22 13:05 Labs: Laboratory Results - last 24 hr 06/02/22 11:19: WBC 5.6, RBC 3.96 L, Hgb 12.2 L, Hct 37.3 L, MCV 94.2 H, MCH 30.8, MCHC 32.7, RDW Std Deviation 59.4 H, RDW Coeff of Penny 17.2 H, Plt Count 78 L, MPV 12.1 H, Immature Gran % (Auto) 0.400, Neut % (Auto) 81.9 H, Lymph % (Auto) 8.0 L, Orange % (Auto) 8.4, Eos % (Auto) 0.9, Baso % (Auto) 0.4, Absolute Neuts (auto) 4.6, Absolute Lymphs (auto) 0.45 L, Nucleated RBC % 0, Platelet Estimate MOD DEC, Anisocytosis 1+ 06/02/22 11:19: Sodium 131 L, Potassium 5.9 H, Chloride 100, Carbon Dioxide 25.0, Anion Gap 6, BUN 28 H, Creatinine 1.27, Estim Creat Clear Calc 58.54, Est GFR (MDRD) Af Amer 71, Est GFR (MDRD) Non-Af 59 L, BUN/Creatinine Ratio 22.0 H, Glucose 199 H, Calcium 9.1, Total Bilirubin 1.70 H, Direct Bilirubin 0.57 H, AST 26, ALT 25, Alkaline Phosphatase 110, Total Protein 6.7, Albumin 2.8 L, Globulin 3.9, Lipase 72 L 06/02/22 11:19: Lactic Acid 2.2 H* 06/02/22 11:19: Ammonia 38.0 H 06/02/22 11:19: Phosphorus 2.6, Magnesium 2.1 06/02/22 11:45: PT 20.9 H, INR 1.8 06/02/22 12:10: Urine Color Yellow, Urine Clarity Clear, Urine pH 6.5, Ur Specific Roulette 1.010, Urine Protein 30 H, Urine Glucose (UA) Normal, Urine Ketones Negative, Urine Occult Blood Negative, Urine Nitrite Negative, Urine Bilirubin Negative, Urine Urobilinogen Normal, Ur Leukocyte Esterase 25 H, Urine RBC 0 SEEN, Urine WBC 0-5 SEEN, Ur Squamous Epith Cells 0 SEEN, Urine Bacteria 0 SEEN, Urine Mucus 0 SEEN 06/02/22 13:05: Potassium 5.5 H 06/02/22 15:30: Lactic Acid 3.2 H* 06/02/22 16:33: Hgb 11.6 L, Hct 35.0 L Micro: Microbiology 06/02/22 11:19 Stool Stool Occult Blood ([facility]LEMAN) - Final Occult Blood Positive Assessment & Plan Assessment/Plan (1) Acute hepatic encephalopathy: PLAN: Plan 1. Acute GI bleed secondary to liver cirrhosis, portal hypertension, esophageal varices, h/o mesenteric vein thrombosis Patient with ascites on exam. Been getting twice a week outpatient paracentesis. Recommend n.p.o., octreotide drip, Protonix drip. H&H every 6 hours Recently started on lactulose, will continue same, repeat ammonia in the morning 2. WILFRIDO on CKD stage 3, baseline creatinine is around 1, admitted creatinine 1.52 Will hold Lasix, Aldactone; resume in am if better 3. History of mesenteric vein thrombosis, patient history of pancreatic CA status post partial Whipple procedure off Coumadin, INR is 1.8, continue to trend 4. Hypertension, controlled, continue carvedilol Spironolactone on hold 5. Type II DM, on metformin, metformin on hold, continue insulin sliding scale 6. Iron deficiency anemia, continue on iron pills 7. BPH, continue on Proscar, Flomax 8. Hypothyroidism, continue on synthroid Charges/Coding Visit Charges Inpatient E&M: 83540 Init Hosp L3
[2022-06-02 20:19] LABS: Anion Gap 12 (5-15); BUN 33 mg/dL (7-18); BUN/Creat Ratio 22.6 RATIO (10-20); Calcium,Total 8.3 mg/dL (8.5-10.1); Chloride 99 mmol/L (98-107); Creatinine, Serum 1.46 mg/dL (0.70-1.30); EST Glomerular Filtration Rate 50 mL/min (>60); Est Glom Filt Rate - Afr Amer 61 mL/min (>60); Estimated Creatinine Clearance 50.93 ml/min; Glucose 439 mg/dL (74-106); Sodium Level 130 mmol/L (136-145)
[2022-06-02] MEDS: Insulin Lispro 100 UNIT/ML INSULN.PEN SC (21:19)
[2022-06-02] MEDS: MELATONIN 3 MG TABLET PO (21:20)
[2022-06-02 21:54] VITALS: BP 115/60; PULSE 95; RESP 18; TEMP 36.7; O2SAT 97
[2022-06-02 22:26] LABS: Bedside Glucose 288 mg/dL (74-106)
[2022-06-02 22:29] VITALS: O2SAT 96
[2022-06-02 22:33] LABS: Hematocrit 31.6 % (40-54); Hemoglobin 10.5 g/dL (13.0-16.5)
[2022-06-02 22:44] VITALS: BMI 26.6
[2022-06-03] VITALS (10 sets, daily range): BP systolic 96–117; BP diastolic 53–72; PULSE 83–95; RESP 15–18; TEMP 36.5–36.8; O2SAT 95–98; BMI 26.6
[2022-06-03 03:50] LABS: Bedside Glucose 280 mg/dL (74-106)
[2022-06-03 04:38] LABS: Absolute Lymphocyte Count 0.77 X10^3/uL (0.83-4.51); Basophil# 0.02 X10^3/uL; Basophil% 0.4 % (0-1); Eosinophils% 1.9 % (0-5); Hematocrit 31.4 % (40-54); Hemoglobin 10.2 g/dL (13.0-16.5); Lymphocyte # 0.77 X10^3/ul (0.83-4.51); Lymphocyte % 14.3 % (19-41); Mean Corp Hgb Conc 32.5 g/dL (32-36); Mean Corpuscular Hgb 31.1 pg (27.0-32.0); Mean Corpuscular Volume 95.7 fL (80-94); Mean Platelet Vol. 12.2 fl (6.2-12.0); Monocyte# 0.52 X10^3/uL; Monocyte% 9.6 % (0-10); NRBC Flagged by Analyzer 0 % (0-5); Neutrophil # 3.95 X10^3/uL (2.7-7.7); Neutrophil % 73.2 % (47-70); POSITIVE COUNT YES; Platelet Count 72 K/mm3 (150-450); RBC Distribution Width CV 17.1 % (11.6-14.6); RBC Distribution Width SD 59.8 fl (35.1-43.9); Red Blood Count 3.28 M/mm3 (4.6-6.2); White Blood Count 5.4 K/mm3 (4.4-11.0)
[2022-06-03 04:47] LABS: Prothrombin Time (Protime)PT. 22.1 SECONDS (11.7-14.9)
[2022-06-03 04:48] LABS: Partial Thromboplast Time 30.6 Seconds (24.1-36.2)
[2022-06-03 05:28] LABS: ALB/GLOB Ratio 0.8 RATIO (0.9-2.4); AST(SGOT) 20 U/L (15-37); Alanine Aminotransfer ALT/SGPT 18 U/L (16-61); Albumin, Serum 2.7 g/dL (3.2-5.0); Alkaline Phosphatase 82 U/L (45-117); Anion Gap 6 (5-15); BUN 34 mg/dL (7-18); BUN/Creat Ratio 30.9 RATIO (10-20); Calcium,Total 8.4 mg/dL (8.5-10.1); Chloride 103 mmol/L (98-107); EST Glomerular Filtration Rate 70 mL/min (>60); Est Glom Filt Rate - Afr Amer 84 mL/min (>60); Estimated Creatinine Clearance 67.59 ml/min; Globulin 3.3 g/dL (2.2-4.2); Glucose 192 mg/dL (74-106); Potassium 4.4 mmol/L (3.5-5.1); Sodium Level 133 mmol/L (136-145); Thyroid Stim Hormone (TSH) 0.63 uIU/mL (0.358-3.74)
[2022-06-03 07:20] LABS: Hemoglobin A1c 8.2 % (3.8-5.6)
--- NOTE | 2022-06-03 07:40 | PN.HOSP_ITS ---
Reason for Visit Reason for Visit: Diagnoses Acute and subacute hepatic failure without coma (06/02/22) Gastrointestinal hemorrhage, unspecified (06/02/22) Subjective Subjective Back from endoscopy. No further bleeding. Objective Data Objective Data Vital Signs: Vital Signs Temp Pulse Resp BP Pulse Ox O2 Del Method 36.6 C 86 18 115/68 96 Room Air 06/03/22 03:00 06/03/22 03:00 06/03/22 03:00 06/03/22 03:00 06/03/22 03:00 06/03/22 03:00 Oxygen Delivery Method Room Air Weight: 91.6 kg Body Mass Index (BMI) 26.6 Intake & Output: Intake and Output for Last 24 Hours 06/01/22 06/02/22 06/03/22 23:59 23:59 23:59 Intake Total 2740.5 / 2740.5 945 / 945 Balance 2740.5 / 2740.5 945 / 945 Lab / Micro Data Result Diagrams: 06/03/22 04:20 06/03/22 04:20 Labs: Laboratory Results - last 24 hr 06/02/22 11:19: WBC 5.6, RBC 3.96 L, Hgb 12.2 L, Hct 37.3 L, MCV 94.2 H, MCH 30.8, MCHC 32.7, RDW Std Deviation 59.4 H, RDW Coeff of Penny 17.2 H, Plt Count 78 L, MPV 12.1 H, Immature Gran % (Auto) 0.400, Neut % (Auto) 81.9 H, Lymph % ( Auto) 8.0 L, Harris % (Auto) 8.4, Eos % (Auto) 0.9, Baso % (Auto) 0.4, Absolute Neuts (auto) 4.6, Absolute Lymphs (auto) 0.45 L, Nucleated RBC % 0, Platelet Estimate MOD DEC, Anisocytosis 1+ 06/02/22 11:19: Sodium 131 L, Potassium 5.9 H, Chloride 100, Carbon Dioxide 25.0, Anion Gap 6, BUN 28 H, Creatinine 1.27, Estim Creat Clear Calc 58.54, Est GFR (MDRD) Af Amer 71, Est GFR (MDRD) Non-Af 59 L, BUN/Creatinine Ratio 22.0 H, Glucose 199 H, Calcium 9.1, Total Bilirubin 1.70 H, Direct Bilirubin 0.57 H, AST 26, ALT 25, Alkaline Phosphatase 110, Total Protein 6.7, Albumin 2.8 L, Globulin 3.9, Lipase 72 L 06/02/22 11:19: Lactic Acid 2.2 H* 06/02/22 11:19: Ammonia 38.0 H 06/02/22 11:19: Phosphorus 2.6, Magnesium 2.1 06/02/22 11:45: PT 20.9 H, INR 1.8 06/02/22 12:10: Urine Color Yellow, Urine Clarity Clear, Urine pH 6.5, Ur Spec ific [place] 1.010, Urine Protein 30 H, Urine Glucose (UA) Normal, Urine Ketones Negative, Urine Occult Blood Negative, Urine Nitrite Negative, Urine Bilirubin Negative, Urine Urobilinogen Normal, Ur Leukocyte Esterase 25 H, Urine RBC 0 SEEN, Urine WBC 0-5 SEEN, Ur Squamous Epith Cells 0 SEEN, Urine Bacteria 0 SEEN, Urine Mucus 0 SEEN 06/02/22 13:05: Potassium 5.5 H 06/02/22 15:30: Lactic Acid 3.2 H* 06/02/22 16:33: Hgb 11.6 L, Hct 35.0 L 06/02/22 19:51: Sodium 130 L, Potassium 5.0, Chloride 99, Carbon Dioxide 19.0 L, Anion Gap 12, BUN 33 H, Creatinine 1.46 H, Estim Creat Clear Calc 50.93, Est GFR (MDRD) Af Amer 61, Est GFR (MDRD) Non-Af 50 L, BUN/Creatinine Ratio 22.6 H, Glucose 439 H, Calcium 8.3 L 06/02/22 21:18: POC Glucose 288 H 06/02/22 22:27: Hgb 10.5 L, Hct 31.6 L 06/03/22 02:52: POC Glucose 280 H 06/03/22 04:20: WBC 5.4, RBC 3.28 L, Hgb 10.2 L, Hct 31.4 L, MCV 95.7 H, MCH 31.1, MCHC 32.5, RDW Std Deviation 59.8 H, RDW Coeff of Penny 17.1 H, Plt Count 72 L, MPV 12.2 H, Immature Gran % (Auto) 0.600, Neut % (Auto) 73.2 H, Lymph % (Auto) 14.3 L, Harris % (Auto) 9.6, Eos % (Auto) 1.9, Baso % (Auto) 0.4, Absolute Neuts (auto) 4.0, Absolute Lymphs (auto) 0.77 L, Nucleated RBC % 0 06/03/22 04:20: PT 22.1 H, INR 2.0, APTT 30.6 06/03/22 04:20: Sodium 133 L, Potassium 4.4, Chloride 103, Carbon Dioxide 24.0, Anion Gap 6, BUN 34 H, Creatinine 1.10, Estim Creat Clear Calc 67.59, Est GFR (MDRD) Af Amer 84, Est GFR (MDRD) Non-Af 70, BUN/Creatinine Ratio 30.9 H, Glucose 192 H, Calcium 8.4 L, Total Bilirubin 1.90 H, AST 20, ALT 18, Alkaline Phosphatase 82, Total Protein 6.0 L, Albumin 2.7 L, Globulin 3.3, Albumin/Globulin Ratio 0.8 L, TSH 0.63 06/03/22 04:20: Hemoglobin A1c 8.2 H 06/03/22 04:20: Blood Type O POSITIVE, Antibody Screen NEGATIVE Micro: Microbiology 06/02/22 11:19 Stool Stool Occult Blood (COLEMAN) - Final Occult Blood Positive Physical Exam Const alert and no apparent distress HEENT head/scalp atraumatic and moist oral mucous membranes Resp normal respiratory effort, no retractions, no use of accessory muscles and clear to auscultation bilaterally Cardio regular rate, regular rhythm, S1 normal heart sound and S2 normal heart sound GI normal to inspection, nondistended, normoactive bowel sounds, soft to palpation, non-tender and non-distended Extremity normal to inspection Assessment & Plan Assessment/Plan (1) Acute upper GI bleed: PLAN: Acute upper GI bleed most likely due to variceal bleed/portal hypertension with history of decompensated alcoholic cirrhosis: EGD 06/03: Showed grade 3 and large (greater than 5 mm) esophageal varices. Incompletely eradicated. Banded. 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 Portal hypertensive gastropathy, treated with heater probe. 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 (EGD on 05/22/2021 shows nonbleeding grade 3 esophageal varices, banded type II GOV without bleed, patent Billroth II gastrojejunostomy, multiple oozing jejunal ulcers with clip placed and treated with APC. Single endoscopy during EGD shows 3 AVM in the small bowel no obvious sign of bleeding.) Patient is started on Protonix 80 mg IV stat and then 40 mg every 12, octreotide drip, albumin infusion and IV ceftriaxone. Discussed with Dr. Toscano, recommend another 24 hours of the octreotide infusion. (2) Cirrhosis of liver: PLAN: Decompensated alcoholic cirrhosis with coagulopathy, thrombocytopenia and ascites with weekly paracentesis and albumin infusion and changes of portal hypertension: Last CT abdomen pelvis in September 2021 shows cirrhotic changes of liver, evidence of cavernous transformation of portal vein with variceal formation in splenic hilum, diffuse ascites, splenomegaly status postcholecystectomy, small fluid-filled hernia, and diffuse atrophy of pancreas. (3) Hyperkalemia: PLAN: Resolved Hyperkalemia on CKD stage IIIa and hyponatremia: Patient BUN/creatinine 28/1.27. BUN is elevated probably due to upper GI bleed. Hyperkalemia probably also due to upper GI bleed and hyponatremia. Restricted IV fluid transfusion. Patient had Kayexalate in ED. PLAN: Plan Chronic conditions: * Type 2 diabetes mellitus: Glucose is 199. Accu-Chek every 6 hourly cover with Humalog sliding scale. Clear liquid as patient is not vomiting * Chronic iron deficiency anemia with chronic severe protein caloric malnutrition from cirrhosis: Patient has moderate muscle atrophy of extremities and loss of subcutaneous fat on face. Hold oral iron while patient in hospital. * Paroxysmal A-fib: Patient was on warfarin before but it was discontinued because of severe GI bleed. 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 Currently patient is in sinus rhythm. Twelve-lead EKG done in the ED. Twelve-lead EKG shows normal sinus rhythm, low voltage QRS, LAFB nonspecific QR changes at 90 bpm. QTc 45 ms. * History of frequent fall: Patient had 2 fall in last 5 months. As per daughters in ED, he has imbalance and disequilibrium. PT and OT ordered. Code status: Full. Discussed with family at bedside. Charges/Coding Visit Charges Inpatient E&M: 74884 Subs Hosp L2
[2022-06-03] MEDS: 0.9% Saline Lock 10 ML Syringe IV ×2 (08:26→10:09)
--- NOTE | 2022-06-03 08:32 | NURSING ---
Report called to OR.
--- NOTE | 2022-06-03 09:15 | OP.CCLET_ITS ---
06/03/2022 Yesica Dey Re : Upper GI endoscopy procedure for Gómez Alaniz Trishar Tiburcio This procedure was performed on Friday, June 03, 2022. My impressions and recommendations are as follows: Impressions : - Bleeding grade III and large (> 5 mm) esophageal varices. Incompletely eradicated. Banded. - Type 2 gastroesophageal varices (GOV2, esophageal varices which extend along the fundus), without bleeding. - Portal hypertensive gastropathy. Treated with a heater probe. - Two bleeding angiodysplastic lesions in the duodenum. Treated with a monopolar probe. - No specimens collected. Recommendations : - [facility]. Continue octreotide and PPI drip for 24 hours. Continue liquid diet. - Continue present medications. My findings are described in the full procedure note, which is enclosed. If I can be of further assistance, please feel free to contact me at . Sincerely, Trav Toscano, 06/03/2022 9:14:23 AM This report has been signed electronically.
--- NOTE | 2022-06-03 09:15 | OP.EGD_ITS ---
Patient Name: Gómez Alaniz Procedure Date: 06/03/2022 8:28 AM Date of : 1950 Age: 71 Procedure: Upper GI endoscopy Indications: Cirrhosis with UGI bleeding suspected esophageal varices , For therapy of esophageal varices with bleeding Providers: Trav Toscano DO Medicines: Monitored Anesthesia Care Patient Profile: This is a 71 year old male. Refer to note in patient chart for documentation of history and physical. Patient has symptoms of acute vomiting. He is status post EGD for treatment of bleeding one year ago. Complications: No immediate complications. Procedure: Pre-Anesthesia Assessment: - Prior to the procedure, a History and Physical was performed, and patient medications and allergies were reviewed. The patient is competent. The risks and benefits of the procedure and the sedation options and risks were discussed with the patient. All questions were answered and informed consent was obtained. Patient identification and proposed procedure were verified by the physician in the pre-procedure area. Mental Status Examination: alert and oriented. Airway Examination: normal oropharyngeal airway and neck mobility. Respiratory Examination: clear to auscultation. CV Examination: normal. Prophylactic Antibiotics: The patient does not require prophylactic antibiotics. Prior Anticoagulants: The patient has taken no previous anticoagulant or antiplatelet agents. ASA Grade Assessment: III - A patient with severe systemic disease. After reviewing the risks and benefits, the patient was deemed in satisfactory condition to undergo the procedure. The anesthesia plan was to use monitored anesthesia care (MAC). Immediately prior to administration of medications, the patient was re-assessed for adequacy to receive sedatives. The heart rate, respiratory rate, oxygen saturations, blood pressure, adequacy of pulmonary ventilation, and response to care were monitored throughout the procedure. The physical status of the patient was re-assessed after the procedure. After obtaining informed consent, the endoscope was passed under direct vision. Throughout the procedure, the patient's blood pressure, pulse, and oxygen saturations were monitored continuously. The gastroscope was introduced through the mouth, and advanced to the third part of duodenum. The upper GI endoscopy was accomplished without difficulty. The patient tolerated the procedure well. Scope In: 8:49:59 AM Scope Out: 9:02:28 AM Total Procedure Duration Time 0 hours 12 minutes 29 seconds Findings: Five columns of oozing grade III, large (> 5 mm) varices were found in the entire esophagus, 20 cm from the incisors. They were 15 mm in largest diameter. Stigmata of recent bleeding were evident and red clementine signs were present. Stigmata of prior treatment were evident. Three bands were successfully placed with incomplete eradication of varices. Bleeding had stopped at the end of the procedure. Type 2 gastroesophageal varices (GOV2, esophageal varices which extend along the fundus) with no bleeding were found in the gastric fundus. There were no stigmata of recent bleeding. They were 5 mm in largest diameter. Severe portal hypertensive gastropathy was found in the entire examined stomach. Coagulation for hemostasis using heater probe was successful. Estimated blood loss was minimal. Two 5 mm angiodysplastic lesions with bleeding were found in the second portion of the duodenum and in the third portion of the duodenum. Coagulation for hemostasis using monopolar probe was successful. Impression: - Bleeding grade III and large (> 5 mm) esophageal varices. Incompletely eradicated. Banded. - Type 2 gastroesophageal varices (GOV2, esophageal varices which extend along the fundus), without bleeding. - Portal hypertensive gastropathy. Treated with a heater probe. - Two bleeding angiodysplastic lesions in the duodenum. Treated with a monopolar probe. - No specimens collected. Recommendation: - Return patient to [facility] for ongoing care. Continue octreotide and PPI drip for 24 hours. Continue liquid diet. - Continue present medications. Procedure Code(s): --- Professional --- 97405, Esophagogastroduodenoscopy, flexible, transoral; with band ligation of esophageal/gastric varices 09922, 59, Esophagogastroduodenoscopy, flexible, transoral; with control of bleeding, any method CPT copyright 2017 [employer]. All rights reserved. The codes documented in this report are preliminary and upon greenhouse manager review may be revised to meet current compliance requirements. Trav Toscano DO 06/03/2022 9:14:23 AM This report has been signed electronically. Number of Addenda: 0 Note Initiated On: 06/03/2022 8:28 AM
[2022-06-03 09:21] LABS: Bedside Glucose 168 mg/dL (74-106)
--- NOTE | 2022-06-03 09:55 | NURSING ---
Returns from procedure. Resting in bed. No distress noted.
[2022-06-03] MEDS: Ceftriaxone 1 GM/50 ML BAG IV (11:41)
[2022-06-03 17:00] LABS: Bedside Glucose 183 mg/dL (74-106)
[2022-06-03] MEDS: Insulin Lispro 100 UNIT/ML INSULN.PEN SC ×2 (17:48→20:46)
[2022-06-03] MEDS: MELATONIN 3 MG TABLET PO (20:46)
[2022-06-04 00:30] LABS: Bedside Glucose 207 mg/dL (74-106)
[2022-06-04 04:15] VITALS: BP 103/65; PULSE 69; RESP 18; TEMP 36.3; O2SAT 98
[2022-06-04 05:50] VITALS: BMI 27.1
[2022-06-04 06:11] LABS: Bedside Glucose 138 mg/dL (74-106)
[2022-06-04 06:55] LABS: Absolute Lymphocyte Count 0.58 X10^3/uL (0.83-4.51); Absolute Neutrophil Count 2.5 X10^3/uL (2.0-7.7); Basophil# 0.02 X10^3/uL; Basophil% 0.6 % (0-1); Eosinophil# 0.09 X10^3/uL; Eosinophils% 2.5 % (0-5); Hematocrit 28.9 % (40-54); Hemoglobin 9.5 g/dL (13.0-16.5); Lymphocyte # 0.58 X10^3/ul (0.83-4.51); Lymphocyte % 16.4 % (19-41); Mean Corp Hgb Conc 32.9 g/dL (32-36); Mean Corpuscular Hgb 30.6 pg (27.0-32.0); Mean Corpuscular Volume 93.2 fL (80-94); Mean Platelet Vol. 12.4 fl (6.2-12.0); Monocyte# 0.35 X10^3/uL; Monocyte% 9.9 % (0-10); NRBC Flagged by Analyzer 0 % (0-5); Neutrophil # 2.49 X10^3/uL (2.7-7.7); Neutrophil % 70.3 % (47-70); POSITIVE COUNT YES; POSITIVE DIFFERENTIAL YES; Platelet Count 54 K/mm3 (150-450); RBC Distribution Width CV 17.1 % (11.6-14.6); RBC Distribution Width SD 57.4 fl (35.1-43.9); White Blood Count 3.5 K/mm3 (4.4-11.0)
[2022-06-04 07:01] LABS: Differential Indicated SCAN CRITERIA MET
[2022-06-04 07:04] LABS: International Normalized Ratio 1.8; Prothrombin Time (Protime)PT. 20.3 SECONDS (11.7-14.9)
[2022-06-04 07:17] LABS: Anion Gap 8 (5-15); BUN 38 mg/dL (7-18); BUN/Creat Ratio 36.5 RATIO (10-20); Calcium,Total 8.8 mg/dL (8.5-10.1); Chloride 104 mmol/L (98-107); Creatinine, Serum 1.04 mg/dL (0.70-1.30); EST Glomerular Filtration Rate 74 mL/min (>60); Est Glom Filt Rate - Afr Amer 90 mL/min (>60); Estimated Creatinine Clearance 71.49 ml/min; Glucose 118 mg/dL (74-106); Potassium 4.3 mmol/L (3.5-5.1); Sodium Level 134 mmol/L (136-145)
[2022-06-04 07:21] LABS: Differential Comment SCANNED
[2022-06-04 07:22] LABS: Platelet Estimate MKD DEC (ADEQ)
[2022-06-04 07:56] VITALS: O2SAT 93
[2022-06-04 08:18] VITALS: BP 108/65; PULSE 73; RESP 16; TEMP 36.7; O2SAT 99
[2022-06-04 09:56] LABS: Bedside Glucose 111 mg/dL (74-106)
[2022-06-04] MEDS: Ceftriaxone 1 GM/50 ML BAG IV (10:49)
--- NOTE | 2022-06-04 11:22 | CASEMGMT ---
Patient has a Healthcare Power of Thoracic Surgeon on file at [facility]. Patient's daughter Adrienne is patient's Healthcare Power of Thoracic Surgeon. Patient does not have a Healthcare Living Will on file at [facility]. Skyla BURRIS
[2022-06-04 12:49] LABS: Hematocrit 28.3 % (40-54); Hemoglobin 9.3 g/dL (13.0-16.5); POSITIVE COUNT YES
--- NOTE | 2022-06-04 12:54 | DCINST_ITS ---
Discharge Instructions Diet Discharge Diet: Low fat / Low cholesterol Activity Discharge Activity: Return to Normal Activity Dressing / Incision Call your doctor if you observe: Fever of 101 or Higher, Shortness of breath, Dizziness, Fainting spells, Swelling in the ankles, Chest pain and Increased palpitations (irregular heartbeat) Follow Up Care Test Results: Test results from this visit will be discussed in further detail at your follow- up appointment, if applicable. Discharge Plan Admission Admit Date/Time: 06/02/22 15:19 Attending Provider: Carlos Orr Primary Care Provider: Yesica Dey Consulting Providers: Tj Maldonado ; Angus Dillon Instructions Additional Instructions / Restrictions: Follow-up with your PCP in 3 to 5 days to obtain outpatient lab work to monitor your hemoglobin. Discharge Orders/Prescriptions Prescriptions: New Preparation H Maximum Strength 0.25-1 % cream 1 applic [place] TID Qty: 26 0RF pantoprazole 40 mg Tablet,Delayed Release (Dr/Ec) 40 mg PO BID 30 Days Qty: 60 0RF Continued dutasteride 0.5 mg capsule 0.5 mg PO QDAY ferrous gluconate 324 mg (37.5 mg iron) tablet 324 mg PO BID gabapentin 300 mg capsule 300 mg PO BID metronidazole 500 mg tablet 500 mg PO BID Jardiance 10 mg Tablet 10 mg PO DAILY carvedilol [Coreg] 3.125 mg tablet 3.125 mg PO BID Rx Instructions: must administer with a meal/food furosemide [Lasix] 20 mg tablet 20 mg PO DAILY spironolactone 50 mg tablet 50 mg PO BID lactulose 10 gram/15 mL solution See Rx Instructions .ROUTE .COMPLEX Rx Instructions: take 15 milliliters by mouth once daily MAY TAKE UP TO THREE TIMES A DAY TO PROMOTE BOWEL MOVEMENT 2 TIMES A DAY lanreotide 60 mg/0.2 mL syringe 30 mg subcut Q4W Rx Instructions: next dose 06/27/22-contact 's office to coordinate levothyroxine 125 mcg tablet 125 mcg PO QDAY tamsulosin 0.4 mg capsule,extended release 24hr 0.4 mg PO QHS Discontinued esomeprazole magnesium [Nexium] 40 mg capsule,delayed release(DR/EC) 40 mg PO QDAY Referrals / Follow Up: Friend,DO Trav [Med Staff - Active Staff] - Within 1 Month Dey,M Diogo PA, PA [Primary Care Provider] - Within 1 Week Disposition Disposition (needs filled in before D/C Order can be placed): Home, Self Care
--- NOTE | 2022-06-04 12:58 | PCM.DC.SUM ---
Providers Date of Admission: 06/02/22 Primary Care Physician: DEJON Corona Consultations 06/02/22 16:08 Consult: Gastroenterology Routine Consulting Provider: [facility] Reason for Consult: Upper GI BLeed, cirrhosis EMERGENT Consult: No MD Notified: Yes Date Notified: 06/02/22 Time Notified: 15:24 Method of Notification: ED Physician Initiated Reason For Visit: UPPER GI BLEED Diagnosis Discharge Diagnosis (1) Acute upper GI bleed: Status: Acute Code(s): K92.2 - Gastrointestinal hemorrhage, unspecified (2) Cirrhosis of liver: Status: Chronic Code(s): K74.60 - Unspecified cirrhosis of liver (3) Hyperkalemia: Status: Acute Code(s): E87.5 - Hyperkalemia Medications at Discharge Home Medications levothyroxine 125 mcg tablet 125 mcg PO QDAY thyroid 03/15/17 tamsulosin 0.4 mg capsule 0.4 mg PO QHS bladder 03/15/17 dutasteride 0.5 mg capsule 0.5 mg PO QDAY overactive bladder 03/19/17 ferrous gluconate 324 mg (37.5 mg iron) tablet 324 mg PO BID anemia 03/19/17 empagliflozin 10 mg tablet (Jardiance) 10 mg PO DAILY diabetes 10/13/21 gabapentin 300 mg capsule 300 mg PO BID NERVE PAIN 05/30/22 metronidazole 500 mg tablet 500 mg PO BID antibiotic for amonia level 05/30/22 carvedilol 3.125 mg tablet (Coreg) 3.125 mg PO BID heart 06/02/22 furosemide 20 mg tablet (Lasix) 20 mg PO DAILY diuretic 06/02/22 lactulose 10 gram/15 mL oral solution See Rx Instructions .Route .COMPLEX [place] level 06/02/22 lanreotide 60 mg/0.2 mL subcutaneous syringe 30 mg subcut Q4W cancer 06/02/22 phenylephrine 0.25 %-pramoxine 1 %-glycerin-wh.petrolatum rectal cream (Preparation H Maximum Strength) 1 applic [place] TID #26 grams 06/02/22 spironolactone 50 mg tablet 50 mg PO BID diuretic 06/02/22 pantoprazole 40 mg tablet,delayed release 40 mg PO BID 30 days #60 tabs 06/04/22 Hospital Course Operations None Procedures EGD Summary of Care Provided Minutes Spent on Discharge: 40 Hospital Course: Per HPI: GLEN MACK, is a 71 M with history of alcoholic cirrhosis decompensated with esophageal varices, ascites, splenomegaly and portal hypertension came to ED for melena for 2 days.? Patient had total 9 bowel movements, black tarry in color.? I saw 1 black stool mixed with urine in ED.? Patient systolic BP is 100 mmHg which is more than his normal baseline 80 mmHg.? Patient gets weekly paracentesis along with albumin infusion on every Saturday.Patient does not have fever or chill.? Denies change in mental status or encephalopathic symptoms.? He is not feeling dizzy or lightheaded on sitting up. In ED, basic lab work shows hyperkalemia K5.5, elevated BUN, high INR 1.8, not on anticoagulant but H&H on baseline 12.2/37.3.? Director Of Rehabilitation was consulted from ED.? They discussed with Dr. Toscano and he advised admission Patient had last EGD in May discussed in assessment plan. Hospital Course: 1. Acute upper GI bleed due to esophageal varices/liver cirrhosis due to alcohol?71-year-old male presents from home with a GI bleed. EGD demonstrated esophageal varices as well as portal hypertensive gastropathy. He was also found to have 2 angiodysplastic lesions in his duodenum that was treated. Hemoglobin is stable at 9.5 today. I discussed with him the plan for discharge and he expressed understanding of the risk benefits of going home and would like to go home today. I discussed with him the need to follow-up with his PCP in 3 to 5 days to obtain lab work to monitor his anemia. We will transition his PPI to twice daily dosing, and he did receive subcu octreotide injection prior to discharge. Renal function is stable and hyperkalemia has resolved prior to discharge. Do recommend continuation of his Lasix as well as his Aldactone for some mild abdominal distention with ascites. 2. Paroxysmal A-fib, chronic iron deficiency anemia with chronic severe protein calorie malnutrition, type 2 diabetes, hypothyroidism are all chronic medical conditions which complicate his care. His home medications were continued where appropriate Weight / BMI Weight Weight: 206 lb 2.115 oz Body Mass Index (BMI) 27.1 ABG / Lab / Microbiology Data Result Diagrams: 06/04/22 12:10 06/04/22 06:00 Laboratory: Laboratory Results - last 24 hr 06/03/22 16:41: POC Glucose 183 H 06/03/22 20:39: POC Glucose 207 H 06/04/22 04:28: POC Glucose 138 H 06/04/22 06:00: PT 20.3 H, INR 1.8 06/04/22 06:00: WBC 3.5 L, RBC 3.10 L, Hgb 9.5 L, Hct 28.9 L, MCV 93.2, MCH 30.6, MCHC 32.9, RDW Std Deviation 57.4 H, RDW Coeff of Penny 17.1 H, Plt Count 54 L, MPV 12.4 H, Immature Gran % (Auto) 0.300, Neut % (Auto) 70.3 H, Lymph % (Auto) 16.4 L, [place] % (Auto) 9.9, Eos % (Auto) 2.5, Baso % (Auto) 0.6, Absolute Neuts (auto) 2.5, Absolute Lymphs (auto) 0.58 L, Nucleated RBC % 0, Differential Comment SCANNED, Diff Path Review August, Platelet Estimate MKD DEC 06/04/22 06:00: Sodium 134 L, Potassium 4.3, Chloride 104, Carbon Dioxide 22.0, Anion Gap 8, BUN 38 H, Creatinine 1.04, Estim Creat Clear Calc 71.49, Est GFR (MDRD) Af Amer 90, Est GFR (MDRD) Non-Af 74, BUN/Creatinine Ratio 36.5 H, Glucose 118 H, Calcium 8.8 06/04/22 08:08: POC Glucose 111 H 06/04/22 12:10: Hgb 9.3 L, Hct 28.3 L Microbiology: Microbiology 06/02/22 11:19 Stool Stool Occult Blood ([facility]LEMAN) - Final Occult Blood Positive D/C Instructions Discharge Diet: Low fat / Low cholesterol Call your doctor if you observe: Fever of 101 or Higher, Shortness of breath, Dizziness, Fainting spells, Swelling in the ankles, Chest pain and Increased palpitations (irregular heartbeat) Meaningful Use Info Meaningful Use Diagnoses (Choose all that apply): None applicable Discharge Plan Admission Admit Date/Time: 06/02/22 15:19 Attending Provider: Carlos Orr Primary Care Provider: Yesica Dey Consulting Providers: Tj Maldonado ; Angus Dillon Instructions Additional Instructions / Restrictions: Follow-up with your PCP in 3 to 5 days to obtain outpatient lab work to monitor your hemoglobin. Discharge Orders/Prescriptions Prescriptions: New Preparation H Maximum Strength 0.25-1 % cream 1 applic [place] TID Qty: 26 0RF pantoprazole 40 mg Tablet,Delayed Release (Dr/Ec) 40 mg PO BID 30 Days Qty: 60 0RF Continued dutasteride 0.5 mg capsule 0.5 mg PO QDAY ferrous gluconate 324 mg (37.5 mg iron) tablet 324 mg PO BID gabapentin 300 mg capsule 300 mg PO BID metronidazole 500 mg tablet 500 mg PO BID Jardiance 10 mg Tablet 10 mg PO DAILY carvedilol [Coreg] 3.125 mg tablet 3.125 mg PO BID Rx Instructions: must administer with a meal/food furosemide [Lasix] 20 mg tablet 20 mg PO DAILY spironolactone 50 mg tablet 50 mg PO BID lactulose 10 gram/15 mL solution See Rx Instructions .ROUTE .COMPLEX Rx Instructions: take 15 milliliters by mouth once daily MAY TAKE UP TO THREE TIMES A DAY TO PROMOTE BOWEL MOVEMENT 2 TIMES A DAY lanreotide 60 mg/0.2 mL syringe 30 mg subcut Q4W Rx Instructions: next dose 06/27/22-contact 's office to coordinate levothyroxine 125 mcg tablet 125 mcg PO QDAY tamsulosin 0.4 mg capsule,extended release 24hr 0.4 mg PO QHS Discontinued esomeprazole magnesium [Nexium] 40 mg capsule,delayed release(DR/EC) 40 mg PO QDAY Referrals / Follow Up: Trav Toscano DO [Med Staff - Active Staff] - Within 1 Month Yesica Dey PA [Primary Care Provider] - Within 1 Week Disposition Disposition (needs filled in before D/C Order can be placed): Home, Self Care Charges/Coding Visit Charges Inpatient E&M: 12862 Disch Hosp >30min
[2022-06-04] MEDS: Insulin Lispro 100 UNIT/ML INSULN.PEN SC (13:11)
[2022-06-04 13:22] VITALS: BP 104/50; PULSE 81; RESP 16; TEMP 37.2; O2SAT 100
--- NOTE | 2022-06-04 13:35 | CASEMGMT ---
RN?CM?PROFESSOR OF SPECIAL EDUCATION?CM?to room to meet with patient for initial transition planning/care coordination?assessment.?RN?CM?introduced self and role at [facility].? Pt voices understanding and consents to?assessment?at this time.? Pt resting in bed in no distress at this time.? Samira Brito, @ bedside and pt agreeable to her being present during assessment. Pt is A/O at this time and answers all questions appropriately.?? Care providers, pharmacy, and demographics verified/updated at this time. PCP: DEJON Garg Specialists:Dr Toscano-GI, Dr Allison-cardiology, Pt was seeing Dr [facility]ila[facility] oncology, but he is retiring. Pt has appt in 2 weeks to meet w/the new physician coming in his place. Pt gets weekly paracentesis/ Q Sat. [facility]erred [facility]acy: [facility] Insurance: [employer] (primary, as pt is still working), [facility] Prescription Benefit:?Yes Living Will/HPOA:?Pt has HCPOA, which is in file @ [facility]. Dtr, Adrienne, is POA. Dtr, Samira, is 1st alternative agent. Dtr states thought pt did LW while @ [facility] in the past. She and pt made aware it is not on file @ [facility]. She states will check to see if it was done or not. They were made aware, if it has not been done, SW can assist w/completing it, if pt chooses to do so as an OP. They voice understanding. LNOK: 2 daughters-Adrienne and Samira. Son lives in [place]. Living Arrangements: Lives alone in one-story home w/2 steps to enter w/rails. Dtr's very involved w/care. Pt is indep w/ADL's. Dtr's set up pt's pill bottles weekly and PRN, grocery shop for pt, and do meal prep. Pt works [employer]. Transportation:?Pt states drives self and states no transportation concerns at this time.? Per Samira, they take pt to all appts and to weekly paracentesis. DME: States has the following DME:?Has glucometer, but does not use it. Also has cane, walker, and shower chair but does not use them. Has rails/grab bars and medical alert button. They state no need for further DME at this time.? HHC/SNF: Hx [facility] and HHC. Pt wishes to return home and states has no concerns with going home at time of discharge.? Pt states does not smoke. He used to drink ETOH, but quit 26 yrs ago. Pt and dtr voice no further concerns/needs at this time.? PLAN:??Home w/family support and discharge plans in place. Michelle BSN?RN?CM
[2022-06-04 13:46] LABS: Bedside Glucose 192 mg/dL (74-106)
[2022-06-04 14:29] LABS: Pathologist Review Reviewed
--- NOTE | 2022-06-04 14:58 | PHA.DC.MR ---
Addendum entered and electronically signed by Shu Seo 06/04/22 14:59: Medication education papers prepared, patient discharged before counseling was attempted. Medications reviewed. Original Note: Pharmacy Service has performed discharge medication reconciliation for this patient. The patient's discharge medication list was reviewed for discrepancies and discrepancies were resolved. Home Medications levothyroxine 125 mcg tablet 125 mcg PO QDAY thyroid 03/15/17 tamsulosin 0.4 mg capsule 0.4 mg PO QHS bladder 03/15/17 dutasteride 0.5 mg capsule 0.5 mg PO QDAY overactive bladder 03/19/17 ferrous gluconate 324 mg (37.5 mg iron) tablet 324 mg PO BID anemia 03/19/17 empagliflozin 10 mg tablet (Jardiance) 10 mg PO DAILY diabetes 10/13/21 gabapentin 300 mg capsule 300 mg PO BID NERVE PAIN 05/30/22 metronidazole 500 mg tablet 500 mg PO BID antibiotic for amonia level 05/30/22 carvedilol 3.125 mg tablet (Coreg) 3.125 mg PO BID heart 06/02/22 furosemide 20 mg tablet (Lasix) 20 mg PO DAILY diuretic 06/02/22 lactulose 10 gram/15 mL oral solution See Rx Instructions .Route .COMPLEX amonia level 06/02/22 lanreotide 60 mg/0.2 mL subcutaneous syringe 30 mg subcut Q4W cancer 06/02/22 phenylephrine 0.25 %-pramoxine 1 %-glycerin-wh.petrolatum rectal cream (Preparation H Maximum Strength) 1 applic FL TID #26 grams 06/02/22 spironolactone 50 mg tablet 50 mg PO BID diuretic 06/02/22 pantoprazole 40 mg tablet,delayed release 40 mg PO BID 30 days #60 tabs 06/04/22
== END 2022-06-04 14:23 | disposition home or self-care (01) | DRG 368 ==
LOC: ED 15:22 → PCU 06-03 07:02
PROVIDERS: Anesthesiology; Internal Medicine Gastroenterology; Nurse Practitioner; Admitting Provider Internal Medicine; Emergency Provider Emergency Medicine; PCP Physician Assistant; Visit Provider Family Medicine
PROC: 0DJ08ZZ Inspection of Upper Intestinal Tract, Via Natural or Artificial Opening Endoscopic (ICD-10-PCS; CPT 43235; principal; 2022-06-03 08:00)
DX: I85.01 Esophageal varices with bleeding (principal); E43 Unspecified severe protein-calorie malnutrition; K76.6 Portal hypertension; E87.1 Hypo-osmolality and hyponatremia; K76.82 Hepatic encephalopathy; K70.31 Alcoholic cirrhosis of liver with ascites; E11.22 Type 2 diabetes mellitus with diabetic chronic kidney disease; I48.0 Paroxysmal atrial fibrillation; N18.31 Chronic kidney disease, stage 3a; D50.9 Iron deficiency anemia, unspecified; E78.2 Mixed hyperlipidemia; E87.5 Hyperkalemia; K64.4 Residual hemorrhoidal skin tags; E03.9 Hypothyroidism, unspecified; I12.9 Hypertensive chronic kidney disease with stage 1 through stage 4 chronic kidney disease, or unspecified chronic kidney disease; Z79.84 Long term (current) use of oral hypoglycemic drugs; K31.811 Angiodysplasia of stomach and duodenum with bleeding; Z68.27 Body mass index [BMI] 27.0-27.9, adult; Z79.899 Other long term (current) drug therapy; Z79.890 Hormone replacement therapy; N40.0 Benign prostatic hyperplasia without lower urinary tract symptoms; Z85.07 Personal history of malignant neoplasm of pancreas
CPT/HCPCS: 36415; 49083; 80048; 80053; 80076; 81001; 82140; 82274; 82962; 83036; 83605; 83690; 83735; 84100; 84132; 84443; 85014; 85018; 85025; 85610; 85730; 86850; 86900; 86901; 93005; 99284; J7030; J7050; P9047; A4216; J3490

== ENCOUNTER → 2022-06-06 | Outpatient (CLI) | payer BC, MEDICARE, SELFPAY ==
--- NOTE | 2022-06-06 09:23 | US_ITS ---
PROCEDURE: Ultrasound guided paracentesis. DATE OF EXAMINATION: 06/06/2022. INDICATION: Male, 71 years old. Ascites. PHYSICIAN: Lamberto Jaeger M.D. TECHNIQUE: The risks, benefits, and alternatives to the procedure were explained to the patient. The specific risks of bleeding, infection, and damage to bowel were detailed and accepted. Witnessed informed consent was obtained. The abdomen was ultrasonographically surveyed. An appropriate pocket of fluid was identified at the right lower quadrant. The skin were cleaned and prepped in the usual sterile fashion. Using ultrasound guidance, the peritoneal cavity was accessed with a 5-Swazi paracentesis needle/catheter system. The trocar was removed. A total of 7800 ml of angeli-colored fluid were removed from the peritoneal cavity. The catheter was removed and a sterile dressing was applied. The procedure was well tolerated. US/Paracentesis with US IMPRESSION: Ultrasound guided paracentesis. Electronically Signed: Lamberto Jaeger MD at 12:31 EST ,
[2022-06-06] MEDS: Lidocaine 2% (20 ml mdv) 20 ML Vial INFILT (09:42)
[2022-06-06] MEDS: 0.9% NaCl Peripheral Flush Adult/Peds IV (10:25)
[2022-06-06 10:57] VITALS: BP 100/52; BP 101/52; BP 107/70; BP 95/42; BP 95/45; BP 97/46; PULSE 53; PULSE 56; PULSE 58; PULSE 61; PULSE 67; PULSE 72; RESP 18; TEMP 36.2; O2SAT 100; O2SAT 99
[2022-06-06] MEDS: Albumin Human 25% (100 mL) 25 GM/100 ML BAG IV ×2 (11:06→12:30)
[2022-06-06 11:10] VITALS: BP 85/47; PULSE 61; RESP 16; TEMP 36.6; O2SAT 98
[2022-06-06 14:28] VITALS: BP 85/49; PULSE 56
== END | disposition home or self-care (01) ==
PROVIDERS: PCP Physician Assistant; Visit Provider Internal Medicine Gastroenterology
DX: K74.60 Unspecified cirrhosis of liver (principal); R18.8 Other ascites
CPT/HCPCS: 96365; 49083; J7050; P9046; A4216; P9047

== ENCOUNTER → 2022-06-13 | Outpatient (CLI) | payer BC, MEDICARE, SELFPAY ==
--- NOTE | 2022-06-13 12:06 | US_ITS ---
PROCEDURE: Ultrasound guided paracentesis. DATE OF EXAMINATION: June 13, 2022.. INDICATION: Male, 71 years old. Ascites. PHYSICIAN: Lamberto Jaeger M.D. TECHNIQUE: The risks, benefits, and alternatives to the procedure were explained to the patient. The specific risks of bleeding, infection, and damage to bowel were detailed and accepted. Witnessed informed consent was obtained. The abdomen was ultrasonographically surveyed. An appropriate pocket of fluid was identified at the left lower quadrant. The skin were cleaned and prepped in the usual sterile fashion. Using ultrasound guidance, the peritoneal cavity was accessed with a 5-Mongolian paracentesis needle/catheter system. The trocar was removed. A total of 8300 ml of angeli-colored fluid were removed from the peritoneal cavity. The catheter was removed and a sterile dressing was applied. The procedure was well tolerated. US/Paracentesis with US IMPRESSION: Ultrasound guided paracentesis. Electronically Signed: Lamberto Jaeger MD at 13:46 EST ,
[2022-06-13 12:14] VITALS: BP 103/51; BP 107/55; BP 110/55; PULSE 50; PULSE 51; PULSE 61; RESP 18; TEMP 36.6; O2SAT 100
[2022-06-13] MEDS: Lidocaine 2% (20 ml mdv) 20 ML Vial INFILT (12:15)
[2022-06-13] MEDS: 0.9% Saline Lock 10 ML Syringe IV (12:52)
[2022-06-13] MEDS: Albumin Human 25% (100 mL) 25 GM/100 ML BAG IV ×2 (13:12→14:34)
[2022-06-13 13:14] VITALS: BP 92/45; PULSE 46; RESP 16; TEMP 36.3
[2022-06-13 16:25] VITALS: BP 91/47; PULSE 46
== END | disposition home or self-care (01) ==
LOC: US 12:05
PROVIDERS: PCP Physician Assistant; Visit Provider Internal Medicine Gastroenterology
DX: K74.60 Unspecified cirrhosis of liver (principal); R18.8 Other ascites
CPT/HCPCS: 96365; 96366 ×2; 49083; J7050; P9047; A4216

== ENCOUNTER → 2022-06-20 | Outpatient (CLI) | payer BC, MEDICARE, SELFPAY ==
[2022-06-20 08:42] VITALS: BP 102/57; BP 102/60; BP 103/56; BP 104/62; BP 112/57; BP 97/47; PULSE 60; PULSE 61; PULSE 62; PULSE 63; PULSE 68; PULSE 69; RESP 16; RESP 18; TEMP 36.7; O2SAT 100; O2SAT 99
--- NOTE | 2022-06-20 09:32 | US_ITS ---
PROCEDURE: ULTRASOUND GUIDED PARACENTESIS CLINICAL HISTORY: Male, 71 years old. ASCITES CONSENT: Informed consent obtained Time-Out Called: Yes. Consent form signed: Yes. PT-PTT Levels Checked: Yes. SEDATION: Local with 1% Xylocaine TECHNIQUE: Sonographic guidance FINDINGS: A large pocket of anechoic ascites noted by ultrasound and marked for paracentesis. After informed consent, the area was prepped and draped in a sterile manner and 1% Xylocaine was used as local anesthetic. Under sonographic guidance, a Yeuh drainage catheter was advanced into the right flank. Under suction, approximately 7300 mL of straw-colored serous fluid was withdrawn from the abdomen. Patient tolerated procedure well with no immediate complications US/Paracentesis with US IMPRESSION: Successful sonographically guided paracentesis Electronically Signed: Rajan Nicholson MD at 11:08 EDT ,
[2022-06-20] MEDS: Lidocaine 2% (20 ml mdv) 20 ML Vial INFILT (09:50)
[2022-06-20] MEDS: Albumin Human 25% (100 mL) 25 GM/100 ML BAG IV (11:54)
[2022-06-20] MEDS: Albumin Human 25% (50 mL) 12.5 GM/50 ML IV.SOLN IV (13:17)
[2022-06-20 14:17] VITALS: BP 88/47; PULSE 52; RESP 16; O2SAT 93
== END | disposition home or self-care (01) ==
PROVIDERS: PCP Physician Assistant; Referring Provider Internal Medicine Gastroenterology; Visit Provider Internal Medicine Gastroenterology
DX: K74.60 Unspecified cirrhosis of liver (principal); R18.8 Other ascites
CPT/HCPCS: 96365; 96366; 49083; P9047

== ENCOUNTER 2022-06-27 09:43 | Outpatient (CLI) | payer BC, MEDICARE, SELFPAY ==
--- NOTE | 2022-06-27 09:48 | US_ITS ---
PROCEDURE: Ultrasound guided paracentesis. DATE OF EXAMINATION: June 27, 2022. INDICATION: Male, 72 years old. Ascites. PHYSICIAN: Lamberto Jaeger M.D. TECHNIQUE: The risks, benefits, and alternatives to the procedure were explained to the patient. The specific risks of bleeding, infection, and damage to bowel were detailed and accepted. Witnessed informed consent was obtained. The abdomen was ultrasonographically surveyed. An appropriate pocket of fluid was identified at the right lower quadrant. The skin were cleaned and prepped in the usual sterile fashion. Using ultrasound guidance, the peritoneal cavity was accessed with a 5-Ivorian paracentesis needle/catheter system. The trocar was removed. A total of 6100 ml of angeli-colored fluid were removed from the peritoneal cavity. The catheter was removed and a sterile dressing was applied. The procedure was well tolerated. US/Paracentesis with US IMPRESSION: Ultrasound guided paracentesis. Electronically Signed: Lamberto Jaeger MD at 10:54 EDT ,
[2022-06-27 10:10] VITALS: BP 102/61; BP 103/54; BP 94/47; PULSE 73; PULSE 75; PULSE 76; RESP 16; RESP 18; O2SAT 100; O2SAT 99
[2022-06-27] MEDS: Lidocaine 2% (20 ml mdv) 20 ML Vial INFILT (10:48)
[2022-06-27] MEDS: 0.9% Saline Lock 10 ML Syringe IV (10:50)
[2022-06-27] MEDS: Albumin Human 25% (100 mL) 25 GM/100 ML BAG IV (11:11)
[2022-06-27] MEDS: Albumin Human 25% (50 mL) 12.5 GM/50 ML IV.SOLN IV (12:36)
[2022-06-27 13:36] VITALS: BP 81/52; PULSE 70; RESP 16; TEMP 36.4; O2SAT 100
== END 2022-06-27 23:59 | disposition home or self-care (01) ==
PROVIDERS: PCP Physician Assistant; Referring Provider Internal Medicine Gastroenterology; Visit Provider Internal Medicine Gastroenterology
DX: K74.60 Unspecified cirrhosis of liver (principal); R18.8 Other ascites
CPT/HCPCS: 96365; 96361; 49083; P9047; A4216

== ENCOUNTER → 2022-07-04 | Outpatient (CLI) | payer BC, MEDICARE, SELFPAY ==
--- NOTE | 2022-07-04 09:27 | US_ITS ---
PROCEDURE: Ultrasound guided paracentesis. DATE OF EXAMINATION: July 04, 2022.. INDICATION: Male, 72 years old. Ascites. PHYSICIAN: Lamberto Jaeger M.D. TECHNIQUE: The risks, benefits, and alternatives to the procedure were explained to the patient. The specific risks of bleeding, infection, and damage to bowel were detailed and accepted. Witnessed informed consent was obtained. The abdomen was ultrasonographically surveyed. An appropriate pocket of fluid was identified at the right lower quadrant. The skin were cleaned and prepped in the usual sterile fashion. Using ultrasound guidance, the peritoneal cavity was accessed with a 5-Kiswahili paracentesis needle/catheter system. The trocar was removed. A total of 5750 ml of angeli-colored fluid were removed from the peritoneal cavity. The catheter was removed and a sterile dressing was applied. The procedure was well tolerated. US/Paracentesis with US IMPRESSION: Ultrasound guided paracentesis. Electronically Signed: Lamberto Jaeger MD at 10:51 EDT ,
[2022-07-04 09:45] VITALS: BP 102/55; BP 108/61; BP 97/54; PULSE 67; PULSE 71; PULSE 77; RESP 16; RESP 18; TEMP 36.9; O2SAT 100
[2022-07-04] MEDS: Lidocaine 2% (20 ml mdv) 20 ML Vial INFILT (09:48)
[2022-07-04] MEDS: Albumin Human 25% (100 mL) 25 GM/100 ML BAG IV (10:47)
[2022-07-04 10:52] VITALS: BMI 27.0
[2022-07-04] MEDS: Albumin Human 25% (50 mL) 12.5 GM/50 ML IV.SOLN IV (12:10)
[2022-07-04 13:15] VITALS: BP 79/51; PULSE 59; RESP 16
== END | disposition home or self-care (01) ==
PROVIDERS: PCP Physician Assistant; Referring Provider Internal Medicine Gastroenterology; Visit Provider Internal Medicine Gastroenterology
DX: K74.60 Unspecified cirrhosis of liver (principal); R18.8 Other ascites
CPT/HCPCS: 96365; 49083; J7050; P9047

== ENCOUNTER → 2022-07-11 | Outpatient (CLI) | payer BC, MEDICARE, SELFPAY ==
--- NOTE | 2022-07-11 09:18 | US_ITS ---
PROCEDURE: Ultrasound guided paracentesis. DATE OF EXAMINATION: July 11, 2022. INDICATION: Male, 72 years old. Ascites. PHYSICIAN: Lamberto Jaeger M.D. TECHNIQUE: The risks, benefits, and alternatives to the procedure were explained to the patient. The specific risks of bleeding, infection, and damage to bowel were detailed and accepted. Witnessed informed consent was obtained. The abdomen was ultrasonographically surveyed. An appropriate pocket of fluid was identified at the right lower quadrant. The skin were cleaned and prepped in the usual sterile fashion. Using ultrasound guidance, the peritoneal cavity was accessed with a 5-Maltese paracentesis needle/catheter system. The trocar was removed. A total of 3950 ml of angeli-colored fluid were removed from the peritoneal cavity. The catheter was removed and a sterile dressing was applied. The procedure was well tolerated. US/Paracentesis with US IMPRESSION: Ultrasound guided paracentesis. Electronically Signed: Lamberto Jaeger MD at 11:16 EDT ,
[2022-07-11 09:46] VITALS: BP 102/58; BP 98/57; PULSE 63; PULSE 64; RESP 16; RESP 18; TEMP 36; O2SAT 99
[2022-07-11] MEDS: Lidocaine 2% (20 ml mdv) 20 ML Vial INFILT (09:50)
== END | disposition home or self-care (01) ==
PROVIDERS: PCP Physician Assistant; Referring Provider Internal Medicine Gastroenterology; Visit Provider Internal Medicine Gastroenterology
DX: K74.60 Unspecified cirrhosis of liver (principal); R18.8 Other ascites
CPT/HCPCS: 49083; A4216

== ENCOUNTER → 2022-07-18 | Outpatient (CLI) | payer BC, MEDICARE, SELFPAY ==
--- NOTE | 2022-07-18 09:28 | US_ITS ---
PROCEDURE: ULTRASOUND GUIDED PARACENTESIS CLINICAL HISTORY: Male, 72 years old. ASCITES CONSENT: Informed consent obtained Time-Out Called: Yes. Consent form signed: Yes. PT-PTT Levels Checked: Yes. SEDATION: Local TECHNIQUE: Ultrasound-guided FINDINGS: FLUID PRE-PROCEDURE There is posterior enhancement. The findings appear anechoic. There is no loculation. After informed consent was obtained, appropriate site for large volume paracentesis using sonographic guidance. An area marked was prepped and draped in a sterile manner and 2% lidocaine used as local anesthetic. A drainage catheter was advanced into the peritoneal cavity and approximately 5200 mL of straw-colored serous fluid was withdrawn from the peritoneal cavity via suction. Patient tolerated the procedure well with no immediate complications US/Paracentesis with US IMPRESSION: Successful sonographically guided large volume paracentesis Electronically Signed: Rajan Nicholson MD at 10:38 EDT ,
[2022-07-18] MEDS: Lidocaine 2% (20 ml mdv) 20 ML Vial INFILT (09:46)
[2022-07-18 09:52] VITALS: BP 100/59; BP 111/57; BP 94/54; BP 97/51; PULSE 54; PULSE 65; PULSE 66; PULSE 69; RESP 16; RESP 18; TEMP 36.6; O2SAT 100; O2SAT 98
[2022-07-18 10:54] VITALS: BP 106/61; PULSE 68; RESP 16; TEMP 36.4; O2SAT 100; BMI 25.8
[2022-07-18] MEDS: 0.9% Saline Lock 10 ML Syringe IV (11:04)
[2022-07-18] MEDS: Albumin Human 25% (100 mL) 25 GM/100 ML BAG IV (11:04)
[2022-07-18 12:41] VITALS: BP 98/53; PULSE 64
== END | disposition home or self-care (01) ==
PROVIDERS: PCP Physician Assistant; Referring Provider Internal Medicine Gastroenterology; Visit Provider Internal Medicine Gastroenterology
DX: K74.60 Unspecified cirrhosis of liver (principal); R18.8 Other ascites
CPT/HCPCS: 96365; 49083; J7050; P9047

== ENCOUNTER 2022-07-25 07:54 | Outpatient (CLI) | payer BC, MEDICARE, SELFPAY ==
--- NOTE | 2022-07-25 07:56 | US_ITS ---
PROCEDURE: Ultrasound guided paracentesis. DATE OF EXAMINATION: July 25, 2022. INDICATION: Male, 72 years old. Ascites. PHYSICIAN: Lamberto Jaeger M.D. TECHNIQUE: The risks, benefits, and alternatives to the procedure were explained to the patient. The specific risks of bleeding, infection, and damage to bowel were detailed and accepted. Witnessed informed consent was obtained. The abdomen was ultrasonographically surveyed. An appropriate pocket of fluid was identified at the right lower quadrant. The skin were cleaned and prepped in the usual sterile fashion. Using ultrasound guidance, the peritoneal cavity was accessed with a 5-Syrian paracentesis needle/catheter system. The trocar was removed. A total of 6400 ml of angeli-colored fluid were removed from the peritoneal cavity. The catheter was removed and a sterile dressing was applied. The procedure was well tolerated. US/Paracentesis with US IMPRESSION: Ultrasound guided paracentesis. Electronically Signed: Lamberto Jaeger MD at 9:14 EDT ,
[2022-07-25] MEDS: Lidocaine 2% (20 ml mdv) 20 ML Vial INFILT (08:24)
[2022-07-25 08:28] VITALS: BP 101/56; BP 103/62; BP 106/56; BP 110/61; PULSE 61; PULSE 62; PULSE 63; PULSE 67; RESP 16; TEMP 36.5; O2SAT 100; O2SAT 98
[2022-07-25] MEDS: 0.9% NaCl Peripheral Flush Adult/Peds IV (10:43)
[2022-07-25 10:45] VITALS: BP 88/54; PULSE 77; RESP 16; TEMP 36.4; O2SAT 99
[2022-07-25] MEDS: Albumin Human 25% (100 mL) 25 GM/100 ML BAG IV (10:50)
[2022-07-25] MEDS: Albumin Human 25% (50 mL) 12.5 GM/50 ML IV.SOLN IV (12:16)
[2022-07-25 13:17] VITALS: BP 84/48; PULSE 81; RESP 18; O2SAT 100
== END 2022-07-25 23:59 | disposition home or self-care (01) ==
PROVIDERS: PCP Physician Assistant; Referring Provider Internal Medicine Gastroenterology; Visit Provider Internal Medicine Gastroenterology
DX: K74.60 Unspecified cirrhosis of liver (principal); R18.8 Other ascites
CPT/HCPCS: 96365; 96366; 49083; J7050; P9047

== ENCOUNTER → 2022-08-01 | Outpatient (CLI) | payer BC, MEDICARE, SELFPAY ==
--- NOTE | 2022-07-17 18:54 | CASEMGMT ---
Social Work Note 07/11/22 SW attempted to make contact with patient and patient's daughter, BELKIS Deleon, to provide support and resources and left two voicemail requesting return phone call. SW missed a return phone call from patient's daughter and attempted to return the call today, 07/17/22, however there was no answer so SW left message requesting return phone call. Ivon Morales GRADUATING MACHINE OPERATOR, [place]
--- NOTE | 2022-07-18 13:02 | CASEMGMT ---
Social Work Note DARELL met with patient and patient's daughter/Adrienne TAMAYO, and introduced herself and role as [facility] Chief Design Drafter. Patient was agreeable to speak with bilingual social worker with patient's daughter present, explaining he listens to her and she helps him make decisions. SW inquired about current employment status, resources and thoughts regarding housing and intermediate. 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 Patient's daughter explained the patient isn't ready to go back to work and reviewed recent changes at patient's job including different insurance company with new rules. Patient's daughter also reviewed conversations she, the patient and other medical professions have had regarding patient working. Patient expressed his main concern is being financially stable without a job. Patient's daughter explained they have an application for [employer] but haven't completed it yet so it is a hefty application. SW provided emotional support and validated concerns. SW reviewed [employer] resource as well as [employer] and Senior Outreach program with [employer]. SW encouraged patient and patient's daughter to schedule an assessment to explore available programs with [employer] to assist patient with weighing pros and cons of intermediate. Patient's daughter was receptive towards resources and explained patient might have to leave his job due to the new insurance company as they continue to have issues with ensuring patient has adequate time off to address medical needs. SW encouraged patient's daughter to continue to advocate for the patient and contact HR with patient's employer to discuss her concerns and options. SW provided [employer] information, [employer] information as well as Senior Outreach information with [employer]. SW also reviewed previous resources provided including other programs with [employer] and [employer] to apply for benefits. Patient's daughter plans to complete [employer] application, contact insurance company to explore extending short term disability and schedule an assessment with [employer]. Ivon Morales MSW, [place]
--- NOTE | 2022-08-01 09:22 | US_ITS ---
PROCEDURE: Ultrasound guided paracentesis. DATE OF EXAMINATION: August 01, 2022. INDICATION: Male, 72 years old. Ascites. PHYSICIAN: Lamberto Jaeger M.D. TECHNIQUE: The risks, benefits, and alternatives to the procedure were explained to the patient. The specific risks of bleeding, infection, and damage to bowel were detailed and accepted. Witnessed informed consent was obtained. The abdomen was ultrasonographically surveyed. An appropriate pocket of fluid was identified at the right lower quadrant. The skin were cleaned and prepped in the usual sterile fashion. Using ultrasound guidance, the peritoneal cavity was accessed with a 5-Singaporean paracentesis needle/catheter system. The trocar was removed. A total of 4100 ml of angeli-colored fluid were removed from the peritoneal cavity. The catheter was removed and a sterile dressing was applied. The procedure was well tolerated. US/Paracentesis with US IMPRESSION: Ultrasound guided paracentesis. Electronically Signed: Lamberto Jaeger MD at 10:56 EDT ,
[2022-08-01] MEDS: Lidocaine 2% (20 ml mdv) 20 ML Vial INFILT (09:43)
[2022-08-01 09:55] VITALS: BP 103/59; BP 106/54; BP 108/60; BP 110/57; PULSE 62; PULSE 63; RESP 16; O2SAT 100; O2SAT 99
== END | disposition home or self-care (01) ==
PROVIDERS: PCP Physician Assistant; Referring Provider Internal Medicine Gastroenterology; Visit Provider Internal Medicine Gastroenterology
DX: K74.60 Unspecified cirrhosis of liver (principal); R18.8 Other ascites
CPT/HCPCS: 49083

== ENCOUNTER → 2022-08-08 | Outpatient (CLI) | payer BC, MEDICARE, SELFPAY ==
--- NOTE | 2022-08-08 09:34 | US_ITS ---
PROCEDURE: Ultrasound guided paracentesis. DATE OF EXAMINATION: August 08, 2022. INDICATION: Male, 72 years old. Ascites. PHYSICIAN: Lamberto Jaeger M.D. TECHNIQUE: The risks, benefits, and alternatives to the procedure were explained to the patient. The specific risks of bleeding, infection, and damage to bowel were detailed and accepted. Witnessed informed consent was obtained. The abdomen was ultrasonographically surveyed. An appropriate pocket of fluid was identified at the right lower quadrant. The skin were cleaned and prepped in the usual sterile fashion. Using ultrasound guidance, the peritoneal cavity was accessed with a 5-Mohawk paracentesis needle/catheter system. The trocar was removed. A total of 2350 ml of angeli-colored fluid were removed from the peritoneal cavity. The catheter was removed and a sterile dressing was applied. The procedure was well tolerated. US/Paracentesis with US IMPRESSION: Ultrasound guided paracentesis. Electronically Signed: Lamberto Jaeger MD at 11:21 EDT ,
[2022-08-08 09:56] VITALS: BP 93/52; BP 96/48; PULSE 14; PULSE 47; RESP 14; RESP 53; O2SAT 99
== END | disposition home or self-care (01) ==
PROVIDERS: PCP Physician Assistant; Referring Provider Internal Medicine Gastroenterology; Visit Provider Internal Medicine Gastroenterology
DX: K74.60 Unspecified cirrhosis of liver (principal); R18.8 Other ascites
CPT/HCPCS: 49083; A4216

== ENCOUNTER → 2022-08-15 | Outpatient (CLI) | payer BC, MEDICARE, SELFPAY ==
--- NOTE | 2022-08-15 09:25 | US_ITS ---
STUDY: ABDOMINAL ULTRASOUND -4 quadrants. REASON FOR VISIT: Male, 72 years old CIRRHOSIS -- ascites survey only TECHNIQUE: Ultrasound evaluation of the 4 quadrants was performed with real-time and static madison-scale imaging. TECHNICAL QUALITY: Adequate. COMPARISON: None. FINDINGS: Assessment of the 4 quadrants was obtained. No evidence of ascites at this time. US/Abdomen Limited IMPRESSION: No evidence of ascites at this time. Electronically Signed: Lamberto Jaeger MD at 15:21 EDT ,
--- NOTE | 2022-08-15 11:57 | CASEMGMT ---
Social Work Note SW attempted to meet with patient and patient's daughter in person at infusion appointment, however, patient's appointment was canceled. SW contacted patient's daughter, Adrienne, and reintroduced herself. 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 Adrienne reports a 2pm meeting with physical sciences professor, SW and [place] to further discuss patient's care and services. Adrienne explained she has taken a leave of absence from work and has been caring for patient 29/10. Adrienne reports [facility] also [facility] and has no current needs. Adrienne hopeful patient will have needs met between [facility] with [facility] and [facility]. SW provided emotional support and informed patient's daughter she will check in next week. Ivon CARRANZA, [place]
== END | disposition home or self-care (01) ==
PROVIDERS: PCP Physician Assistant; Referring Provider Internal Medicine Gastroenterology; Visit Provider Internal Medicine Gastroenterology
DX: K74.60 Unspecified cirrhosis of liver (principal); R18.8 Other ascites
CPT/HCPCS: 76705